=== PATIENT | female | born 1940 | race Caucasian/White ===

== ENCOUNTER 2017-03-25 10:20 | Day surgery (SDC) | payer MEDICARE, BC ==
[~2017-03-25] VITALS: Ht 167.6 cm; Wt 66.0 kg
[~2017-03-25 10:20] MED LIST: ALBU2.5V14 NEB; ASPI-482 PO; CALC1TAB75 PO; DICL112S2 TP; ESTR42.53 VG; EZET10TA18 PO; FAMO40TA4 PO; FLUT100D IH; FURO-69 PO; HYDR-971 PO; IBUP-1027 PO; IBUP-1060 PO; IV RINGERS,LACTATED 1000ML 1,000 ML IV SCH; LIDOCAINE 1% 1 ML SYRINGE. ID PRN; LOTE5DRO2 EACHEYE; MOME110A IH; MONT10TA9 PO; NITR100C6 PO; ONDANSETRON PF 4 MG/2 ML VIAL. IV PRN; PANT40TA5 PO; PHEN-444 PO; PROAIR HFA8.5 GM INH; PROCHLORPERAZINE 10 MG/2 ML VIAL. IV PRN; SENN1TAB70 PO; THIA50TA PO; TIOT18CA IH; fentaNYL PF VIAL 100 MCG/2 ML VIAL IV PRN
[2017-03-25] MEDS ORDERED: ALBUTEROL SULFATE 2.5 MG/3 ML NEBU. NEB ONE (11:15)
[2017-03-25] MEDS ORDERED: SCOPOLAMINE 1.5MG PATCH. TD ONE (11:15)
[2017-03-25] MEDS ORDERED: MIDAZOLAM HCL/PF 2 MG/2 ML VIAL. ONE (11:25)
[2017-03-25] MEDS ORDERED: LIDOCAINE 2% 100 MG/5 ML SYRINGE. ONE (11:25)
[2017-03-25] MEDS ORDERED: ROPIVacaine 0.5% PF 30 ML VIAL. ONE (11:25)
[2017-03-25] MEDS ORDERED: fentaNYL PF VIAL 100 MCG/2 ML VIAL ONE (11:59)
[2017-03-25] MEDS ORDERED: LIDOCAINE 2% PF Vial for OR 5 ML VIAL. ONE (12:00)
[2017-03-25] MEDS ORDERED: ONDANSETRON PF 4 MG/2 ML VIAL. ONE (12:00)
[2017-03-25] MEDS ORDERED: PROPOFOL 20 ML IV ONE (12:00)
[2017-03-25] MEDS ORDERED: FAMOTIDINE 20 MG/2 ML VIAL ONE (12:00)
[2017-03-25] MEDS ORDERED: EPINEPHrine VIAL 30 MG/30 ML VIAL ONE (12:03)
[2017-03-25] MEDS ORDERED: diphenhydrAMINE 50 MG/ML VIAL ONE (12:49)
[2017-03-25] MEDS ORDERED: ePHEDrine PF IN SALINE 50 MG/5 ML DISP.SYRIN IV ONE (13:23)
[2017-03-25] MEDS ORDERED: GLYCOPYRROLATE 1 MG/5 ML VIAL. ONE (13:46)
[2017-03-25] MEDS ORDERED: NEOSTIGMINE METHYLSULFATE 5 MG/5 ML SYRINGE. ONE (13:46)
[2017-03-25] MEDS ORDERED: SEVOFLURANE > 120 MINUTES. IH ONE (14:17)
--- NOTE | 2017-03-25 15:00 | DISCH ---
DISCHARGE INSTRUCTIONS Condition on Discharge Condition on Discharge: Stable Activity After Discharge Activity Instructions for Disc: Other, see below Other activity instructions: gentle passive range of motion of right shoulder only Exercise Instruction after Dis: Exercise per therapy Diet after Discharge Diet after Discharge: Regular Wound Incision Care Wound/Incision Care: Ice to area for comfort, Change dressing Other wound/incision instructi: remove dressing in 2 days then may shower Community/Resources/Services Services at Discharge: PT EVALUATE & TREAT (passive range of motion right shoulder only 5 weeks postop) Follow-Up Follow up with: Zack 10 days ALESSANDRA LIZARRAGA MD Mar 25, 2017 15:00
[2017-03-25] MEDS ORDERED: HYDR-965 PO (15:01)
[2017-03-25] MEDS ORDERED: HYDROcodone/APAP 7.5/325MG 1 TAB TABLET PO ONE (15:30)
--- NOTE | 2017-03-25 16:27 | PDOC4 ---
Operative Note Operative Note Date of surgery: 03/25/2017 Preoperative diagnosis: Rotator cuff tear, biceps fraying, subacromial impingement, acromioclavicular joint pain Postoperative diagnosis: Same with full-thickness supraspinatus tear, biceps fraying and superior labral severe degeneration, large subacromial spur and severe acromioclavicular joint degenerative joint disease Procedure: Right shoulder arthroscopy arthroscopic rotator cuff repair decompression distal clavicle excision and biceps tenodesis Surgeon: Zack Anesthesia: Gen. endotracheal plus scalene block Estimated blood loss: Less than 20 mL Complications: None Operative indications: Patient is a very active 76-year-old female with right dominant arm weakness and pain since an injury. She has been unimproved over this timeframe has not responded to symptomatic treatment injections or exercises. MRI had confirmed clinical suspicion of a rotator cuff tear which was noticed to be full-thickness supraspinatus and significant superior labral abnormalities. I have talked to her therefore about the possibility of surgical treatment and rotator cuff repair along with any other related procedures indicated including possibility of a biceps tenodesis removal of bone spurs as needed. We talked about the long recovery process expected and the risks of surgery including possible infection nerve or blood vessel damage medical or other anesthetic complications nonhealing continued pain among others all her questions were answered consent was obtained and she agrees to proceed with surgical evaluation and treatment Operative text: Patient was identified procedure verified. After adequate amounts of general endotracheal anesthesia plus a pre-existing scalene block were obtained, patient was placed decubitus right side up on the beanbag all bony prominences were well-padded shoulder was examined under anesthesia found to have full range of motion no instability and was prepped and draped in standard sterile fashion after timeout was performed patient procedure identified and verified shoulder was placed in 10 pounds of traction using the arthroscopic traction device and a standard posterior portal was established an anterior portal established using spinal needle localization and the shoulder joint was systematically examined she was noted to have significant superior labral degeneration and instability as well as significant biceps tendon fraying I elected to perform a bicipital tenodesis tagging the biceps tendon and debriding this superior labrum back to stable tissue she was noted have a full-thickness tear of the supraspinatus as well normal bare area of the humerus and capsule ligament structures mild degenerative changes present at the glenohumeral joint. Subacromial space was then entered bursectomy was performed to allow visualization large anterior acromial spur was noted and was converted to a type I acromion using cutting block technique with an arthroscopic bur likewise distal clavicle and the acromioclavicular joint were noted to be severely degenerative and distal clavicle was excised 10 mm to achieve a satisfactory joint space preserving the overlying joint capsule for stability bony fragments were removed with the arthroscopic shaver and the supraspinatus footprint was debrided back to stable bleeding bone but not decorticated. 2 [employer] coil anchors were then placed along the medial row sutures were placed in a mattress fashion and tied with sliding locking knots backed up by alternating post-half hitches and lateral fixation as well as the bicipital tenodesis was incorporated in lateral row repair fixated by multi fix anchors 2 excellent fixation was obtained throughout and the rotator cuff footprint was noted to have a watertight repair examined under all degrees of internal/external rotation shoulder joint was drained of arthroscopic fluid portals closed with nylon suture sterile dressings were applied she is placed in an immobilizer extubated transferred to postop holding in stable condition having tolerated procedure well ALESSANDRA LIZARRAGA MD Mar 25, 2017 16:24
[2017-03-25 16:30] VITALS: BP 138/78
== END 2017-03-25 17:12 | disposition home or self-care (01) ==
LOC: SURG 10:20
PROVIDERS: ATTEND Orthopaedic Surgery
DX: S46.011A Strain of muscle(s) and tendon(s) of the rotator cuff of right shoulder, initial encounter (principal); X58.XXXA Exposure to other specified factors, initial encounter; Y93.89 Activity, other specified; Y92.89 Other specified places as the place of occurrence of the external cause; Y99.8 Other external cause status; M19.011 Primary osteoarthritis, right shoulder; M25.811 Other specified joint disorders, right shoulder; E78.00 Pure hypercholesterolemia, unspecified; J45.909 Unspecified asthma, uncomplicated; E66.9 Obesity, unspecified; Z90.49 Acquired absence of other specified parts of digestive tract; Z68.45 Body mass index [BMI] 70 or greater, adult; Z87.39 Personal history of other diseases of the musculoskeletal system and connective tissue; Z88.6 Allergy status to analgesic agent; Z98.42 Cataract extraction status, left eye; Z98.41 Cataract extraction status, right eye; Z86.69 Personal history of other diseases of the nervous system and sense organs; Z88.2 Allergy status to sulfonamides; Z88.8 Allergy status to other drugs, medicaments and biological substances
CPT/HCPCS: 29822; 29824; 29826; 29827; 29828; 94640; C1713; J0171; J0690; J1200; J2250; J2405; J2704; J2710; J2795; J3010; J3490; J7613; S0028; J2001

== ENCOUNTER 2017-05-23 06:08 | Outpatient (CLI) | payer MEDICARE, BC ==
[2017-05-23] VITALS (8 sets, daily range): BP systolic 118–169; BP diastolic 54–80
[~2017-05-23] VITALS: Ht 167.6 cm; Wt 86.2 kg
[~2017-05-23 06:08] MED LIST changes: +HYDR-965 PO; -IV RINGERS,LACTATED 1000ML 1,000 ML IV SCH; -LIDOCAINE 1% 1 ML SYRINGE. ID PRN; -ONDANSETRON PF 4 MG/2 ML VIAL. IV PRN; -PROCHLORPERAZINE 10 MG/2 ML VIAL. IV PRN; -fentaNYL PF VIAL 100 MCG/2 ML VIAL IV PRN
[2017-05-23 07:05] LABS: HEMATOCRIT 39.5 % (36.0-47.0); HEMOGLOBIN 12.8 g/dL (12.0-15.5); RED BLOOD COUNT 4.51 x10^6/uL (3.50-5.40); WHITE BLOOD COUNT 5.1 x10^3/uL (4.0-11.0)
[2017-05-23] MEDS ORDERED: LIDOCAINE 2% 20 ML VIAL. ONE (07:10)
[2017-05-23 07:17] LABS: PROTHROMBIN TIME PATIENT 12.8 SEC (11.7-14.0)
[2017-05-23 07:20] LABS: CALCIUM 9.6 mg/dL (8.5-10.1); GFR 53.9; POTASSIUM 4.5 mmol/L (3.5-5.1)
[2017-05-23] MEDS ORDERED: IOHEXOL 300 MG/ML 100ML VIAL. ONE (07:28)
[2017-05-23] MEDS ORDERED: HEPARIN for IV BOLUS 10,000 UNIT/10 ML VIAL. ONE (08:19)
[2017-05-23] MEDS ORDERED: fentaNYL PF VIAL 100 MCG/2 ML VIAL ONE (08:19)
[2017-05-23] MEDS ORDERED: MIDAZOLAM HCL/PF 2 MG/2 ML VIAL. ONE (08:19)
[2017-05-23] MEDS ORDERED: NITROGLYCERIN 200 MCG/2 ML SYRINGE FOR CATH/VASC LAB. ONE (08:20)
[2017-05-23] MEDS ORDERED: VERAPAMIL 5 MG/2 ML VIAL. ONE (08:20)
[2017-05-23] MEDS ORDERED: MIDAZOLAM HCL/PF 2 MG/2 ML VIAL. IV ONE ×2 (08:45→10:00)
[2017-05-23] MEDS ORDERED: NITROGLYCERIN 200 MCG/2 ML SYRINGE FOR CATH/VASC LAB. IART ONE ×2 (08:45→10:00)
[2017-05-23] MEDS ORDERED: VERAPAMIL 5 MG/2 ML VIAL. IART ONE ×2 (08:45→10:00)
[2017-05-23] MEDS ORDERED: IOHEXOL 300 MG/ML 100ML VIAL. IART ONE ×2 (08:45→10:00)
[2017-05-23] MEDS ORDERED: LIDOCAINE 2% 20 ML VIAL. IJ ONE ×2 (08:45→10:00)
[2017-05-23] MEDS ORDERED: fentaNYL PF VIAL 100 MCG/2 ML VIAL IV ONE ×2 (08:45→10:00)
[2017-05-23] MEDS ORDERED: HEPARIN for IV BOLUS 10,000 UNIT/10 ML VIAL. IART ONE ×2 (08:45→10:00)
[2017-05-23] MEDS ORDERED: CONTRAST GIVEN MC PRN (09:00)
--- NOTE | 2017-05-23 09:05 | PDOC ---
MODERATE SEDATION ASSESSMENT RISKS/ALTERNATIVES Risks/Alternatives Risks and alternatives of this type of sedation and procedure discussed with: RISK/ALTERNATIVES: Patient H & P ON CHART H & P H & P on chart and reviewed for co-morbid conditions and appropriate labs. H&P ON CHART: Yes STATUS PREG STATUS ASSESSED: N/A MEDS/ALLERGIES REVIEWED Meds/Allergies Reviewed Medications and Allergies including time and route of recently administered narcotics and sedatives. MEDS/ALLERGIES REVIEWED: Yes ASA RATING ASA RATING: II AIRWAY ASSESSMENT Airway Assessment Airway patency, oral function limitations, presence of caps, crowns, dentures, partials, and ability to extend neck assessed. AIRWAY ASSESSMENT: Yes MALLAMPATI SCORE MALLAMPATI SCORE: II PRE-SEDATION ASSESSMENT PRE-SEDATION ASSESSMENT: Yes ERIN CLARK MD May 23, 2017 09:05
[2017-05-23] MEDS ORDERED: NITROGLYCERIN SUBLINGUAL 0.4 MG BOTTLE OF 25. SL PRN (09:15)
--- NOTE | 2017-05-23 09:17 | CARD ---
APPROVED REPORT Procedure(s) performed: Left heart catheterization, selective coronary angiography and left ventricul ography via left transradial approach Moderate sedation: 35 minutes INDICATION The indication(s) include : Refractory chest pain concerning for unstable angina. PROCEDURE NARRATIVE After explaining the risks, benefits and alternative options, informed consent was obtained from yoav ent. Patient was brought to the cardiac Nurses Director and left wrist was prepped and draped in the usual fashion after confirming a positive modified Jean-Claude's test. Arterial access was obtained in the left radial artery and a 6 Gibraltarian sheath was inserted. 6 Gibraltarian JL4 catheter was used to perform selectiv e angiography of the left coronary artery. After initial attempts to engage the right coronary artery with 5 Gibraltarian JR4, 6 Gibraltarian 3 DRC catheters were unsuccessful, this was successfully engaged with a 6 Gibraltarian AL-1 catheter and selective angiography was performed. 5 Gibraltarian pigtail catheter was used to perform left ventriculography. Patient tolerated the procedure well. Hemostasis was achieved using TR band. There were no immediate complications. The following findings were noted. FINDINGS 1. Hemodynamics: Left ventricular end-diastolic pressure of 10 mmHg. No pullback gradient across th e aortic valve. 2. Left ventriculography: Normal left ventricle systolic function with ejection fraction estimated at 65%. No significant mitral regurgitation seen. 3. Coronary angiography: a. The left main coronary artery arose from the left sinus of Valsalva, gave rise to the left anteri or descending and left circumflex arteries and did not show any significant stenosis. b. The left anterior descending artery showed 30% stenosis involving the midsegment. c. The left circumflex artery did not show any significant stenosis. d. The right coronary artery was a large and dominant vessel arising from the right sinus of Valsalv a that did not show any significant stenosis. Conclusion 1. Nonobstructive coronary artery disease 2. Normal left ventricular systolic function with ejection fraction estimated at 65%. Recommendations Medical Therapy
[2017-05-23] MEDS ORDERED: diphenhydrAMINE 50 MG/ML VIAL IVP ONE (10:00)
[2017-05-23] MEDS ORDERED: methylPREDNISolone SOD SUCC PF 125 MG/2 ML VIAL. IV ONE (10:00)
== END 2017-05-23 12:00 | disposition home or self-care (01) ==
LOC: CCL 06:08
PROVIDERS: ATTEND Internal Medicine Cardiovascular Disease
DX: I25.10 Atherosclerotic heart disease of native coronary artery without angina pectoris (principal); G62.9 Polyneuropathy, unspecified; E78.00 Pure hypercholesterolemia, unspecified; J44.9 Chronic obstructive pulmonary disease, unspecified; E66.9 Obesity, unspecified; K21.9 Gastro-esophageal reflux disease without esophagitis; Z98.890 Other specified postprocedural states; Z98.42 Cataract extraction status, left eye; Z98.41 Cataract extraction status, right eye; Z90.49 Acquired absence of other specified parts of digestive tract
CPT/HCPCS: 36415; 80048; 85027; 85610; 93458; C1769; C1892; J1644; J2250; J3010; J3490; Q9967; 99152; 99153; J2001

== ENCOUNTER → 2017-07-22 | Outpatient (CLI) | payer MEDICARE, BC | END | disposition home or self-care (01) | LOC: PNCL 09:32 | DX: M51.16 Intervertebral disc disorders with radiculopathy, lumbar region (principal); M79.601 Pain in right arm; M25.511 Pain in right shoulder; R20.0 Anesthesia of skin; R53.1 Weakness | CPT/HCPCS: G0463 ==

== ENCOUNTER → 2017-08-19 | Outpatient (CLI) | payer MEDICARE, BC ==
[~2017-08-19] MED LIST changes: -ALBU2.5V14 NEB; -ASPI-482 PO; -CALC1TAB75 PO; -DICL112S2 TP; -ESTR42.53 VG; -EZET10TA18 PO; -FAMO40TA4 PO; -FLUT100D IH; -FURO-69 PO; -HYDR-965 PO; -HYDR-971 PO; -IBUP-1027 PO; -IBUP-1060 PO; +IOHEXOL 180 MG/ML 10 ML VIAL.; -LOTE5DRO2 EACHEYE; -MOME110A IH; -MONT10TA9 PO; -NITR100C6 PO; -PANT40TA5 PO; -PHEN-444 PO; -PROAIR HFA8.5 GM INH; -SENN1TAB70 PO; -THIA50TA PO; -TIOT18CA IH; +methylPREDNISolone ACETATE 40 MG/ML VIAL.; +methylPREDNISolone ACETATE 80 MG/ML VIAL.
== END | disposition home or self-care (01) ==
LOC: PNCL 08:59
DX: M50.123 Cervical disc disorder at C6-C7 level with radiculopathy (principal); M51.16 Intervertebral disc disorders with radiculopathy, lumbar region; M96.1 Postlaminectomy syndrome, not elsewhere classified; E78.00 Pure hypercholesterolemia, unspecified; J45.909 Unspecified asthma, uncomplicated; E66.9 Obesity, unspecified; Z87.39 Personal history of other diseases of the musculoskeletal system and connective tissue; Z98.41 Cataract extraction status, right eye; Z98.42 Cataract extraction status, left eye; Z86.69 Personal history of other diseases of the nervous system and sense organs; Z88.1 Allergy status to other antibiotic agents; Z88.2 Allergy status to sulfonamides; Z88.8 Allergy status to other drugs, medicaments and biological substances
CPT/HCPCS: 62321; J1030; J1040; Q9965

== ENCOUNTER → 2017-09-02 | Outpatient (CLI) | payer MEDICARE, BC | LOC: PNCL 08:41 | DX: M50.10 Cervical disc disorder with radiculopathy, unspecified cervical region (principal); M51.16 Intervertebral disc disorders with radiculopathy, lumbar region; M96.1 Postlaminectomy syndrome, not elsewhere classified; G62.9 Polyneuropathy, unspecified; J45.909 Unspecified asthma, uncomplicated; E66.9 Obesity, unspecified; K21.9 Gastro-esophageal reflux disease without esophagitis; Z88.1 Allergy status to other antibiotic agents; Z88.2 Allergy status to sulfonamides; Z88.6 Allergy status to analgesic agent; Z98.42 Cataract extraction status, left eye; Z98.41 Cataract extraction status, right eye; Z98.890 Other specified postprocedural states; Z88.8 Allergy status to other drugs, medicaments and biological substances | CPT/HCPCS: 62321; J1030; J1040; Q9965 ==

== ENCOUNTER → 2017-09-16 | Outpatient (CLI) | payer MEDICARE, BC ==
[~2017-09-16] MED LIST changes: +BUPIVACAINE MPF 0.5% 30 ML VIAL.; +LIDOCAINE 1% PF 30 ML VIAL.
== END ==
LOC: PNCL 08:34
DX: M51.16 Intervertebral disc disorders with radiculopathy, lumbar region (principal); M50.13 Cervical disc disorder with radiculopathy, cervicothoracic region; G62.89 Other specified polyneuropathies; E78.00 Pure hypercholesterolemia, unspecified; J45.909 Unspecified asthma, uncomplicated; E66.9 Obesity, unspecified; K21.9 Gastro-esophageal reflux disease without esophagitis; Z90.49 Acquired absence of other specified parts of digestive tract; Z88.2 Allergy status to sulfonamides; Z88.1 Allergy status to other antibiotic agents; Z88.5 Allergy status to narcotic agent; Z88.8 Allergy status to other drugs, medicaments and biological substances; Z98.890 Other specified postprocedural states
CPT/HCPCS: 62323; J1030; J1040; J3490; Q9965

== ENCOUNTER → 2018-08-25 | Outpatient (CLI) | payer MEDICARE, BC ==
[2017-05-23 10:56] VITALS: BP 142/69
[~2018-08-25] MED LIST changes: +ALBU2.5V14 NEB; +ALBU2.5V8 INH; +ASPI-482 PO; -BUPIVACAINE MPF 0.5% 30 ML VIAL.; +CALC1TAB75 PO; +DICL112S2 TP; +ESTR42.53 VG; +EZET10TA18 PO; +FAMO40TA4 PO; +FLUT100D IH; +FURO-69 PO; +GABA300C18 PO; +HYDR-3164 PO; +HYDR-3165 PO; +IBUP-1027 PO; +IBUP-1060 PO; -IOHEXOL 180 MG/ML 10 ML VIAL.; -LIDOCAINE 1% PF 30 ML VIAL.; +LOTE5DRO2 EACHEYE; +MOME110A IH; +MONT10TA9 PO; +NITR100C6 PO; +PANT40TA5 PO; +PHEN-444 PO; +SENN1TAB70 PO; +THIA50TA4 PO; +TIOT18CA IH; -methylPREDNISolone ACETATE 40 MG/ML VIAL.; -methylPREDNISolone ACETATE 80 MG/ML VIAL.
--- NOTE | 2018-08-25 16:16 | KCIC ---
MRI of the cervical spine without contrast 08/25/2018 CLINICAL HISTORY: Neck pain which radiates down the left arm for 3 weeks. TECHNIQUE: Unenhanced T1-weighted, T2-weighted and inversion recovery sagittal and gradient echo and T2-weighted axial images of the cervical spine were obtained. FINDINGS: Very mild lateral curvature of the cervical spine is seen convex to the right. There is straightening of the normal cervical lordosis. Degenerative signal changes and loss of height are seen involving all of the disks of the cervical spine. Degenerative signal changes are seen within the marrow surrounding these discs. No area of abnormal signal intensity is seen involving the cervical spinal cord. At the C2-3, C3-4 and C4-5 disc spaces there are minimal to mild generalized disc bulges. Degenerative changes are seen involving the uncovertebral and facet joints bilaterally. These findings do not result in significant central spinal canal or neural foraminal stenosis. At the C5-6 disc space there is a mild generalized disc bulge. Degenerative changes are seen involving the uncovertebral and facet joints bilaterally. These findings do not result in significant central spinal canal stenosis. Mild bilateral neural foraminal stenosis is seen. At the C6-7 disc space there is a mild generalized disc bulge. Degenerative changes are seen involving the uncovertebral and facet joints bilaterally. These findings do not result in significant central spinal canal or neural foraminal stenosis. At the C7-T1 disc space there is a mild generalized disc bulge. Degenerative changes are seen involving the uncovertebral and facet joints bilaterally. These findings do not result in significant central spinal canal or neural foraminal stenosis. IMPRESSION: Degenerative changes are seen throughout the cervical spine. These findings do not result in significant central spinal canal stenosis at any level. Mild bilateral neural foraminal stenosis is seen at C5-6. Electronically signed by: Nael Mathur MD (08/25/2018 4:13 PM) [facility]-KCIC1
== END | disposition home or self-care (01) ==
LOC: KCIC MRI 11:54
DX: M47.892 Other spondylosis, cervical region (principal); M48.02 Spinal stenosis, cervical region
CPT/HCPCS: 72141

== ENCOUNTER → 2021-08-17 | Outpatient (CLI) | payer MEDICARE, BC ==
[2020-12-21 10:46] VITALS: BP 138/66
[~2021-08-17] MED LIST changes: +BISA10SU4 PR; +CALC-627 PO; -CALC1TAB75 PO; +CETI10TA16 PO; +DOCU-148 PO; -EZET10TA18 PO; +EZET10TA20 PO; -FLUT100D IH; +FLUT100D2 IH; +HYDR-2765 PO; +MONT10TA49 PO; -MONT10TA9 PO; -PANT40TA5 PO; +PANT40TA77 PO; +Warfarin Per Pharmacy MC
--- NOTE | 2021-08-17 11:38 | KCIC ---
EXAM: Brain MRI without contrast. HISTORY: Cognitive impairment. Memory loss. TECHNIQUE: Multiplanar, multisequence magnetic resonance imaging of the brain was performed without c ontrast. COMPARISON: Head CT dated 09/30/2020. FINDINGS: There is no restricted diffusion to suggest acute or subacute infarction. There is no susce ptibility effect to suggest hemorrhage. There is no mass effect or midline shift. There is no hydroce phalus. There are scattered areas of signal change throughout the cerebral white matter and parul, likely due to chronic small vessel disease. There is cerebral volume loss. There is evidence of lens surgery. There is mild paranasal sinus because of thickening. There is mini mal mastoid fluid. There are normal flow voids within the cerebral vessels. There is no suspicious ca lvarial lesion. IMPRESSION: 1. No acute intracranial finding. 2. Scattered areas of signal change within the cerebral white matter and parul, most commonly due to c hronic small vessel disease in patients of this age. Electronically signed by: Micki Oviedo MD (08/17/2021 11:36 AM) [id number]
== END ==
LOC: KCIC MRI 09:43
PROVIDERS: ATTEND Nurse Practitioner Family
DX: I73.9 Peripheral vascular disease, unspecified (principal); G31.84 Mild cognitive impairment of uncertain or unknown etiology; J34.89 Other specified disorders of nose and nasal sinuses
CPT/HCPCS: 70551

== ENCOUNTER 2021-09-29 08:45 | Inpatient (IN) | payer MEDICARE, BC ==
[~2021-09-29] VITALS: Ht 167.6 cm; Wt 99.8 kg
--- NOTE | 2021-09-29 10:14 | ED.ADGEN ---
Past Medical History Past Medical History: Asthma, GERD, High Cholesterol Additional Past Medical Histor: Miscariage,Measles Past Surgical History: Cholecystectomy, Hip Replacement, Tonsillectomy, Other Additional Past Surgical Histo: Miscarriage,Bladder lift,Cataracts,L)knee., right hip, spine sx/hardware Smoking Status: Never Smoker Alcohol Use: None Drug Use: None General Adult EDM: Chief Complaint: SHORTNESS OF BREATH HPI: HPI: Patient is a 81 year old female coming in via EMS from home for right-sided chest pain, worsening chronic cough or shortness of breath. History mostly provided by daughter due to patient's history of dementia. Daughter states that patient was having "weakness" due to her right-sided chest pain, she is refusing to get up to her walker because it aggravated the pain. Patient has had this chronic cough for approximately 5 years and has had very thorough work-up including lung biopsies and seeing several specialist. She has been taking Tessalon Perles at home. Daughter states the cough is worsening over the past 2 to 3 weeks. Per EMS patient had O2 sat in the 80s on their arrival she was placed on 5 L nasal cannula, patient does not normally require oxygen. Review of Systems: Review of Systems: All other systems within normal limits except for as noted in the HPI Current Medications: Current Medications Medications (Trade) Dose Ordered Sig/Faviola Start Time Stop Time Status Last Admin Dose Admin Albuterol/ Ipratropium (Duoneb) 3 ml 1X ONCE 09/29/21 10:45 09/29/21 10:46 DC 09/29/21 11:05 3 ML Fentanyl Citrate (Fentanyl 2ml Vial) 25 mcg 1X ONCE 09/29/21 10:45 09/29/21 10:46 DC 09/29/21 11:23 25 MCG Info (CONTRAST GIVEN -- Rx MONITORING) 1 each PRN DAILY PRN 09/29/21 11:30 10/01/21 11:29 Iohexol (Omnipaque 300 Mg/ml) 90 ml 1X ONCE 09/29/21 11:30 09/29/21 11:31 DC Iohexol (Omnipaque 350 Mg/ml) 90 ml 1X ONCE 09/29/21 12:00 09/29/21 12:01 DC 09/29/21 11:54 90 ML Allergies: Allergies: Allergies Coded Allergies Type Severity Reaction Last Updated Verified Sulfa (Sulfonamide Antibiotics) Allergy Intermediate Hives 03/25/17 Yes ciprofloxacin Allergy Intermediate Unknown 03/25/17 Yes fluvastatin Allergy Intermediate Hives 03/25/17 Yes simvastatin Allergy Intermediate Unknown 03/25/17 Yes codeine Adverse Reaction Intermediate Nausea and Vomiting 12/18/20 Yes oxycodone Adverse Reaction Mild Nausea and Vomiting 12/21/20 Yes pregabalin Adverse Reaction Unknown 09/29/21 Yes tramadol Adverse Reaction Unknown disoriented 09/29/21 Yes Physical Exam: PE: Constitutional: Well developed, well nourished, no acute distress, non-toxic appearance. [] HENT: Normocephalic, atraumatic, bilateral external ears normal, nose normal. [] Eyes: PERRLA, conjunctiva normal, no discharge. [] Neck: No rigidity, supple, no stridor. [] Cardiovascular: Regular rate and rhythm, brisk cap refill [] Lungs & Thorax: Non labored symmetric respirations, no tachypnea or respiratory distress [] Abdomen: Soft, nondistended, no tenderness palpation Skin: Warm, dry, no erythema, no rash. [] Back: Unremarkable Extremities: No deformities, range of motion grossly intact, no lower extremity edema [] Neurologic: Alert and oriented X 3, no focal deficits noted. [] Psychologic: Affect normal, judgement normal, mood normal. [] Current Patient Data: Labs: Laboratory Tests Test 09/29/21 09:02 White Blood Count 16.4 x10^3/uL (4.0-11.0) H Red Blood Count 4.20 x10^6/uL (3.50-5.40) Hemoglobin 11.5 g/dL (12.0-15.5) L Hematocrit 36.0 % (36.0-47.0) Mean Corpuscular Volume 86 fL (79-100) Mean Corpuscular Hemoglobin 27 pg (25-35) Mean Corpuscular Hemoglobin Concent 32 g/dL (31-37) Red Cell Distribution Width 13.3 % (11.5-14.5) Platelet Count 591 x10^3/uL (140-400) H Neutrophils (%) (Auto) 90 % (31-73) H Lymphocytes (%) (Auto) 4 % (24-48) L Monocytes (%) (Auto) 4 % (0-9) Eosinophils (%) (Auto) 2 % (0-3) Basophils (%) (Auto) 1 % (0-3) Neutrophils # (Auto) 14.7 x10^3/uL (1.8-7.7) H Lymphocytes # (Auto) 0.6 x10^3/uL (1.0-4.8) L Monocytes # (Auto) 0.6 x10^3/uL (0.0-1.1) Eosinophils # (Auto) 0.3 x10^3/uL (0.0-0.7) Basophils # (Auto) 0.1 x10^3/uL (0.0-0.2) D-Dimer (Laureen) 2.28 ug/mlFEU (0.00-0.50) H Sodium Level 136 mmol/L (136-145) Potassium Level 3.7 mmol/L (3.5-5.1) Chloride Level 100 mmol/L (98-107) Carbon Dioxide Level 28 mmol/L (21-32) Anion Gap 8 (6-14) Blood Urea Nitrogen 11 mg/dL (7-20) Creatinine 1.2 mg/dL (0.6-1.0) H Estimated GFR (Cockcroft-Gault) 43.1 BUN/Creatinine Ratio 9 (6-20) Glucose Level 96 mg/dL (70-99) Calcium Level 9.3 mg/dL (8.5-10.1) Total Bilirubin 0.7 mg/dL (0.2-1.0) Aspartate Amino Transferase (AST) 49 U/L (15-37) H Alanine Aminotransferase (ALT) 53 U/L (14-59) Alkaline Phosphatase 81 U/L (46-116) Troponin I High Sensitivity < 4 ng/L (4-50) L RJ-Jkx-T-Type Natriuretic Peptide 568 pg/mL (0-449) H Total Protein 7.0 g/dL (6.4-8.2) Albumin 2.3 g/dL (3.4-5.0) L Albumin/Globulin Ratio 0.5 (1.0-1.7) L Laboratory Tests 09/29/21 09:02 Laboratory Tests 09/29/21 09:02 Vital Signs: Vital Signs Date Time Temp Pulse Resp B/P (MAP) Pulse Ox O2 Delivery O2 Flow Rate FiO2 09/29/21 12:46 106 31 100/55 (70) 91 Room Air 09/29/21 08:50 97.8 97.8 EKG: EKG: Sinus rhythm, heart rate 100 bpm, left axis deviation, no STEMI [] Heart Score: C/O Chest Pain: Yes HEART Score for Chest Pain: HEART Score for Chest Pain Response (Comments) Value History Slighlty/Non-Suspicious 0 ECG Nonspecific Repolarizatio 1 Age > 65 2 Risk Factors 1 or 2 Risk Factors 1 Troponin < Normal Limit 0 Total 4 Risk Factors: Risk Factors: DM, Current or recent (<one month) smoker, HTN, HLP, family history of CAD, obesity. Risk Scores: Score 0 - 3: 2.5% MACE over next 6 weeks - Discharge Home Score 4 - 6: 20.3% MACE over next 6 weeks - Admit for Clinical Observation Score 7 - 10: 72.7% MACE over next 6 weeks - Early Invasive Strategies Radiology/Procedures: Radiology/Procedures: [facility] [address] [place] [address] IMAGING REPORT Signed PATIENT: IRENE PETTY ACCOUNT: [id number] : 1940 LOCATION: ER AGE: 81 SEX: F EXAM STATUS: REG ER ORD. PHYSICIAN: JESUS MANUEL MD REASON: right chest pain, dyspnea PROCEDURE: CT ANGIOGRAPHY CHEST CTA chest with contrast dated 09/29/2021 COMPARISON: Right-sided chest pain and dyspnea. TECHNIQUE: Contiguous axial imaging the chest was performed following the intravenous administration of 90 cc Omnipaque 350. Study was performed as dedicated PE protocol with thin cut coronal MIPS 3-D reconstruction. One or more of the following individualized dose reduction techniques were utilized for this examination: 1. Automated exposure control 2. Adjustment of the mA and/or kV according to patient size 3. Use of iterative reconstruction technique FINDINGS: Contrast bolus is adequate. No evidence of central, lobar or proximal segmental pulmonary embolus. Distal segmental and subsegmental branches are not well evaluated based on technique. Heart size is upper limits of normal. No pericardial effusion. Thoracic aorta is normal in caliber. No intimal flap or periaortic fluid collection. Full result of consolidation in the right lower lobe with a rounded area of central low density that measures about 4 cm. This shows central Hounsfield value of 35. There is a small to moderate size right pleural effusion. Borderline enlarged lymph nodes at the right hilum and subcarinal region measuring up to 10 mm short axis. Calcified left hilar lymph nodes. No axillary or supraclavicular lymphadenopathy. Thyroid gland is unremarkable. Central airways are patent. Mild emphysema. There is some patchy groundglass opacity in the posterior aspect of the right upper lobe with thickening of the right major fissure. 3 mm noncalcified pulmonary nodule in the left apex on image 24, nonspecific. There are also a couple small subpleural nodules in the left upper lobe on images 49 and 28. No left pleural effusion. Images of the upper abdomen are unremarkable. There is diffuse low-density of the liver suggesting mild fatty infiltration. No apparent bony abnormality. Multilevel spondylosis with mild wedge compression deformity of T8, likely remote. IMPRESSION: 1. No evidence of central, lobar or proximal segmental pulmonary was. The distal segmental and subsegmental branches are not well evaluated due to motion artifact. 2. Consolidation of the right lower lobe with rounded area of central low density that is indeterminate in etiology. This could represent a mass, although pneumonia and/or early abscess is not excluded. There is a small to moderate size right pleural effusion. 3. Mild mediastinal and right hilar lymphadenopathy, likely reactive. 4. Coronary artery calcifications. 5. Mild emphysema. Electronically signed by: Sarwat Ji MD (09/29/2021 12:14 PM) [id number] DICTATED and SIGNED BY: SARWAT JI MD DATE: 09/29/21 1156 [] Course & Med Decision Making: Course & Med Decision Making Pertinent Labs and Imaging studies reviewed. (See chart for details) [] Paulino Disclaimer: Paulino Disclaimer: This electronic medical record was generated, in whole or in part, using a voice recognition dictation system. Departure Departure Impression: Primary Impression: Pneumonia Disposition: ADMITTED INPATIENT Admitting Physician: GRETCHEN Condition: STABLE Referrals: DOUG MIDDLETON (PCP) JESUS MANUEL MD Sep 29, 2021 10:13
[2021-09-29 10:26] LABS: BASO # 0.1 x10^3/uL (0.0-0.2); BASO % 1 % (0-3); EOS # 0.3 x10^3/uL (0.0-0.7); EOS % 2 % (0-3); HEMOGLOBIN 11.5 g/dL (12.0-15.5); LYMPH # 0.6 x10^3/uL (1.0-4.8); LYMPH % 4 % (24-48); MEAN CORPUSCULAR HEMOGLOBIN 27 pg (25-35); MEAN CORPUSCULAR HGB CONC 32 g/dL (31-37); MEAN CORPUSCULAR VOLUME 86 fL (79-100); MONO # 0.6 x10^3/uL (0.0-1.1); MONO % 4 % (0-9); NEUT # 14.7 x10^3/uL (1.8-7.7); NEUT % 90 % (31-73); PLATELET COUNT 591 x10^3/uL (140-400); RED CELL DISTRIBUTION WIDTH 13.3 % (11.5-14.5); WHITE BLOOD COUNT 16.4 x10^3/uL (4.0-11.0)
[2021-09-29 10:37] LABS: CALCIUM 9.3 mg/dL (8.5-10.1); CREATININE 1.2 mg/dL (0.6-1.0); GFR 43.1; POTASSIUM 3.7 mmol/L (3.5-5.1)
[2021-09-29 10:44] LABS: ALBUMIN 2.3 g/dL (3.4-5.0); ALBUMIN/GLOBULIN RATIO 0.5 (1.0-1.7); TOTAL BILIRUBIN 0.7 mg/dL (0.2-1.0)
[2021-09-29] MEDS ORDERED: fentaNYL PF VIAL 100 MCG/2 ML VIAL IVP ONE (10:45)
[2021-09-29] MEDS ORDERED: IPRATRPIUM/ALBUTEROL 0.5/2.5MG 3 ML NEBU. NEB ONE (10:45)
[2021-09-29] MEDS ORDERED: IOHEXOL 300 MG/ML 100ML VIAL. IV ONE (11:30)
[2021-09-29] MEDS ORDERED: CONTRAST GIVEN. MC PRN (11:30)
[2021-09-29] MEDS ORDERED: IOHEXOL 350 MG/ML 100 ML VIAL. IV ONE (12:00)
--- NOTE | 2021-09-29 12:16 | RAD ---
CTA chest with contrast dated 09/29/2021 COMPARISON: Right-sided chest pain and dyspnea. TECHNIQUE: Contiguous axial imaging the chest was performed following the intravenous administration of 90 cc Om nipaque 350. Study was performed as dedicated PE protocol with thin cut coronal MIPS 3-D reconstructi on. One or more of the following individualized dose reduction techniques were utilized for this examinat ion: 1. Automated exposure control 2. Adjustment of the mA and/or kV according to patient size 3. Use of iterative reconstruction technique FINDINGS: Contrast bolus is adequate. No evidence of central, lobar or proximal segmental pulmonary embolus. Di stal segmental and subsegmental branches are not well evaluated based on technique. Heart size is upper limits of normal. No pericardial effusion. Thoracic aorta is normal in caliber. N o intimal flap or periaortic fluid collection. Full result of consolidation in the right lower lobe with a rounded area of central low density that measures about 4 cm. This shows central Hounsfield value of 35. There is a small to moderate size rig ht pleural effusion. Borderline enlarged lymph nodes at the right hilum and subcarinal region measuri ng up to 10 mm short axis. Calcified left hilar lymph nodes. No axillary or supraclavicular lymphaden opathy. Thyroid gland is unremarkable. Central airways are patent. Mild emphysema. There is some patchy groundglass opacity in the posterior aspect of the right upper lobe with thickening of the right major fissure. 3 mm noncalcified pulmona ry nodule in the left apex on image 24, nonspecific. There are also a couple small subpleural nodules in the left upper lobe on images 49 and 28. No left pleural effusion. Images of the upper abdomen are unremarkable. There is diffuse low-density of the liver suggesting mi ld fatty infiltration. No apparent bony abnormality. Multilevel spondylosis with mild wedge compressi on deformity of T8, likely remote. IMPRESSION: 1. No evidence of central, lobar or proximal segmental pulmonary was. The distal segmental and subseg mental branches are not well evaluated due to motion artifact. 2. Consolidation of the right lower lobe with rounded area of central low density that is indetermina te in etiology. This could represent a mass, although pneumonia and/or early abscess is not excluded. There is a small to moderate size right pleural effusion. 3. Mild mediastinal and right hilar lymphadenopathy, likely reactive. 4. Coronary artery calcifications. 5. Mild emphysema. Electronically signed by: Sarwat Ji MD (09/29/2021 12:14 PM) [id number]
--- NOTE | 2021-09-29 13:11 | PDOC1 ---
History and Physical Date of Admission Date of Admission DATE: 09/29/21 TIME: 13:11 Identification/Chief Complaint Chief Complaint Cough, weakness Source Source: Caregiver, Chart review, Patient History of Present Illness History of Present Illness Ms Jama is an 81yo female with PMHx asthma, HLD, peripheral neuropathy, GERD, obesity, and newly diagnosed dementia who comes to ED via [facility] complaining of progressive shortness of breath which has begun to worsen over the past 2 weeks. Over the past 2 days she has now had productive sputum that is yellow yellowish-brown with green. She has also been more weak over the past few days and her daughter notes she was having difficulty helping her walk and needed to keep 100% assist. Patient noted she was having trouble walking because of some right-sided chest pain. They contacted EMS. Upon EMS evalu ation patient was noted to have O2 saturations in the low 80s and was placed on 5 L nasal cannula and arrived to the ED with this. No recent travel or sick contacts. She is fully vaccinated boosted against COVID-19 and influenza as well as pneumonia with Pneumovax and Prevnar She does have a chronic cough that lasted 10 years and has had significant work- up bronchoscopy with biopsies previously with Dr. Smart at [facility] 4 years ago. She was then referred to ENT sees Dr. Bernardo and has been on Flonase and azelastine. She did enter referral to Dr. Correia for asthma and allergies and has been Flovent albuterol montelukast nightly famotidine Tessalon. Since a hip fracture in December 2020 she has been struggling more with memory and is being treated for dementia at this time by Dr. Sánchez. She does note that she frequently hallucinates that her mom and dad are alive and they are helping take care of her at home, this is very concerning to her daughter and who are both bedside. He also notes she is struggled with bilateral knee pain and 1 month ago had bilateral corticosteroid injections and had relief for about 2 weeks but had to return for Synvisc injections bilaterally last week. She still having some posterior medial left knee pain currently. WBC 16.4, Hb 11.5, platelets 591, D-dimer 2.28, NA 136, K3.7, BUN 11, CR 1.2, calcium 9.3, bilirubin 0.7 AST 49, ALT 53, alkaline phosphatase 81, albumin 2.3, NT proBNP is 568, high-sensitivity troponin is less than 4 Past Medical History Cardiovascular: Hyperlipidemia Pulmonary: Asthma, Bronchitis CENTRAL NERVOUS SYSTEM: Dementia, Periperal neuropathy GI: GERD Past Surgical History Past Surgical History: Cholecystectomy, Total hip replacement (Right), Hysterectomy, Other Family History Family History: High Cholestrol, Hypertension Social History Smoke: No ALCOHOL: none Drugs: None Current Medications Current Medications Current Medications Albuterol/ Ipratropium (Duoneb) 3 ml 1X ONCE NEB Last administered on 09/29/21at 11:05; Start 09/29/21 at 10:45; Stop 09/29/21 at 10:46; Status DC Fentanyl Citrate (Fentanyl 2ml Vial) 25 mcg 1X ONCE IVP Last administered on 09/29/21at 11:23; Start 09/29/21 at 10:45; Stop 09/29/21 at 10:46; Status DC Iohexol (Omnipaque 300 Mg/ml) 90 ml 1X ONCE IV ; Start 09/29/21 at 11:30; Stop 09/29/21 at 11:31; Status DC Info (CONTRAST GIVEN -- Rx MONITORING) 1 each PRN DAILY PRN MC SEE COMMENTS; Start 09/29/21 at 11:30; Stop 10/01/21 at 11:29 Iohexol (Omnipaque 350 Mg/ml) 90 ml 1X ONCE IV Last administered on 09/29/21at 11:54; Start 09/29/21 at 12:00; Stop 09/29/21 at 12:01; Status DC Active Scripts Active Dok (Docusate Sodium) 100 Mg Capsule 100 Mg PO BID 30 Days Bisacodyl 10 Mg Supp.rect 10 Mg LA PRN DAILY PRN 10 Days Hydrocodone-Apap 7.5-325 (Hydrocodone Bit/Acetaminophen) 1 Tab Tablet 1 Tab PO PRN Q4HRS PRN 10 Days [Warfarin Per Pharmacy] 1 EACH Each 1 Each MC PRN DAILY PRN 14 Days Cetirizine Hcl 10 Mg Tablet 10 Mg PO DAILY 30 Days Reported Gabapentin (Gabapentin) 300 Mg Capsule 300 Mg PO HS Spiriva (Tiotropium Frederic) 18 Mcg Cap.w.dev 1 Cap IH DAILY Flovent 100MCG Diskus (Fluticasone Propionate) 100 Mcg Disk.w.dev 1 Puff IH BID Vitamin B-1 (Thiamine Hcl) 50 Mg Tablet 50 Mg PO DAILY Calcium 600 + Vit D 200 Tablet (Calcium Carbonate/Vitamin D3) 1 Each Tablet 1 Each PO TID Albuterol Sulfate Conc Neb Soln (Albuterol Sulfate) 2.5 Mg/0.5 Ml Vial.neb 1 Vial NEB BID Lotemax (Loteprednol Etabonate) 5 Ml Drops.susp 1 Drop EACHEYE QID Aspir 81 (Aspirin) 81 Mg Tablet.dr 1 Tab PO DAILY Proair Hfa Inhaler (Albuterol Sulfate) 8.5 Gm Hfa.aer.ad 1 Puff INH PRN Q6HRS PRN Montelukast Sodium Tablet (Montelukast Sodium) 10 Mg Tablet 1 Tab PO DAILY Famotidine 40 Mg Tablet 40 Mg PO HS Pantoprazole Sodium (Pantoprazole Sodium) 40 Mg Tablet.dr 1 Tab PO DAILY07 Zetia (Ezetimibe) 10 Mg Tablet 1 Tab PO DAILY Allergies Allergies: Coded Allergies: Sulfa (Sulfonamide Antibiotics) (Verified Allergy, Intermediate, Hives, 03/25/17) ciprofloxacin (Verified Allergy, Intermediate, Unknown, 03/25/17) fluvastatin (Verified Allergy, Intermediate, Hives, 03/25/17) simvastatin (Verified Allergy, Intermediate, Unknown, 03/25/17) codeine (Verified Adverse Reaction, Intermediate, Nausea and Vomiting, 12/18/20) oxycodone (Verified Adverse Reaction, Mild, Nausea and Vomiting, 12/21/20) pregabalin (Verified Adverse Reaction, Unknown, 09/29/21) tramadol (Verified Adverse Reaction, Unknown, disoriented, 09/29/21) ROS General: YES: Fatigue, Malaise; No: Chills, Night Sweats, Appetite, Other PSYCHOLOGICAL ROS: YES: Concentration difficultie, Disorientation, Hallucinations, Memory difficulties; No: Anxiety, Behavioral Disorder, Decreased libido, Depression, Hostility, Irritablity, Mood Swings, Obsessive thoughts, Physical abuse, Sexual abuse, Sleep disturbances, Suicidal ideation, Other Eyes: No Blurry vision, No Decreased vision, No Double vision, No Dry eyes, No Excessive tearing, No Eye Pain, No Itchy Eyes, No Loss of vision, No Photophobia, No Scotomata, No Uses contacts, No Uses glasses, No Other HEENT: No: Heacaches, Visual Changes, Hearing change, Nasal congestion, Nasal discharge, Oral lesions, Sinus pain, Sore Throat, Epistaxis, Sneezing, Snoring, Tinnitus, Vertigo, Vocal changes, Other ALLERGY AND IMMUNOLOGY: No: Hives, Insect Bite Sensitivity, Itchy/Watery Eyes, Nasal Congestion, Post Nasal Drip, Seasonal Allergies, Other Hematological and Lymphatic: No: Bleeding Problems, Blood Clots, Blood Transfusions, Brusing, Night Sweats, Pallor, Swollen Lymph Nodes, Other ENDOCRINE: No: Breast Changes, Galactorrhea, Hair Pattern Changes, Hot Flashes, Malaise/lethargy, Mood Swings, Palpitations, Polydipsia/polyuria, Skin Changes, Temperature Intolerance, Unexpected Weight Changes, Other Breast: No New/Changing Breast Lumps, No Nipple changes, No Nipple discharge, No Other Respiratory: YES: Cough, Shortness of breath, SOB with excertion; No: Hemoptysis, Orthopnea, Pleuritic Pain, Sputum Changes, Stridor, Tachypnea, Wheezing, Other Cardiovascular: yes Chest Pain; No Palpitations, No Orthopnea, No Paroxysmal Noc. Dyspnea, No Edema, No Lt Headedness, No Other Gastrointestinal: No Nausea, No Vomiting, No Abdominal Pain, No Diarrhea, No Constipation, No Melena, No Hematochezia, No Other Genitourinary: No Dysuria, No Frequency, No Incontinence, No Hematuria, No Retention, No Discharge, No Urgency, No Pain, No Flank Pain, No Other, No , No , No , No , No , No , No Musculoskeletal: Yes Gait Disturbance; No Joint Pain, No Joint Stiffness, No Joint Swelling, No Muscle Pain, No Muscular Weakness, No Pain In:, No Swelling In:, No Other Neurological: No Behavorial Changes, No Bowel/Bladder ControlChng, No Confusion, No Dizziness, No Gait Disturbance, No Headaches, No Impaired Coord/balance, No Memory Loss, No Numbness/Tingling, No Seizures, No Speech Problems, No Tremors, No Visual Changes, No Weakness, No Other Skin: No Dry Skin, No Eczema, No Hair Changes, No Lumps, No Mole Changes, No Mottling, No Nail Changes, No Pruritus, No Rash, No Skin Lesion Changes, No Other, No Acne Physical Exam General: Alert, Oriented X3, Cooperative, mild distress HEENT: Atraumatic, PERRLA, EOMI, Mucous membr. moist/pink Lungs: Other (Right basilar decreased sounds and rhonchi, scatted bilateral faint wheezing) Heart: S1S2, RRR, no thrills, no rubs, no gallops, no murmurs Rectal Exam: not examined Extremities: No clubbing, No cyanosis, No edema, Normal pulses, No tenderness/swelling Skin: No rashes, No breakdown, No significant lesion Neuro: Normal speech, Strength at 5/5 X4 ext, Normal tone, Sensation intact, Cranial nerves 3-12 NL, Reflexes 2+ Psych/Mental Status: Mood NL, Other (Confused) Vitals Vitals Vital Signs Date Time Temp Pulse Resp B/P (MAP) Pulse Ox O2 Delivery O2 Flow Rate FiO2 09/29/21 12:01 104 30 125/56 (79) 92 Room Air 09/29/21 08:50 97.8 97.8 Labs Labs Laboratory Tests Test 09/29/21 09:02 White Blood Count 16.4 x10^3/uL (4.0-11.0) Red Blood Count 4.20 x10^6/uL (3.50-5.40) Hemoglobin 11.5 g/dL (12.0-15.5) Hematocrit 36.0 % (36.0-47.0) Mean Corpuscular Volume 86 fL (79-100) Mean Corpuscular Hemoglobin 27 pg (25-35) Mean Corpuscular Hemoglobin Concent 32 g/dL (31-37) Red Cell Distribution Width 13.3 % (11.5-14.5) Platelet Count 591 x10^3/uL (140-400) Neutrophils (%) (Auto) 90 % (31-73) Lymphocytes (%) (Auto) 4 % (24-48) Monocytes (%) (Auto) 4 % (0-9) Eosinophils (%) (Auto) 2 % (0-3) Basophils (%) (Auto) 1 % (0-3) Neutrophils # (Auto) 14.7 x10^3/uL (1.8-7.7) Lymphocytes # (Auto) 0.6 x10^3/uL (1.0-4.8) Monocytes # (Auto) 0.6 x10^3/uL (0.0-1.1) Eosinophils # (Auto) 0.3 x10^3/uL (0.0-0.7) Basophils # (Auto) 0.1 x10^3/uL (0.0-0.2) D-Dimer (Laureen) 2.28 ug/mlFEU (0.00-0.50) Sodium Level 136 mmol/L (136-145) Potassium Level 3.7 mmol/L (3.5-5.1) Chloride Level 100 mmol/L (98-107) Carbon Dioxide Level 28 mmol/L (21-32) Anion Gap 8 (6-14) Blood Urea Nitrogen 11 mg/dL (7-20) Creatinine 1.2 mg/dL (0.6-1.0) Estimated GFR (Cockcroft-Gault) 43.1 BUN/Creatinine Ratio 9 (6-20) Glucose Level 96 mg/dL (70-99) Calcium Level 9.3 mg/dL (8.5-10.1) Total Bilirubin 0.7 mg/dL (0.2-1.0) Aspartate Amino Transf (AST/SGOT) 49 U/L (15-37) Alanine Aminotransferase (ALT/SGPT) 53 U/L (14-59) Alkaline Phosphatase 81 U/L (46-116) Troponin I High Sensitivity < 4 ng/L (4-50) YB-Aon-X-Type Natriuretic Peptide 568 pg/mL (0-449) Total Protein 7.0 g/dL (6.4-8.2) Albumin 2.3 g/dL (3.4-5.0) Albumin/Globulin Ratio 0.5 (1.0-1.7) Laboratory Tests Test 09/29/21 09:02 White Blood Count 16.4 x10^3/uL (4.0-11.0) Red Blood Count 4.20 x10^6/uL (3.50-5.40) Hemoglobin 11.5 g/dL (12.0-15.5) Hematocrit 36.0 % (36.0-47.0) Mean Corpuscular Volume 86 fL (79-100) Mean Corpuscular Hemoglobin 27 pg (25-35) Mean Corpuscular Hemoglobin Concent 32 g/dL (31-37) Red Cell Distribution Width 13.3 % (11.5-14.5) Platelet Count 591 x10^3/uL (140-400) Neutrophils (%) (Auto) 90 % (31-73) Lymphocytes (%) (Auto) 4 % (24-48) Monocytes (%) (Auto) 4 % (0-9) Eosinophils (%) (Auto) 2 % (0-3) Basophils (%) (Auto) 1 % (0-3) Neutrophils # (Auto) 14.7 x10^3/uL (1.8-7.7) Lymphocytes # (Auto) 0.6 x10^3/uL (1.0-4.8) Monocytes # (Auto) 0.6 x10^3/uL (0.0-1.1) Eosinophils # (Auto) 0.3 x10^3/uL (0.0-0.7) Basophils # (Auto) 0.1 x10^3/uL (0.0-0.2) D-Dimer (Laureen) 2.28 ug/mlFEU (0.00-0.50) Sodium Level 136 mmol/L (136-145) Potassium Level 3.7 mmol/L (3.5-5.1) Chloride Level 100 mmol/L (98-107) Carbon Dioxide Level 28 mmol/L (21-32) Anion Gap 8 (6-14) Blood Urea Nitrogen 11 mg/dL (7-20) Creatinine 1.2 mg/dL (0.6-1.0) Estimated GFR (Cockcroft-Gault) 43.1 BUN/Creatinine Ratio 9 (6-20) Glucose Level 96 mg/dL (70-99) Calcium Level 9.3 mg/dL (8.5-10.1) Total Bilirubin 0.7 mg/dL (0.2-1.0) Aspartate Amino Transf (AST/SGOT) 49 U/L (15-37) Alanine Aminotransferase (ALT/SGPT) 53 U/L (14-59) Alkaline Phosphatase 81 U/L (46-116) Troponin I High Sensitivity < 4 ng/L (4-50) XY-Gmn-Q-Type Natriuretic Peptide 568 pg/mL (0-449) Total Protein 7.0 g/dL (6.4-8.2) Albumin 2.3 g/dL (3.4-5.0) Albumin/Globulin Ratio 0.5 (1.0-1.7) Images Images Contrast bolus is adequate. No evidence of central, lobar or proximal segmental pulmonary embolus. Distal segmental and subsegmental branches are not well evaluated based on technique. Heart size is upper limits of normal. No pericardial effusion. Thoracic aorta is normal in caliber. No intimal flap or periaortic fluid collection. Full result of consolidation in the right lower lobe with a rounded area of central low density that measures about 4 cm. This shows central Hounsfield value of 35. There is a small to moderate size right pleural effusion. Borderl ine enlarged lymph nodes at the right hilum and subcarinal region measuring up to 10 mm short axis. Calcified left hilar lymph nodes. No axillary or supraclavicular lymphadenopathy. Thyroid gland is unremarkable. Central airways are patent. Mild emphysema. There is some patchy groundglass opacity in the posterior aspect of the right upper lobe with thickening of the right major fissure. 3 mm noncalcified pulmonary nodule in the left apex on image 24, nonspecific. There are also a couple small subpleural nodules in the left upper lobe on images 49 and 28. No left pleural effusion. Images of the upper abdomen are unremarkable. There is diffuse low-density of the liver suggesting mild fatty infiltration. No apparent bony abnormality. Multilevel spondylosis with mild wedge compression deformity of T8, likely remote. IMPRESSION: 1. No evidence of central, lobar or proximal segmental pulmonary was. The distal segmental and subsegmental branches are not well evaluated due to motion artifact. 2. Consolidation of the right lower lobe with rounded area of central low density that is indeterminate in etiology. This could represent a mass, although pneumonia and/or early abscess is not excluded. There is a small to moderate size right pleural effusion. 3. Mild mediastinal and right hilar lymphadenopathy, likely reactive. 4. Coronary artery calcifications. 5. Mild emphysema. VTE Prophylaxis Ordered VTE Prophylaxis Devices: Yes VTE Pharmacological Prophylaxi: Yes Assessment/Plan Assessment/Plan Acute respiratory failure with hypoxia - likely due to community acquired pneumonia vs some element of aspiration, it is likely that could be a gram negative pneuonia. Right lower lobe pneumonia - with associated pleural effusion. Will give Rocephin and doxycycline for presumptive gram-negative pneumonia. Given pleural effusion it is also possible streptococcal pneumonia and will consult pulmonology for further recommendations. Will ask COORDINATING PRODUCER if videoswallow is indicated to r/o some silent aspiration as etiology Hallucinations - possibly metabolic encephalopathy from infection vs medications side effect Asthma - convert inhalers to nebulizers, cont montelukast Chronic cough -multifactorial, getting treated for upper airway cough syndrome GERD and chronic asthma. Bilateral knee pain -severe osteoarthritis we will treat topically Voltaren HLD - fenofibrate Peripheral neuropathy - gabapentin Dementia - newly diagnosed - cont aricept GERD - conver to PPI given her hallucinations (was on 40mg pepcid) Obesity -counseled on lifestyle modification Weakness and debility - likely from pneumonia - PT evaluation, may need skilled services on d/c Anemia - likely of chronic disease, will monitor Hb FEN - Regular diet PPX - heparin CODE - DNR/DNI Dispo - inpatient Justifications for Admission Other Justification ULICES NULL MD Sep 29, 2021 13:11
[2021-09-29] MEDS ORDERED: ONDANSETRON PF 4 MG/2 ML VIAL. IVP PRN (13:45)
[2021-09-29] MEDS ORDERED: fentaNYL PF VIAL 100 MCG/2 ML VIAL IVP PRN (13:45)
[2021-09-29] MEDS ORDERED: ACETAMINOPHEN 325 MG TABLET. PO PRN ×2 (13:45→16:15)
[2021-09-29] MEDS ORDERED: DOXYCYCLINE HYCLATE 100 MG in IV DEXTROSE 5% 100ML 100 ML IV ONE (14:15)
[2021-09-29] MEDS ORDERED: methylPREDNISolone SOD SUCC PF 125 MG/2 ML VIAL. IV ONE (14:15)
[2021-09-29] MEDS ORDERED: cefTRIAXone IV Push 1 GM VIAL. IVP ONE (14:15)
[2021-09-29] MEDS ORDERED: IBUP-1060 PO (15:37)
[2021-09-29] MEDS ORDERED: GABA300C18 PO (15:37)
[2021-09-29] MEDS ORDERED: ALBU2.5V8 IH (15:39)
[2021-09-29] MEDS ORDERED: BENZ200C47 PO (15:45)
[2021-09-29] MEDS ORDERED: FLUT9.9S NS (15:45)
[2021-09-29] MEDS ORDERED: AZEL205.2 NS (15:54)
[2021-09-29] MEDS ORDERED: VITA1CAP PO (15:54)
[2021-09-29] MEDS ORDERED: CALC-58 PO (15:54)
[2021-09-29] MEDS ORDERED: CALC200T3 PO (15:54)
[2021-09-29] MEDS ORDERED: DONE10TA7 PO (15:54)
[2021-09-29] MEDS ORDERED: SODIUM CHLORIDE 0.65% NASAL SPRAY 45ML BOTTLE. NS PRN (16:30)
[2021-09-29 16:45] VITALS: BP 101/45
[2021-09-29] MEDS ORDERED: PANTOPRAZOLE 40 MG TABLET.DR. PO ONE (17:00)
[2021-09-29 19:00] VITALS: BP 104/53
[2021-09-29] MEDS: BUDESONIDE 0.5 MG/2 ML NEBU. NEB SCH (20:38)
[2021-09-29] MEDS: DICLOFENAC SODIUM 1% TOPICAL GEL 100GM TUBE. TP SCH (21:00)
[2021-09-29] MEDS: PSYLLIUM HUSK (SUGAR FREE) 1 PKT PACKET PO SCH (21:28)
[2021-09-29] MEDS: ENOXAPARIN 40 MG/0.4 ML SYRINGE. SQ SCH (21:29)
[2021-09-29] MEDS: BENZONATATE 100 MG CAPSULE. PO SCH (21:29)
[2021-09-29] MEDS: DOXYCYCLINE HYCLATE 100 MG in IV DEXTROSE 5% 100ML 100 ML IV SCH (21:30)
[2021-09-29 23:05] VITALS: BP 106/50
[2021-09-30 03:08] VITALS: BP 116/53
--- NOTE | 2021-09-30 04:08 | EKG ---
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
[2021-09-30 07:00] VITALS: BP 134/73
[2021-09-30 07:45] LABS: BASO % 0 % (0-3); EOS % 0 % (0-3); HEMATOCRIT 33.2 % (36.0-47.0); HEMOGLOBIN 10.7 g/dL (12.0-15.5); LYMPH # 0.6 x10^3/uL (1.0-4.8); LYMPH % 2 % (24-48); MEAN CORPUSCULAR HEMOGLOBIN 27 pg (25-35); MEAN CORPUSCULAR HGB CONC 32 g/dL (31-37); MEAN CORPUSCULAR VOLUME 85 fL (79-100); MONO # 1.5 x10^3/uL (0.0-1.1); MONO % 4 % (0-9); NEUT # 36.6 x10^3/uL (1.8-7.7); NEUT % 94 % (31-73); PLATELET COUNT 589 x10^3/uL (140-400); RED BLOOD COUNT 3.91 x10^6/uL (3.50-5.40); RED CELL DISTRIBUTION WIDTH 13.8 % (11.5-14.5); WHITE BLOOD COUNT 38.8 x10^3/uL (4.0-11.0)
[2021-09-30] MEDS: BUDESONIDE 0.5 MG/2 ML NEBU. NEB SCH ×2 (07:50→18:16)
[2021-09-30 08:09] LABS: ALBUMIN 1.9 g/dL (3.4-5.0); ALBUMIN/GLOBULIN RATIO 0.4 (1.0-1.7); CALCIUM 8.9 mg/dL (8.5-10.1); CREATININE 1.5 mg/dL (0.6-1.0); GFR 33.3; POTASSIUM 4.2 mmol/L (3.5-5.1); TOTAL BILIRUBIN 0.7 mg/dL (0.2-1.0); TOTAL PROTEIN 6.5 g/dL (6.4-8.2)
[2021-09-30] MEDS: BENZONATATE 100 MG CAPSULE. PO SCH ×2 (08:23→21:43)
[2021-09-30] MEDS: CETIRIZINE HCL 10 MG TABLET. PO SCH (08:23)
[2021-09-30] MEDS: PANTOPRAZOLE 40 MG TABLET.DR. PO SCH (08:23)
[2021-09-30] MEDS: CALCIUM CARB/VIT D3 500/200 TABLET. PO SCH (08:23)
[2021-09-30] MEDS: DONEPEZIL HCL 10 MG TABLET. PO SCH (08:24)
[2021-09-30] MEDS: MONTELUKAST SODIUM 10 MG TABLET. PO SCH (08:24)
[2021-09-30] MEDS: DOXYCYCLINE HYCLATE 100 MG in IV DEXTROSE 5% 100ML 100 ML IV SCH ×2 (08:29→21:43)
[2021-09-30] MEDS: FLUTICASONE 50MCG/NASAL SPRAY 16GM BOTTLE. NS SCH (08:31)
[2021-09-30] MEDS: DICLOFENAC SODIUM 1% TOPICAL GEL 100GM TUBE. TP SCH ×2 (08:38→21:00)
[2021-09-30] MEDS: guaiFENesin DM 200MG/20MG 10 ML SYRUP PO PRN (08:47)
[2021-09-30] MEDS: traMADol 50 MG TABLET PO PRN (08:52)
--- NOTE | 2021-09-30 09:58 | CONS ---
DATE OF CONSULTATION: 09/30/2021 PULMONARY CONSULTATION ATTENDING PHYSICIAN: Dr. Swenson. REASON FOR CONSULTATION: Pleural effusion, pneumonia versus mass. HISTORY OF PRESENT ILLNESS: The patient is an 81-year-old female who has past medical history of asthma, hyperlipidemia and peripheral neuropathy. She also was recently diagnosed with dementia. The patient was brought into the hospital with progressive dyspnea. She says she has a cough for the last 3-4 weeks. The cough has been productive of yellow sputum as well as some blood-tinged sputum. The patient is not on home oxygen. She has no history of deep vein thrombosis or pulmonary embolism. The patient has a history of chronic cough that lasted for 10 years. She had a workup done in the past including bronchoscopy with biopsies and was seen by Dr. Jacobs at [facility] about 4 years ago. The patient also saw ENT. She was prescribed Flonase and azelastine. The patient also was referred to ____ for asthma. She has been struggling with dementia. She is unable to give much detailed information about her past pulmonary history. I did obtain this history from Dr. Swenson. The patient underwent CT chest, which was reviewed by me. There was no evidence of pulmonary embolism. However, there is moderate sized right lower lobe pleural effusion along with a mass-like density with some air bronchograms more suggestive of pneumonia than mass. There is mild mediastinal and right hilar adenopathy. She has complained of some weight loss since she has been ill in the last 4 weeks. Consultation requested for further evaluation and management. PAST MEDICAL HISTORY: Significant for hyperlipidemia, asthma, history of chronic cough, worked up extensively in the past as discussed above. History of recently diagnosed dementia, peripheral neuropathy and GERD. PAST SURGICAL HISTORY: Cholecystectomy and others. FAMILY HISTORY: Dyslipidemia and hypertension. SOCIAL HISTORY: Nonsmoker. ALLERGIES: MULTIPLE THAT WERE ALL REVIEWED LISTED IN THE MRAD. MEDICATIONS: All reviewed as listed in the MRAD including antibiotic, Rocephin. She is also on doxycycline. REVIEW OF SYSTEMS: Twelve-point review of system obtained. Pertinent positives discussed in my present illness, otherwise noncontributory. All systems that were negative were reviewed as well. PHYSICAL EXAMINATION: VITAL SIGNS: Reviewed. Afebrile, blood pressure stable, pulse ox 91% on 3 liters. NECK: Supple. LUNGS: With diminished breath sounds, right base. CARDIOVASCULAR: With a regular rate. ABDOMEN: Soft and nontender. EXTREMITIES: With no pitting edema. LABORATORY DATA: Reviewed. White cell count 38.8 today, which was 16.4 yesterday, hemoglobin 10.7 and platelets are 589. Chemistry shows a BUN of 18 and creatinine 1.5, sodium 133. IMPRESSION: 1. Acute hypoxic respiratory failure secondary to community-acquired pneumonia with parapneumonic effusion. Cannot exclude the possibility of malignancy, but appears clinically less likely. She has a cough with yellow sputum production and hemoptysis as well, likely infectious. 2. Abnormal CT chest with mild to moderate right-sided pleural effusion along with mass-like density in the right lower lobe. Likely a pneumonic consolidation, but cannot exclude a mass. She also has mild mediastinal and hilar adenopathy, which is likely reactive. 3. History of a chronic cough, which had an extensive workup in the past with Dr. Jacobs, her rate quoting operator. It was attributed to reactive airway disease. She had a prior bronchoscopies and even biopsies. 4. No significant tobaccoism. 5. Marked leukocytosis since admission. RECOMMENDATIONS: 1. Continue present antibiotic. 2. Monitor white cell count. It could be related to steroid. We will hold further doses. 3. Discussed with the patient about the need for thoracentesis. She agreed to proceed with it. We will consult IR. 4. We will review the analysis to rule out any malignancy as well as any early empyema. 5. May benefit from another followup CT chest in 4-5 days. 6. Improve nutritional status. 7. Continue with bronchodilators. 8. We will follow along with you. Discussed with RN. JOYA/LAUREEN DR: Emigdio TID: [id number] MTDD
[2021-09-30 10:29] LABS: % BANDS 31 % (0-9); % LYMPHS 1 % (24-48); % METAS 1 % (0-0); % MONOS 5 % (0-10); % SEGS 62 % (35-66)
[2021-09-30 10:32] LABS: PLT ESTIMATE INCREASED (ADEQUATE); POIKILOCYTOSIS SLIGHT
--- NOTE | 2021-09-30 10:55 | PDOC ---
[employer] PROGRESS NOTE Date of Service DOS: DATE: 09/30/21 TIME: 10:53 Chief Complaint Chief Complaint Assessment/Plan Acute respiratory failure with hypoxia - likely due to community acquired pneumonia vs some element of aspiration, it is likely that could be a gram negative pneuonia. Right lower lobe pneumonia - with associated pleural effusion. Will give Rocephin and doxycycline for presumptive gram-negative pneumonia. Given pleural effusion it is also possible streptococcal pneumonia and will consult pulmonology for further recommendations. Will ask PRODUCTION CONTROL TECHNOLOGIST if videoswallow is indicated to r/o some silent aspiration as etiology Right pleural effusionpending thoracentesis Hallucinations - possibly metabolic encephalopathy from infection vs medications side effect Asthma - convert inhalers to nebulizers, cont montelukast Chronic cough -multifactorial, getting treated for upper airway cough syndrome GERD and chronic asthma. Bilateral knee pain -severe osteoarthritis we will treat topically Voltaren HLD - fenofibrate Peripheral neuropathy - gabapentin Dementia - newly diagnosed - cont aricept GERD - conver to PPI given her hallucinations (was on 40mg pepcid) Obesity -counseled on lifestyle modification Weakness and debility - likely from pneumonia - PT evaluation, may need skilled services on d/c Anemia - likely of chronic disease, will monitor Hb FEN - Regular diet PPX - heparin CODE - DNR/DNI Dispo - inpatient History of Present Illness History of Present Illness 81yo female with PMHx asthma, HLD, peripheral neuropathy, GERD, obesity, and newly diagnosed dementia who comes to ED via [facility] complaining of progressive shortness of breath which has begun to worsen over the past 2 weeks. Over the past 2 days she has now had productive sputum that is yellow yellowish-brown with green. She has also been more weak over the past few days and her daughter notes she was having difficulty helping her walk and needed to keep 100% assist. Patient noted she was having trouble walking because of some right-sided chest pain. They contacted EMS. Upon EMS evaluation patient was noted to have O2 saturations in the low 80s and was placed on 5 L nasal cannula and arrived to the ED with this. No recent travel or sick contacts. She is fully vaccinated boosted against COVID-19 and influenza as well as pneumonia with Pneumovax and Prevnar She does have a chronic cough that lasted 10 years and has had significant work- up bronchoscopy with biopsies previously with Dr. Smart at [facility] 4 years ago. She was then referred to ENT sees Dr. Bernardo and has been on Flonase and azelastine. She did enter referral to Dr. Correia for asthma and allergies and has been Flovent albuterol montelukast nightly famotidine Tessalon. Since a hip fracture in December 2020 she has been struggling more with memory and is being treated for dementia at this time by Dr. Sánchez. She does note that she frequently hallucinates that her mom and dad are alive and they are helping take care of her at home, this is very concerning to her daughter and who are both bedside. He also notes she is struggled with bilateral knee pain and 1 month ago had bilateral corticosteroid injections and had relief for about 2 weeks but had to return for Synvisc injections bilaterally last week. She still having some posterior medial left knee pain currently. WBC 16.4, Hb 11.5, platelets 591, D-dimer 2.28, NA 136, K3.7, BUN 11, CR 1.2, calcium 9.3, bilirubin 0.7 AST 49, ALT 53, alkaline phosphatase 81, albumin 2.3, NT proBNP is 568, high-sensitivity troponin is less than 4 09/30/2021 No acute events overnight. Patient seen examined bedside.. Patient saturating well 91% on 3 L nasal cannula. and daughter at bedside. Stating the patient has had a chronic cough for the last 6 years. Patient also not more dyspneic than usual. No production of sputum. Plan for thoracentesis tomorrow with interventional radiology. Patient's chart, labs, images were reviewed and discussed with RN Vitals/I&O Vitals/I&O: Vital Signs Date Time Temp Pulse Resp B/P (MAP) Pulse Ox O2 Delivery O2 Flow Rate FiO2 09/30/21 08:52 20 91 Nasal Cannula 3.0 09/30/21 07:00 98.0 81 134/73 (93) 98.0 I & O 09/29/21 09/29/21 09/30/21 15:00 23:00 07:00 Intake Total 100 ml Output Total 500 ml Balance -400 ml Physical Exam General: Alert, Oriented X3, Cooperative, mild distress Heart: Regular rate Lungs: Clear Extremities: No clubbing, No cyanosis, No edema, Normal pulses, No tenderness/swelling Skin: No rashes, No breakdown, No significant lesion Labs Labs: Laboratory Tests Test 09/30/21 06:35 White Blood Count 38.8 x10^3/uL (4.0-11.0) Red Blood Count 3.91 x10^6/uL (3.50-5.40) Hemoglobin 10.7 g/dL (12.0-15.5) Hematocrit 33.2 % (36.0-47.0) Mean Corpuscular Volume 85 fL (79-100) Mean Corpuscular Hemoglobin 27 pg (25-35) Mean Corpuscular Hemoglobin Concent 32 g/dL (31-37) Red Cell Distribution Width 13.8 % (11.5-14.5) Platelet Count 589 x10^3/uL (140-400) Neutrophils (%) (Auto) 94 % (31-73) Lymphocytes (%) (Auto) 2 % (24-48) Monocytes (%) (Auto) 4 % (0-9) Eosinophils (%) (Auto) 0 % (0-3) Basophils (%) (Auto) 0 % (0-3) Neutrophils # (Auto) 36.6 x10^3/uL (1.8-7.7) Lymphocytes # (Auto) 0.6 x10^3/uL (1.0-4.8) Monocytes # (Auto) 1.5 x10^3/uL (0.0-1.1) Eosinophils # (Auto) 0.0 x10^3/uL (0.0-0.7) Basophils # (Auto) 0.0 x10^3/uL (0.0-0.2) Segmented Neutrophils % 62 % (35-66) Band Neutrophils % 31 % (0-9) Lymphocytes % 1 % (24-48) Monocytes % 5 % (0-10) Metamyelocytes % 1 % (0-0) Platelet Estimate Increased (ADEQUATE) Large Platelets Occ Poikilocytosis Slight Sodium Level 133 mmol/L (136-145) Potassium Level 4.2 mmol/L (3.5-5.1) Chloride Level 99 mmol/L (98-107) Carbon Dioxide Level 27 mmol/L (21-32) Anion Gap 7 (6-14) Blood Urea Nitrogen 18 mg/dL (7-20) Creatinine 1.5 mg/dL (0.6-1.0) Estimated GFR (Cockcroft-Gault) 33.3 BUN/Creatinine Ratio 12 (6-20) Glucose Level 136 mg/dL (70-99) Calcium Level 8.9 mg/dL (8.5-10.1) Total Bilirubin 0.7 mg/dL (0.2-1.0) Aspartate Amino Transf (AST/SGOT) 29 U/L (15-37) Alanine Aminotransferase (ALT/SGPT) 38 U/L (14-59) Alkaline Phosphatase 69 U/L (46-116) Total Protein 6.5 g/dL (6.4-8.2) Albumin 1.9 g/dL (3.4-5.0) Albumin/Globulin Ratio 0.4 (1.0-1.7) Assessment and Plan Assessmemt and Plan Problems Medical Problems: (1) Pneumonia Status: Acute Comment Review of Relevant I have reviewed the following items mariella (where applicable) has been applied. Medications: Current Medications Medications (Trade) Dose Ordered Sig/Faviola Route PRN Reason Start Time Stop Time Status Last Admin Dose Admin Iohexol (Omnipaque 350 Mg/ml) 90 ml 1X ONCE IV 09/29/21 12:00 09/29/21 12:01 DC 09/29/21 11:54 Ceftriaxone Sodium (Rocephin) 1 gm 1X ONCE IVP 09/29/21 14:15 09/29/21 14:16 DC 09/29/21 14:00 Doxycycline Hyclate 100 mg/ Dextrose 100 ml @ 50 mls/hr 1X ONCE IV 09/29/21 14:15 09/29/21 16:14 DC 09/29/21 15:26 Methylprednisolone Sodium Succinate (SOLU-Medrol 125MG VIAL) 125 mg 1X ONCE IV 09/29/21 14:15 09/29/21 14:16 DC 09/29/21 14:00 Psyllium Hydrophilic Mucilloid (Metamucil Fiber Packet) 1 pkt QHS PO 09/29/21 21:00 09/29/21 21:28 Enoxaparin Sodium (Lovenox 40mg Syringe) 40 mg Q24H SQ 09/29/21 21:00 09/29/21 21:29 Guaifenesin (Robitussin Dm) 10 ml PRN Q6HRS PRN PO COUGH 09/29/21 16:15 09/30/21 08:47 Tramadol HCl (Ultram) 50 mg PRN Q6HRS PRN PO PAIN 09/29/21 16:15 09/30/21 08:52 Doxycycline Hyclate 100 mg/ Dextrose 100 ml @ 50 mls/hr Q12HR IV 09/29/21 21:00 09/30/21 08:29 Budesonide (Pulmicort) 0.5 mg RTBID NEB 09/29/21 20:00 09/30/21 07:50 Pantoprazole Sodium (Protonix) 40 mg DAILYAC PO 09/30/21 07:30 09/30/21 08:23 Pantoprazole Sodium (Protonix) 40 mg 1X ONCE PO 09/29/21 17:00 09/29/21 17:01 DC 09/29/21 16:45 Cetirizine HCl (ZyrTEC) 10 mg DAILY PO 09/30/21 09:00 09/30/21 08:23 Donepezil HCl (Aricept) 10 mg DAILY PO 09/30/21 09:00 09/30/21 08:24 Montelukast Sodium (Singulair) 10 mg DAILY PO 09/30/21 09:00 09/30/21 08:24 Benzonatate (Tessalon Perle) 200 mg BID PO 09/29/21 21:00 09/30/21 08:23 Calcium/Vitamin D (Oscal D 500mg/ 200uts) 1 tab DAILY PO 09/30/21 09:00 09/30/21 08:23 Fluticasone Propionate (Flonase) 2 spray DAILY NS 09/30/21 09:00 09/30/21 08:31 Justifications for Admission Other Justification SHANDA FERNANDEZ MD Sep 30, 2021 10:55
[2021-09-30 11:00] VITALS: BP 125/56
[2021-09-30] MEDS: cefTRIAXone IV Push 1 GM VIAL. IVP SCH (11:25)
[2021-09-30 15:00] VITALS: BP 121/60
[2021-09-30 19:00] VITALS: BP 106/72
[2021-09-30] MEDS: ENOXAPARIN 40 MG/0.4 ML SYRINGE. SQ SCH (21:00)
[2021-09-30] MEDS: PSYLLIUM HUSK (SUGAR FREE) 1 PKT PACKET PO SCH (21:43)
[2021-09-30] MEDS: LACTOBACILLUS RHAMNOSUS GG 1 CAPSULE. PO SCH (21:43)
[2021-09-30 23:03] VITALS: BP 104/55
[2021-10-01] VITALS (7 sets, daily range): BP systolic 98–118; BP diastolic 44–67
[2021-10-01] MEDS: ONDANSETRON PF 4 MG/2 ML VIAL. IVP PRN (01:32)
[2021-10-01 02:21] LABS: CALCIUM 9.5 mg/dL (8.5-10.1); CREATININE 1.6 mg/dL (0.6-1.0); GFR 30.9
[2021-10-01 02:22] LABS: PROTHROMBIN TIME PATIENT 15.1 SEC (11.7-14.0)
[2021-10-01] MEDS: METOPROLOL IV PUSH 5 MG/5 ML VIAL. IVP PRN ×2 (02:24→08:54)
--- NOTE | 2021-10-01 02:34 | EKG ---
[facility] [address] [place] [address] Test Date: 2021-10-01 Test Time: 01:27:15 Pat Name: IRENE PETTY Department: Room: 506 Gender: F Pot Sander: COLTON : 1940 Requested By: SHANDA FERNANDEZ Order Number: [id number] Reading MD: Rajinder Noguera Measurements Intervals Rogers Rate: 124 P: ME: QRS: -31 QRSD: 76 T: 51 QT: 324 QTc: 470 Interpretive Statements ATRIAL FIBRILLATION WITH RVR ABNORMAL LEFT AXIS DEVIATION LEFT ANTERIOR FASCICULAR BLOCK Electronically Signed On 10-06-2021 21:54:58 CDT by Rajinder Noguera
[2021-10-01] MEDS: BUDESONIDE 0.5 MG/2 ML NEBU. NEB SCH ×2 (07:16→20:13)
[2021-10-01] MEDS: DOXYCYCLINE HYCLATE 100 MG in IV DEXTROSE 5% 100ML 100 ML IV SCH (08:49)
[2021-10-01] MEDS: FLUTICASONE 50MCG/NASAL SPRAY 16GM BOTTLE. NS SCH (08:54)
[2021-10-01] MEDS: cefTRIAXone IV Push 1 GM VIAL. IVP SCH (08:56)
[2021-10-01] MEDS: DICLOFENAC SODIUM 1% TOPICAL GEL 100GM TUBE. TP SCH ×2 (09:00→21:33)
[2021-10-01] MEDS: IV NORMAL SALINE 1000ML BAG 1,000 ML IV SCH (09:15)
--- NOTE | 2021-10-01 09:53 | PDOC2 ---
SIMON LARRY SPEECH COACH 10/01/21 0953: CARDIAC CONSULT DATE OF CONSULT Date of Consult DATE: 10/01/21 TIME: 09:45 REASON FOR CONSULT Reason for Consult: New AFIB REFERRING PHYSICIAN Referring Physician: Dr. Barfield SOURCE Source: Chart review HISTORY OF PRESENT ILLNESS HISTORY OF PRESENT ILLNESS This is an 81 yo female who presented secondary to shortness of breath with worsening cough that is productive of yellow sputum. Was noted in AFIB, which prompted this consult. Patient has a history of dementia and is unable to provide much information. /daughter reports chronic cough for which patient has undergone extensive workup. [place] to be due to bronchospasms. Over the last couple of weeks, cough has been worse. Developed production of yellow sputum and became short of breath, which prompted her arrival. She denies any chest pain, palpitations, dizziness, diaphoresis, or nausea/vomiting. No prior history of AFIB. PAST MEDICAL HISTORY Cardiovascular: Hyperlipidemia Pulmonary: Asthma, Other (chronic cough ) CENTRAL NERVOUS SYSTEM: Dementia, Periperal neuropathy GI: GERD PAST SURGICAL HISTORY Past Surgical History: Cholecystectomy, Cataract Removal, Tonsillectomy, Other (bladder lift, lumbar fusion, rotator cuff surgery ) FAMILY HISTORY Family History: High Cholestrol, Hypertension SOCIAL HISTORY Smoke: No ALCOHOL: none Drugs: None Lives: with Family CURRENT MEDICATIONS CURRENT MEDICATIONS Current Medications Medications (Trade) Dose Ordered Sig/Faviola Route PRN Reason Start Time Stop Time Status Last Admin Dose Admin Ceftriaxone Sodium (Rocephin) 1 gm DAILY10 IVP 09/30/21 10:00 10/01/21 08:56 Lactobacillus Rhamnosus (Culturelle) 1 cap BID PO 09/30/21 21:00 09/30/21 21:43 Metoprolol Tartrate (Lopressor Vial) 5 mg PRN Q5MIN PRN IVP TACHYCARDIA 10/01/21 01:45 10/01/21 08:54 Sodium Chloride 1,000 ml @ 75 mls/hr [id number] IV 10/01/21 09:15 10/01/21 09:15 ALLERGIES ALLERGIES: Coded Allergies: Sulfa (Sulfonamide Antibiotics) (Verified Allergy, Intermediate, Hives, 03/25/17) ciprofloxacin (Verified Allergy, Intermediate, 09/30/21) fluvastatin (Verified Allergy, Intermediate, Hives, 03/25/17) simvastatin (Verified Allergy, Intermediate, Unknown, 03/25/17) codeine (Verified Adverse Reaction, Intermediate, Nausea and Vomiting, 12/18/20) pregabalin (Verified Adverse Reaction, Intermediate, 09/30/21) oxycodone (Verified Adverse Reaction, Mild, Nausea and Vomiting, 12/21/20) tramadol (Verified Adverse Reaction, Mild, disoriented, 09/30/21) ROS Review of System 14 point ROS conducted with pertinent positives noted above in HPI, although limited due to dementia PHYSICAL EXAM General: Alert, Cooperative, No acute distress HEENT: Atraumatic, Mucous membr. moist/pink Lungs: Other (fine crackles, diminished bases ) Heart: Other (AFIB) Abdomen: Soft Extremities: No edema Skin: No significant lesion Neuro: Normal speech, Sensation intact Psych/Mental Status: Mood NL MUSCULOSKELETAL: Osteoarthritic changes both hands VITALS/I&O VITALS/I&O: Vital Signs Date Time Temp Pulse Resp B/P (MAP) Pulse Ox O2 Delivery O2 Flow Rate FiO2 10/01/21 08:54 128 111/67 10/01/21 07:16 94 Nasal Cannula 2.0 10/01/21 07:00 97.7 20 97.7 LABS Lab: Laboratory Tests Test 10/01/21 02:00 Prothrombin Time 15.1 SEC (11.7-14.0) H Prothrombin Time INR 1.2 (0.8-1.1) H Sodium Level 130 mmol/L (136-145) L Potassium Level 4.0 mmol/L (3.5-5.1) Chloride Level 94 mmol/L (98-107) L Carbon Dioxide Level 23 mmol/L (21-32) Anion Gap 13 (6-14) Blood Urea Nitrogen 31 mg/dL (7-20) H Creatinine 1.6 mg/dL (0.6-1.0) H Estimated GFR (Cockcroft-Gault) 30.9 Glucose Level 143 mg/dL (70-99) H Calcium Level 9.5 mg/dL (8.5-10.1) Magnesium Level 2.0 mg/dL (1.8-2.4) Troponin I High Sensitivity 7 ng/L (4-50) Laboratory Tests 10/01/21 02:00 HEART CATH HEART CATH FINDINGS 1. Hemodynamics: Left ventricular end-diastolic pressure of 10 mmHg. No pullback gradient across the aortic valve. 2. Left ventriculography: Normal left ventricle systolic function with ejection fraction estimated at 65%. No significant mitral regurgitation seen. 3. Coronary angiography: a. The left main coronary artery arose from the left sinus of Valsalva, gave rise to the left anterior descending and left circumflex arteries and did not show any significant stenosis. b. The left anterior descending artery showed 30% stenosis involving the midsegment. c. The left circumflex artery did not show any significant stenosis. d. The right coronary artery was a large and dominant vessel arising from the right sinus of Valsalva that did not show any significant stenosis. Conclusion 1. Nonobstructive coronary artery disease 2. Normal left ventricular systolic function with ejection fraction estimated at 65%. Recommendations Medical Therapy DATE: 05/23/17915 ASSESSMENT/PLAN ASSESSMENT/PLAN 1. Acute respiratory failure secondary to pneumonia, pleural effusion. Thoracentesis planned later today 2. New onset AFIB with RVR. s/p IV metoprolol. Rate remains mildly elevated 3. Leukocytosis 4. Hyperlipidemia 5. ILDA 6. Dementia Recommendations IV Digoxin x1 now Start low-dose metoprolol for rate control when able to take oral. Add ASA. Continue Lovenox. Likely transition to Eliquis upon discharge Echo to assess LV systolic function TSH, lipids Ongoing pulmonary optimization, treatment of PNA Consider outpatient ischemic evaluation Supportive care ERIN CLARK MD 10/02/21 0601: CARDIAC CONSULT ASSESSMENT/PLAN ASSESSMENT/PLAN Patient seen and examined. Agree with BILLING ADMINISTRATOR's assessment and plan. Atrial fibrillation, newly diagnosed, rate better controlled with BB and dig 2D echo showed normal LV systolic function with EF 55% Agree with eliquis for stroke prophylaxis and plan outpatient cardioversion in 4 weeks Plan for thoracentesis, continue treatment of pneumonia per pulm team Thank you for your consultation SIMON LARRY APRN Oct 01, 2021 09:53 ERIN CLARK MD Oct 02, 2021 06:01
--- NOTE | 2021-10-01 10:17 | PDOC ---
[employer] PROGRESS NOTE Date of Service DOS: DATE: 10/01/21 TIME: 10:13 Chief Complaint Chief Complaint Respiratory failure Hypoxia Right lower lobe pneumonia Right pleural effusion awaiting thoracentesis Hallucinations Asthma Chronic cough Bilateral knee pain HLD Neuropathy Dementia GERD Obesity Weakness Anemia History of Present Illness History of Present Illness 10/01/2021 Patient seen and examined Discussed with RN Discussed with case management Chart reviewed Patient currently awaiting thoracentesis this morning On 2 L of nasal cannula oxygen Her creatinine has gone up to 1.6 her BUN is also up to 31 Her white count is also elevated from 18-36 I ordered normal saline at 75 and consulted nephrology Has also slipped into A. fib Cardiology consult pending We will give a dose of IV metoprolol until seen by cardiology 81yo female with PMHx asthma, HLD, peripheral neuropathy, GERD, obesity, and newly diagnosed dementia who comes to ED via [facility] complaining of progressive shortness of breath which has begun to worsen over the past 2 weeks. Over the past 2 days she has now had productive sputum that is yellow yellowish-brown with green. She has also been more weak over the past few days and her daughter notes she was having difficulty helping her walk and needed to keep 100% assist. Patient noted she was having trouble walking because of some right-sided chest pain. They contacted EMS. Upon EMS evaluation patient was noted to have O2 saturations in the low 80s and was placed on 5 L nasal cannula and arrived to the ED with this. No recent travel or sick contacts. She is fully vaccinated boosted against COVID-19 and influenza as well as pneumonia with Pneumovax and Prevnar She does have a chronic cough that lasted 10 years and has had significant work- up bronchoscopy with biopsies previously with Dr. Smart at [facility] 4 years ago. She was then referred to ENT sees Dr. Bernardo and has been on Flonase and azelastine. She did enter referral to Dr. Correia for asthma and allergies and has been Flovent albuterol montelukast nightly famotidine Tessalon. Since a hip fracture in December 2020 she has been struggling more with memory and is being treated for dementia at this time by Dr. Sánchez. She does note that she frequently hallucinates that her mom and dad are alive and they are helping take care of her at home, this is very concerning to her daughter and who are both bedside. He also notes she is struggled with bilateral knee pain and 1 month ago had tremayne ateral corticosteroid injections and had relief for about 2 weeks but had to return for Synvisc injections bilaterally last week. She still having some posterior medial left knee pain currently. WBC 16.4, Hb 11.5, platelets 591, D-dimer 2.28, NA 136, K3.7, BUN 11, CR 1.2, calcium 9.3, bilirubin 0.7 AST 49, ALT 53, alkaline phosphatase 81, albumin 2.3, NT proBNP is 568, high-sensitivity troponin is less than 4 09/30/2021 No acute events overnight. Patient seen examined bedside.. Patient saturating well 91% on 3 L nasal cannula. and daughter at bedside. Stating the patient has had a chronic cough for the last 6 years. Patient also not more dyspneic than usual. No production of sputum. Plan for thoracentesis tomorrow with interventional radiology. Patient's chart, labs, images were reviewed and discussed with RN Vitals/I&O Vitals/I&O: Vital Signs Date Time Temp Pulse Resp B/P (MAP) Pulse Ox O2 Delivery O2 Flow Rate FiO2 10/01/21 08:54 128 111/67 10/01/21 07:16 94 Nasal Cannula 2.0 10/01/21 07:00 97.7 20 97.7 Physical Exam General: mild distress Heart: Regular rate Lungs: Clear, Other (Diminished on the right) Extremities: No clubbing, No cyanosis, No edema, Normal pulses, No tenderness/swelling Skin: No rashes, No breakdown, No significant lesion Labs Labs: Laboratory Tests Test 10/01/21 02:00 Prothrombin Time 15.1 SEC (11.7-14.0) Prothromb Time International Ratio 1.2 (0.8-1.1) Sodium Level 130 mmol/L (136-145) Potassium Level 4.0 mmol/L (3.5-5.1) Chloride Level 94 mmol/L (98-107) Carbon Dioxide Level 23 mmol/L (21-32) Anion Gap 13 (6-14) Blood Urea Nitrogen 31 mg/dL (7-20) Creatinine 1.6 mg/dL (0.6-1.0) Estimated GFR (Cockcroft-Gault) 30.9 Glucose Level 143 mg/dL (70-99) Calcium Level 9.5 mg/dL (8.5-10.1) Magnesium Level 2.0 mg/dL (1.8-2.4) Troponin I High Sensitivity 7 ng/L (4-50) Assessment and Plan Assessmemt and Plan Problems Medical Problems: (1) Pneumonia Status: Acute Acute respiratory failure with hypoxia - likely due to community acquired pneumonia vs some element of aspiration, it is likely that could be a gram negative pneuonia. Right lower lobe pneumonia - with associated pleural effusion. Will give Rocephin and doxycycline for presumptive gram-negative pneumonia. Given pleural effusion it is also possible streptococcal pneumonia and will consult pulmonology for further recommendations. Will ask MANAGER ACCESS if videoswallow is indicated to r/o some silent aspiration as etiology Hallucinations - possibly metabolic encephalopathy from infection vs medications side effect Asthma - convert inhalers to nebulizers, cont montelukast Chronic cough -multifactorial, getting treated for upper airway cough syndrome GERD and chronic asthma. Bilateral knee pain -severe osteoarthritis we will treat topically Voltaren HLD - fenofibrate Peripheral neuropathy - gabapentin Dementia - newly diagnosed - cont aricept GERD - conver to PPI given her hallucinations (was on 40mg pepcid) Obesity -counseled on lifestyle modification Weakness and debility - likely from pneumonia - PT evaluation, may need skilled services on d/c Anemia - likely of chronic disease, will monitor Hb Continue antibiotics and nebulizers Continue O2 per nasal cannula New A. fibconsult cardiology and we gave an order for 1 dose of metoprolol IV Cardiac monitoring Consult nephrology for the ILDA and azotemia IV normal saline at 75 cc an hour Going for thoracentesis today Trend labs DVT prophylaxis Full code Cardiac monitoring Long-term prognosis guarded Appreciate subspecialist input FEN - Regular diet PPX - heparin CODE - DNR/DNI Dispo - inpatient Comment Review of Relevant I have reviewed the following items mariella (where applicable) has been applied. Medications: Current Medications Medications (Trade) Dose Ordered Sig/Faviola Route PRN Reason Start Time Stop Time Status Last Admin Dose Admin Lactobacillus Rhamnosus (Culturelle) 1 cap BID PO 09/30/21 21:00 09/30/21 21:43 Metoprolol Tartrate (Lopressor Vial) 5 mg PRN Q5MIN PRN IVP TACHYCARDIA 10/01/21 01:45 10/01/21 08:54 Sodium Chloride 1,000 ml @ 75 mls/hr [id number] IV 10/01/21 09:15 10/01/21 09:15 Justifications for Admission Other Justification DALLIN MCKEON III DO Oct 01, 2021 10:17
[2021-10-01 10:23] LABS: CHOLESTEROL/HDL RATIO 4.3
--- NOTE | 2021-10-01 11:10 | PDOC2 ---
CONSULT Date of Consult Date of Consult DATE: 10/01/21 TIME: 11:08 Reason for Consult Reason for Consult: ILDA Source Source: Caregiver, Chart review History of Present Illness Reason for Visit: Ms Jama is an 81yo CF with PMHx asthma, peripheral neuropathy, GERD, obesity, and newly diagnosed dementia who comes to ED via [facility] complaining of progressive shortness of breath which has begun to worsen over the past 2 weeks. Over the past 2 days she has now had productive sputum that is yellow yellowish-brown with green. She has also been more weak over the past few days and her daughter notes she was having difficulty helping her walk and needed to keep 100% assist. Patient noted she was having trouble walking because of some right-sided chest pain. They contacted EMS. Upon EMS evaluation patient was noted to have O2 saturations in the low 80s and was placed on 5 L nasal cannula and arrived to the ED with this. No recent travel or sick contacts. She is fully vaccinated boosted against COVID-19 and influenza as well as pneumonia with Pneumovax and Prevnar She does have a chronic cough that lasted 10 years and has had significant work- up bronchoscopy with biopsies previously with Dr. Smart at [facility] 4 years ago. She was then referred to ENT sees Dr. Bernardo and has been on Flonase and azelastine. She did enter referral to Dr. Correia for asthma and allergies and has been Flovent albuterol montelukast nightly famotidine Tessalon. Since a hip fracture in December 2020 she has been struggling more with memory and is being treated for dementia at this time by Dr. Sánchez. She does note that she frequently hallucinates that her mom and dad are alive and they are helping take care of her at home, this is very concerning to her daughter and who are both bedside. He also notes she is struggled with bilateral knee pain and 1 month ago had bilateral corticosteroid injections and had relief for about 2 weeks but had to return for Synvisc injections bilaterally last week. She still having some posterior medial left knee pain currently. Denies any N/V. Not aware of Dx of Renal issues. Denies any Urinary complaints, No symptoms of UTI. Denies F/C. No abdominal pain. Most of the history Obtained from Daughter at bedside WBC 16.4, Hb 11.5, platelets 591, D-dimer 2.28, NA 136, K3.7, BUN 11, CR 1.2, calcium 9.3, bilirubin 0.7 AST 49, ALT 53, alkaline phosphatase 81, albumin 2.3, NT proBNP is 568, high-sensitivity troponin is less than 4 Past Medical History Cardiovascular: Hyperlipidemia Pulmonary: Asthma CENTRAL NERVOUS SYSTEM: Dementia, Periperal neuropathy GI: GERD Past Surgical History Past Surgical History: Cholecystectomy, Cataract Removal, Tonsillectomy, Other (bladder lift, lumbar fusion, rotator cuff surgery ) Family History Family History: High Cholestrol, Hypertension Social History No ALCOHOL: none Drugs: None Lives: with Family Domestic Violence: Neg Current Problem List Problem List Problems Medical Problems: (1) Pneumonia Status: Acute Current Medications Current Medications Current Medications Albuterol/ Ipratropium (Duoneb) 3 ml 1X ONCE NEB Last administered on 09/29/21at 11:05; Start 09/29/21 at 10:45; Stop 09/29/21 at 10:46; Status DC Fentanyl Citrate (Fentanyl 2ml Vial) 25 mcg 1X ONCE IVP Last administered on 09/29/21at 11:23; Start 09/29/21 at 10:45; Stop 09/29/21 at 10:46; Status DC Iohexol (Omnipaque 300 Mg/ml) 90 ml 1X ONCE IV ; Start 09/29/21 at 11:30; Stop 09/29/21 at 11:31; Status DC Info (CONTRAST GIVEN -- Rx MONITORING) 1 each PRN DAILY PRN MC SEE COMMENTS; Start 09/29/21 at 11:30; Stop 10/01/21 at 11:29 Iohexol (Omnipaque 350 Mg/ml) 90 ml 1X ONCE IV Last administered on 09/29/21at 11:54; Start 09/29/21 at 12:00; Stop 09/29/21 at 12:01; Status DC Ondansetron HCl (Zofran) 4 mg PRN Q8HRS PRN IVP NAUSEA/VOMITING; Start 09/29/21 at 13:45; Stop 09/29/21 at 16:16; Status DC Fentanyl Citrate (Fentanyl 2ml Vial) 50 mcg PRN Q1HR PRN IVP PAIN; Start 09/29/21 at 13:45; Stop 09/30/21 at 13:44; Status DC Acetaminophen (Tylenol) 650 mg PRN Q4HRS PRN PO FEVER > 100.3'F; Start 09/29/21 at 13:45; Stop 09/29/21 at 16:16; Status DC Ceftriaxone Sodium (Rocephin) 1 gm 1X ONCE IVP Last administered on 09/29/21at 14:00; Start 09/29/21 at 14:15; Stop 09/29/21 at 14:16; Status DC Doxycycline Hyclate 100 mg/ Dextrose 100 ml @ 50 mls/hr 1X ONCE IV Last administered on 09/29/21at 15:26; Start 09/29/21 at 14:15; Stop 09/29/21 at 16:14; Status DC Methylprednisolone Sodium Succinate (SOLU-Medrol 125MG VIAL) 125 mg 1X ONCE IV Last administered on 09/29/21at 14:00; Start 09/29/21 at 14:15; Stop 09/29/21 at 14:16; Status DC Ondansetron HCl (Zofran) 4 mg PRN Q4HRS PRN IVP NAUSEA/VOMITING Last administered on 10/01/21at 01:32; Start 09/29/21 at 16:15 Acetaminophen (Tylenol) 650 mg PRN Q6HRS PRN PO MILD PAIN / TEMP > 100.3'F; Start 09/29/21 at 16:15 Psyllium Hydrophilic Mucilloid (Metamucil Fiber Packet) 1 pkt QHS PO Last administered on 09/30/21at 21:43; Start 09/29/21 at 21:00 Enoxaparin Sodium (Lovenox 40mg Syringe) 40 mg Q24H SQ Last administered on 09/29/21at 21:29; Start 09/29/21 at 21:00 Guaifenesin (Robitussin Dm) 10 ml PRN Q6HRS PRN PO COUGH Last administered on 09/30/21at 08:47; Start 09/29/21 at 16:15 Tramadol HCl (Ultram) 50 mg PRN Q6HRS PRN PO PAIN Last administered on 09/30/21at 08:52; Start 09/29/21 at 16:15 Ceftriaxone Sodium (Rocephin) 1 gm DAILY10 IVP Last administered on 10/01/21at 08:56; Start 09/30/21 at 10:00 Doxycycline Hyclate 100 mg/ Dextrose 100 ml @ 50 mls/hr Q12HR IV Last administered on 10/01/21at 08:49; Start 09/29/21 at 21:00; Stop 10/01/21 at 10:00; Status DC Budesonide (Pulmicort) 0.5 mg RTBID NEB Last administered on 10/01/21at 07:16; Start 09/29/21 at 20:00 Albuterol Sulfate (Ventolin Neb Soln) 2.5 mg PRN Q4HRS PRN NEB SHORTNESS OF BREATH; Start 09/29/21 at 16:15 Pantoprazole Sodium (Protonix) 40 mg DAILYAC PO Last administered on 09/30/21at 08:23; Start 09/30/21 at 07:30 Pantoprazole Sodium (Protonix) 40 mg 1X ONCE PO Last administered on 09/29/21at 16:45; Start 09/29/21 at 17:00; Stop 09/29/21 at 17:01; Status DC Calcium Carbonate/ Glycine (Tums) 500 mg PRN Q2HRS PRN PO HEARTBURN / GAS; Start 09/29/21 at 16:15 Cetirizine HCl (ZyrTEC) 10 mg DAILY PO Last administered on 09/30/21at 08:23; Start 09/30/21 at 09:00 Donepezil HCl (Aricept) 10 mg DAILY PO Last administered on 09/30/21at 08:24; Start 09/30/21 at 09:00 Montelukast Sodium (Singulair) 10 mg DAILY PO Last administered on 09/30/21at 08:24; Start 09/30/21 at 09:00 Benzonatate (Tessalon Perle) 200 mg BID PO Last administered on 09/30/21at 21:43; Start 09/29/21 at 21:00 Calcium/Vitamin D (Oscal D 500mg/ 200uts) 1 tab DAILY PO Last administered on 09/30/21at 08:23; Start 09/30/21 at 09:00 Fluticasone Propionate (Flonase) 2 spray DAILY NS Last administered on 09/05 02/25at 08:54; Start 09/30/21 at 09:00 Sodium Chloride (Saline Mist Nasal) 1 nicky PRN Q1HR PRN NS NASAL CONGESTION; Start 09/29/21 at 16:30 Diclofenac Sodium (Voltaren) 1 nicky BID TP ; Start 09/29/21 at 21:00 Lactobacillus Rhamnosus (Culturelle) 1 cap BID PO Last administered on 09/30/21at 21:43; Start 09/30/21 at 21:00 Metoprolol Tartrate (Lopressor Vial) 5 mg PRN Q5MIN PRN IVP TACHYCARDIA Last administered on 10/01/21at 08:54; Start 10/01/21 at 01:45 Doxycycline Hyclate (Vibra-Tab) 100 mg BID PO ; Start 10/01/21 at 21:00 Sodium Chloride 1,000 ml @ 75 mls/hr [id number] IV Last administered on 10/01/21at 09:15; Start 10/01/21 at 09:15 Metoprolol Tartrate (Lopressor) 25 mg BID PO ; Start 10/01/21 at 10:00 Active Scripts Active Cetirizine Hcl 10 Mg Tablet 10 Mg PO DAILY 30 Days Reported Tums (Calcium Carbonate) 200 Mg Tab.chew 200 Mg PO PRN PRN Vitamin B Complex 1 Each Capsule 1 Each PO DAILY Calcium 600+D Plus Minerals Tb (Calcium Carb/Vit D3/Minerals) 1 Each Tablet 1 Each PO DAILY Donepezil Hcl 10 Mg Tablet 1 Tab PO DAILY Azelastine HCl 205.5 Mcg/0.137 Ml [place].pump 2 [place] NS BID 30 Days Flonase Allergy Relief (Fluticasone Propionate) 9.9 Ml [place].susp 2 Sprays NS DAILY Benzonatate 200 Mg Capsule 200 Mg PO BID Proair Hfa Inhaler (Albuterol Sulfate) 8.5 Gm Hfa.aer.ad 2 Puff IH BID 21 Days Ibuprofen 800 Mg Tablet 800 Mg PO Q6HRS PRN Gabapentin (Gabapentin) 300 Mg Capsule 300 Mg PO Q6HRS Flovent 100MCG Diskus (Fluticasone Propionate) 100 Mcg Disk.w.dev 1 Puff IH BID Montelukast Sodium Tablet (Montelukast Sodium) 10 Mg Tablet 1 Tab PO DAILY Famotidine 40 Mg Tablet 40 Mg PO HS Allergies Allergies: Coded Allergies: Sulfa (Sulfonamide Antibiotics) (Verified Allergy, Intermediate, Hives, 03/25/17) ciprofloxacin (Verified Allergy, Intermediate, 09/30/21) fluvastatin (Verified Allergy, Intermediate, Hives, 03/25/17) simvastatin (Verified Allergy, Intermediate, Unknown, 03/25/17) codeine (Verified Adverse Reaction, Intermediate, Nausea and Vomiting, 12/18/20) pregabalin (Verified Adverse Reaction, Intermediate, 09/30/21) oxycodone (Verified Adverse Reaction, Mild, Nausea and Vomiting, 12/21/20) tramadol (Verified Adverse Reaction, Mild, disoriented, 09/30/21) ROS Review of System As per HPI, rest f the ROS is negative Physical Exam Physical Exam General: NAD HEENT: Atraumatic, PERRLA, EOMI, Mucous membr. moist/pink Neck Supple Lungs:Right basilar decreased sounds and rhonchi, Non labored Heart: S1S2, RRR, no thrills, no rubs, no gallops, no murmurs Extremities: No clubbing, No cyanosis, No edema, Normal pulses, No tenderness/swelling Skin: No rashes, N Neuro: Normal speech, Strength at 5/5 X4 ext, Normal tone, Sensation intact, Cranial nerves 3-12 NL, Reflexes 2+ Psych/Mental Status: Mood NL, ? Confused, Dementia No Martinez, No CVA or SP tenderness Vital Signs Vital Signs Date Time Temp Pulse Resp B/P (MAP) Pulse Ox O2 Delivery O2 Flow Rate FiO2 10/01/21 10:48 97.1 70 18 113/63 (80) 93 Nasal Cannula 2.0 97.1 Assessment & Plan ILDA - ATN , Recd Contrast 09/29 for CTA . Cr trending up, UOP not recorded , per nursing report Non Oliguric. Check UA and Renal US . Supportive care, Maintain hydration, avoid nephrotoxins, strict I/O, Bladder scan prn ? UTI- Abnormal UA , defer to primary HypoNa- Mild, Monitor CKD stage 3 A- based on Labs from [facility] baseline Cr 1.0in December 2020 with eGFR in 50's . Family not aware of Dx Acute hypoxic respiratory failure secondary to community-acquired pneumonia with parapneumonic effusion. On o2 by [place]. Pulmonary managing Mild to moderate right-sided pleural effusion along with mass-like density in the right lower lobe- On CT scan Likely a pneumonic consolidation, but cannot exclude a mass. She is scheduled for Thoracentesis today History of a chronic cough, which had an extensive workup in the past with Dr. Jacobs, her visitor information assistant. It was attributed to reactive airway disease. She had a prior bronchoscopies and even biopsies. Marked leukocytosis since admission. Bilateral knee pain -severe osteoarthritis Peripheral neuropathy - gabapentin Dementia - newly diagnosed - cont aricept GERD Obesity Weakness and debility Labs Labs Laboratory Tests Test 09/30/21 06:35 10/01/21 02:00 White Blood Count 38.8 x10^3/uL (4.0-11.0) Red Blood Count 3.91 x10^6/uL (3.50-5.40) Hemoglobin 10.7 g/dL (12.0-15.5) Hematocrit 33.2 % (36.0-47.0) Mean Corpuscular Volume 85 fL (79-100) Mean Corpuscular Hemoglobin 27 pg (25-35) Mean Corpuscular Hemoglobin Concent 32 g/dL (31-37) Red Cell Distribution Width 13.8 % (11.5-14.5) Platelet Count 589 x10^3/uL (140-400) Neutrophils (%) (Auto) 94 % (31-73) Lymphocytes (%) (Auto) 2 % (24-48) Monocytes (%) (Auto) 4 % (0-9) Eosinophils (%) (Auto) 0 % (0-3) Basophils (%) (Auto) 0 % (0-3) Neutrophils # (Auto) 36.6 x10^3/uL (1.8-7.7) Lymphocytes # (Auto) 0.6 x10^3/uL (1.0-4.8) Monocytes # (Auto) 1.5 x10^3/uL (0.0-1.1) Eosinophils # (Auto) 0.0 x10^3/uL (0.0-0.7) Basophils # (Auto) 0.0 x10^3/uL (0.0-0.2) Segmented Neutrophils % 62 % (35-66) Band Neutrophils % 31 % (0-9) Lymphocytes % 1 % (24-48) Monocytes % 5 % (0-10) Metamyelocytes % 1 % (0-0) Platelet Estimate Increased (ADEQUATE) Large Platelets Occ Poikilocytosis Slight Sodium Level 133 mmol/L (136-145) 130 mmol/L (136-145) Potassium Level 4.2 mmol/L (3.5-5.1) 4.0 mmol/L (3.5-5.1) Chloride Level 99 mmol/L (98-107) 94 mmol/L (98-107) Carbon Dioxide Level 27 mmol/L (21-32) 23 mmol/L (21-32) Anion Gap 7 (6-14) 13 (6-14) Blood Urea Nitrogen 18 mg/dL (7-20) 31 mg/dL (7-20) Creatinine 1.5 mg/dL (0.6-1.0) 1.6 mg/dL (0.6-1.0) Estimated GFR (Cockcroft-Gault) 33.3 30.9 BUN/Creatinine Ratio 12 (6-20) Glucose Level 136 mg/dL (70-99) 143 mg/dL (70-99) Calcium Level 8.9 mg/dL (8.5-10.1) 9.5 mg/dL (8.5-10.1) Total Bilirubin 0.7 mg/dL (0.2-1.0) Aspartate Amino Transf (AST/SGOT) 29 U/L (15-37) Alanine Aminotransferase (ALT/SGPT) 38 U/L (14-59) Alkaline Phosphatase 69 U/L (46-116) Total Protein 6.5 g/dL (6.4-8.2) Albumin 1.9 g/dL (3.4-5.0) Albumin/Globulin Ratio 0.4 (1.0-1.7) Prothrombin Time 15.1 SEC (11.7-14.0) Prothromb Time International Ratio 1.2 (0.8-1.1) Magnesium Level 2.0 mg/dL (1.8-2.4) Troponin I High Sensitivity 7 ng/L (4-50) Triglycerides Level 86 mg/dL (0-150) Cholesterol Level 168 mg/dL (0-200) LDL Cholesterol, Calculated 112 mg/dL (0-100) VLDL Cholesterol, Calculated 17 mg/dL (0-40) Non-HDL Cholesterol Calculated 129 mg/dL (0-129) HDL Cholesterol 39 mg/dL (40-60) Cholesterol/HDL Ratio 4.3 Thyroid Stimulating Hormone (TSH) 0.705 uIU/mL (0.358-3.74) Laboratory Tests Test 10/01/21 02:00 Prothrombin Time 15.1 SEC (11.7-14.0) Prothromb Time International Ratio 1.2 (0.8-1.1) Sodium Level 130 mmol/L (136-145) Potassium Level 4.0 mmol/L (3.5-5.1) Chloride Level 94 mmol/L (98-107) Carbon Dioxide Level 23 mmol/L (21-32) Anion Gap 13 (6-14) Blood Urea Nitrogen 31 mg/dL (7-20) Creatinine 1.6 mg/dL (0.6-1.0) Estimated GFR (Cockcroft-Gault) 30.9 Glucose Level 143 mg/dL (70-99) Calcium Level 9.5 mg/dL (8.5-10.1) Magnesium Level 2.0 mg/dL (1.8-2.4) Troponin I High Sensitivity 7 ng/L (4-50) Triglycerides Level 86 mg/dL (0-150) Cholesterol Level 168 mg/dL (0-200) LDL Cholesterol, Calculated 112 mg/dL (0-100) VLDL Cholesterol, Calculated 17 mg/dL (0-40) Non-HDL Cholesterol Calculated 129 mg/dL (0-129) HDL Cholesterol 39 mg/dL (40-60) Cholesterol/HDL Ratio 4.3 Thyroid Stimulating Hormone (TSH) 0.705 uIU/mL (0.358-3.74) Review All relevant outside records, renal labs, imaging studies, telemetry/EKG's were reviewed. Images Images Contrast bolus is adequate. No evidence of central, lobar or proximal segmental pulmonary embolus. Distal segmental and subsegmental branches are not well evaluated based on technique. Heart size is upper limits of normal. No pericardial effusion. Thoracic aorta is normal in caliber. No intimal flap or periaortic fluid collection. Full result of consolidation in the right lower lobe with a rounded area of central low density that measures about 4 cm. This shows central Hounsfield value of 35. There is a small to moderate size right pleural effusion. Borderline enlarged lymph nodes at the right hilum and subcarinal region measuring up to 10 mm short axis. Calcified left hilar lymph nodes. No axillary or supraclavicular lymphadenopathy. Thyroid gland is unremarkable. Central airways are patent. Mild emphysema. There is some patchy groundglass opacity in the posterior aspect of the right upper lobe with thickening of the right major fissure. 3 mm noncalcified pulmonary nodule in the left apex on image 24, nonspecific. There are also a couple small subpleural nodules in the left upper lobe on images 49 and 28. No left pleural effusion. Images of the upper abdomen are unremarkable. There is diffuse low-density of the liver suggesting mild fatty infiltration. No apparent bony abnormality. Multilevel spondylosis with mild wedge compression deformity of T8, likely remote. IMPRESSION: 1. No evidence of central, lobar or proximal segmental pulmonary was. The distal segmental and subsegmental branches are not well evaluated due to motion ar tifact. 2. Consolidation of the right lower lobe with rounded area of central low density that is indeterminate in etiology. This could represent a mass, although pneumonia and/or early abscess is not excluded. There is a small to moderate size right pleural effusion. 3. Mild mediastinal and right hilar lymphadenopathy, likely reactive. 4. Coronary artery calcifications. 5. Mild emphysema. ANH POLK MD Oct 01, 2021 11:10
--- NOTE | 2021-10-01 11:38 | PDOC ---
PULMONARY PROGRESS NOTES DATE: 10/01/21 TIME: 11:36 Subjective Denies any increased shortness of breath. Remains on nasal cannula. Vitals Vital Signs Date Time Temp Pulse Resp B/P (MAP) Pulse Ox O2 Delivery O2 Flow Rate FiO2 10/01/21 10:48 97.1 70 18 113/63 (80) 93 Nasal Cannula 2.0 97.1 General: Alert, No acute distress Lungs: Other (Diminished on the right) Cardiovascular: S1 Abdomen: Soft Neuro Exam: Alert Extremities: No Edema Skin: Warm Labs Laboratory Tests Test 09/30/21 06:35 10/01/21 02:00 White Blood Count 38.8 x10^3/uL (4.0-11.0) Red Blood Count 3.91 x10^6/uL (3.50-5.40) Hemoglobin 10.7 g/dL (12.0-15.5) Hematocrit 33.2 % (36.0-47.0) Mean Corpuscular Volume 85 fL (79-100) Mean Corpuscular Hemoglobin 27 pg (25-35) Mean Corpuscular Hemoglobin Concent 32 g/dL (31-37) Red Cell Distribution Width 13.8 % (11.5-14.5) Platelet Count 589 x10^3/uL (140-400) Neutrophils (%) (Auto) 94 % (31-73) Lymphocytes (%) (Auto) 2 % (24-48) Monocytes (%) (Auto) 4 % (0-9) Eosinophils (%) (Auto) 0 % (0-3) Basophils (%) (Auto) 0 % (0-3) Neutrophils # (Auto) 36.6 x10^3/uL (1.8-7.7) Lymphocytes # (Auto) 0.6 x10^3/uL (1.0-4.8) Monocytes # (Auto) 1.5 x10^3/uL (0.0-1.1) Eosinophils # (Auto) 0.0 x10^3/uL (0.0-0.7) Basophils # (Auto) 0.0 x10^3/uL (0.0-0.2) Segmented Neutrophils % 62 % (35-66) Band Neutrophils % 31 % (0-9) Lymphocytes % 1 % (24-48) Monocytes % 5 % (0-10) Metamyelocytes % 1 % (0-0) Platelet Estimate Increased (ADEQUATE) Large Platelets Occ Poikilocytosis Slight Sodium Level 133 mmol/L (136-145) 130 mmol/L (136-145) Potassium Level 4.2 mmol/L (3.5-5.1) 4.0 mmol/L (3.5-5.1) Chloride Level 99 mmol/L (98-107) 94 mmol/L (98-107) Carbon Dioxide Level 27 mmol/L (21-32) 23 mmol/L (21-32) Anion Gap 7 (6-14) 13 (6-14) Blood Urea Nitrogen 18 mg/dL (7-20) 31 mg/dL (7-20) Creatinine 1.5 mg/dL (0.6-1.0) 1.6 mg/dL (0.6-1.0) Estimated GFR (Cockcroft-Gault) 33.3 30.9 BUN/Creatinine Ratio 12 (6-20) Glucose Level 136 mg/dL (70-99) 143 mg/dL (70-99) Calcium Level 8.9 mg/dL (8.5-10.1) 9.5 mg/dL (8.5-10.1) Total Bilirubin 0.7 mg/dL (0.2-1.0) Aspartate Amino Transf (AST/SGOT) 29 U/L (15-37) Alanine Aminotransferase (ALT/SGPT) 38 U/L (14-59) Alkaline Phosphatase 69 U/L (46-116) Total Protein 6.5 g/dL (6.4-8.2) Albumin 1.9 g/dL (3.4-5.0) Albumin/Globulin Ratio 0.4 (1.0-1.7) Prothrombin Time 15.1 SEC (11.7-14.0) Prothromb Time International Ratio 1.2 (0.8-1.1) Magnesium Level 2.0 mg/dL (1.8-2.4) Creatine Kinase 40 U/L (26-192) Troponin I High Sensitivity 7 ng/L (4-50) Triglycerides Level 86 mg/dL (0-150) Cholesterol Level 168 mg/dL (0-200) LDL Cholesterol, Calculated 112 mg/dL (0-100) VLDL Cholesterol, Calculated 17 mg/dL (0-40) Non-HDL Cholesterol Calculated 129 mg/dL (0-129) HDL Cholesterol 39 mg/dL (40-60) Cholesterol/HDL Ratio 4.3 Thyroid Stimulating Hormone (TSH) 0.705 uIU/mL (0.358-3.74) Laboratory Tests Test 10/01/21 02:00 Prothrombin Time 15.1 SEC (11.7-14.0) Prothromb Time International Ratio 1.2 (0.8-1.1) Sodium Level 130 mmol/L (136-145) Potassium Level 4.0 mmol/L (3.5-5.1) Chloride Level 94 mmol/L (98-107) Carbon Dioxide Level 23 mmol/L (21-32) Anion Gap 13 (6-14) Blood Urea Nitrogen 31 mg/dL (7-20) Creatinine 1.6 mg/dL (0.6-1.0) Estimated GFR (Cockcroft-Gault) 30.9 Glucose Level 143 mg/dL (70-99) Calcium Level 9.5 mg/dL (8.5-10.1) Magnesium Level 2.0 mg/dL (1.8-2.4) Creatine Kinase 40 U/L (26-192) Troponin I High Sensitivity 7 ng/L (4-50) Triglycerides Level 86 mg/dL (0-150) Cholesterol Level 168 mg/dL (0-200) LDL Cholesterol, Calculated 112 mg/dL (0-100) VLDL Cholesterol, Calculated 17 mg/dL (0-40) Non-HDL Cholesterol Calculated 129 mg/dL (0-129) HDL Cholesterol 39 mg/dL (40-60) Cholesterol/HDL Ratio 4.3 Thyroid Stimulating Hormone (TSH) 0.705 uIU/mL (0.358-3.74) Medications Active Scripts Medications Dose Route/Sig Max Daily Dose Days Date Category Tums (Calcium Carbonate) 200 Mg Tab.chew 200 Mg PO PRN PRN 09/29/21 Reported Vitamin B Complex 1 Each Capsule 1 Each PO DAILY 09/29/21 Reported Calcium 600+D Plus Minerals Tb (Calcium Carb/Vit D3/Minerals) 1 Each Tablet 1 Each PO DAILY 09/29/21 Reported Donepezil Hcl 10 Mg Tablet 1 Tab PO DAILY 09/29/21 Reported Azelastine HCl 205.5 Mcg/0.137 Ml [place].pump 2 [place] NS BID 30 09/29/21 Reported Flonase Allergy Relief (Fluticasone Propionate) 9.9 Ml [place].susp 2 Sprays NS DAILY 09/29/21 Reported Benzonatate 200 Mg Capsule 200 Mg PO BID 09/29/21 Reported Proair Hfa Inhaler (Albuterol Sulfate) 8.5 Gm Hfa.aer.ad 2 Puff IH BID 21 09/29/21 Reported Ibuprofen 800 Mg Tablet 800 Mg PO Q6HRS PRN 09/29/21 Reported Gabapentin (Gabapentin) 300 Mg Capsule 300 Mg PO Q6HRS 09/29/21 Reported Cetirizine Hcl 10 Mg Tablet 10 Mg PO DAILY 30 12/21/20 Rx Flovent 100MCG Diskus (Fluticasone Propionate) 100 Mcg Disk.w.dev 1 Puff IH BID 03/20/17 Reported Montelukast Sodium Tablet (Montelukast Sodium) 10 Mg Tablet 1 Tab PO DAILY 03/21/16 Reported Famotidine 40 Mg Tablet 40 Mg PO HS 03/21/16 Reported Impression . 1. Acute hypoxic respiratory failure secondary to community-acquired pneumonia with parapneumonic effusion. Cannot exclude the possibility of malignancy, but appears clinically less likely. She has a cough with yellow sputum production and hemoptysis as well, likely infectious. 2. Abnormal CT chest with mild to moderate right-sided pleural effusion along with mass-like density in the right lower lobe. Likely a pneumonic consolidation, but cannot exclude a mass. She also has mild mediastinal and hilar adenopathy, which is likely reactive. 3. History of a chronic cough, which had an extensive workup in the past with Dr. Jacobs, her percussion instrument tuner. It was attributed to reactive airway disease. She had a prior bronchoscopies and even biopsies. 4. No significant tobaccoism. 5. Marked leukocytosis since admission. Plan . 1. Continue present antibiotic. 2. Monitor white cell count. It could be related to steroid. We will hold further doses. 3. Discussed with the patient about the need for thoracentesis. She agreed to proceed with it. Scheduled for today. 4. We will review the analysis to rule out any malignancy as well as any early empyema. 5. May benefit from another followup CT chest in 4-5 days. 6. Improve nutritional status. 7. Continue with bronchodilators. 8. Discussed with RN and patient's at the bedside. ALEXA GREEN MD 28, 2022 11:38
[2021-10-01] MEDS ORDERED: DIGOXIN IV 500 MCG/2 ML AMPUL. IV ONE (12:30)
[2021-10-01 13:01] LABS: BACTERIA,URINE FEW /HPF (0-FEW); RBC,URINE RARE /HPF (0-2)
[2021-10-01 13:02] LABS: AMORPHOUS SEDIMENT,UR PRESENT /HPF; HYALINE CASTS, URINE FEW /HPF
[2021-10-01 15:04] LABS: BASO # 0.2 x10^3/uL (0.0-0.2); BASO % 1 % (0-3); EOS # 0.1 x10^3/uL (0.0-0.7); EOS % 0 % (0-3); HEMOGLOBIN 12.1 g/dL (12.0-15.5); LYMPH # 0.8 x10^3/uL (1.0-4.8); LYMPH % 2 % (24-48); MEAN CORPUSCULAR HEMOGLOBIN 28 pg (25-35); MEAN CORPUSCULAR HGB CONC 33 g/dL (31-37); MEAN CORPUSCULAR VOLUME 85 fL (79-100); MONO % 5 % (0-9); NEUT # 40.7 x10^3/uL (1.8-7.7); NEUT % 93 % (31-73); PLATELET COUNT 622 x10^3/uL (140-400); RED BLOOD COUNT 4.34 x10^6/uL (3.50-5.40); RED CELL DISTRIBUTION WIDTH 13.7 % (11.5-14.5)
[2021-10-01] MEDS: PANTOPRAZOLE 40 MG TABLET.DR. PO SCH (15:10)
[2021-10-01] MEDS: CALCIUM CARB/VIT D3 500/200 TABLET. PO SCH (15:10)
[2021-10-01] MEDS: CETIRIZINE HCL 10 MG TABLET. PO SCH (15:10)
[2021-10-01] MEDS: MONTELUKAST SODIUM 10 MG TABLET. PO SCH (15:10)
[2021-10-01] MEDS: LACTOBACILLUS RHAMNOSUS GG 1 CAPSULE. PO SCH ×2 (15:10→21:32)
[2021-10-01] MEDS: guaiFENesin DM 200MG/20MG 10 ML SYRUP PO PRN (15:10)
[2021-10-01] MEDS: METOPROLOL TART IMMED RELEASE 25 MG TABLET. PO SCH ×2 (15:10→21:32)
[2021-10-01] MEDS: BENZONATATE 100 MG CAPSULE. PO SCH ×2 (15:10→21:32)
[2021-10-01] MEDS: DONEPEZIL HCL 10 MG TABLET. PO SCH (15:10)
[2021-10-01 15:12] LABS: WHITE BLOOD COUNT 43.9 x10^3/uL (4.0-11.0)
--- NOTE | 2021-10-01 16:41 | RAD ---
US RENAL BILAT: 10/01/2021 3:25 PM Indication: 81 years old Female. Acute kidney injury Comparison: None. FINDINGS: Sonographic evaluation the kidneys is performed utilizing grayscale and color Doppler. Right kidney: Size: 10.2 x 3.5 x 3.9cm. Collecting System: No hydronephrosis. No renal calculi detected. Parenchyma: Normal echotexture and morphology. No focal contour deforming renal mass. Left kidney: Obscured by bowel gas. Right-sided chest tubes the patient unable to be rolled. Urinary bladder: Post void residual 93.1 cc IMPRESSION: 1. Right kidney appears normal. 2. Left kidney not evaluated. 3. Postvoid residual 93.1 cc. Electronically signed by: Monalisa Lozano MD (10/01/2021 4:39 PM) DAVID
[2021-10-01] MEDS: ASPIRIN ENTERIC COATED 81 MG TABLET.DR. PO SCH (16:54)
[2021-10-01] MEDS: traMADol 50 MG TABLET PO PRN (16:54)
--- NOTE | 2021-10-01 17:36 | CARD ---
MR#: [id number] Date of Study: 10/01/2021 Ordering Physician: SIMON LARRY, Referring Physician: SIMON LARRY, Erika: Theo Plummer [facility] APPROVED REPORT EXAM: Two-dimensional and M-mode echocardiogram with Doppler and color Doppler. Other Information Quality : FairHR: 87bpm Rhythm : Atrial FibrillationTechnically limited study due to body habitus. INDICATION Dyspnea Atrial Fibrillation RISK FACTORS Obesity Hyperlipidemia Dementia 2D DIMENSIONS Left Atrium(2D)3.3 (1.6-4.0cm)IVSd0.9 (0.7-1.1cm) Aortic Root(2D)4.0 (2.0-3.7cm)LVDd3.9 (3.9-5.9cm) LVOT Diameter1.9 (1.8-2.4cm)PWd1.0 (0.7-1.1cm) LVDs2.4 (2.5-4.0cm)FS (%) 38.2 % SV46.3 mlLVEF(%)69.0 (>50%) Aortic Valve AoV Peak Joe.114.4cm/sAoV VTI24.8cm AO Peak GR.5.2mmHgLVOT VTI 14.04cm AO Mean GR.3mmHg Mitral Valve MV E Peak Gr.7mmHgMV E Mean Gr.3mmHg Pulmonary Valve PV Peak Vlunvqkb00.8cm/s Tricuspid Valve TR P. [id number]/sTR Peak Gr.31mmHg LEFT VENTRICLE The left ventricle is normal size. There is normal left ventricular wall thickness. The left ventricu lar systolic function is normal and the ejection fraction is within normal range. EF 55% There is nor mal LV segmental wall motion. Tissue Doppler imaging reveals moderate left ventricular diastolic dysf unction. No left ventricle thrombus noted on this study. There is no ventricular septal defect visual ized. There is no left ventricular aneurysm. There is no mass noted in the left ventricle. RIGHT VENTRICLE The right ventricle is normal size. There is normal right ventricular wall thickness. The right ventr icular systolic function is normal. ATRIA The left atrium is mildly dilated. The right atrium is mildly dilated. The interatrial septum is inta ct with no evidence for an atrial septal defect or patent foramen ovale as noted on 2-D or Doppler im aging. AORTIC VALVE The aortic valve is thickened but opens well. The aortic valve is probably trileaflet. Doppler and Co kin Flow revealed no significant aortic regurgitation. There is no significant aortic valvular stenos is. There is no aortic valvular vegetation. MITRAL VALVE The mitral valve is normal in structure and function. There is no evidence of mitral valve prolapse. There is no mitral valve stenosis. Doppler and Color-flow revealed trace mitral regurgitation. TRICUSPID VALVE The tricuspid valve is normal in structure and function. Doppler and Color Flow revealed trace to mil d tricuspid regurgitation. There is no tricuspid valve prolapse or vegetation. There is no tricuspid valve stenosis. PULMONIC VALVE The pulmonic valve is not well seen. Doppler and Color Flow revealed no pulmonic valvular regurgitati on. There is no pulmonic valvular stenosis. GREAT VESSELS The aortic root is mildly dilated at 4.0 cm. The ascending aorta is normal in size. The IVC is normal in size and collapses >50% with inspiration. PERICARDIAL EFFUSION There is no pleural effusion. There is no evidence of significant pericardial effusion. Critical Notification Critical Value: No <Conclusion> The left ventricular systolic function is normal and the ejection fraction is within normal range. EF 55% There is normal LV segmental wall motion. Tissue Doppler imaging reveals moderate left ventricular diastolic dysfunction. The aortic root is mildly dilated at 4.0 cm. Signed by : Anup Palmer, Electronically Approved : 10/01/2021 17:35:45
[2021-10-01] MEDS: ALBUTEROL SULFATE 2.5 MG/3 ML NEBU. NEB PRN (20:13)
[2021-10-01] MEDS: DOXYCYCLINE HYCLATE 100 MG TABLET PO SCH (21:31)
[2021-10-01] MEDS: PSYLLIUM HUSK (SUGAR FREE) 1 PKT PACKET PO SCH (21:32)
[2021-10-01] MEDS: ENOXAPARIN 40 MG/0.4 ML SYRINGE. SQ SCH (21:33)
[2021-10-02] MEDS: traMADol 50 MG TABLET PO PRN ×3 (00:52→03:40)
[2021-10-02] MEDS: IV NORMAL SALINE 1000ML BAG 1,000 ML IV SCH ×3 (00:52→23:02)
--- NOTE | 2021-10-02 01:04 | NUR ---
Patient attempting to get out of bed, setting bed alarm off. Patient is confused and asking for her next door. When attempting to help patient back in bed, she became agitated and combative towards this nurse and the JACK [employer]TER. Explained to patient multiple times that she is in the hospital and we are trying to keep her safe. She continued to be agitated, trying to hit and bite staff, and pull out her IV. Mits applied to patients hands at this time. Will continue to monitor patient.
[2021-10-02] MEDS: CALCIUM CARBONATE 500 MG TAB.CHEW PO PRN (03:40)
[2021-10-02 07:00] VITALS: BP 129/53
[2021-10-02] MEDS: BUDESONIDE 0.5 MG/2 ML NEBU. NEB SCH ×2 (07:34→20:48)
[2021-10-02] MEDS: ASPIRIN ENTERIC COATED 81 MG TABLET.DR. PO SCH (08:36)
[2021-10-02] MEDS: PANTOPRAZOLE 40 MG TABLET.DR. PO SCH (08:36)
[2021-10-02 08:41] LABS: CREATININE 1.1 mg/dL (0.6-1.0); GFR 47.7; POTASSIUM 4.2 mmol/L (3.5-5.1)
--- NOTE | 2021-10-02 09:55 | PDOC ---
DATE OF SERVICE DATE: 10/02/21 TIME: 09:54 SUBJECTIVE ROS More alert. No acute cocnerns voiced by daughter at beside or Nursing S/P Thoracentesis 10/01 OBJECTIVE Vital Signs Vital Signs Date Time Temp Pulse Resp B/P (MAP) Pulse Ox O2 Delivery O2 Flow Rate FiO2 10/02/21 07:34 96 Nasal Cannula 3.0 10/02/21 07:00 98.9 62 18 129/53 (78) 98.9 I & 0 Intake and Output 10/02/21 07:00 Intake Total 50 ml Output Total 1210 ml Balance -1160 ml Intake Oral 50 ml Chest Tube Drainage Total 1210 ml # Voids 2 PHYSICAL EXAM Physical Exam General: NAD HEENT: Atraumatic, PERRLA, EOMI, Mucous membr. moist/pink Neck Supple Lungs:Right basilar decreased sounds and rhonchi, Non labored Heart: S1S2, RRR, no thrills, no rubs, no gallops, no murmurs Extremities: No clubbing, No cyanosis, No edema, Normal pulses, No tenderness/swelling Skin: No rashes, N Neuro: Normal speech, Strength at 5/5 X4 ext, Normal tone, Sensation intact, Cranial nerves 3-12 NL, Reflexes 2+ Psych/Mental Status: Mood NL, ? Confused, Dementia No Martinez, No CVA or SP tenderness DIAGNOSIS/ASSESSMENT Assessment & Plan ILDA - ATN , Recd Contrast 09/29 for CTA . Resolved , Renal US RK unremarkable, LK not evaluated, No PVR Supportive care, Maintain hydration, a void nephrotoxins, strict I/O, ? UTI- Abnormal UA , defer to primary HypoNa- Mild, Monitor CKD stage 3 A- based on Labs from [facility] baseline Cr 1.0in December 2020 with eGFR in 50's . Family not aware of Dx Acute hypoxic respiratory failure secondary to community-acquired pneumonia with parapneumonic effusion. On o2 by NC. Pulmonary managing Mild to moderate right-sided pleural effusion along with mass-like density in the right lower lobe- On CT scan s/p Ultrasound-guided right pleural effusion demonstrating frankly turbid fluid consistent with empyema. History of a chronic cough, which had an extensive workup in the past with Dr. Jacobs, her opal polisher. It was attributed to reactive airway disease. She had a prior bronchoscopies and even biopsies. Marked leukocytosis since admission. Bilateral knee pain -severe osteoarthritis Peripheral neuropathy - gabapentin Dementia - newly diagnosed - cont aricept GERD Obesity Weakness and debility COMMENT/RELEVANT DATA Meds Current Medications Medications (Trade) Dose Ordered Sig/Faviola Start Time Stop Time Status Last Admin Dose Admin Acetaminophen (Tylenol) 650 mg PRN Q6HRS PRN 09/29/21 16:15 Albuterol Sulfate (Ventolin Neb Soln) 2.5 mg PRN Q4HRS PRN 09/29/21 16:15 10/01/21 20:13 2.5 MG Albuterol/ Ipratropium (Duoneb) 3 ml 1X ONCE 09/29/21 10:45 09/29/21 10:46 DC 09/29/21 11:05 3 ML Aspirin (Ecotrin) 81 mg DAILYWBKFT 10/01/21 15:00 10/02/21 08:36 81 MG Benzonatate (Tessalon Perle) 200 mg BID 09/29/21 21:00 10/01/21 21:32 200 MG Budesonide (Pulmicort) 0.5 mg RTBID 09/29/21 20:00 10/02/21 07:34 0.5 MG Calcium Carbonate/ Glycine (Tums) 500 mg PRN Q2HRS PRN 09/29/21 16:15 10/02/21 03:40 500 MG Calcium/Vitamin D (Oscal D 500mg/ 200uts) 1 tab DAILY 09/30/21 09:00 10/01/21 15:10 1 TAB Ceftriaxone Sodium (Rocephin) 1 gm DAILY10 09/30/21 10:00 10/01/21 08:56 1 GM Cetirizine HCl (ZyrTEC) 10 mg DAILY 09/30/21 09:00 10/01/21 15:10 10 MG Diclofenac Sodium (Voltaren) 1 nicky BID 09/29/21 21:00 10/01/21 21:33 1 NICKY Digoxin (Lanoxin) 500 mcg 1X ONCE 10/01/21 12:30 10/01/21 12:31 DC 10/01/21 13:26 500 MCG Donepezil HCl (Aricept) 10 mg DAILY 09/30/21 09:00 10/01/21 15:10 10 MG Doxycycline Hyclate (Vibra-Tab) 100 mg BID 10/01/21 21:00 10/01/21 21:31 100 MG Doxycycline Hyclate 100 mg/ Dextrose 100 ml @ 50 mls/hr Q12HR 09/29/21 21:00 10/01/21 10:00 DC 10/01/21 08:49 50 MLS/HR Enoxaparin Sodium (Lovenox 40mg Syringe) 40 mg Q24H 09/29/21 21:00 10/01/21 21:33 40 MG Fentanyl Citrate (Fentanyl 2ml Vial) 50 mcg PRN Q1HR PRN 09/29/21 13:45 09/30/21 13:44 DC Fluticasone Propionate (Flonase) 2 spray DAILY 09/30/21 09:00 10/01/21 08:54 2 SPRAY Gabapentin (Neurontin) 300 mg Q6HRS 10/02/21 09:00 Guaifenesin (Robitussin Dm) 10 ml PRN Q6HRS PRN 09/29/21 16:15 10/01/21 15:10 10 ML Ibuprofen (Motrin) 800 mg Q6HRS 10/02/21 09:00 Info (CONTRAST GIVEN -- Rx MONITORING) 1 each PRN DAILY PRN 09/29/21 11:30 10/01/21 11:29 DC Iohexol (Omnipaque 300 Mg/ml) 90 ml 1X ONCE 09/29/21 11:30 09/29/21 11:31 DC Iohexol (Omnipaque 350 Mg/ml) 90 ml 1X ONCE 09/29/21 12:00 09/29/21 12:01 DC 09/29/21 11:54 90 ML Lactobacillus Rhamnosus (Culturelle) 1 cap BID 09/30/21 21:00 10/01/21 21:32 1 CAP Methylprednisolone Sodium Succinate (SOLU-Medrol 125MG VIAL) 125 mg 1X ONCE 09/29/21 14:15 09/29/21 14:16 DC 09/29/21 14:00 125 MG Metoprolol Tartrate (Lopressor Vial) 5 mg PRN Q5MIN PRN 10/01/21 01:45 10/01/21 08:54 5 MG Metoprolol Tartrate (Lopressor) 25 mg BID 10/01/21 10:00 10/01/21 21:32 25 MG Montelukast Sodium (Singulair) 10 mg DAILY 09/30/21 09:00 10/01/21 15:10 10 MG Ondansetron HCl (Zofran) 4 mg PRN Q4HRS PRN 09/29/21 16:15 10/01/21 01:32 4 MG Pantoprazole Sodium (Protonix) 40 mg 1X ONCE 09/29/21 17:00 09/29/21 17:01 DC 09/29/21 16:45 40 MG Psyllium Hydrophilic Mucilloid (Metamucil Fiber Packet) 1 pkt QHS 09/29/21 21:00 10/01/21 21:32 1 PKT Sodium Chloride 1,000 ml @ 75 mls/hr [id number] 10/01/21 09:15 10/02/21 00:52 75 MLS/HR Sodium Chloride (Saline Mist Nasal) 1 nicky PRN Q1HR PRN 09/29/21 16:30 Tramadol HCl (Ultram) 50 mg PRN Q6HRS PRN 09/29/21 16:15 10/02/21 08:46 DC 10/02/21 03:40 50 MG Lab Laboratory Tests Test 10/01/21 12:25 10/01/21 13:00 10/01/21 14:42 10/02/21 06:14 Urine Collection Type Unknown Urine Color (Auto) Yellow Urine Turbidity Hazy Urine pH (Auto) 6.0 (<5.0-8.0) Urine Specific [place] 1.028 (1.000-1.030) Urine Protein (Auto) 50 mg/dL (Negative) Urine Glucose (Auto)(UA) Negative mg/dL (Negative) Urine Ketones (Auto) Negative mg/dL (Negative) Urine Blood (Auto) Negative (Negative) Urine Nitrite Negative (Negative) Urine Bilirubin (Auto) Negative (Negative) Urine Urobilinogen (Auto) Normal mg/dL (Normal) Urine Leukocyte Esterase (Auto) Large (Negative) Urine RBC Rare /HPF (0-2) Urine WBC 11-20 /HPF (0-4) Urine Squamous Epithelial Cells Mod /LPF Urine Transitional Epithelial Cells Occ /LPF Urine Renal Epithelial Cells Occ /LPF Urine Amorphous Sediment Present /HPF Urine Bacteria Few /HPF (0-FEW) Urine Hyaline Casts Few /HPF Urine Mucus Slight /LPF Body Fluid pH 6.97 White Blood Count 43.9 x10^3/uL (4.0-11.0) Red Blood Count 4.34 x10^6/uL (3.50-5.40) Hemoglobin 12.1 g/dL (12.0-15.5) Hematocrit 37.0 % (36.0-47.0) Mean Corpuscular Volume 85 fL (79-100) Mean Corpuscular Hemoglobin 28 pg (25-35) Mean Corpuscular Hemoglobin Concent 33 g/dL (31-37) Red Cell Distribution Width 13.7 % (11.5-14.5) Platelet Count 622 x10^3/uL (140-400) Neutrophils (%) (Auto) 93 % (31-73) Lymphocytes (%) (Auto) 2 % (24-48) Monocytes (%) (Auto) 5 % (0-9) Eosinophils (%) (Auto) 0 % (0-3) Basophils (%) (Auto) 1 % (0-3) Neutrophils # (Auto) 40.7 x10^3/uL (1.8-7.7) Lymphocytes # (Auto) 0.8 x10^3/uL (1.0-4.8) Monocytes # (Auto) 2.0 x10^3/uL (0.0-1.1) Eosinophils # (Auto) 0.1 x10^3/uL (0.0-0.7) Basophils # (Auto) 0.2 x10^3/uL (0.0-0.2) Sodium Level 130 mmol/L (136-145) Potassium Level 4.2 mmol/L (3.5-5.1) Chloride Level 97 mmol/L (98-107) Carbon Dioxide Level 24 mmol/L (21-32) Anion Gap 9 (6-14) Blood Urea Nitrogen 30 mg/dL (7-20) Creatinine 1.1 mg/dL (0.6-1.0) Estimated GFR (Cockcroft-Gault) 47.7 Glucose Level 83 mg/dL (70-99) Calcium Level 9.0 mg/dL (8.5-10.1) Results All relevant outside records, renal labs, imaging studies, telemetry/EKG's were reviewed. Justicifation of Admission Dx: Justifications for Admission: Justification of Admission Dx: Yes Fracture: Fracture ANH POLK MD Oct 02, 2021 09:55
--- NOTE | 2021-10-02 10:04 | PDOC ---
[employer] PROGRESS NOTE Date of Service DOS: DATE: 10/02/21 TIME: 10:00 Chief Complaint Chief Complaint Respiratory failure Hypoxia Right lower lobe pneumonia Right pleural effusion awaiting thoracentesis Hallucinations Asthma Chronic cough Bilateral knee pain HLD Neuropathy Dementia GERD Obesity Weakness Anemia History of Present Illness History of Present Illness 10/02/2021 Patient seen and examined Discussed with RN Chart review Discussed with pulmonary physician Patient had a thoracentesis yesterday We are awaiting the results of the fluid analysis For now we are continuing IV antibiotics and breathing treatments and oxygen 10/01/2021 Patient seen and examined Discussed with RN Discussed with case management Chart reviewed Patient currently awaiting thoracentesis this morning On 2 L of nasal cannula oxygen Her creatinine has gone up to 1.6 her BUN is also up to 31 Her white count is also elevated from 18-36 I ordered normal saline at 75 and consulted nephrology Has also slipped into A. fib Cardiology consult pending We will give a dose of IV metoprolol until seen by cardiology 81yo female with PMHx asthma, HLD, peripheral neuropathy, GERD, obesity, and newly diagnosed dementia who comes to ED via [facility] complaining of progressive shortness of breath which has begun to worsen over the past 2 weeks. Over the past 2 days she has now had productive sputum that is yellow yellowish-brown with green. She has also been more weak over the past few days and her daughter notes she was having difficulty helping her walk and needed to keep 100% assist. Patient noted she was having trouble walking because of some right-sided chest pain. They contacted EMS. Upon EMS evaluation patient was noted to have O2 saturations in the low 80s and was placed on 5 L nasal cannula and arrived to the ED with this. No recent travel or sick contacts. She is fully vaccinated boosted against COVID-19 and influenza as well as pneumonia with Pneumovax and Prevnar She does have a chronic cough that lasted 10 years and has had significant work- up bronchoscopy with biopsies previously with Dr. Smart at [facility] [place] [place] 4 years ago. She was then referred to ENT sees Dr. Bernardo and has been on Flonase and azelastine. She did enter referral to Dr. Correia for asthma and allergies and has been Flovent albuterol montelukast nightly famotidine Tessalon. Since a hip fracture in December 2020 she has been struggling more with memory and is being treated for dementia at this time by Dr. Sánchez. She does note that she frequently hallucinates that her mom and dad are alive and they are helping take care of her at home, this is very concerning to her daughter and who are both bedside. He also notes she is struggled with bilateral knee pain and 1 month ago had bilateral corticosteroid injections and had relief for about 2 weeks but had to return for Synvisc injections bilaterally last week. She still having some posterior medial left knee pain currently. WBC 16.4, Hb 11.5, platelets 591, D-dimer 2.28, NA 136, K3.7, BUN 11, CR 1.2, calcium 9.3, bilirubin 0.7 AST 49, ALT 53, alkaline phosphatase 81, albumin 2.3, NT proBNP is 568, high-sensitivity troponin is less than 4 09/30/2021 No acute events overnight. Patient seen examined bedside.. Patient saturating well 91% on 3 L nasal cannula. and daughter at bedside. Stating the patient has had a chronic cough for the last 6 years. Patient also not more dyspneic than usual. No production of sputum. Plan for thoracentesis tomorrow with interventional radiology. Patient's chart, labs, images were reviewed and discussed with RN Vitals/I&O Vitals/I&O: Vital Signs Date Time Temp Pulse Resp B/P (MAP) Pulse Ox O2 Delivery O2 Flow Rate FiO2 10/02/21 07:34 96 Nasal Cannula 3.0 10/02/21 07:00 98.9 62 18 129/53 (78) 98.9 I & O 10/01/21 10/01/21 10/02/21 15:00 23:00 07:00 Intake Total 0 ml 50 ml Output Total 100 ml 1110 ml Balance -100 ml -1060 ml Physical Exam General: Alert, Cooperative, No acute distress Heart: Other (AFIB) Lungs: Clear, Other (Chest tube on the right appears to have serous fluid in the tube) Abdomen: Soft Extremities: No edema Skin: No significant lesion Labs Labs: Laboratory Tests Test 10/01/21 12:25 10/01/21 13:00 10/01/21 14:42 10/02/21 06:14 Urine Collection Type Unknown Urine Color (Auto) Yellow Urine Turbidity Hazy Urine pH (Auto) 6.0 (<5.0-8.0) Urine Specific [place] 1.028 (1.000-1.030) Urine Protein (Auto) 50 mg/dL (Negative) Urine Glucose (Auto)(UA) Negative mg/dL (Negative) Urine Ketones (Auto) Negative mg/dL (Negative) Urine Blood (Auto) Negative (Negative) Urine Nitrite Negative (Negative) Urine Bilirubin (Auto) Negative (Negative) Urine Urobilinogen (Auto) Normal mg/dL (Normal) Urine Leukocyte Esterase (Auto) Large (Negative) Urine RBC Rare /HPF (0-2) Urine WBC 11-20 /HPF (0-4) Urine Squamous Epithelial Cells Mod /LPF Urine Transitional Epithelial Cells Occ /LPF Urine Renal Epithelial Cells Occ /LPF Urine Amorphous Sediment Present /HPF Urine Bacteria Few /HPF (0-FEW) Urine Hyaline Casts Few /HPF Urine Mucus Slight /LPF Body Fluid pH 6.97 White Blood Count 43.9 x10^3/uL (4.0-11.0) Red Blood Count 4.34 x10^6/uL (3.50-5.40) Hemoglobin 12.1 g/dL (12.0-15.5) Hematocrit 37.0 % (36.0-47.0) Mean Corpuscular Volume 85 fL (79-100) Mean Corpuscular Hemoglobin 28 pg (25-35) Mean Corpuscular Hemoglobin Concent 33 g/dL (31-37) Red Cell Distribution Width 13.7 % (11.5-14.5) Platelet Count 622 x10^3/uL (140-400) Neutrophils (%) (Auto) 93 % (31-73) Lymphocytes (%) (Auto) 2 % (24-48) Monocytes (%) (Auto) 5 % (0-9) Eosinophils (%) (Auto) 0 % (0-3) Basophils (%) (Auto) 1 % (0-3) Neutrophils # (Auto) 40.7 x10^3/uL (1.8-7.7) Lymphocytes # (Auto) 0.8 x10^3/uL (1.0-4.8) Monocytes # (Auto) 2.0 x10^3/uL (0.0-1.1) Eosinophils # (Auto) 0.1 x10^3/uL (0.0-0.7) Basophils # (Auto) 0.2 x10^3/uL (0.0-0.2) Sodium Level 130 mmol/L (136-145) Potassium Level 4.2 mmol/L (3.5-5.1) Chloride Level 97 mmol/L (98-107) Carbon Dioxide Level 24 mmol/L (21-32) Anion Gap 9 (6-14) Blood Urea Nitrogen 30 mg/dL (7-20) Creatinine 1.1 mg/dL (0.6-1.0) Estimated GFR (Cockcroft-Gault) 47.7 Glucose Level 83 mg/dL (70-99) Calcium Level 9.0 mg/dL (8.5-10.1) Assessment and Plan Assessmemt and Plan Problems Medical Problems: (1) Pneumonia Status: Acute Right pleural effusion status post thoracentesis Asthma COPD Pneumonia Hyperlipidemia Neuropathy Dementia GERD Obesity Weakness and debility Anemia Plan Awaiting thoracentesis fluid analysis Continue antibiotics and nebulizers Continue O2 per nasal cannula New A. fibconsult cardiology and we gave an order for 1 dose of metoprolol IV Cardiac monitoring Appreciate nephrology and pulmonary input IV normal saline at 75 cc an hour Trend labs DVT prophylaxis Full code Cardiac monitoring Long-term prognosis guarded FEN - Regular diet PPX - heparin CODE - DNR/DNI Dispo - inpatient Comment Review of Relevant I have reviewed the following items mariella (where applicable) has been applied. Medications: Current Medications Medications (Trade) Dose Ordered Sig/Faviola Route PRN Reason Start Time Stop Time Status Last Admin Dose Admin Doxycycline Hyclate (Vibra-Tab) 100 mg BID PO 10/01/21 21:00 10/01/21 21:31 Digoxin (Lanoxin) 500 mcg 1X ONCE IV 10/01/21 12:30 10/01/21 12:31 DC 10/01/21 13:26 Aspirin (Ecotrin) 81 mg DAILYWBKFT PO 10/01/21 15:00 10/02/21 08:36 Justifications for Admission Other Justification DALLIN MCKEON III DO Oct 02, 2021 10:04
[2021-10-02] MEDS: FLUTICASONE 50MCG/NASAL SPRAY 16GM BOTTLE. NS SCH (10:06)
[2021-10-02] MEDS: DONEPEZIL HCL 10 MG TABLET. PO SCH (10:08)
[2021-10-02] MEDS: LACTOBACILLUS RHAMNOSUS GG 1 CAPSULE. PO SCH ×2 (10:09→23:02)
[2021-10-02] MEDS: METOPROLOL TART IMMED RELEASE 25 MG TABLET. PO SCH ×2 (10:11→23:03)
[2021-10-02] MEDS: IBUPROFEN 400 MG TABLET. PO SCH ×2 (10:14→18:36)
[2021-10-02] MEDS: GABAPENTIN 300 MG CAPSULE. PO SCH ×2 (10:14→18:35)
[2021-10-02] MEDS: MONTELUKAST SODIUM 10 MG TABLET. PO SCH (10:15)
[2021-10-02] MEDS: CALCIUM CARB/VIT D3 500/200 TABLET. PO SCH (10:15)
[2021-10-02] MEDS: BENZONATATE 100 MG CAPSULE. PO SCH ×2 (10:16→23:02)
[2021-10-02] MEDS: DOXYCYCLINE HYCLATE 100 MG TABLET PO SCH ×2 (10:17→23:02)
[2021-10-02] MEDS: CETIRIZINE HCL 10 MG TABLET. PO SCH (10:18)
[2021-10-02] MEDS: DICLOFENAC SODIUM 1% TOPICAL GEL 100GM TUBE. TP SCH ×2 (10:18→23:06)
[2021-10-02] MEDS ORDERED: PIP/TAZO PER PHARMACY MC PRN (10:30)
[2021-10-02] MEDS: cefTRIAXone IV Push 1 GM VIAL. IVP SCH (10:30)
--- NOTE | 2021-10-02 10:30 | PDOC ---
PULMONARY PROGRESS NOTES DATE: 10/02/21 TIME: 10:27 Subjective Status post thoracentesis. 1000 cc has come out. The initial drainage was thick consistent with empyema. Chest tube was placed. Vitals Vital Signs Date Time Temp Pulse Resp B/P (MAP) Pulse Ox O2 Delivery O2 Flow Rate FiO2 10/02/21 10:11 62 129/53 10/02/21 07:34 96 Nasal Cannula 3.0 10/02/21 07:00 98.9 18 98.9 General: Alert, No acute distress Lungs: Other (Chest tube on the right appears to have serous fluid in the tube) Cardiovascular: S1 Abdomen: Soft Neuro Exam: Alert Extremities: No Edema Skin: Warm Labs Laboratory Tests Test 10/01/21 02:00 10/01/21 12:25 10/01/21 13:00 10/01/21 14:42 Prothrombin Time 15.1 SEC (11.7-14.0) Prothromb Time International Ratio 1.2 (0.8-1.1) Sodium Level 130 mmol/L (136-145) Potassium Level 4.0 mmol/L (3.5-5.1) Chloride Level 94 mmol/L (98-107) Carbon Dioxide Level 23 mmol/L (21-32) Anion Gap 13 (6-14) Blood Urea Nitrogen 31 mg/dL (7-20) Creatinine 1.6 mg/dL (0.6-1.0) Estimated GFR (Cockcroft-Gault) 30.9 Glucose Level 143 mg/dL (70-99) Calcium Level 9.5 mg/dL (8.5-10.1) Magnesium Level 2.0 mg/dL (1.8-2.4) Creatine Kinase 40 U/L (26-192) Troponin I High Sensitivity 7 ng/L (4-50) Triglycerides Level 86 mg/dL (0-150) Cholesterol Level 168 mg/dL (0-200) LDL Cholesterol, Calculated 112 mg/dL (0-100) VLDL Cholesterol, Calculated 17 mg/dL (0-40) Non-HDL Cholesterol Calculated 129 mg/dL (0-129) HDL Cholesterol 39 mg/dL (40-60) Cholesterol/HDL Ratio 4.3 Thyroid Stimulating Hormone (TSH) 0.705 uIU/mL (0.358-3.74) Urine Collection Type Unknown Urine Color (Auto) Yellow Urine Turbidity Hazy Urine pH (Auto) 6.0 (<5.0-8.0) Urine Specific [place] 1.028 (1.000-1.030) Urine Protein (Auto) 50 mg/dL (Negative) Urine Glucose (Auto)(UA) Negative mg/dL (Negative) Urine Ketones (Auto) Negative mg/dL (Negative) Urine Blood (Auto) Negative (Negative) Urine Nitrite Negative (Negative) Urine Bilirubin (Auto) Negative (Negative) Urine Urobilinogen (Auto) Normal mg/dL (Normal) Urine Leukocyte Esterase (Auto) Large (Negative) Urine RBC Rare /HPF (0-2) Urine WBC 11-20 /HPF (0-4) Urine Squamous Epithelial Cells Mod /LPF Urine Transitional Epithelial Cells Occ /LPF Urine Renal Epithelial Cells Occ /LPF Urine Amorphous Sediment Present /HPF Urine Bacteria Few /HPF (0-FEW) Urine Hyaline Casts Few /HPF Urine Mucus Slight /LPF Body Fluid pH 6.97 White Blood Count 43.9 x10^3/uL (4.0-11.0) Red Blood Count 4.34 x10^6/uL (3.50-5.40) Hemoglobin 12.1 g/dL (12.0-15.5) Hematocrit 37.0 % (36.0-47.0) Mean Corpuscular Volume 85 fL (79-100) Mean Corpuscular Hemoglobin 28 pg (25-35) Mean Corpuscular Hemoglobin Concent 33 g/dL (31-37) Red Cell Distribution Width 13.7 % (11.5-14.5) Platelet Count 622 x10^3/uL (140-400) Neutrophils (%) (Auto) 93 % (31-73) Lymphocytes (%) (Auto) 2 % (24-48) Monocytes (%) (Auto) 5 % (0-9) Eosinophils (%) (Auto) 0 % (0-3) Basophils (%) (Auto) 1 % (0-3) Neutrophils # (Auto) 40.7 x10^3/uL (1.8-7.7) Lymphocytes # (Auto) 0.8 x10^3/uL (1.0-4.8) Monocytes # (Auto) 2.0 x10^3/uL (0.0-1.1) Eosinophils # (Auto) 0.1 x10^3/uL (0.0-0.7) Basophils # (Auto) 0.2 x10^3/uL (0.0-0.2) Test 10/02/21 06:14 Sodium Level 130 mmol/L (136-145) Potassium Level 4.2 mmol/L (3.5-5.1) Chloride Level 97 mmol/L (98-107) Carbon Dioxide Level 24 mmol/L (21-32) Anion Gap 9 (6-14) Blood Urea Nitrogen 30 mg/dL (7-20) Creatinine 1.1 mg/dL (0.6-1.0) Estimated GFR (Cockcroft-Gault) 47.7 Glucose Level 83 mg/dL (70-99) Calcium Level 9.0 mg/dL (8.5-10.1) Laboratory Tests Test 10/01/21 12:25 10/01/21 13:00 10/01/21 14:42 10/02/21 06:14 Urine Collection Type Unknown Urine Color (Auto) Yellow Urine Turbidity Hazy Urine pH (Auto) 6.0 (<5.0-8.0) Urine Specific [place] 1.028 (1.000-1.030) Urine Protein (Auto) 50 mg/dL (Negative) Urine Glucose (Auto)(UA) Negative mg/dL (Negative) Urine Ketones (Auto) Negative mg/dL (Negative) Urine Blood (Auto) Negative (Negative) Urine Nitrite Negative (Negative) Urine Bilirubin (Auto) Negative (Negative) Urine Urobilinogen (Auto) Normal mg/dL (Normal) Urine Leukocyte Esterase (Auto) Large (Negative) Urine RBC Rare /HPF (0-2) Urine WBC 11-20 /HPF (0-4) Urine Squamous Epithelial Cells Mod /LPF Urine Transitional Epithelial Cells Occ /LPF Urine Renal Epithelial Cells Occ /LPF Urine Amorphous Sediment Present /HPF Urine Bacteria Few /HPF (0-FEW) Urine Hyaline Casts Few /HPF Urine Mucus Slight /LPF Body Fluid pH 6.97 White Blood Count 43.9 x10^3/uL (4.0-11.0) Red Blood Count 4.34 x10^6/uL (3.50-5.40) Hemoglobin 12.1 g/dL (12.0-15.5) Hematocrit 37.0 % (36.0-47.0) Mean Corpuscular Volume 85 fL (79-100) Mean Corpuscular Hemoglobin 28 pg (25-35) Mean Corpuscular Hemoglobin Concent 33 g/dL (31-37) Red Cell Distribution Width 13.7 % (11.5-14.5) Platelet Count 622 x10^3/uL (140-400) Neutrophils (%) (Auto) 93 % (31-73) Lymphocytes (%) (Auto) 2 % (24-48) Monocytes (%) (Auto) 5 % (0-9) Eosinophils (%) (Auto) 0 % (0-3) Basophils (%) (Auto) 1 % (0-3) Neutrophils # (Auto) 40.7 x10^3/uL (1.8-7.7) Lymphocytes # (Auto) 0.8 x10^3/uL (1.0-4.8) Monocytes # (Auto) 2.0 x10^3/uL (0.0-1.1) Eosinophils # (Auto) 0.1 x10^3/uL (0.0-0.7) Basophils # (Auto) 0.2 x10^3/uL (0.0-0.2) Sodium Level 130 mmol/L (136-145) Potassium Level 4.2 mmol/L (3.5-5.1) Chloride Level 97 mmol/L (98-107) Carbon Dioxide Level 24 mmol/L (21-32) Anion Gap 9 (6-14) Blood Urea Nitrogen 30 mg/dL (7-20) Creatinine 1.1 mg/dL (0.6-1.0) Estimated GFR (Cockcroft-Gault) 47.7 Glucose Level 83 mg/dL (70-99) Calcium Level 9.0 mg/dL (8.5-10.1) Medications Active Scripts Medications Dose Route/Sig Max Daily Dose Days Date Category Tums (Calcium Carbonate) 200 Mg Tab.chew 200 Mg PO PRN PRN 09/29/21 Reported Vitamin B Complex 1 Each Capsule 1 Each PO DAILY 09/29/21 Reported Calcium 600+D Plus Minerals Tb (Calcium Carb/Vit D3/Minerals) 1 Each Tablet 1 Each PO DAILY 09/29/21 Reported Donepezil Hcl 10 Mg Tablet 1 Tab PO DAILY 09/29/21 Reported Azelastine HCl 205.5 Mcg/0.137 Ml [place].pump 2 [place] NS BID 30 09/29/21 Reported Flonase Allergy Relief (Fluticasone Propionate) 9.9 Ml [place].susp 2 Sprays NS DAILY 09/29/21 Reported Benzonatate 200 Mg Capsule 200 Mg PO BID 09/29/21 Reported Proair Hfa Inhaler (Albuterol Sulfate) 8.5 Gm Hfa.aer.ad 2 Puff IH BID 21 09/29/21 Reported Ibuprofen 800 Mg Tablet 800 Mg PO Q6HRS PRN 09/29/21 Reported Gabapentin (Gabapentin) 300 Mg Capsule 300 Mg PO Q6HRS 09/29/21 Reported Cetirizine Hcl 10 Mg Tablet 10 Mg PO DAILY 30 12/21/20 Rx Flovent 100MCG Diskus (Fluticasone Propionate) 100 Mcg Disk.w.dev 1 Puff IH BID 03/20/17 Reported Montelukast Sodium Tablet (Montelukast Sodium) 10 Mg Tablet 1 Tab PO DAILY 03/21/16 Reported Famotidine 40 Mg Tablet 40 Mg PO HS 03/21/16 Reported Impression . 1. Acute hypoxic respiratory failure secondary to community-acquired pneumonia With empyema. Less likely malignancy, status post right chest tube placement 10/01/[address] chest with mild to moderate right-sided pleural effusion along with mass-like density in the right lower lobe. Likely a pneumonic consolidation, but cannot exclude a mass. She also has mild mediastinal and hilar adenopathy, which is likely reactive. 3. History of a chronic cough, which had an extensive workup in the past with Dr. Jacobs, her shuttle spotter. It was attributed to reactive airway disease. She had a prior bronchoscopies and even biopsies. 4. No significant tobaccoism. 5. Marked leukocytosis since admission. Plan . 1. Continue with chest tube to suction. Monitor output. Obtain daily chest x- rays. May need a follow-up CT chest in 3 to 4 days. 2. Monitor white cell count. Marked increase. Will broaden the antibiotic. 3. We will discontinue Rocephin and changed to Zosyn. We will also add Zyvox. Follow pleural fluid cultures. 4. We will review the analysis to rule out any malignancy as well as any early empyema. pH is 6.9 5. May benefit from another followup CT chest in 4-5 days. 6. Improve nutritional status. 7. Continue with bronchodilators. 8. Discussed with RN and patient's daughter at the bedside ALEXA GREEN MD Oct 02, 2021 10:30
[2021-10-02 11:00] VITALS: BP 136/61
[2021-10-02] MEDS ORDERED: BARIUM SULFATE 40% (APPLE) 148 GM PWD. PO ONE (11:00)
--- NOTE | 2021-10-02 11:44 | PDOC ---
SIMON LARRY BOOTH CLEANER 10/02/21 1144: CARDIO Progress Notes Date and Time Date of Service 10/02/21 Time of Evaluation 1140 Subjective Subjective: No Chest Pain, No Palpitations, No Dizziness, Other (breathing improved ) Vitals Vitals Vital Signs Date Time Temp Pulse Resp B/P (MAP) Pulse Ox O2 Delivery O2 Flow Rate FiO2 10/02/21 11:00 97.6 60 18 136/61 (86) 94 Nasal Cannula 3.0 97.6 Weight Weight [ ] Input and Output Intake and Output Intake and Output 10/02/21 07:00 Intake Total 50 ml Output Total 1210 ml Balance -1160 ml Intake Oral 50 ml Chest Tube Drainage Total 1210 ml # Voids 2 Laboratory Labs Laboratory Tests Test 10/01/21 12:25 10/01/21 13:00 10/01/21 14:42 10/02/21 06:14 Urine Collection Type Unknown Urine Color (Auto) Yellow Urine Turbidity Hazy Urine pH (Auto) 6.0 (<5.0-8.0) Urine Specific [place] 1.028 (1.000-1.030) Urine Protein (Auto) 50 mg/dL (Negative) Urine Glucose (Auto)(UA) Negative mg/dL (Negative) Urine Ketones (Auto) Negative mg/dL (Negative) Urine Blood (Auto) Negative (Negative) Urine Nitrite Negative (Negative) Urine Bilirubin (Auto) Negative (Negative) Urine Urobilinogen (Auto) Normal mg/dL (Normal) Urine Leukocyte Esterase (Auto) Large (Negative) Urine RBC Rare /HPF (0-2) Urine WBC 11-20 /HPF (0-4) Urine Squamous Epithelial Cells Mod /LPF Urine Transitional Epithelial Cells Occ /LPF Urine Renal Epithelial Cells Occ /LPF Urine Amorphous Sediment Present /HPF Urine Bacteria Few /HPF (0-FEW) Urine Hyaline Casts Few /HPF Urine Mucus Slight /LPF Body Fluid pH 6.97 White Blood Count 43.9 x10^3/uL (4.0-11.0) Red Blood Count 4.34 x10^6/uL (3.50-5.40) Hemoglobin 12.1 g/dL (12.0-15.5) Hematocrit 37.0 % (36.0-47.0) Mean Corpuscular Volume 85 fL (79-100) Mean Corpuscular Hemoglobin 28 pg (25-35) Mean Corpuscular Hemoglobin Concent 33 g/dL (31-37) Red Cell Distribution Width 13.7 % (11.5-14.5) Platelet Count 622 x10^3/uL (140-400) Neutrophils (%) (Auto) 93 % (31-73) Lymphocytes (%) (Auto) 2 % (24-48) Monocytes (%) (Auto) 5 % (0-9) Eosinophils (%) (Auto) 0 % (0-3) Basophils (%) (Auto) 1 % (0-3) Neutrophils # (Auto) 40.7 x10^3/uL (1.8-7.7) Lymphocytes # (Auto) 0.8 x10^3/uL (1.0-4.8) Monocytes # (Auto) 2.0 x10^3/uL (0.0-1.1) Eosinophils # (Auto) 0.1 x10^3/uL (0.0-0.7) Basophils # (Auto) 0.2 x10^3/uL (0.0-0.2) Sodium Level 130 mmol/L (136-145) Potassium Level 4.2 mmol/L (3.5-5.1) Chloride Level 97 mmol/L (98-107) Carbon Dioxide Level 24 mmol/L (21-32) Anion Gap 9 (6-14) Blood Urea Nitrogen 30 mg/dL (7-20) Creatinine 1.1 mg/dL (0.6-1.0) Estimated GFR (Cockcroft-Gault) 47.7 Glucose Level 83 mg/dL (70-99) Calcium Level 9.0 mg/dL (8.5-10.1) Microbiology Micro Microbiology 10/01/21 Urine Culture - Final, Complete 10/01/21 Gram Stain - Final, Resulted 10/01/21 Aerobic and Anaerobic Culture - Preliminary, Resulted Physical Exam HEENT: Neck Supple W Full Motion Chest: Symmetric LUNGS: Other (diminished ) Heart: S1S2, RRR (SR- HR near 65) Abdomen: Soft N/T Extremities: No Edema Neurology: alert, follow commands Assessment Assessment 1. Acute respiratory failure secondary to pneumonia, pleural effusion. s/p thoracentesis, chest tube placement due to empyema. 2. New onset AFIB with RVR. s/p IV metoprolol. converted back to SR. Echo with LVEF 55% with moderate LV diastolic dysfunction and aortic root dilation at 4.0 cm. 3. Leukocytosis 4. Hyperlipidemia; LDL 112 5. ILDA; improved 6. Dementia Recommendations Low-dose metoprolol for rate control ASA therapy. Continue Lovenox VTE prophylaxis dosing. Transition to Eliquis upon discharge Outpatient event monitor to guide therapy Ongoing pulmonary optimization, treatment of PNA Consider outpatient ischemic evaluation Supportive care Justicifation of Admission Dx: Justifications for Admission: Justification of Admission Dx: Yes Fracture: Fracture ERIN CLARK MD 10/03/21 0850: CARDIO Progress Notes Assessment Assessment Patient seen and examined 10/02/21 Agree with ASSISTANT COUNSEL's assessment and plan. Atrial fibrillation, newly diagnosed, rate better controlled 2D echo showed normal LV systolic function with EF 55% Agree with eliquis for stroke prophylaxis and plan outpatient cardioversion in 4 weeks Continue treatment of pneumonia per pulm team SIMON LARRY APRN Oct 02, 2021 11:44 ERIN CLARK MD Oct 03, 2021 08:50
--- NOTE | 2021-10-02 11:51 | RAD ---
Procedure: Ultrasound-guided right thoracentesis and ultrasound-guided right chest tube placement Clinical Indication: Adult female with right pleural effusion Sedation: Local anesthesia only Antibiotics: None Sterility: The procedure was performed in its entirety using appropriate elements of sterile techniqu e. Consent: The procedure was explained in its entirety to the patient or the patients designated repres entative by a member of the treatment team, including a discussion of the risks, benefits and commonl y accepted alternatives to the procedure, as well as the expected consequences of not performing the procedure. Discussion of the risks included, but was not limited to, those that are most frequent an d those that are rare but possibly severe or life-threatening, as well as the possibility of unforese en complications. Technique and Findings: Following informed consent, the patient was prepped and draped in usual steri le fashion. 1 percent lidocaine was used to achieve local anesthesia over the right chest wall after a preliminary ultrasound was performed demonstrate a large complex pleural effusion. Small dermatotom y was made. Under ultrasound guidance, a 4 [place] sheath needle was advanced into the pleural space a nd frankly turbid yellow fluid was aspirated and sent for microbiologic and chemical analysis. Given the turbid or the fluid, consistent with emphysema, a decision was made to place a chest tube. The 4 [place] sheath needle was exchanged over wire for serial dilators followed by 14 [place] pigtail draina ge catheter which was introduced into the pleural space, sutured to the skin, and place Pleur-evac dr gunn. Complications: No immediate Impression: 1. Ultrasound-guided right pleural effusion demonstrating frankly turbid fluid consistent with empyem a. 2. Ultrasound-guided chest tube placement as described. PQRS Compliance Statement: One or more of the following individualized dose reduction techniques were utilized for this examinat ion: 1. Automated exposure control 2. Adjustment of the mA and/or kV according to patient size 3. Use of iterative reconstruction technique Electronically signed by: Kirby Uribe MD (10/02/2021 11:48 AM) [id number]
[2021-10-02] MEDS: PIPERACILLIN/TAZOBACTAM 3.375 GM in IV NORMAL SALINE 50ML 50 ML IV SCH ×2 (13:14→18:37)
[2021-10-02 13:20] LABS: BASO # 0.1 x10^3/uL (0.0-0.2); BASO % 0 % (0-3); EOS # 0.1 x10^3/uL (0.0-0.7); EOS % 0 % (0-3); HEMATOCRIT 32.8 % (36.0-47.0); HEMOGLOBIN 10.6 g/dL (12.0-15.5); LYMPH % 3 % (24-48); MEAN CORPUSCULAR HEMOGLOBIN 27 pg (25-35); MEAN CORPUSCULAR HGB CONC 32 g/dL (31-37); MEAN CORPUSCULAR VOLUME 85 fL (79-100); MONO # 1.5 x10^3/uL (0.0-1.1); MONO % 4 % (0-9); NEUT # 33.2 x10^3/uL (1.8-7.7); NEUT % 92 % (31-73); PLATELET COUNT 564 x10^3/uL (140-400); RED BLOOD COUNT 3.86 x10^6/uL (3.50-5.40); RED CELL DISTRIBUTION WIDTH 13.7 % (11.5-14.5); WHITE BLOOD COUNT 35.9 x10^3/uL (4.0-11.0)
--- NOTE | 2021-10-02 14:51 | RAD ---
EXAMINATION: Modified barium swallow evaluation with Speech Pathology INDICATION: Dysphagia COMPARISON: None PROCEDURE DETAILS: Performing physician: Jarvis Alarcon DO The patient was positioned sitting in a lateral position on the fluoroscopic table. They were given t hin liquid, nectar thick liquid, honey thick liquid, semi-solid food, mixed consistency food, and luis id food coated with barium and visipaque. Fluoro time: 2.8 minutes FINDINGS: There was deep laryngeal penetration with thin liquids with no evidence of aspiration early on in the study which was not re-created on additional administration of thin liquid. No aspiration or larynge al penetration was visualized with remaining consistencies provided food or liquid. No other signific ant fluoroscopic findings. IMPRESSION: 1. Deep laryngeal penetration with thin liquids which was was appreciated on initial administration a nd was not appreciated on subsequent drinks of liquid. No evidence of aspiration. 2. No aspiration or penetration with remaining consistencies. 3. Please refer to speech pathology report for feeding recommendations. Electronically signed by: Jarvis Alarcon DO (10/02/2021 2:49 PM) [id number]
[2021-10-02 15:00] VITALS: BP 92/56
--- NOTE | 2021-10-02 16:39 | NUR ---
SS following for discharge planning. SS reviewed pt chart and discussed with pt RN. Pt is from home and is currently requiring oxygen at three liters nasal canula. Chest tube in place. Pulmonology, Nephrology, and Cardiology following. Pt on IV Zosyn and IV Zyvox. PO diet. PT/OT recommended care home unit on 09/30/2021. Not ready. SS will continue to follow for discharge planning.
--- NOTE | 2021-10-02 17:12 | PATHOLOGY ---
Note [facility] Accession Number: [id number] TESTS RESULT FLAG UNITS REF RANGE LAB Clinician Provided Cytology Information No. of containers..01 Other (Miscellaneous) Source: RIGHT PLEURAL DIAGNOSIS: RIGHT PLEURAL NEGATIVE FOR MALIGNANT CELLS. NUMEROUS ACUTE INFLAMMATORY CELLS PRESENT. THIS EVALUATION INCLUDES EXAMINATION OF A CELL BLOCK. Signed out by: Kaveh Little MD, Pathologist NPI- [id number] Performed by: Julien Rouse, Medical Office Technology Instructor ([facility]) Gross description: 01 15ML, YELLOW, CLOUDY /LCS 10/01/2021 1745 Local FLAG LEGEND: L-Low Normal,H-High Normal,LL-Alert Low,HH-Alert High <-Panic Low,>-Panic High,A-Abnormal,AA-Critical Abnormal Performed at: [facility] [address] [place] [address] Amarjit Manzanares MD, [address] [facility] [address] [place] [address] Kaveh Little MD, Performed at: [address], [place] [id number] MD Amarjit Manzanares MD Phone: [phone]
[2021-10-02 19:00] VITALS: BP 129/57
[2021-10-02] MEDS: ALBUTEROL SULFATE 2.5 MG/3 ML NEBU. NEB PRN (20:48)
[2021-10-02] MEDS: ENOXAPARIN 40 MG/0.4 ML SYRINGE. SQ SCH (23:02)
[2021-10-02] MEDS: PSYLLIUM HUSK (SUGAR FREE) 1 PKT PACKET PO SCH (23:03)
[2021-10-02 23:17] VITALS: BP 110/51
[2021-10-03] MEDS: PIPERACILLIN/TAZOBACTAM 3.375 GM in IV NORMAL SALINE 50ML 50 ML IV SCH ×4 (00:46→17:19)
[2021-10-03 03:22] VITALS: BP 108/54
[2021-10-03] MEDS: GABAPENTIN 300 MG CAPSULE. PO SCH ×4 (06:20→17:19)
[2021-10-03] MEDS: IBUPROFEN 400 MG TABLET. PO SCH ×3 (06:20→11:39)
[2021-10-03 06:36] LABS: CREATININE 1.2 mg/dL (0.6-1.0); GFR 43.1
[2021-10-03 07:00] VITALS: BP 125/54
[2021-10-03] MEDS: ALBUTEROL SULFATE 2.5 MG/3 ML NEBU. NEB PRN (07:43)
[2021-10-03] MEDS: BUDESONIDE 0.5 MG/2 ML NEBU. NEB SCH ×3 (07:44→20:47)
--- NOTE | 2021-10-03 08:33 | PDOC ---
SIMON LARRY WIRE CHARGER 10/03/21 0833: CARDIO Progress Notes Date and Time Date of Service 10/03/21 Subjective Subjective: No Chest Pain, No Palpitations, No Dizziness, Other (breathing improved ) Vitals Vitals Vital Signs Date Time Temp Pulse Resp B/P (MAP) Pulse Ox O2 Delivery O2 Flow Rate FiO2 10/03/21 07:44 96 Nasal Cannula 2.0 10/03/21 03:22 97.7 58 16 108/54 (72) 97.7 Weight Weight [ ] Input and Output Intake and Output Intake and Output 10/03/21 07:00 Intake Total 1590 ml Output Total 890 ml Balance 700 ml Intake Oral 340 ml IV Total 1250 ml Output Urine Total 450 ml Chest Tube Drainage Total 440 ml # Voids 1 # Bowel Movements 1 Laboratory Labs Laboratory Tests Test 10/03/21 04:40 Sodium Level 133 mmol/L (136-145) Potassium Level 5.0 mmol/L (3.5-5.1) Chloride Level 100 mmol/L (98-107) Carbon Dioxide Level 26 mmol/L (21-32) Anion Gap 7 (6-14) Blood Urea Nitrogen 24 mg/dL (7-20) Creatinine 1.2 mg/dL (0.6-1.0) Estimated GFR (Cockcroft-Gault) 43.1 Glucose Level 96 mg/dL (70-99) Calcium Level 9.0 mg/dL (8.5-10.1) Microbiology Micro Microbiology 10/01/21 Urine Culture - Final, Complete 10/01/21 Gram Stain - Final, Resulted 10/01/21 Aerobic and Anaerobic Culture - Preliminary, Resulted Physical Exam HEENT: Neck Supple W Full Motion Chest: Symmetric LUNGS: Other (diminished ) Heart: S1S2, RRR (SR- HR near 65) Abdomen: Soft N/T Extremities: No Edema Neurology: alert, follow commands Assessment Assessment 1. Acute respiratory failure secondary to pneumonia, pleural effusion. s/p thoracentesis, chest tube placement due to empyema. 2. New onset AFIB with RVR. s/p IV metoprolol. converted back to SR. Echo with LVEF 55% with moderate LV diastolic dysfunction and aortic root dilation at 4.0 cm. 3. Leukocytosis 4. Hyperlipidemia; LDL 112 5. ILDA; improved 6. Dementia Recommendations Low-dose metoprolol for rate control ASA therapy. Continue Lovenox VTE prophylaxis dosing. Transition to Eliquis upon discharge Outpatient event monitor to guide therapy Ongoing pulmonary optimization, treatment of PNA Supportive care Justicifation of Admission Dx: Justifications for Admission: Justification of Admission Dx: Yes Fracture: Fracture EIRN CLARK MD 10/03/21 1644: CARDIO Progress Notes Assessment Assessment Patient seen and examined Agree with SEISMOGRAPH SHOOTER's assessment and plan. Atrial fibrillation, newly diagnosed, presently back in sinus rhythm 2D echo showed normal LV systolic function with EF 55% Agree with eliquis for stroke prophylaxis Plan outpatient event monitor to assess AF burden Continue treatment of pneumonia per pulm team SIMON LARRY APRN Oct 03, 2021 08:33 ERIN CLARK MD Oct 03, 2021 16:44
[2021-10-03] MEDS: DICLOFENAC SODIUM 1% TOPICAL GEL 100GM TUBE. TP SCH ×2 (09:00→21:19)
[2021-10-03] MEDS: METOPROLOL TART IMMED RELEASE 25 MG TABLET. PO SCH ×2 (09:01→21:17)
[2021-10-03] MEDS: DOXYCYCLINE HYCLATE 100 MG TABLET PO SCH ×2 (09:01→21:17)
[2021-10-03] MEDS: BENZONATATE 100 MG CAPSULE. PO SCH ×2 (09:01→21:16)
[2021-10-03] MEDS: MONTELUKAST SODIUM 10 MG TABLET. PO SCH (09:02)
[2021-10-03] MEDS: CETIRIZINE HCL 10 MG TABLET. PO SCH (09:02)
[2021-10-03] MEDS: PANTOPRAZOLE 40 MG TABLET.DR. PO SCH (09:02)
[2021-10-03] MEDS: ASPIRIN ENTERIC COATED 81 MG TABLET.DR. PO SCH (09:02)
[2021-10-03] MEDS: DONEPEZIL HCL 10 MG TABLET. PO SCH (09:02)
[2021-10-03] MEDS: CALCIUM CARB/VIT D3 500/200 TABLET. PO SCH (09:02)
[2021-10-03] MEDS: LACTOBACILLUS RHAMNOSUS GG 1 CAPSULE. PO SCH ×2 (09:02→21:17)
--- NOTE | 2021-10-03 09:14 | PDOC ---
DATE OF SERVICE DATE: 10/03/21 TIME: 09:13 SUBJECTIVE ROS Eating breakfast. No N/V. No SOB Was hallucinating earlier per daughter / dementia OBJECTIVE Vital Signs Vital Signs Date Time Temp Pulse Resp B/P (MAP) Pulse Ox O2 Delivery O2 Flow Rate FiO2 10/03/21 09:01 61 125/54 10/03/21 07:44 96 Nasal Cannula 2.0 10/03/21 07:00 97.5 16 97.5 I & 0 Intake and Output 10/03/21 07:00 Intake Total 1590 ml Output Total 890 ml Balance 700 ml Intake Oral 340 ml IV Total 1250 ml Output Urine Total 450 ml Chest Tube Drainage Total 440 ml # Voids 1 # Bowel Movements 1 PHYSICAL EXAM Physical Exam General: NAD HEENT: Atraumatic, PERRLA, EOMI, Mucous membr. moist/pink Neck Supple Lungs:Right basilar decreased sounds and rhonchi, Non labored Heart: S1S2, RRR, no thrills, no rubs, no gallops, no murmurs Extremities: No clubbing, No cyanosis, No edema, Normal pulses, No tenderness/swelling Skin: No rashes, N Neuro: Normal speech, Strength at 5/5 X4 ext, Normal tone, Sensation intact, Cranial nerves 3-12 NL, Reflexes 2+ Psych/Mental Status: Mood NL, ? Confused, Dementia No Martinez, No CVA or SP tenderness DIAGNOSIS/ASSESSMENT Assessment & Plan ILDA - ATN , Recd Contrast 09/29 for CTA .Creat mildly up . Avoid NSAID's ( Ibuprofen Ordered by Dr Barfield ) - Recommend DC Renal US RK unremarkable, LK not evaluated, No PVR Supportive care, Maintain hydration, avoid nephrotoxins, strict I/O (UOP not recorded) Abnormal UA - Cx negative HypoNa- Mild, improving CKD stage 3 A- based on Labs from [facility] baseline Cr 1.0in December 2020 with eGFR in 50's . Family not aware of Dx Acute hypoxic respiratory failure secondary to community-acquired pneumonia with parapneumonic effusion. On o2 by MARYLOU. Pulmonary managing Mild to moderate right-sided pleural effusion along with mass-like density in the right lower lobe- On CT scan s/p Ultrasound-guided right pleural effusion demonstrating frankly turbid fluid consistent with empyema. History of a chronic cough, which had an extensive workup in the past with Dr. Jacobs, her machine cutter. It was attributed to reactive airway disease. She had a prior bronchoscopies and even biopsies. Marked leukocytosis since admission. Bilateral knee pain -severe osteoarthritis Peripheral neuropathy - gabapentin Dementia - newly diagnosed - cont aricept GERD Obesity Weakness and debility COMMENT/RELEVANT DATA Meds Current Medications Medications (Trade) Dose Ordered Sig/Faviola Start Time Stop Time Status Last Admin Dose Admin Acetaminophen (Tylenol) 650 mg PRN Q6HRS PRN 09/29/21 16:15 Albuterol Sulfate (Ventolin Neb Soln) 2.5 mg PRN Q4HRS PRN 09/29/21 16:15 10/03/21 07:43 2.5 MG Albuterol/ Ipratropium (Duoneb) 3 ml 1X ONCE 09/29/21 10:45 09/29/21 10:46 DC 09/29/21 11:05 3 ML Aspirin (Ecotrin) 81 mg [id number] 10/01/21 15:00 10/03/21 09:02 81 MG Barium Sulfate (Varibar Thin Liquid Apple) 148 gm 1X ONCE 10/02/21 11:00 10/02/21 11:01 DC Benzonatate (Tessalon Perle) 200 mg BID 09/29/21 21:00 10/03/21 09:01 200 MG Budesonide (Pulmicort) 0.5 mg RTBID 09/29/21 20:00 10/03/21 07:44 0.5 MG Calcium Carbonate/ Glycine (Tums) 500 mg PRN Q2HRS PRN 09/29/21 16:15 10/02/21 03:40 500 MG Calcium/Vitamin D (Oscal D 500mg/ 200uts) 1 tab DAILY 09/30/21 09:00 10/03/21 09:02 1 TAB Ceftriaxone Sodium (Rocephin) 1 gm DAILY10 09/30/21 10:00 10/02/21 10:30 DC 10/02/21 10:30 1 GM Cetirizine HCl (ZyrTEC) 10 mg DAILY 09/30/21 09:00 10/03/21 09:02 10 MG Diclofenac Sodium (Voltaren) 1 nicky BID 09/29/21 21:00 10/02/21 10:18 1 NICKY Digoxin (Lanoxin) 500 mcg 1X ONCE 10/01/21 12:30 10/01/21 12:31 DC 10/01/21 13:26 500 MCG Donepezil HCl (Aricept) 10 mg DAILY 09/30/21 09:00 10/03/21 09:02 10 MG Doxycycline Hyclate (Vibra-Tab) 100 mg BID 10/01/21 21:00 10/03/21 09:01 100 MG Doxycycline Hyclate 100 mg/ Dextrose 100 ml @ 50 mls/hr Q12HR 09/29/21 21:00 10/01/21 10:00 DC 10/01/21 08:49 50 MLS/HR Enoxaparin Sodium (Lovenox 40mg Syringe) 40 mg Q24H 09/29/21 21:00 10/02/21 23:02 40 MG Fentanyl Citrate (Fentanyl 2ml Vial) 50 mcg PRN Q1HR PRN 09/29/21 13:45 09/30/21 13:44 DC Fluticasone Propionate (Flonase) 2 spray DAILY 09/30/21 09:00 10/02/21 10:06 2 SPRAY Gabapentin (Neurontin) 300 mg Q6HRS 10/02/21 09:00 10/03/21 06:20 300 MG Guaifenesin (Robitussin Dm) 10 ml PRN Q6HRS PRN 09/29/21 16:15 10/01/21 15:10 10 ML Ibuprofen (Motrin) 800 mg Q6HRS 10/02/21 09:00 10/03/21 06:20 800 MG Info (CONTRAST GIVEN -- Rx MONITORING) 1 each PRN DAILY PRN 09/29/21 11:30 10/01/21 11:29 DC Iohexol (Omnipaque 300 Mg/ml) 90 ml 1X ONCE 09/29/21 11:30 09/29/21 11:31 DC Iohexol (Omnipaque 350 Mg/ml) 90 ml 1X ONCE 09/29/21 12:00 09/29/21 12:01 DC 09/29/21 11:54 90 ML Lactobacillus Rhamnosus (Culturelle) 1 cap BID 09/30/21 21:00 10/03/21 09:02 1 CAP Linezolid/Dextrose 300 ml @ 300 mls/hr Q12HR 10/02/21 11:00 10/02/21 23:02 300 MLS/HR Methylprednisolone Sodium Succinate (SOLU-Medrol 125MG VIAL) 125 mg 1X ONCE 09/29/21 14:15 09/29/21 14:16 DC 09/29/21 14:00 125 MG Metoprolol Tartrate (Lopressor Vial) 5 mg PRN Q5MIN PRN 10/01/21 01:45 10/01/21 08:54 5 MG Metoprolol Tartrate (Lopressor) 25 mg BID 10/01/21 10:00 10/03/21 09:01 25 MG Montelukast Sodium (Singulair) 10 mg DAILY 09/30/21 09:00 10/03/21 09:02 10 MG Ondansetron HCl (Zofran) 4 mg PRN Q4HRS PRN 09/29/21 16:15 10/01/21 01:32 4 MG Pantoprazole Sodium (Protonix) 40 mg 1X ONCE 09/29/21 17:00 09/29/21 17:01 DC 09/29/21 16:45 40 MG Piperacillin Sod/ Tazobactam Sod (Zosyn Per Pharmacy) 1 each PRN DAILY PRN 10/02/21 10:30 Piperacillin Sod/ Tazobactam Sod 3.375 gm/Sodium Chloride 50 ml @ 100 mls/hr Q6HRS 10/02/21 12:00 10/03/21 06:20 100 MLS/HR Psyllium Hydrophilic Mucilloid (Metamucil Fiber Packet) 1 pkt QHS 09/29/21 21:00 10/02/21 23:03 1 PKT Sodium Chloride 1,000 ml @ 75 mls/hr [id number] 10/01/21 09:15 10/02/21 23:02 75 MLS/HR Sodium Chloride (Saline Mist Nasal) 1 nicky PRN Q1HR PRN 09/29/21 16:30 Tramadol HCl (Ultram) 50 mg PRN Q6HRS PRN 09/29/21 16:15 10/02/21 08:46 DC 10/02/21 03:40 50 MG Lab Laboratory Tests Test 10/03/21 04:40 Sodium Level 133 mmol/L (136-145) Potassium Level 5.0 mmol/L (3.5-5.1) Chloride Level 100 mmol/L (98-107) Carbon Dioxide Level 26 mmol/L (21-32) Anion Gap 7 (6-14) Blood Urea Nitrogen 24 mg/dL (7-20) Creatinine 1.2 mg/dL (0.6-1.0) Estimated GFR (Cockcroft-Gault) 43.1 Glucose Level 96 mg/dL (70-99) Calcium Level 9.0 mg/dL (8.5-10.1) Results All relevant outside records, renal labs, imaging studies, telemetry/EKG's were reviewed. Justicifation of Admission Dx: Justifications for Admission: Justification of Admission Dx: Yes Fracture: Fracture ANH POLK MD Oct 03, 2021 09:14
[2021-10-03] MEDS: FLUTICASONE 50MCG/NASAL SPRAY 16GM BOTTLE. NS SCH (09:47)
--- NOTE | 2021-10-03 09:59 | PDOC ---
PULMONARY PROGRESS NOTES DATE: 10/03/21 TIME: 09:56 Subjective Status post thoracentesis 10/01/2021. 1000 cc has come out. The initial drainage was thick consistent with empyema. Chest tube was placed. Another 200 cc came since last 24 hours. Vitals Vital Signs Date Time Temp Pulse Resp B/P (MAP) Pulse Ox O2 Delivery O2 Flow Rate FiO2 10/03/21 09:01 61 125/54 10/03/21 07:44 96 Nasal Cannula 2.0 10/03/21 07:00 97.5 16 97.5 General: Alert, No acute distress Lungs: Other (Chest tube on the right appears to have serous fluid in the tube) Cardiovascular: S1 Abdomen: Soft Neuro Exam: Alert Extremities: No Edema Skin: Warm Labs Laboratory Tests Test 10/01/21 12:25 10/01/21 13:00 10/01/21 14:42 10/02/21 06:14 Urine Collection Type Unknown Urine Color (Auto) Yellow Urine Turbidity Hazy Urine pH (Auto) 6.0 (<5.0-8.0) Urine Specific [place] 1.028 (1.000-1.030) Urine Protein (Auto) 50 mg/dL (Negative) Urine Glucose (Auto)(UA) Negative mg/dL (Negative) Urine Ketones (Auto) Negative mg/dL (Negative) Urine Blood (Auto) Negative (Negative) Urine Nitrite Negative (Negative) Urine Bilirubin (Auto) Negative (Negative) Urine Urobilinogen (Auto) Normal mg/dL (Normal) Urine Leukocyte Esterase (Auto) Large (Negative) Urine RBC Rare /HPF (0-2) Urine WBC 11-20 /HPF (0-4) Urine Squamous Epithelial Cells Mod /LPF Urine Transitional Epithelial Cells Occ /LPF Urine Renal Epithelial Cells Occ /LPF Urine Amorphous Sediment Present /HPF Urine Bacteria Few /HPF (0-FEW) Urine Hyaline Casts Few /HPF Urine Mucus Slight /LPF Body Fluid pH 6.97 Body Fluid Glucose <2 mg/dL (.) Body Fluid Total Protein 3.7 g/dL (.) Body Fluid Lactate Dehydrogenase 5570 IU/L (.) White Blood Count 43.9 x10^3/uL (4.0-11.0) 35.9 x10^3/uL (4.0-11.0) Red Blood Count 4.34 x10^6/uL (3.50-5.40) 3.86 x10^6/uL (3.50-5.40) Hemoglobin 12.1 g/dL (12.0-15.5) 10.6 g/dL (12.0-15.5) Hematocrit 37.0 % (36.0-47.0) 32.8 % (36.0-47.0) Mean Corpuscular Volume 85 fL (79-100) 85 fL (79-100) Mean Corpuscular Hemoglobin 28 pg (25-35) 27 pg (25-35) Mean Corpuscular Hemoglobin Concent 33 g/dL (31-37) 32 g/dL (31-37) Red Cell Distribution Width 13.7 % (11.5-14.5) 13.7 % (11.5-14.5) Platelet Count 622 x10^3/uL (140-400) 564 x10^3/uL (140-400) Neutrophils (%) (Auto) 93 % (31-73) 92 % (31-73) Lymphocytes (%) (Auto) 2 % (24-48) 3 % (24-48) Monocytes (%) (Auto) 5 % (0-9) 4 % (0-9) Eosinophils (%) (Auto) 0 % (0-3) 0 % (0-3) Basophils (%) (Auto) 1 % (0-3) 0 % (0-3) Neutrophils # (Auto) 40.7 x10^3/uL (1.8-7.7) 33.2 x10^3/uL (1.8-7.7) Lymphocytes # (Auto) 0.8 x10^3/uL (1.0-4.8) 1.0 x10^3/uL (1.0-4.8) Monocytes # (Auto) 2.0 x10^3/uL (0.0-1.1) 1.5 x10^3/uL (0.0-1.1) Eosinophils # (Auto) 0.1 x10^3/uL (0.0-0.7) 0.1 x10^3/uL (0.0-0.7) Basophils # (Auto) 0.2 x10^3/uL (0.0-0.2) 0.1 x10^3/uL (0.0-0.2) Sodium Level 130 mmol/L (136-145) Potassium Level 4.2 mmol/L (3.5-5.1) Chloride Level 97 mmol/L (98-107) Carbon Dioxide Level 24 mmol/L (21-32) Anion Gap 9 (6-14) Blood Urea Nitrogen 30 mg/dL (7-20) Creatinine 1.1 mg/dL (0.6-1.0) Estimated GFR (Cockcroft-Gault) 47.7 Glucose Level 83 mg/dL (70-99) Calcium Level 9.0 mg/dL (8.5-10.1) Test 10/03/21 04:40 Sodium Level 133 mmol/L (136-145) Potassium Level 5.0 mmol/L (3.5-5.1) Chloride Level 100 mmol/L (98-107) Carbon Dioxide Level 26 mmol/L (21-32) Anion Gap 7 (6-14) Blood Urea Nitrogen 24 mg/dL (7-20) Creatinine 1.2 mg/dL (0.6-1.0) Estimated GFR (Cockcroft-Gault) 43.1 Glucose Level 96 mg/dL (70-99) Calcium Level 9.0 mg/dL (8.5-10.1) Laboratory Tests Test 10/03/21 04:40 Sodium Level 133 mmol/L (136-145) Potassium Level 5.0 mmol/L (3.5-5.1) Chloride Level 100 mmol/L (98-107) Carbon Dioxide Level 26 mmol/L (21-32) Anion Gap 7 (6-14) Blood Urea Nitrogen 24 mg/dL (7-20) Creatinine 1.2 mg/dL (0.6-1.0) Estimated GFR (Cockcroft-Gault) 43.1 Glucose Level 96 mg/dL (70-99) Calcium Level 9.0 mg/dL (8.5-10.1) Medications Active Scripts Medications Dose Route/Sig Max Daily Dose Days Date Category Tums (Calcium Carbonate) 200 Mg Tab.chew 200 Mg PO PRN PRN 09/29/21 Reported Vitamin B Complex 1 Each Capsule 1 Each PO DAILY 09/29/21 Reported Calcium 600+D Plus Minerals Tb (Calcium Carb/Vit D3/Minerals) 1 Each Tablet 1 Each PO DAILY 09/29/21 Reported Donepezil Hcl 10 Mg Tablet 1 Tab PO DAILY 09/29/21 Reported Azelastine HCl 205.5 Mcg/0.137 Ml [place].pump 2 [place] NS BID 30 09/29/21 Reported Flonase Allergy Relief (Fluticasone Propionate) 9.9 Ml [place].susp 2 Sprays NS DAILY 09/29/21 Reported Benzonatate 200 Mg Capsule 200 Mg PO BID 09/29/21 Reported Proair Hfa Inhaler (Albuterol Sulfate) 8.5 Gm Hfa.aer.ad 2 Puff IH BID 21 09/29/21 Reported Ibuprofen 800 Mg Tablet 800 Mg PO Q6HRS PRN 09/29/21 Reported Gabapentin (Gabapentin) 300 Mg Capsule 300 Mg PO Q6HRS 09/29/21 Reported Cetirizine Hcl 10 Mg Tablet 10 Mg PO DAILY 30 12/21/20 Rx Flovent 100MCG Diskus (Fluticasone Propionate) 100 Mcg Disk.w.dev 1 Puff IH BID 03/20/17 Reported Montelukast Sodium Tablet (Montelukast Sodium) 10 Mg Tablet 1 Tab PO DAILY 03/21/16 Reported Famotidine 40 Mg Tablet 40 Mg PO HS 03/21/16 Reported Comments Chest x-ray reviewed dated 10/03/2021. Significantly improved right pleural effusion. Is still volume loss which could be leads pneumonia and loculated effusion Impression . 1. Acute hypoxic respiratory failure secondary to community-acquired pneumonia with empyema. Less likely malignancy, status post right chest tube placement 10/01/[address] chest with mild to moderate right-sided pleural effusion along with mass-like density in the right lower lobe. Likely a pneumonic consolidation, but cannot exclude a mass. She also has mild mediastinal and hilar adenopathy, which is likely reactive. 3. History of a chronic cough, which had an extensive workup in the past with Dr. Jacobs, her pharmaceutical assistant. It was attributed to reactive airway disease. She had a prior bronchoscopies and even biopsies. 4. No significant tobaccoism. 5. Marked leukocytosis since admission. Plan . 1. Continue with chest tube to suction. Monitor output. Drainage has slowed down. Will need a follow-up CT chest in a.m. to assess for any loculation. May be a candidate for TPA through the chest tube if loculated effusion is observed 2. Monitor white cell count. Marked increase. Antibiotics broadened. 3. Zosyn/Zyvox/Doxy to continue for now. follow pleural fluid cultures. pH is 6.9 and glucose is less than 2 consistent with empyema, it is an exudate. 4. Await pleural fluid cytology. Clinically less likely malignancy. 5. Follow daily chest x-rays. 6. Improve nutritional status. 7. Continue with bronchodilators. 8. Discussed with RN and patient's daughter at the bedside ALEXA GREEN MD Oct 03, 2021 09:59
--- NOTE | 2021-10-03 10:03 | PDOC ---
[facility] PROGRESS NOTE Date of Service DOS: DATE: 10/03/21 TIME: 10:00 Chief Complaint Chief Complaint Respiratory failure Hypoxia Right lower lobe pneumonia Right pleural effusion awaiting thoracentesis Hallucinations Asthma Chronic cough Bilateral knee pain HLD Neuropathy Dementia GERD Obesity Weakness Anemia History of Present Illness History of Present Illness 10/03 Patient evaluated examined at bedside. Chest tube in place with exudative effusion. Cytology studies pending. Continue antimicrobials. Multiple consultants following. Discussed with bedside RN. 10/02/2021 Patient seen and examined Discussed with RN Chart review Discussed with pulmonary physician Patient had a thoracentesis yesterday We are awaiting the results of the fluid analysis For now we are continuing IV antibiotics and breathing treatments and oxygen 10/01/2021 Patient seen and examined Discussed with RN Discussed with case management Chart reviewed Patient currently awaiting thoracentesis this morning On 2 L of nasal cannula oxygen Her creatinine has gone up to 1.6 her BUN is also up to 31 Her white count is also elevated from 18-36 I ordered normal saline at 75 and consulted nephrology Has also slipped into A. fib Cardiology consult pending We will give a dose of IV metoprolol until seen by cardiology 81yo female with PMHx asthma, HLD, peripheral neuropathy, GERD, obesity, and newly diagnosed dementia who comes to ED via [facility] complaining of progressive shortness of breath which has begun to worsen over the past 2 weeks. Over the past 2 days she has now had productive sputum that is yellow yellowish-brown with green. She has also been more weak over the past few days and her daughter notes she was having difficulty helping her walk and needed to keep 100% assist. Patient noted she was having trouble walking because of some right-sided chest pain. They contacted EMS. Upon EMS evaluation patient was noted to have O2 saturations in the low 80s and was placed on 5 L nasal cannula and arrived to the ED with this. No recent travel or sick contacts. She is fully vaccinated boosted against COVID-19 and influenza as well as pneumonia with Pneumovax and Prevnar She does have a chronic cough that lasted 10 years and has had significant work- up bronchoscopy with biopsies previously with Dr. Smart at [facility] 4 years ago. She was then referred to ENT sees Dr. Bernardo and has been on Flonase and azelastine. She did enter referral to Dr. Masood for asthma and allergies and has been Flovent albuterol montelukast nightly famotidine Tessalon. Since a hip fracture in December 2020 she has been struggling more with memory and is being treated for dementia at this time by Dr. Sánchez. She does note that she frequently hallucinates that her mom and dad are alive and they are helping take care of her at home, this is very concerning to her daughter and who are both bedside. He also notes she is struggled with bilateral knee pain and 1 month ago had bilateral corticosteroid injections and had relief for about 2 weeks but had to return for Synvisc injections bilaterally last week. She still having some posterior medial left knee pain currently. WBC 16.4, Hb 11.5, platelets 591, D-dimer 2.28, NA 136, K3.7, BUN 11, CR 1.2, calcium 9.3, bilirubin 0.7 AST 49, ALT 53, alkaline phosphatase 81, albumin 2.3, NT proBNP is 568, high-sensitivity troponin is less than 4 09/30/2021 No acute events overnight. Patient seen examined bedside.. Patient saturating well 91% on 3 L nasal cannula. and daughter at bedside. Stating the patient has had a chronic cough for the last 6 years. Patient also not more dyspneic than usual. No production of sputum. Plan for thoracentesis tomorrow with interventional radiology. Patient's chart, labs, images were reviewed and discussed with RN Vitals/I&O Vitals/I&O: Vital Signs Date Time Temp Pulse Resp B/P (MAP) Pulse Ox O2 Delivery O2 Flow Rate FiO2 10/03/21 09:01 61 125/54 10/03/21 07:44 96 Nasal Cannula 2.0 10/03/21 07:00 97.5 16 97.5 I & O 10/02/21 10/02/21 10/03/21 15:00 23:00 07:00 Intake Total 1300 ml 290 ml 0 ml Output Total 190 ml 150 ml 550 ml Balance 1110 ml 140 ml -550 ml Physical Exam General: Alert, Cooperative, No acute distress Heart: Other (AFIB) Lungs: Other (Chest tube on the right appears to have serous fluid in the tube) Abdomen: Soft Extremities: No edema Skin: No significant lesion Labs Labs: Laboratory Tests Test 10/03/21 04:40 Sodium Level 133 mmol/L (136-145) Potassium Level 5.0 mmol/L (3.5-5.1) Chloride Level 100 mmol/L (98-107) Carbon Dioxide Level 26 mmol/L (21-32) Anion Gap 7 (6-14) Blood Urea Nitrogen 24 mg/dL (7-20) Creatinine 1.2 mg/dL (0.6-1.0) Estimated GFR (Cockcroft-Gault) 43.1 Glucose Level 96 mg/dL (70-99) Calcium Level 9.0 mg/dL (8.5-10.1) Assessment and Plan Assessmemt and Plan Problems Medical Problems: (1) Pneumonia Status: Acute Comment Review of Relevant I have reviewed the following items mariella (where applicable) has been applied. Medications: Current Medications Medications (Trade) Dose Ordered Sig/Faviola Route PRN Reason Start Time Stop Time Status Last Admin Dose Admin Linezolid/Dextrose 300 ml @ 300 mls/hr Q12HR IV 10/02/21 11:00 10/03/21 09:48 Piperacillin Sod/ Tazobactam Sod 3.375 gm/Sodium Chloride 50 ml @ 100 mls/hr Q6HRS IV 10/02/21 12:00 10/03/21 06:20 Justifications for Admission Other Justification ULICES CHUNG MD Oct 03, 2021 10:03
--- NOTE | 2021-10-03 10:58 | PDOC2 ---
CONSULT Date of Consult Date of Consult DATE: 10/03/21 TIME: 10:48 Reason for Consult Reason for Consult: Leukocytosis Referring Physician Referring Physician: Dr. Barfield Identification/Chief Complaint Chief Complaint Shortness of breath Source Source: Chart review History of Present Illness Reason for Visit: Dai is an 81-year-old female with medical history of asthma, hyperlipidemia and dementia who was brought into the hospital with progressive dyspnea. She was found to have productive cough. She received further evaluation with a CT chest which showed no PE. Consolidation of the right lower lobe with rounded area of central low density that is indeterminate in etiology. This could represent a mass, although pneumonia and/or early abscess is not excluded. There is a small to moderate size right pleural effusion. CT also showed mild mediastinal and right hilar lymphadenopathy, likely reactive. She was seen by pulmonology and received CT-guided thoracentesis. Cytology showed inflammatory cells with exudative fluid. No malignant cells were seen. Hospital course has been complicated by new onset atrial fibrillation for which she is on anticoagulation. Her CBC on hospitalization showed a hemoglobin of 16.4 with ANC of 14,700. Labs since then have shown progressive neutrophilic leukocytosis with peak WBC count of 43.9 and ANC of 40,000 yesterday. Mild monocytosis was also noted. CBC today showed improvement in neutrophilic leukocytosis and WBC count. Labs have also shown mild normocytic anemia and thrombocytosis. Hematology consultation has been requested for further evaluation of these lab findings. Review of prior CBCs showed most recent CBC in December 2020 which showed normal WBC count and platelet count and stable normocytic anemia. Past Medical History Cardiovascular: Hyperlipidemia Pulmonary: Asthma, Other (chronic cough ) CENTRAL NERVOUS SYSTEM: Dementia, Periperal neuropathy GI: GERD Past Surgical History Past Surgical History: Cholecystectomy, Cataract Removal, Tonsillectomy, Other (bladder lift, lumbar fusion, rotator cuff surgery ) Family History Family History: High Cholestrol, Hypertension Social History No ALCOHOL: none Drugs: None Lives: with Family Domestic Violence: Neg Current Problem List Problem List Problems Medical Problems: (1) Pneumonia Status: Acute Current Medications Current Medications Current Medications Albuterol/ Ipratropium (Duoneb) 3 ml 1X ONCE NEB Last administered on 09/29/21at 11:05; Start 09/29/21 at 10:45; Stop 09/29/21 at 10:46; Status DC Fentanyl Citrate (Fentanyl 2ml Vial) 25 mcg 1X ONCE IVP Last administered on 09/29/21at 11:23; Start 09/29/21 at 10:45; Stop 09/29/21 at 10:46; Status DC Iohexol (Omnipaque 300 Mg/ml) 90 ml 1X ONCE IV ; Start 09/29/21 at 11:30; Stop 09/29/21 at 11:31; Status DC Info (CONTRAST GIVEN -- Rx MONITORING) 1 each PRN DAILY PRN MC SEE COMMENTS; Start 09/29/21 at 11:30; Stop 10/01/21 at 11:29; Status DC Iohexol (Omnipaque 350 Mg/ml) 90 ml 1X ONCE IV Last administered on 09/29/21at 11:54; Start 09/29/21 at 12:00; Stop 09/29/21 at 12:01; Status DC Ondansetron HCl (Zofran) 4 mg PRN Q8HRS PRN IVP NAUSEA/VOMITING; Start 09/29/21 at 13:45; Stop 09/29/21 at 16:16; Status DC Fentanyl Citrate (Fentanyl 2ml Vial) 50 mcg PRN Q1HR PRN IVP PAIN; Start 09/29/21 at 13:45; Stop 09/30/21 at 13:44; Status DC Acetaminophen (Tylenol) 650 mg PRN Q4HRS PRN PO FEVER > 100.3'F; Start 09/29/21 at 13:45; Stop 09/29/21 at 16:16; Status DC Ceftriaxone Sodium (Rocephin) 1 gm 1X ONCE IVP Last administered on 09/29/21at 14:00; Start 09/29/21 at 14:15; Stop 09/29/21 at 14:16; Status DC Doxycycline Hyclate 100 mg/ Dextrose 100 ml @ 50 mls/hr 1X ONCE IV Last administered on 09/29/21at 15:26; Start 09/29/21 at 14:15; Stop 09/29/21 at 16:14; Status DC Methylprednisolone Sodium Succinate (SOLU-Medrol 125MG VIAL) 125 mg 1X ONCE IV Last administered on 09/29/21at 14:00; Start 09/29/21 at 14:15; Stop 09/29/21 at 14:16; Status DC Ondansetron HCl (Zofran) 4 mg PRN Q4HRS PRN IVP NAUSEA/VOMITING Last administered on 10/01/21at 01:32; Start 09/29/21 at 16:15 Acetaminophen (Tylenol) 650 mg PRN Q6HRS PRN PO MILD PAIN / TEMP > 100.3'F; Start 09/29/21 at 16:15 Psyllium Hydrophilic Mucilloid (Metamucil Fiber Packet) 1 pkt QHS PO Last administered on 10/02/21at 23:03; Start 09/29/21 at 21:00 Enoxaparin Sodium (Lovenox 40mg Syringe) 40 mg Q24H SQ Last administered on 10/02/21 23:02; Start 09/29/21 at 21:00 Guaifenesin (Robitussin Dm) 10 ml PRN Q6HRS PRN PO COUGH Last administered on 10/01/21at 15:10; Start 09/29/21 at 16:15 Tramadol HCl (Ultram) 50 mg PRN Q6HRS PRN PO PAIN Last administered on 10/02/21at 03:40; Start 09/29/21 at 16:15; Stop 10/02/21 at 08:46; Status DC Ceftriaxone Sodium (Rocephin) 1 gm DAILY10 IVP Last administered on 10/02/21at 10:30; Start 09/30/21 at 10:00; Stop 10/02/21 at 10:30; Status DC Doxycycline Hyclate 100 mg/ Dextrose 100 ml @ 50 mls/hr Q12HR IV Last administered on 10/01/21at 08:49; Start 09/29/21 at 21:00; Stop 10/01/21 at 10:00; Status DC Budesonide (Pulmicort) 0.5 mg RTBID NEB Last administered on 10/03/21 07:44; Start 09/29/21 at 20:00 Albuterol Sulfate (Ventolin Neb Soln) 2.5 mg PRN Q4HRS PRN NEB SHORTNESS OF BREATH Last administered on 10/03/21 07:43; Start 09/29/21 at 16:15 Pantoprazole Sodium (Protonix) 40 mg DAILYAC PO Last administered on 10/03/21 09:02; Start 09/30/21 at 07:30 Pantoprazole Sodium (Protonix) 40 mg 1X ONCE PO Last administered on 09/29/21 16:45; Start 09/29/21 at 17:00; Stop 09/29/21 at 17:01; Status DC Calcium Carbonate/ Glycine (Tums) 500 mg PRN Q2HRS PRN PO HEARTBURN / GAS Last administered on 10/02/21 03:40; Start 09/29/21 at 16:15 Cetirizine HCl (ZyrTEC) 10 mg DAILY PO Last administered on 10/03/21 09:02; Start 09/30/21 at 09:00 Donepezil HCl (Aricept) 10 mg DAILY PO Last administered on 10/03/21 09:02; Start 09/30/21 at 09:00 Montelukast Sodium (Singulair) 10 mg DAILY PO Last administered on 10/03/21 09:02; Start 09/30/21 at 09:00 Benzonatate (Tessalon Perle) 200 mg BID PO Last administered on 10/03/21 09:01; Start 09/29/21 at 21:00 Calcium/Vitamin D (Oscal D 500mg/ 200uts) 1 tab DAILY PO Last administered on 10/03/21 09:02; Start 09/30/21 at 09:00 Fluticasone Propionate (Flonase) 2 spray DAILY NS Last administered on 10/03/21 09:47; Start 09/30/21 at 09:00 Sodium Chloride (Saline Mist Nasal) 1 nicky PRN Q1HR PRN NS NASAL CONGESTION; S tart 09/29/21 at 16:30 Diclofenac Sodium (Voltaren) 1 nicky BID TP Last administered on 10/02/21 10:18; Start 09/29/21 at 21:00 Lactobacillus Rhamnosus (Culturelle) 1 cap BID PO Last administered on 10/03/21 09:02; Start 09/30/21 at 21:00 Metoprolol Tartrate (Lopressor Vial) 5 mg PRN Q5MIN PRN IVP TACHYCARDIA Last administered on 10/01/21 08:54; Start 10/01/21 at 01:45 Doxycycline Hyclate (Vibra-Tab) 100 mg BID PO Last administered on 10/03/21 09:01; Start 10/01/21 at 21:00 Sodium Chloride 1,000 ml @ 75 mls/hr [id number] IV Last administered on 10/02/21at 23:02; Start 10/01/21 at 09:15 Metoprolol Tartrate (Lopressor) 25 mg BID PO Last administered on 10/03/21at 09:01; Start 10/01/21 at 10:00 Digoxin (Lanoxin) 500 mcg 1X ONCE IV Last administered on 10/01/21at 13:26; Start 10/01/21 at 12:30; Stop 10/01/21 at 12:31; Status DC Aspirin (Ecotrin) 81 mg DAILYWBKFT PO Last administered on 10/03/21at 09:02; Start 10/01/21 at 15:00 Gabapentin (Neurontin) 300 mg Q6HRS PO Last administered on 10/03/21at 06:20; Start 10/02/21 at 09:00 Ibuprofen (Motrin) 800 mg Q6HRS PO Last administered on 10/03/21at 06:20; Start 10/02/21 at 09:00 Piperacillin Sod/ Tazobactam Sod (Zosyn Per Pharmacy) 1 each PRN DAILY PRN MC SEE COMMENTS; Start 10/02/21 at 10:30 Linezolid/Dextrose 300 ml @ 300 mls/hr Q12HR IV Last administered on 10/03/21at 09:48; Start 10/02/21 at 11:00 Piperacillin Sod/ Tazobactam Sod 3.375 gm/Sodium Chloride 50 ml @ 100 mls/hr Q6HRS IV Last administered on 10/03/21at 06:20; Start 10/02/21 at 12:00 Barium Sulfate (Varibar Thin Liquid Apple) 148 gm 1X ONCE PO ; Start 10/02/21 at 11:00; Stop 10/02/21 at 11:01; Status DC Active Scripts Active Cetirizine Hcl 10 Mg Tablet 10 Mg PO DAILY 30 Days Reported Tums (Calcium Carbonate) 200 Mg Tab.chew 200 Mg PO PRN PRN Vitamin B Complex 1 Each Capsule 1 Each PO DAILY Calcium 600+D Plus Minerals Tb (Calcium Carb/Vit D3/Minerals) 1 Each Tablet 1 Each PO DAILY Donepezil Hcl 10 Mg Tablet 1 Tab PO DAILY Azelastine HCl 205.5 Mcg/0.137 Ml [place].pump 2 [place] NS BID 30 Days Flonase Allergy Relief (Fluticasone Propionate) 9.9 Ml [place].susp 2 Sprays NS DAILY Benzonatate 200 Mg Capsule 200 Mg PO BID Proair Hfa Inhaler (Albuterol Sulfate) 8.5 Gm Hfa.aer.ad 2 Puff IH BID 21 Days Ibuprofen 800 Mg Tablet 800 Mg PO Q6HRS PRN Gabapentin (Gabapentin) 300 Mg Capsule 300 Mg PO Q6HRS Flovent 100MCG Diskus (Fluticasone Propionate) 100 Mcg Disk.w.dev 1 Puff IH BID Montelukast Sodium Tablet (Montelukast Sodium) 10 Mg Tablet 1 Tab PO DAILY Famotidine 40 Mg Tablet 40 Mg PO HS Allergies Allergies: Coded Allergies: Sulfa (Sulfonamide Antibiotics) (Verified Allergy, Intermediate, Hives, 03/25/17) ciprofloxacin (Verified Allergy, Intermediate, 09/30/21) fluvastatin (Verified Allergy, Intermediate, Hives, 03/25/17) simvastatin (Verified Allergy, Intermediate, Unknown, 03/25/17) tramadol (Verified Allergy, Mild, disoriented, 10/02/21) Do not give patient tramadol or change to adv reaction per Dr Barfield/patient/daughter codeine (Verified Adverse Reaction, Intermediate, Nausea and Vomiting, 12/18/20) pregabalin (Verified Adverse Reaction, Intermediate, 09/30/21) oxycodone (Verified Adverse Reaction, Mild, Nausea and Vomiting, 12/21/20) ROS Review of System Negative unless stated otherwise in HPI Physical Exam Physical Exam General: Awake, alert, no distress Head: Atraumatic, no conjunctival icterus, normal oral cavity mucosa Neck: Supple, no lymphadenopathy Chest: No trauma noted Cardiovascular: Regular rhythm, normal rate, no murmurs Respiratory: Bilateral air entry noted, lungs clear to auscultation bilaterally. No accessory muscle use Abdominal: Abdomen is soft, nontender, nondistended. Bowel sounds were normal. No hepatomegaly or splenomegaly Musculoskeletal: No deformity noted Extremities: No edema noted Skin: No rash or lesions Neurologic: Alert and oriented x3, no grossly evident neurologic deficits noted. Full neurological exam was not performed Psychiatric: Appropriate mood and affect Vitals VITALS Vital Signs Date Time Temp Pulse Resp B/P (MAP) Pulse Ox O2 Delivery O2 Flow Rate FiO2 10/03/21 09:01 61 125/54 10/03/21 07:44 96 Nasal Cannula 2.0 10/03/21 07:00 97.5 16 97.5 Labs Labs Laboratory Tests Test 10/01/21 12:25 10/01/21 13:00 10/01/21 14:42 10/02/21 06:14 Urine Collection Type Unknown Urine Color (Auto) Yellow Urine Turbidity Hazy Urine pH (Auto) 6.0 (<5.0-8.0) Urine Specific [place] 1.028 (1.000-1.030) Urine Protein (Auto) 50 mg/dL (Negative) Urine Glucose (Auto)(UA) Negative mg/dL (Negative) Urine Ketones (Auto) Negative mg/dL (Negative) Urine Blood (Auto) Negative (Negative) Urine Nitrite Negative (Negative) Urine Bilirubin (Auto) Negative (Negative) Urine Urobilinogen (Auto) Normal mg/dL (Normal) Urine Leukocyte Esterase (Auto) Large (Negative) Urine RBC Rare /HPF (0-2) Urine WBC 11-20 /HPF (0-4) Urine Squamous Epithelial Cells Mod /LPF Urine Transitional Epithelial Cells Occ /LPF Urine Renal Epithelial Cells Occ /LPF Urine Amorphous Sediment Present /HPF Urine Bacteria Few /HPF (0-FEW) Urine Hyaline Casts Few /HPF Urine Mucus Slight /LPF Body Fluid pH 6.97 Body Fluid Glucose <2 mg/dL (.) Body Fluid Total Protein 3.7 g/dL (.) Body Fluid Lactate Dehydrogenase 5570 IU/L (.) White Blood Count 43.9 x10^3/uL (4.0-11.0) 35.9 x10^3/uL (4.0-11.0) Red Blood Count 4.34 x10^6/uL (3.50-5.40) 3.86 x10^6/uL (3.50-5.40) Hemoglobin 12.1 g/dL (12.0-15.5) 10.6 g/dL (12.0-15.5) Hematocrit 37.0 % (36.0-47.0) 32.8 % (36.0-47.0) Mean Corpuscular Volume 85 fL (79-100) 85 fL (79-100) Mean Corpuscular Hemoglobin 28 pg (25-35) 27 pg (25-35) Mean Corpuscular Hemoglobin Concent 33 g/dL (31-37) 32 g/dL (31-37) Red Cell Distribution Width 13.7 % (11.5-14.5) 13.7 % (11.5-14.5) Platelet Count 622 x10^3/uL (140-400) 564 x10^3/uL (140-400) Neutrophils (%) (Auto) 93 % (31-73) 92 % (31-73) Lymphocytes (%) (Auto) 2 % (24-48) 3 % (24-48) Monocytes (%) (Auto) 5 % (0-9) 4 % (0-9) Eosinophils (%) (Auto) 0 % (0-3) 0 % (0-3) Basophils (%) (Auto) 1 % (0-3) 0 % (0-3) Neutrophils # (Auto) 40.7 x10^3/uL (1.8-7.7) 33.2 x10^3/uL (1.8-7.7) Lymphocytes # (Auto) 0.8 x10^3/uL (1.0-4.8) 1.0 x10^3/uL (1.0-4.8) Monocytes # (Auto) 2.0 x10^3/uL (0.0-1.1) 1.5 x10^3/uL (0.0-1.1) Eosinophils # (Auto) 0.1 x10^3/uL (0.0-0.7) 0.1 x10^3/uL (0.0-0.7) Basophils # (Auto) 0.2 x10^3/uL (0.0-0.2) 0.1 x10^3/uL (0.0-0.2) Sodium Level 130 mmol/L (136-145) Potassium Level 4.2 mmol/L (3.5-5.1) Chloride Level 97 mmol/L (98-107) Carbon Dioxide Level 24 mmol/L (21-32) Anion Gap 9 (6-14) Blood Urea Nitrogen 30 mg/dL (7-20) Creatinine 1.1 mg/dL (0.6-1.0) Estimated GFR (Cockcroft-Gault) 47.7 Glucose Level 83 mg/dL (70-99) Calcium Level 9.0 mg/dL (8.5-10.1) Test 10/03/21 04:40 Sodium Level 133 mmol/L (136-145) Potassium Level 5.0 mmol/L (3.5-5.1) Chloride Level 100 mmol/L (98-107) Carbon Dioxide Level 26 mmol/L (21-32) Anion Gap 7 (6-14) Blood Urea Nitrogen 24 mg/dL (7-20) Creatinine 1.2 mg/dL (0.6-1.0) Estimated GFR (Cockcroft-Gault) 43.1 Glucose Level 96 mg/dL (70-99) Calcium Level 9.0 mg/dL (8.5-10.1) Laboratory Tests Test 10/03/21 04:40 Sodium Level 133 mmol/L (136-145) Potassium Level 5.0 mmol/L (3.5-5.1) Chloride Level 100 mmol/L (98-107) Carbon Dioxide Level 26 mmol/L (21-32) Anion Gap 7 (6-14) Blood Urea Nitrogen 24 mg/dL (7-20) Creatinine 1.2 mg/dL (0.6-1.0) Estimated GFR (Cockcroft-Gault) 43.1 Glucose Level 96 mg/dL (70-99) Calcium Level 9.0 mg/dL (8.5-10.1) Assessment/Plan Assessment/Plan Assessment: Neutrophilic leukocytosis Normocytic anemia Thrombocytosis Acute hypoxic respiratory failure Empyema Pneumonia, aspiration versus community-acquired Atrial fibrillation, rate controlled, on AC Dementia Recommendations: -Suspect neutrophilic leukocytosis is likely reactive due to infection. Prior CBCs showed normal WBC count. Recommend daily CBC -Consider BCR ABL on FISH if WBC count does not normalize after resolution of pneumonia -Thrombocytosis is likely reactive secondary to infection. Acute compared to CBC 1 year ago. Will check JAK2, CALR and MPL mutation to evaluate for essential thrombocytosis if persistent -Check iron studies, B12, reticulocyte count, erythropoietin level for evaluation of anemia -Management of acute respiratory failure per pulmonology service -Management of atrial fibrillation per cardiology service -Rest per primary team Deny Medina MD Medical Oncology/Hematology Ph: [phone] NILESH MEDINA MD Oct 03, 2021 10:58
[2021-10-03 11:00] VITALS: BP 124/65
[2021-10-03] MEDS ORDERED: IBUPROFEN 400 MG TABLET. PO PRN (13:00)
--- NOTE | 2021-10-03 13:01 | RAD ---
XR CHEST 1V INDICATION: empyema COMPARISON STUDY: CT 09/29/2021. FINDINGS: Life Support Devices: Right pleural catheter. Lungs: Low lung volume. Patchy right lung opacities. Pleura: Moderate right pleural effusion. Heart and Mediastinum: Stable cardiomediastinal silhouette and great vessels. IMPRESSION: 1. Right pleural drainage catheter. 2. Patchy right lung opacities. 3. Moderate right pleural effusion. Electronically signed by: Elier Wooten MD (10/03/2021 12:58 PM) [id number]
[2021-10-03] MEDS: ACETAMINOPHEN 325 MG TABLET. PO SCH ×2 (14:00→21:00)
--- NOTE | 2021-10-03 14:32 | EKG ---
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
[2021-10-03] MEDS: IV NORMAL SALINE 1000ML BAG 1,000 ML IV SCH (14:44)
--- NOTE | 2021-10-03 14:44 | NUR ---
SS following up with discharge planning. SS reviewed pt chart and discussed with pt RN. Pt is currently requiring oxygen at two liters nasal canula. Chest tube in place. Pt on IV Zosyn, IV Zyvox, and PO Doxycycline. PO diet. Dr. Michel consulted. PT/OT recommending fpc unit. SS will continue to follow for discharge planning.
[2021-10-03 15:00] VITALS: BP 119/51
[2021-10-03 19:00] VITALS: BP 128/54
[2021-10-03] MEDS: ENOXAPARIN 40 MG/0.4 ML SYRINGE. SQ SCH (21:16)
[2021-10-03] MEDS: PSYLLIUM HUSK (SUGAR FREE) 1 PKT PACKET PO SCH (21:16)
[2021-10-03 23:53] VITALS: BP 110/49
[2021-10-04] MEDS: GABAPENTIN 300 MG CAPSULE. PO SCH ×4 (01:05→17:28)
[2021-10-04] MEDS: PIPERACILLIN/TAZOBACTAM 3.375 GM in IV NORMAL SALINE 50ML 50 ML IV SCH ×4 (01:05→17:28)
[2021-10-04 03:51] VITALS: BP 118/48
[2021-10-04 07:00] VITALS: BP 154/66
[2021-10-04] MEDS: BUDESONIDE 0.5 MG/2 ML NEBU. NEB SCH ×2 (07:20→20:44)
[2021-10-04 08:42] LABS: CALCIUM 8.8 mg/dL (8.5-10.1); CREATININE 1.1 mg/dL (0.6-1.0); GFR 47.7; POTASSIUM 3.8 mmol/L (3.5-5.1)
[2021-10-04] MEDS: DICLOFENAC SODIUM 1% TOPICAL GEL 100GM TUBE. TP SCH ×2 (09:00→21:00)
--- NOTE | 2021-10-04 09:00 | RAD ---
XR CHEST 1V INDICATION: empyema . COMPARISON STUDY: 10/03/2021. FINDINGS: Life Support Devices: Stable right pleural catheter. Lungs: Normal lung volume. Stable patchy right lung opacities. Pleura: Stable moderate right pleural effusion. Heart and Mediastinum: Stable cardiomediastinal silhouette and great vessels. Bones and Soft Tissues: Stable regional skeleton and soft tissues. IMPRESSION: 1. Stable patchy right lung opacities and moderate right pleural effusion. 2. Stable right pleural catheter. Electronically signed by: Elier Wooten MD (10/04/2021 8:58 AM) [id number]
--- NOTE | 2021-10-04 09:10 | PDOC ---
DATE OF SERVICE DATE: 10/04/21 TIME: 09:09 SUBJECTIVE ROS Stable, No acute concerns voiced by nursing at bedside OBJECTIVE Vital Signs Vital Signs Date Time Temp Pulse Resp B/P (MAP) Pulse Ox O2 Delivery O2 Flow Rate FiO2 10/04/21 07:21 96 Nasal Cannula 2.0 10/04/21 07:00 97.5 66 21 154/66 (95) 97.5 I & 0 Intake and Output 10/04/21 07:00 Output Total 50 ml Balance -50 ml Chest Tube Drainage Total 50 ml # Voids 3 # Bowel Movements 3 PHYSICAL EXAM Physical Exam General: NAD HEENT: Atraumatic, PERRLA, EOMI, Mucous membr. moist/pink Neck Supple Lungs:Right basilar decreased sounds and rhonchi, Non labored Heart: S1S2, RRR, no thrills, no rubs, no gallops, no murmurs Extremities: No clubbing, No cyanosis, No edema, Normal pulses, No tenderness/swelling Skin: No rashes, N Neuro: Normal speech, Strength at 5/5 X4 ext, Normal tone, Sensation intact, Cranial nerves 3-12 NL, Reflexes 2+ Psych/Mental Status: Mood NL, ? Confused, Dementia No Martinez, No CVA or SP tenderness DIAGNOSIS/ASSESSMENT Assessment & Plan ILDA - ATN , Recd Contrast 09/29 for CTA Resolved Avoid NSAID's Renal US RK unremarkable, LK not evaluated, No PVR Abnormal UA - Cx negative Supportive care, Maintain hydration, avoid nephrotoxins, strict I/O (UOP not recorded) HypoNa- Mild, improving CKD stage 3 A- based on Labs from [facility] baseline Cr 1.0in December 2020 with eGFR in 50's . Family not aware of Dx Acute hypoxic respiratory failure secondary to community-acquired pneumonia with parapneumonic effusion. On o2 by DC. Pulmonary managing . Has Chest tube post Thoracentesis Mild to moderate right-sided pleural effusion along with mass-like density in the right lower lobe- On CT scan s/p Ultrasound-guided right pleural effusion demonstrating frankly turbid fluid consistent with empyema. 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 It was attributed to reactive airway disease. She had a prior bronchoscopies and even biopsies. Marked leukocytosis since admission. Bilateral knee pain -severe osteoarthritis Peripheral neuropathy - gabapentin Dementia - newly diagnosed - cont aricept GERD Obesity Weakness and debility COMMENT/RELEVANT DATA Meds Current Medications Medications (Trade) Dose Ordered Sig/Faviola Start Time Stop Time Status Last Admin Dose Admin Acetaminophen (Tylenol) 650 mg TID 10/03/21 14:00 Albuterol Sulfate (Ventolin Neb Soln) 2.5 mg PRN Q4HRS PRN 09/29/21 16:15 10/03/21 07:43 2.5 MG Albuterol/ Ipratropium (Duoneb) 3 ml 1X ONCE 09/29/21 10:45 09/29/21 10:46 DC 09/29/21 11:05 3 ML Aspirin (Ecotrin) 81 mg DAILYWBKFT 10/01/21 15:00 10/03/21 09:02 81 MG Barium Sulfate (Varibar Thin Liquid Apple) 148 gm 1X ONCE 10/02/21 11:00 10/02/21 11:01 DC Benzonatate (Tessalon Perle) 200 mg BID 09/29/21 21:00 10/03/21 21:16 200 MG Budesonide (Pulmicort) 0.5 mg RTBID 09/29/21 20:00 10/04/21 07:20 0.5 MG Calcium Carbonate/ Glycine (Tums) 500 mg PRN Q2HRS PRN 09/29/21 16:15 10/02/21 03:40 500 MG Calcium/Vitamin D (Oscal D 500mg/ 200uts) 1 tab DAILY 09/30/21 09:00 10/03/21 09:02 1 TAB Ceftriaxone Sodium (Rocephin) 1 gm DAILY10 09/30/21 10:00 10/02/21 10:30 DC 10/02/21 10:30 1 GM Cetirizine HCl (ZyrTEC) 10 mg DAILY 09/30/21 09:00 10/03/21 09:02 10 MG Diclofenac Sodium (Voltaren) 1 nicky BID 09/29/21 21:00 10/03/21 21:19 1 NICKY Digoxin (Lanoxin) 500 mcg 1X ONCE 10/01/21 12:30 10/01/21 12:31 DC 10/01/21 13:26 500 MCG Donepezil HCl (Aricept) 10 mg DAILY 09/30/21 09:00 10/03/21 09:02 10 MG Doxycycline Hyclate (Vibra-Tab) 100 mg BID 10/01/21 21:00 10/03/21 21:17 100 MG Doxycycline Hyclate 100 mg/ Dextrose 100 ml @ 50 mls/hr Q12HR 09/29/21 21:00 10/01/21 10:00 DC 10/01/21 08:49 50 MLS/HR Enoxaparin Sodium (Lovenox 40mg Syringe) 40 mg Q24H 09/29/21 21:00 10/03/21 21:16 40 MG Fentanyl Citrate (Fentanyl 2ml Vial) 50 mcg PRN Q1HR PRN 09/29/21 13:45 09/30/21 13:44 DC Fluticasone Propionate (Flonase) 2 spray DAILY 09/30/21 09:00 10/03/21 09:47 2 SPRAY Gabapentin (Neurontin) 300 mg Q6HRS 10/02/21 09:00 10/04/21 07:20 300 MG Guaifenesin (Robitussin Dm) 10 ml PRN Q6HRS PRN 09/29/21 16:15 10/01/21 15:10 10 ML Ibuprofen (Motrin) 400 mg PRN Q8HRS PRN 10/03/21 13:00 10/03/21 17:43 400 MG Info (CONTRAST GIVEN -- Rx MONITORING) 1 each PRN DAILY PRN 09/29/21 11:30 10/01/21 11:29 DC Iohexol (Omnipaque 300 Mg/ml) 90 ml 1X ONCE 09/29/21 11:30 09/29/21 11:31 DC Iohexol (Omnipaque 350 Mg/ml) 90 ml 1X ONCE 09/29/21 12:00 09/29/21 12:01 DC 09/29/21 11:54 90 ML Lactobacillus Rhamnosus (Culturelle) 1 cap BID 09/30/21 21:00 10/03/21 21:17 1 CAP Linezolid/Dextrose 300 ml @ 300 mls/hr Q12HR 10/02/21 11:00 10/03/21 21:15 300 MLS/HR Methylprednisolone Sodium Succinate (SOLU-Medrol 125MG VIAL) 125 mg 1X ONCE 09/29/21 14:15 09/29/21 14:16 DC 09/29/21 14:00 125 MG Metoprolol Tartrate (Lopressor Vial) 5 mg PRN Q5MIN PRN 10/01/21 01:45 10/01/21 08:54 5 MG Metoprolol Tartrate (Lopressor) 25 mg BID 10/01/21 10:00 10/03/21 21:17 25 MG Montelukast Sodium (Singulair) 10 mg DAILY 09/30/21 09:00 10/03/21 09:02 10 MG Ondansetron HCl (Zofran) 4 mg PRN Q4HRS PRN 09/29/21 16:15 10/01/21 01:32 4 MG Pantoprazole Sodium (Protonix) 40 mg 1X ONCE 09/29/21 17:00 09/29/21 17:01 DC 09/29/21 16:45 40 MG Piperacillin Sod/ Tazobactam Sod (Zosyn Per Pharmacy) 1 each PRN DAILY PRN 10/02/21 10:30 Piperacillin Sod/ Tazobactam Sod 3.375 gm/Sodium Chloride 50 ml @ 100 mls/hr Q6HRS 10/02/21 12:00 10/04/21 07:20 100 MLS/HR Psyllium Hydrophilic Mucilloid (Metamucil Fiber Packet) 1 pkt QHS 09/29/21 21:00 10/03/21 21:16 1 PKT Sodium Chloride 1,000 ml @ 75 mls/hr [id number] 10/01/21 09:15 10/03/21 14:44 75 MLS/HR Sodium Chloride (Saline Mist Nasal) 1 nicky PRN Q1HR PRN 09/29/21 16:30 Tramadol HCl (Ultram) 50 mg PRN Q6HRS PRN 09/29/21 16:15 10/02/21 08:46 DC 10/02/21 03:40 50 MG Lab Laboratory Tests Test 10/04/21 06:45 Sodium Level 133 mmol/L (136-145) Potassium Level 3.8 mmol/L (3.5-5.1) Chloride Level 102 mmol/L (98-107) Carbon Dioxide Level 23 mmol/L (21-32) Anion Gap 8 (6-14) Blood Urea Nitrogen 17 mg/dL (7-20) Creatinine 1.1 mg/dL (0.6-1.0) Estimated GFR (Cockcroft-Gault) 47.7 Glucose Level 79 mg/dL (70-99) Calcium Level 8.8 mg/dL (8.5-10.1) Results All relevant outside records, renal labs, imaging studies, telemetry/EKG's were reviewed. Justicifation of Admission Dx: Justifications for Admission: Justification of Admission Dx: Yes Fracture: Fracture ANH POLK MD Oct 04, 2021 09:10
[2021-10-04] MEDS: ACETAMINOPHEN 325 MG TABLET. PO SCH ×3 (10:08→21:05)
[2021-10-04] MEDS: BENZONATATE 100 MG CAPSULE. PO SCH ×2 (10:08→21:04)
[2021-10-04] MEDS: DONEPEZIL HCL 10 MG TABLET. PO SCH (10:08)
--- NOTE | 2021-10-04 10:08 | PDOC ---
PULMONARY PROGRESS NOTES DATE: 10/04/21 TIME: 10:07 Subjective Status post thoracentesis 10/01/2021. 1000 cc has come out. The initial drainage was thick consistent with empyema. Chest tube was placed. Not much drainage since last 24 hours. Vitals Vital Signs Date Time Temp Pulse Resp B/P (MAP) Pulse Ox O2 Delivery O2 Flow Rate FiO2 10/04/21 07:21 96 Nasal Cannula 2.0 10/04/21 07:00 97.5 66 21 154/66 (95) 97.5 General: Alert, No acute distress Lungs: Other (Chest tube on the right appears to have serous fluid in the tube) Cardiovascular: S1 Abdomen: Soft Neuro Exam: Alert Extremities: No Edema Skin: Warm Labs Laboratory Tests Test 10/03/21 04:40 10/04/21 06:45 Sodium Level 133 mmol/L (136-145) 133 mmol/L (136-145) Potassium Level 5.0 mmol/L (3.5-5.1) 3.8 mmol/L (3.5-5.1) Chloride Level 100 mmol/L (98-107) 102 mmol/L (98-107) Carbon Dioxide Level 26 mmol/L (21-32) 23 mmol/L (21-32) Anion Gap 7 (6-14) 8 (6-14) Blood Urea Nitrogen 24 mg/dL (7-20) 17 mg/dL (7-20) Creatinine 1.2 mg/dL (0.6-1.0) 1.1 mg/dL (0.6-1.0) Estimated GFR (Cockcroft-Gault) 43.1 47.7 Glucose Level 96 mg/dL (70-99) 79 mg/dL (70-99) Calcium Level 9.0 mg/dL (8.5-10.1) 8.8 mg/dL (8.5-10.1) Laboratory Tests Test 10/04/21 06:45 Sodium Level 133 mmol/L (136-145) Potassium Level 3.8 mmol/L (3.5-5.1) Chloride Level 102 mmol/L (98-107) Carbon Dioxide Level 23 mmol/L (21-32) Anion Gap 8 (6-14) Blood Urea Nitrogen 17 mg/dL (7-20) Creatinine 1.1 mg/dL (0.6-1.0) Estimated GFR (Cockcroft-Gault) 47.7 Glucose Level 79 mg/dL (70-99) Calcium Level 8.8 mg/dL (8.5-10.1) Medications Active Scripts Medications Dose Route/Sig Max Daily Dose Days Date Category Tums (Calcium Carbonate) 200 Mg Tab.chew 200 Mg PO PRN PRN 09/29/21 Reported Vitamin B Complex 1 Each Capsule 1 Each PO DAILY 09/29/21 Reported Calcium 600+D Plus Minerals Tb (Calcium Carb/Vit D3/Minerals) 1 Each Tablet 1 Each PO DAILY 09/29/21 Reported Donepezil Hcl 10 Mg Tablet 1 Tab PO DAILY 09/29/21 Reported Azelastine HCl 205.5 Mcg/0.137 Ml [place].pump 2 [place] NS BID 30 09/29/21 Reported Flonase Allergy Relief (Fluticasone Propionate) 9.9 Ml [place].susp 2 Sprays NS DAILY 09/29/21 Reported Benzonatate 200 Mg Capsule 200 Mg PO BID 09/29/21 Reported Proair Hfa Inhaler (Albuterol Sulfate) 8.5 Gm Hfa.aer.ad 2 Puff IH BID 21 09/29/21 Reported Ibuprofen 800 Mg Tablet 800 Mg PO Q6HRS PRN 09/29/21 Reported Gabapentin (Gabapentin) 300 Mg Capsule 300 Mg PO Q6HRS 09/29/21 Reported Cetirizine Hcl 10 Mg Tablet 10 Mg PO DAILY 30 12/21/20 Rx Flovent 100MCG Diskus (Fluticasone Propionate) 100 Mcg Disk.w.dev 1 Puff IH BID 03/20/17 Reported Montelukast Sodium Tablet (Montelukast Sodium) 10 Mg Tablet 1 Tab PO DAILY 03/21/16 Reported Famotidine 40 Mg Tablet 40 Mg PO HS 03/21/16 Reported Comments Chest x-ray reviewed dated 10/03/2021. Significantly improved right pleural effusion. Is still volume loss which could be leads pneumonia and loculated effusion Impression . 1. Acute hypoxic respiratory failure secondary to community-acquired pneumonia with empyema. Less likely malignancy, status post right chest tube placement 10/01/[address] chest with mild to moderate right-sided pleural effusion along with mass-like density in the right lower lobe. Likely a pneumonic consolidation, but cannot exclude a mass. She also has mild mediastinal and hilar adenopathy, which is likely reactive. 3. History of a chronic cough, which had an extensive workup in the past with Dr. Jacobs, her servomechanism designer. It was attributed to reactive airway disease. She had a prior bronchoscopies and even biopsies. 4. No significant tobaccoism. 5. Marked leukocytosis since admission. Plan . 1. Continue with chest tube to suction. Monitor output. Drainage has slowed down. Will need a follow-up CT chest today to assess for any loculation. May be a candidate for TPA through the chest tube if loculated effusion is observed 2. Monitor white cell count. Marked increase. Antibiotics broadened. 3. Zosyn/Zyvox/Doxy to continue for now. follow pleural fluid cultures. pH is 6.9 and glucose is less than 2 consistent with empyema, it is an exudate. 4. Await pleural fluid cytology. Clinically less likely malignancy. 5. Follow daily chest x-rays. 6. Improve nutritional status. 7. Continue with bronchodilators. 8. Discussed with RN and patient's at the bedside ALEXA GREEN MD Oct 04, 2021 10:08
[2021-10-04] MEDS: MONTELUKAST SODIUM 10 MG TABLET. PO SCH (10:09)
[2021-10-04] MEDS: ASPIRIN ENTERIC COATED 81 MG TABLET.DR. PO SCH (10:09)
[2021-10-04] MEDS: CETIRIZINE HCL 10 MG TABLET. PO SCH (10:09)
[2021-10-04] MEDS: METOPROLOL TART IMMED RELEASE 25 MG TABLET. PO SCH ×2 (10:09→21:00)
[2021-10-04] MEDS: DOXYCYCLINE HYCLATE 100 MG TABLET PO SCH ×2 (10:09→21:05)
[2021-10-04] MEDS: PANTOPRAZOLE 40 MG TABLET.DR. PO SCH (10:09)
[2021-10-04] MEDS: LACTOBACILLUS RHAMNOSUS GG 1 CAPSULE. PO SCH ×2 (10:09→21:03)
[2021-10-04] MEDS: FLUTICASONE 50MCG/NASAL SPRAY 16GM BOTTLE. NS SCH (10:10)
[2021-10-04] MEDS: CALCIUM CARB/VIT D3 500/200 TABLET. PO SCH (10:20)
[2021-10-04 10:37] LABS: HEMATOCRIT 34.6 % (36.0-47.0); HEMOGLOBIN 10.9 g/dL (12.0-15.5); RED BLOOD COUNT 4.02 x10^6/uL (3.50-5.40); RED CELL DISTRIBUTION WIDTH 13.6 % (11.5-14.5); WHITE BLOOD COUNT 16.1 x10^3/uL (4.0-11.0)
[2021-10-04 11:00] VITALS: BP 133/58
--- NOTE | 2021-10-04 11:03 | PDOC ---
SIMON LARRY GUIDANCE AND CONTROL SYSTEM ENGINEER 10/04/21 1103: CARDIO Progress Notes Date and Time Date of Service 10/04/21 Time of Evaluation 1140 Subjective Subjective: No Chest Pain, No Palpitations, No Dizziness, Other (not more SOA) Vitals Vitals Vital Signs Date Time Temp Pulse Resp B/P (MAP) Pulse Ox O2 Delivery O2 Flow Rate FiO2 10/04/21 10:09 66 154/66 10/04/21 07:21 96 Nasal Cannula 2.0 10/04/21 07:00 97.5 21 97.5 Weight Weight [ ] Input and Output Intake and Output Intake and Output 10/04/21 07:00 Output Total 50 ml Balance -50 ml Chest Tube Drainage Total 50 ml # Voids 3 # Bowel Movements 3 Laboratory Labs Laboratory Tests Test 10/04/21 06:45 White Blood Count 16.1 x10^3/uL (4.0-11.0) Red Blood Count 4.02 x10^6/uL (3.50-5.40) Hemoglobin 10.9 g/dL (12.0-15.5) Hematocrit 34.6 % (36.0-47.0) Mean Corpuscular Volume 86 fL (79-100) Mean Corpuscular Hemoglobin 27 pg (25-35) Mean Corpuscular Hemoglobin Concent 32 g/dL (31-37) Red Cell Distribution Width 13.6 % (11.5-14.5) Platelet Count 541 x10^3/uL (140-400) Sodium Level 133 mmol/L (136-145) Potassium Level 3.8 mmol/L (3.5-5.1) Chloride Level 102 mmol/L (98-107) Carbon Dioxide Level 23 mmol/L (21-32) Anion Gap 8 (6-14) Blood Urea Nitrogen 17 mg/dL (7-20) Creatinine 1.1 mg/dL (0.6-1.0) Estimated GFR (Cockcroft-Gault) 47.7 Glucose Level 79 mg/dL (70-99) Calcium Level 8.8 mg/dL (8.5-10.1) Microbiology Micro Microbiology 10/01/21 Urine Culture - Final, Complete 10/01/21 Gram Stain - Final, Resulted 10/01/21 Aerobic and Anaerobic Culture - Preliminary, Resulted Physical Exam HEENT: Neck Supple W Full Motion Chest: Symmetric LUNGS: Other (diminished, right chest tube) Heart: S1S2, RRR (SR- HR near 65) Abdomen: Soft N/T Extremities: No Edema Neurology: alert, follow commands Assessment Assessment 1. Acute respiratory failure secondary to pneumonia, right pleural effusion. s/p thoracentesis, chest tube placement due to empyema. 2. New onset AFIB with RVR. s/p IV metoprolol. converted back to SR. Echo with LVEF 55% with moderate LV diastolic dysfunction and aortic root dilation at 4.0 cm. 3. Leukocytosis 4. Hyperlipidemia; LDL 112 5. ILDA; improved 6. Dementia Recommendations Continue low-dose metoprolol for rate control ASA therapy. Continue Lovenox VTE prophylaxis dosing. Transition to Eliquis upon discharge Outpatient event monitor to guide therapy as arranged Ongoing pulmonary optimization, treatment of PNA Supportive care Follow up in our office with Dr. Noguera as scheduled. Justicifation of Admission Dx: Justifications for Admission: Justification of Admission Dx: Yes Fracture: Fracture ERIN NOGUERA MD 10/05/21 0948: CARDIO Progress Notes Assessment Assessment Patient seen and examined 10/04/21. Agree with CENTER LEAD CONSULTANT's assessment and plan. Atrial fibrillation, newly diagnosed, presently back in sinus rhythm 2D echo showed normal LV systolic function with EF 55% Agree with eliquis for stroke prophylaxis Plan outpatient event monitor to assess AF burden Continue treatment of pneumonia per pulm team Follow up as scheduled SIMON LARRY APRN Oct 04, 2021 11:03 ERIN NOGUERA MD Oct 05, 2021 09:48
[2021-10-04] MEDS: IV NORMAL SALINE 1000ML BAG 1,000 ML IV SCH (12:19)
[2021-10-04 15:00] VITALS: BP 139/51
--- NOTE | 2021-10-04 16:25 | NUR ---
SS following up with discharge planning. SS reviewed pt chart and discussed with pt RN. Pt is currently requiring oxygen at two liters nasal canula. Chest tube in place. Pt on IV Zosyn, IV Zyvox, and PO Doxycycline. PO diet. PT/OT recommending prison unit. SS will continue to follow for discharge planning.
--- NOTE | 2021-10-04 17:06 | RAD ---
EXAMINATION: CT Chest Without IV contrast. INDICATION:81 years, Female, empyema. Follow-up exam. COMPARISON: 09/29/2021. TECHNIQUE: Spiral CT was obtained from the jugular notch through the posterior costophrenic recess. 3 -D MIPS, sagittal and coronal reformats were obtained. Exposure: One or more of the following individualized dose reduction techniques were utilized for thi s examination: 1. Automated exposure control 2. Adjustment of the mA and/or kV according to patient size 3. Use of iterative reconstruction technique. FINDINGS: Within the limitation of noncontrast exam, LUNGS/PLEURA: Central airways are patent. Right pigtail pleural drain catheter is in place with moder ate right hydropneumothorax with consolidative opacity in the right lower and middle lobes. Left mehdi g is unremarkable. MEDIASTINUM: No pathologic mediastinal or hilar adenopathy. Calcified left hilar lymph nodes. The tho racic aorta and pulmonary arteries are normal in caliber. The heart is normal in size. No pericardial effusion. Mild calcified coronary atherosclerosis. The visualized thyroid and the esophagus are unre markable. AXILLA/SOFT TISSUE: No supraclavicular or axillary adenopathy. Regional soft tissues are within haylee l limits. UPPER ABDOMEN: Calcified granulomas in the spleen. Cholecystectomy. Small hiatal hernia. BONES: No evidence of acute fractures or aggressive osseous lesions. IMPRESSION: Within the limitation of noncontrast exam, 1. Right pigtail pleural drain catheter is in place with moderate right hydropneumothorax, compatible with known empyema. 2. Consolidative opacities in the right lower and middle lobes suspicious for pneumonia. Electronically signed by: Antoine Jackson MD (10/04/2021 5:04 PM) [id number]
[2021-10-04 19:00] VITALS: BP 135/63
[2021-10-04] MEDS: PSYLLIUM HUSK (SUGAR FREE) 1 PKT PACKET PO SCH (21:00)
[2021-10-04] MEDS: ENOXAPARIN 40 MG/0.4 ML SYRINGE. SQ SCH (21:08)
[2021-10-04 23:02] VITALS: BP 113/44
[2021-10-05] MEDS: PIPERACILLIN/TAZOBACTAM 3.375 GM in IV NORMAL SALINE 50ML 50 ML IV SCH ×4 (01:11→18:18)
[2021-10-05] MEDS: GABAPENTIN 300 MG CAPSULE. PO SCH ×4 (01:11→18:18)
[2021-10-05 03:02] VITALS: BP 138/56
[2021-10-05 05:56] LABS: CALCIUM 8.5 mg/dL (8.5-10.1); GFR 53.2; POTASSIUM 3.5 mmol/L (3.5-5.1)
[2021-10-05] MEDS: IV NORMAL SALINE 1000ML BAG 1,000 ML IV SCH ×3 (06:15→21:11)
[2021-10-05 07:00] VITALS: BP 143/55
[2021-10-05] MEDS: BUDESONIDE 0.5 MG/2 ML NEBU. NEB SCH ×2 (08:41→20:01)
[2021-10-05] MEDS: DICLOFENAC SODIUM 1% TOPICAL GEL 100GM TUBE. TP SCH ×2 (09:00→21:19)
[2021-10-05] MEDS: FLUTICASONE 50MCG/NASAL SPRAY 16GM BOTTLE. NS SCH (09:10)
[2021-10-05] MEDS: CETIRIZINE HCL 10 MG TABLET. PO SCH (09:11)
[2021-10-05] MEDS: LACTOBACILLUS RHAMNOSUS GG 1 CAPSULE. PO SCH ×2 (09:11→21:08)
[2021-10-05] MEDS: DOXYCYCLINE HYCLATE 100 MG TABLET PO SCH ×2 (09:11→21:08)
[2021-10-05] MEDS: CALCIUM CARB/VIT D3 500/200 TABLET. PO SCH (09:11)
[2021-10-05] MEDS: PANTOPRAZOLE 40 MG TABLET.DR. PO SCH (09:11)
[2021-10-05] MEDS: ACETAMINOPHEN 325 MG TABLET. PO SCH ×4 (09:11→21:50)
[2021-10-05] MEDS: MONTELUKAST SODIUM 10 MG TABLET. PO SCH (09:11)
[2021-10-05] MEDS: ASPIRIN ENTERIC COATED 81 MG TABLET.DR. PO SCH (09:11)
[2021-10-05] MEDS: DONEPEZIL HCL 10 MG TABLET. PO SCH (09:11)
[2021-10-05] MEDS: BENZONATATE 100 MG CAPSULE. PO SCH ×2 (09:12→21:08)
[2021-10-05] MEDS: METOPROLOL TART IMMED RELEASE 25 MG TABLET. PO SCH ×2 (09:12→21:10)
--- NOTE | 2021-10-05 09:23 | PDOC ---
DATE OF SERVICE DATE: 10/05/21 TIME: : SUBJECTIVE ROS Stable, denies any complaints . No acute concerns voiced by nursing OBJECTIVE Vital Signs Vital Signs Date Time Temp Pulse Resp B/P (MAP) Pulse Ox O2 Delivery O2 Flow Rate FiO2 10/05/21 09:12 67 143/55 10/05/21 08:45 97 Room Air 2.0 10/05/21 07:00 97.5 18 97.5 I & 0 Intake and Output 10/05/21 07:00 Output Total 90 ml Balance -90 ml Chest Tube Drainage Total 90 ml # Voids 3 # Bowel Movements 4 PHYSICAL EXAM Physical Exam General: NAD HEENT: Atraumatic, PERRLA, EOMI, Mucous membr. moist/pink Neck Supple Lungs:Right basilar decreased sounds and rhonchi, Non labored Heart: S1S2, RRR, no thrills, no rubs, no gallops, no murmurs Extremities: No clubbing, No cyanosis, No edema, Normal pulses, No tenderness/swelling Skin: No rashes, N Neuro: Normal speech, Strength at 5/5 X4 ext, Normal tone, Sensation intact, Cranial nerves 3-12 NL, Reflexes 2+ Psych/Mental Status: Mood NL, ? Confused, Dementia No Martinez, No CVA or SP tenderness DIAGNOSIS/ASSESSMENT Assessment & Plan ILDA - ATN , Recd Contrast 09/29 for CTA Resolved Avoid NSAID's Renal US RK unremarkable, LK not evaluated, No PVR Abnormal UA - Cx negative Supportive care, Maintain hydration, avoid nephrotoxins, strict I/O (UOP not recorded) HypoNa- Mild, improving CKD stage 3 A- based on Labs from [facility] baseline Cr 1.0in December 2020 with eGFR in 50's . Family not aware of Dx Acute hypoxic respiratory failure secondary to community-acquired pneumonia with parapneumonic effusion. On o2 by [place]. Pulmonary managing . Has Chest tube post Thoracentesis Mild to moderate right-sided pleural effusion along with mass-like density in the right lower lobe- On CT scan s/p Ultrasound-guided right pleural effusion demonstrating frankly turbid fluid consistent with empyema. History of a chronic cough, which had an extensive workup in the past with Dr. Jacobs, her cotton dispatcher. It was attributed to reactive airway disease. She had a prior bronchoscopies and even biopsies. Marked leukocytosis since admission. Bilateral knee pain -severe osteoarthritis Peripheral neuropathy - gabapentin Dementia - newly diagnosed - cont aricept GERD Obesity Weakness and debility COMMENT/RELEVANT DATA Meds Current Medications Medications (Trade) Dose Ordered Sig/Faviola Start Time Stop Time Status Last Admin Dose Admin Acetaminophen (Tylenol) 650 mg TID 10/03/21 14:00 10/05/21 09:11 650 MG Albuterol Sulfate (Ventolin Neb Soln) 2.5 mg PRN Q4HRS PRN 09/29/21 16:15 10/03/21 07:43 2.5 MG Albuterol/ Ipratropium (Duoneb) 3 ml 1X ONCE 09/29/21 10:45 09/29/21 10:46 DC 09/29/21 11:05 3 ML Aspirin (Ecotrin) 81 mg [id number] 10/01/21 15:00 10/05/21 09:11 81 MG Barium Sulfate (Varibar Thin Liquid Apple) 148 gm 1X ONCE 10/02/21 11:00 10/02/21 11:01 DC Benzonatate (Tessalon Perle) 200 mg BID 09/29/21 21:00 10/05/21 09:12 200 MG Budesonide (Pulmicort) 0.5 mg RTBID 09/29/21 20:00 10/05/21 08:41 0.5 MG Calcium Carbonate/ Glycine (Tums) 500 mg PRN Q2HRS PRN 09/29/21 16:15 10/02/21 03:40 500 MG Calcium/Vitamin D (Oscal D 500mg/ 200uts) 1 tab DAILY 09/30/21 09:00 10/05/21 09:11 1 TAB Ceftriaxone Sodium (Rocephin) 1 gm DAILY10 09/30/21 10:00 10/02/21 10:30 DC 10/02/21 10:30 1 GM Cetirizine HCl (ZyrTEC) 10 mg DAILY 09/30/21 09:00 10/05/21 09:11 10 MG Diclofenac Sodium (Voltaren) 1 nicky BID 09/29/21 21:00 10/03/21 21:19 1 NICKY Digoxin (Lanoxin) 500 mcg 1X ONCE 10/01/21 12:30 10/01/21 12:31 DC 10/01/21 13:26 500 MCG Donepezil HCl (Aricept) 10 mg DAILY 09/30/21 09:00 10/05/21 09:11 10 MG Doxycycline Hyclate (Vibra-Tab) 100 mg BID 10/01/21 21:00 10/05/21 09:11 100 MG Doxycycline Hyclate 100 mg/ Dextrose 100 ml @ 50 mls/hr Q12HR 09/29/21 21:00 10/01/21 10:00 DC 10/01/21 08:49 50 MLS/HR Enoxaparin Sodium (Lovenox 40mg Syringe) 40 mg Q24H 09/29/21 21:00 10/04/21 21:08 40 MG Fentanyl Citrate (Fentanyl 2ml Vial) 50 mcg PRN Q1HR PRN 09/29/21 13:45 09/30/21 13:44 DC Fluticasone Propionate (Flonase) 2 spray DAILY 09/30/21 09:00 10/05/21 09:10 2 SPRAY Gabapentin (Neurontin) 300 mg Q6HRS 10/02/21 09:00 10/05/21 06:15 300 MG Guaifenesin (Robitussin Dm) 10 ml PRN Q6HRS PRN 09/29/21 16:15 10/01/21 15:10 10 ML Ibuprofen (Motrin) 400 mg PRN Q8HRS PRN 10/03/21 13:00 10/03/21 17:43 400 MG Info (CONTRAST GIVEN -- Rx MONITORING) 1 each PRN DAILY PRN 09/29/21 11:30 10/01/21 11:29 DC Iohexol (Omnipaque 300 Mg/ml) 90 ml 1X ONCE 09/29/21 11:30 09/29/21 11:31 DC Iohexol (Omnipaque 350 Mg/ml) 90 ml 1X ONCE 09/29/21 12:00 09/29/21 12:01 DC 09/29/21 11:54 90 ML Lactobacillus Rhamnosus (Culturelle) 1 cap BID 09/30/21 21:00 10/05/21 09:11 1 CAP Linezolid/Dextrose 300 ml @ 300 mls/hr Q12HR 10/02/21 11:00 10/05/21 09:08 300 MLS/HR Methylprednisolone Sodium Succinate (SOLU-Medrol 125MG VIAL) 125 mg 1X ONCE 09/29/21 14:15 09/29/21 14:16 DC 09/29/21 14:00 125 MG Metoprolol Tartrate (Lopressor Vial) 5 mg PRN Q5MIN PRN 10/01/21 01:45 10/01/21 08:54 5 MG Metoprolol Tartrate (Lopressor) 25 mg BID 10/01/21 10:00 10/05/21 09:12 25 MG Montelukast Sodium (Singulair) 10 mg DAILY 09/30/21 09:00 10/05/21 09:11 10 MG Ondansetron HCl (Zofran) 4 mg PRN Q4HRS PRN 09/29/21 16:15 10/01/21 01:32 4 MG Pantoprazole Sodium (Protonix) 40 mg 1X ONCE 09/29/21 17:00 09/29/21 17:01 DC 09/29/21 16:45 40 MG Piperacillin Sod/ Tazobactam Sod (Zosyn Per Pharmacy) 1 each PRN DAILY PRN 10/02/21 10:30 Piperacillin Sod/ Tazobactam Sod 3.375 gm/Sodium Chloride 50 ml @ 100 mls/hr Q6HRS 10/02/21 12:00 10/05/21 06:15 100 MLS/HR Psyllium Hydrophilic Mucilloid (Metamucil Fiber Packet) 1 pkt QHS 09/29/21 21:00 10/03/21 21:16 1 PKT Sodium Chloride 1,000 ml @ 75 mls/hr [id number] 10/01/21 09:15 10/05/21 06:15 75 MLS/HR Sodium Chloride (Saline Mist Nasal) 1 nicky PRN Q1HR PRN 09/29/21 16:30 Tramadol HCl (Ultram) 50 mg PRN Q6HRS PRN 09/29/21 16:15 10/02/21 08:46 DC 10/02/21 03:40 50 MG Lab Laboratory Tests Test 10/05/21 04:40 Sodium Level 134 mmol/L (136-145) Potassium Level 3.5 mmol/L (3.5-5.1) Chloride Level 103 mmol/L (98-107) Carbon Dioxide Level 25 mmol/L (21-32) Anion Gap 6 (6-14) Blood Urea Nitrogen 12 mg/dL (7-20) Creatinine 1.0 mg/dL (0.6-1.0) Estimated GFR (Cockcroft-Gault) 53.2 Glucose Level 100 mg/dL (70-99) Calcium Level 8.5 mg/dL (8.5-10.1) Results All relevant outside records, renal labs, imaging studies, telemetry/EKG's were reviewed. Justicifation of Admission Dx: Justifications for Admission: Justification of Admission Dx: Yes Fracture: Fracture ANH POLK MD Oct 05, 2021 09:23
[2021-10-05 11:00] VITALS: BP 117/73
--- NOTE | 2021-10-05 11:00 | PDOC ---
PULMONARY PROGRESS NOTES DATE: 10/05/21 TIME: 10:55 Subjective Status post thoracentesis 10/01/2021. 1000 cc has come out initially. The initial drainage was thick consistent with empyema. Chest tube was placed 10/01/2021 Only 90 cc in last 24 hours. Vitals Vital Signs Date Time Temp Pulse Resp B/P (MAP) Pulse Ox O2 Delivery O2 Flow Rate FiO2 10/05/21 09:12 67 143/55 10/05/21 08:45 97 Room Air 2.0 10/05/21 07:00 97.5 18 97.5 General: Alert, No acute distress Lungs: Other (Chest tube on the right appears to have serous fluid in the tube) Cardiovascular: S1 Abdomen: Soft Neuro Exam: Alert Extremities: No Edema Skin: Warm Labs Laboratory Tests Test 10/04/21 06:45 10/05/21 04:40 White Blood Count 16.1 x10^3/uL (4.0-11.0) Red Blood Count 4.02 x10^6/uL (3.50-5.40) Hemoglobin 10.9 g/dL (12.0-15.5) Hematocrit 34.6 % (36.0-47.0) Mean Corpuscular Volume 86 fL (79-100) Mean Corpuscular Hemoglobin 27 pg (25-35) Mean Corpuscular Hemoglobin Concent 32 g/dL (31-37) Red Cell Distribution Width 13.6 % (11.5-14.5) Platelet Count 541 x10^3/uL (140-400) Sodium Level 133 mmol/L (136-145) 134 mmol/L (136-145) Potassium Level 3.8 mmol/L (3.5-5.1) 3.5 mmol/L (3.5-5.1) Chloride Level 102 mmol/L (98-107) 103 mmol/L (98-107) Carbon Dioxide Level 23 mmol/L (21-32) 25 mmol/L (21-32) Anion Gap 8 (6-14) 6 (6-14) Blood Urea Nitrogen 17 mg/dL (7-20) 12 mg/dL (7-20) Creatinine 1.1 mg/dL (0.6-1.0) 1.0 mg/dL (0.6-1.0) Estimated GFR (Cockcroft-Gault) 47.7 53.2 Glucose Level 79 mg/dL (70-99) 100 mg/dL (70-99) Calcium Level 8.8 mg/dL (8.5-10.1) 8.5 mg/dL (8.5-10.1) Laboratory Tests Test 10/05/21 04:40 Sodium Level 134 mmol/L (136-145) Potassium Level 3.5 mmol/L (3.5-5.1) Chloride Level 103 mmol/L (98-107) Carbon Dioxide Level 25 mmol/L (21-32) Anion Gap 6 (6-14) Blood Urea Nitrogen 12 mg/dL (7-20) Creatinine 1.0 mg/dL (0.6-1.0) Estimated GFR (Cockcroft-Gault) 53.2 Glucose Level 100 mg/dL (70-99) Calcium Level 8.5 mg/dL (8.5-10.1) Medications Active Scripts Medications Dose Route/Sig Max Daily Dose Days Date Category Tums (Calcium Carbonate) 200 Mg Tab.chew 200 Mg PO PRN PRN 09/29/21 Reported Vitamin B Complex 1 Each Capsule 1 Each PO DAILY 09/29/21 Reported Calcium 600+D Plus Minerals Tb (Calcium Carb/Vit D3/Minerals) 1 Each Tablet 1 Each PO DAILY 09/29/21 Reported Donepezil Hcl 10 Mg Tablet 1 Tab PO DAILY 09/29/21 Reported Azelastine HCl 205.5 Mcg/0.137 Ml [place].pump 2 [place] NS BID 30 09/29/21 Reported Flonase Allergy Relief (Fluticasone Propionate) 9.9 Ml [place].susp 2 Sprays NS DAILY 09/29/21 Reported Benzonatate 200 Mg Capsule 200 Mg PO BID 09/29/21 Reported Proair Hfa Inhaler (Albuterol Sulfate) 8.5 Gm Hfa.aer.ad 2 Puff IH BID 21 09/29/21 Reported Ibuprofen 800 Mg Tablet 800 Mg PO Q6HRS PRN 09/29/21 Reported Gabapentin (Gabapentin) 300 Mg Capsule 300 Mg PO Q6HRS 09/29/21 Reported Cetirizine Hcl 10 Mg Tablet 10 Mg PO DAILY 30 12/21/20 Rx Flovent 100MCG Diskus (Fluticasone Propionate) 100 Mcg Disk.w.dev 1 Puff IH BID 03/20/17 Reported Montelukast Sodium Tablet (Montelukast Sodium) 10 Mg Tablet 1 Tab PO DAILY 03/21/16 Reported Famotidine 40 Mg Tablet 40 Mg PO HS 03/21/16 Reported Comments Chest x-ray reviewed 10/05/2021 Continued volume loss at the right lower chest. Chest tube is in place. Infiltrates unchanged in the right lower lobe. CT chest reviewed 10/04/2021 1. Right pigtail pleural drain catheter is in place with moderate right hydropneumothorax, compatible with known empyema. 2. Consolidative opacities in the right lower and middle lobes suspicious for pneumonia. Chest x-ray reviewed dated 10/03/2021. Significantly improved right pleural effusion. Is still volume loss which could be leads pneumonia and loculated effusion Impression . 1. Acute hypoxic respiratory failure secondary to community-acquired pneumonia with empyema. Less likely malignancy, status post right chest tube placement 10/01/[address] chest with mild to moderate right-sided pleural effusion along with mass-like density in the right lower lobe. Likely a pneumonic consolidation, less likely mass. She also has mild mediastinal and hilar adenopathy, which is likely reactive. 3. History of a chronic cough, which had an extensive workup in the past with Dr. 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 It was attributed to reactive airway disease. She had a prior bronchoscopies and even biopsies. 4. No significant tobaccoism. 5. Marked leukocytosis since admission. Plan . 1. Continue with chest tube to suction. Monitor output. Drainage has slowed down. CT chest reviewed. Patient has multiple pockets of loculation in addition to air pockets. She has hydropneumothorax.. May be a candidate for TPA through the chest tube . Will ask thoracic surgery opinion for con sideration of decortication. We will send the images to outside hospital for the review and update the patient and family. 2. Monitor white cell count. Marked increase initially. Antibiotics broadened. WBC decreasing. 3. Zosyn/Zyvox/Doxy to continue for now. follow pleural fluid cultures. pH is 6.9 and glucose is less than 2 consistent with empyema, it is an exudate. 4. Await pleural fluid cytology. Clinically less likely malignancy. 5. Follow daily chest x-rays. 6. Improve nutritional status. 7. Continue with bronchodilators. 8. Discussed with RN and patient's at the bedside. I did explain to him that based on the CT of the chest she would be a candidate for decortication to best expand her lung. I will reach out to thoracic surgery in [facility]. If they deny the procedure, we may consider TPA through the chest tube. Addend: I have sent the chest images to thoracic surgery and discussed the case with 2 thoracic surgeons at . They both agree that given her advanced age, TPA via the chest tube would be more appropriate initial approach. I have discussed with patient's as well as daughter. They both prefer to keep the patient here as it is difficult for the to drive to . I will proceed with 5 mg of TPA through the chest tube today. We will repeat the dose in the next 24 hours. Patient and and the daughter agrees to proceed with it. Discussed with Dr. Aguilar. ALEXA GREEN MD Oct 05, 2021 11:00
[2021-10-05] MEDS ORDERED: [UNRECOGNIZED DRUG - OTHER] IV ONE (12:00)
[2021-10-05] MEDS ORDERED: LIDOCAINE 1% IV ONE (12:00)
[2021-10-05] MEDS ORDERED: ALTEPLASE IV ONE (12:00)
--- NOTE | 2021-10-05 12:54 | OP ---
DATE OF SURGERY: 10/05/2021 PROCEDURE: Fibrinolytic instillation through the chest tube. DESCRIPTION OF PROCEDURE: Informed consent was obtained from the patient and her as well as the daughter. All the benefits and side effects were explained. The 5 mg of tPA mixed with 10 mL of 1% lidocaine and sterile water was introduced through the right chest tube. There was no resistance. The patient tolerated the procedure well. Chest tube will be clamped for 30 minutes and then placed back to suction. The patient will have a scheduled chest x-ray as ordered. The patient will change positions every 15 minutes for the next hour. LEONARDA DR: Emigdio TID: [id number]
--- NOTE | 2021-10-05 14:28 | RAD ---
Portable chest compared to similar exam dated 10/04/2021 for empyema. FINDINGS: Grossly stable appearance of the right likely pleural effusion with a right chest tube in p lace and unchanged. Right upper lung is slightly better aerated today. No new abnormalities. Left mehdi g remains clear. Heart size within normal limits. IMPRESSION: 1. Slightly improved aeration on the right with otherwise stable chest x-ray. Electronically signed by: Kirby Uribe MD (10/05/2021 2:26 PM) [id number]
[2021-10-05 15:00] VITALS: BP 133/68
--- NOTE | 2021-10-05 17:34 | PDOC ---
PROGRESS NOTES Date of Service DATE: 10/05/21 TIME: 17:32 Subjective Subjective Patient seen and examined Objective Objective Vital Signs Date Time Temp Pulse Resp B/P (MAP) Pulse Ox O2 Delivery O2 Flow Rate FiO2 10/05/21 15:00 98.0 60 18 133/68 (89) 97 Room Air 98.0 10/05/21 08:45 2.0 Intake and Output 10/05/21 07:00 Output Total 90 ml Balance -90 ml Chest Tube Drainage Total 90 ml # Voids 3 # Bowel Movements 4 Physical Exam Abdomen: Normal bowel sounds Heart: Regular rate General: mild distress Lungs: Other (Decreased breath sounds) Assessment Assessment Problems Medical Problems: (1) Pneumonia Status: Acute 1. Acute respiratory failure secondary to pneumonia, right pleural effusion. s/p thoracentesis, chest tube placement due to empyema. Pulmonary service discussion as above regarding use of TPA. 2. New onset AFIB with RVR. s/p IV metoprolol. converted back to SR. Echo with LVEF 55% with moderate LV diastolic dysfunction and aortic root dilation at 4.0 cm. Continuing present treatment. 3. Leukocytosis 4. Hyperlipidemia; LDL 112 5. ILDA; improved 6. Dementia Comment Review of Relevant I have reviewed the following items mariella (where applicable) has been applied. Labs Laboratory Tests Test 10/04/21 06:45 10/05/21 04:40 White Blood Count 16.1 x10^3/uL (4.0-11.0) Red Blood Count 4.02 x10^6/uL (3.50-5.40) Hemoglobin 10.9 g/dL (12.0-15.5) Hematocrit 34.6 % (36.0-47.0) Mean Corpuscular Volume 86 fL (79-100) Mean Corpuscular Hemoglobin 27 pg (25-35) Mean Corpuscular Hemoglobin Concent 32 g/dL (31-37) Red Cell Distribution Width 13.6 % (11.5-14.5) Platelet Count 541 x10^3/uL (140-400) Sodium Level 133 mmol/L (136-145) 134 mmol/L (136-145) Potassium Level 3.8 mmol/L (3.5-5.1) 3.5 mmol/L (3.5-5.1) Chloride Level 102 mmol/L (98-107) 103 mmol/L (98-107) Carbon Dioxide Level 23 mmol/L (21-32) 25 mmol/L (21-32) Anion Gap 8 (6-14) 6 (6-14) Blood Urea Nitrogen 17 mg/dL (7-20) 12 mg/dL (7-20) Creatinine 1.1 mg/dL (0.6-1.0) 1.0 mg/dL (0.6-1.0) Estimated GFR (Cockcroft-Gault) 47.7 53.2 Glucose Level 79 mg/dL (70-99) 100 mg/dL (70-99) Calcium Level 8.8 mg/dL (8.5-10.1) 8.5 mg/dL (8.5-10.1) Laboratory Tests Test 10/05/21 04:40 Sodium Level 134 mmol/L (136-145) Potassium Level 3.5 mmol/L (3.5-5.1) Chloride Level 103 mmol/L (98-107) Carbon Dioxide Level 25 mmol/L (21-32) Anion Gap 6 (6-14) Blood Urea Nitrogen 12 mg/dL (7-20) Creatinine 1.0 mg/dL (0.6-1.0) Estimated GFR (Cockcroft-Gault) 53.2 Glucose Level 100 mg/dL (70-99) Calcium Level 8.5 mg/dL (8.5-10.1) Microbiology 10/01/21 Urine Culture - Final, Complete 10/01/21 Gram Stain - Final, Resulted 10/01/21 Aerobic and Anaerobic Culture - Preliminary, Resulted Medications Current Medications Albuterol/ Ipratropium (Duoneb) 3 ml 1X ONCE NEB Last administered on 09/29/21at 11:05; Start 09/29/21 at 10:45; Stop 09/29/21 at 10:46; Status DC Fentanyl Citrate (Fentanyl 2ml Vial) 25 mcg 1X ONCE IVP Last administered on 09/29/21at 11:23; Start 09/29/21 at 10:45; Stop 09/29/21 at 10:46; Status DC Iohexol (Omnipaque 300 Mg/ml) 90 ml 1X ONCE IV ; Start 09/29/21 at 11:30; Stop 09/29/21 at 11:31; Status DC Info (CONTRAST GIVEN -- Rx MONITORING) 1 each PRN DAILY PRN MC SEE COMMENTS; Start 09/29/21 at 11:30; Stop 10/01/21 at 11:29; Status DC Iohexol (Omnipaque 350 Mg/ml) 90 ml 1X ONCE IV Last administered on 09/29/21at 11:54; Start 09/29/21 at 12:00; Stop 09/29/21 at 12:01; Status DC Ondansetron HCl (Zofran) 4 mg PRN Q8HRS PRN IVP NAUSEA/VOMITING; Start 09/29/21 at 13:45; Stop 09/29/21 at 16:16; Status DC Fentanyl Citrate (Fentanyl 2ml Vial) 50 mcg PRN Q1HR PRN IVP PAIN; Start 09/29/21 at 13:45; Stop 09/30/21 at 13:44; Status DC Acetaminophen (Tylenol) 650 mg PRN Q4HRS PRN PO FEVER > 100.3'F; Start 09/29/21 at 13:45; Stop 09/29/21 at 16:16; Status DC Ceftriaxone Sodium (Rocephin) 1 gm 1X ONCE IVP Last administered on 09/29/21at 14:00; Start 09/29/21 at 14:15; Stop 09/29/21 at 14:16; Status DC Doxycycline Hyclate 100 mg/ Dextrose 100 ml @ 50 mls/hr 1X ONCE IV Last administered on 09/29/21at 15:26; Start 09/29/21 at 14:15; Stop 09/29/21 at 16:14; Status DC Methylprednisolone Sodium Succinate (SOLU-Medrol 125MG VIAL) 125 mg 1X ONCE IV Last administered on 09/29/21at 14:00; Start 09/29/21 at 14:15; Stop 09/29/21 at 14:16; Status DC Ondansetron HCl (Zofran) 4 mg PRN Q4HRS PRN IVP NAUSEA/VOMITING Last administered on 10/01/21at 01:32; Start 09/29/21 at 16:15 Acetaminophen (Tylenol) 650 mg PRN Q6HRS PRN PO MILD PAIN / TEMP > 100.3'F; Start 09/29/21 at 16:15 Psyllium Hydrophilic Mucilloid (Metamucil Fiber Packet) 1 pkt QHS PO Last administered on 10/03/21 21:16; Start 09/29/21 at 21:00 Enoxaparin Sodium (Lovenox 40mg Syringe) 40 mg Q24H SQ Last administered on 10/04/21 21:08; Start 09/29/21 at 21:00 Guaifenesin (Robitussin Dm) 10 ml PRN Q6HRS PRN PO COUGH Last administered on 10/01/21 15:10; Start 09/29/21 at 16:15 Tramadol HCl (Ultram) 50 mg PRN Q6HRS PRN PO PAIN Last administered on 10/02/21 03:40; Start 09/29/21 at 16:15; Stop 10/02/21 at 08:46; Status DC Ceftriaxone Sodium (Rocephin) 1 gm DAILY10 IVP Last administered on 10/02/21 10:30; Start 09/30/21 at 10:00; Stop 10/02/21 at 10:30; Status DC Doxycycline Hyclate 100 mg/ Dextrose 100 ml @ 50 mls/hr Q12HR IV Last administered on 10/01/21 08:49; Start 09/29/21 at 21:00; Stop 10/01/21 at 10:00; Status DC Budesonide (Pulmicort) 0.5 mg RTBID NEB Last administered on 10/05/21 08:41; Start 09/29/21 at 20:00 Albuterol Sulfate (Ventolin Neb Soln) 2.5 mg PRN Q4HRS PRN NEB SHORTNESS OF BREATH Last administered on 10/03/21 07:43; Start 09/29/21 at 16:15 Pantoprazole Sodium (Protonix) 40 mg DAILYAC PO Last administered on 10/05/21 09:11; Start 09/30/21 at 07:30 Pantoprazole Sodium (Protonix) 40 mg 1X ONCE PO Last administered on 09/29/21 16:45; Start 09/29/21 at 17:00; Stop 09/29/21 at 17:01; Status DC Calcium Carbonate/ Glycine (Tums) 500 mg PRN Q2HRS PRN PO HEARTBURN / GAS Last administered on 10/02/21 03:40; Start 09/29/21 at 16:15 Cetirizine HCl (ZyrTEC) 10 mg DAILY PO Last administered on 10/05/21 09:11; Start 09/30/21 at 09:00 Donepezil HCl (Aricept) 10 mg DAILY PO Last administered on 10/05/21 09:11; Start 09/30/21 at 09:00 Montelukast Sodium (Singulair) 10 mg DAILY PO Last administered on 10/05/21 09:11; Start 09/30/21 at 09:00 Benzonatate (Tessalon Perle) 200 mg BID PO Last administered on 10/05/21 09:12; Start 09/29/21 at 21:00 Calcium/Vitamin D (Oscal D 500mg/ 200uts) 1 tab DAILY PO Last administered on 10/05/21 09:11; Start 09/30/21 at 09:00 Fluticasone Propionate (Flonase) 2 spray DAILY NS Last administered on 10/05/21 09:10; Start 09/30/21 at 09:00 Sodium Chloride (Saline Mist Nasal) 1 nicky PRN Q1HR PRN NS NASAL CONGESTION; Start 09/29/21 at 16:30 Diclofenac Sodium (Voltaren) 1 nicky BID TP Last administered on 10/03/21at 21:19; Start 09/29/21 at 21:00 Lactobacillus Rhamnosus (Culturelle) 1 cap BID PO Last administered on 10/05/21 09:11; Start 09/30/21 at 21:00 Metoprolol Tartrate (Lopressor Vial) 5 mg PRN Q5MIN PRN IVP TACHYCARDIA Last administered on 10/01/21at 08:54; Start 10/01/21 at 01:45 Doxycycline Hyclate (Vibra-Tab) 100 mg BID PO Last administered on 10/05/21 09:11; Start 10/01/21 at 21:00 Sodium Chloride 1,000 ml @ 75 mls/hr [id number] IV Last administered on 10/05/21 06:15; Start 10/01/21 at 09:15 Metoprolol Tartrate (Lopressor) 25 mg BID PO Last administered on 10/05/21 09:12; Start 10/01/21 at 10:00 Digoxin (Lanoxin) 500 mcg 1X ONCE IV Last administered on 3/28/22at 13:26; Start 10/01/21 at 12:30; Stop 10/01/21 at 12:31; Status DC Aspirin (Ecotrin) 81 mg DAILYWBKFT PO Last administered on 10/05/21at 09:11; Start 10/01/21 at 15:00 Gabapentin (Neurontin) 300 mg Q6HRS PO Last administered on 10/05/21at 12:44; Start 10/02/21 at 09:00 Ibuprofen (Motrin) 800 mg Q6HRS PO Last administered on 10/03/21at 11:39; Start 10/02/21 at 09:00; Stop 10/03/21 at 12:54; Status DC Piperacillin Sod/ Tazobactam Sod (Zosyn Per Pharmacy) 1 each PRN DAILY PRN MC SEE COMMENTS; Start 10/02/21 at 10:30 Linezolid/Dextrose 300 ml @ 300 mls/hr Q12HR IV Last administered on 10/05/21at 09:08; Start 10/02/21 at 11:00 Piperacillin Sod/ Tazobactam Sod 3.375 gm/Sodium Chloride 50 ml @ 100 mls/hr Q6HRS IV Last administered on 10/05/21at 12:44; Start 10/02/21 at 12:00 Barium Sulfate (Varibar Thin Liquid Apple) 148 gm 1X ONCE PO ; Start 10/02/21 at 11:00; Stop 10/02/21 at 11:01; Status DC Acetaminophen (Tylenol) 650 mg TID PO Last administered on 10/05/21at 09:11; Start 10/03/21 at 14:00 Ibuprofen (Motrin) 400 mg PRN Q8HRS PRN PO INFLAMMATION Last administered on 10/03/21at 17:43; Start 10/03/21 at 13:00 Alteplase, Recombinant 5 mg/ Lidocaine HCl 10 ml/Sterile Water 60 ml @ 120 mls/hr 1X ONCE IV Last administered on 10/05/21at 12:45; Start 10/05/21 at 12:00; Stop 10/05/21 at 12:29; Status DC Active Scripts Active Cetirizine Hcl 10 Mg Tablet 10 Mg PO DAILY 30 Days Reported Tums (Calcium Carbonate) 200 Mg Tab.chew 200 Mg PO PRN PRN Vitamin B Complex 1 Each Capsule 1 Each PO DAILY Calcium 600+D Plus Minerals Tb (Calcium Carb/Vit D3/Minerals) 1 Each Tablet 1 Each PO DAILY Donepezil Hcl 10 Mg Tablet 1 Tab PO DAILY Azelastine HCl 205.5 Mcg/0.137 Ml Mccoy.pump 2 Mccoy NS BID 30 Days Flonase Allergy Relief (Fluticasone Propionate) 9.9 Ml Mccoy.susp 2 Sprays NS DAILY Benzonatate 200 Mg Capsule 200 Mg PO BID Proair Hfa Inhaler (Albuterol Sulfate) 8.5 Gm Hfa.aer.ad 2 Puff IH BID 21 Days Ibuprofen 800 Mg Tablet 800 Mg PO Q6HRS PRN Gabapentin (Gabapentin) 300 Mg Capsule 300 Mg PO Q6HRS Flovent 100MCG Diskus (Fluticasone Propionate) 100 Mcg Disk.w.dev 1 Puff IH BID Montelukast Sodium Tablet (Montelukast Sodium) 10 Mg Tablet 1 Tab PO DAILY Famotidine 40 Mg Tablet 40 Mg PO HS Vitals/I & O Vital Sign - Last 24 Hours 10/04/21 10/04/21 10/04/21 10/04/21 19:00 20:00 20:44 21:00 Temp 97.3 97.3 Pulse 54 54 Resp 20 B/P (MAP) 135/63 (87) 135/63 Pulse Ox 98 95 O2 Delivery Nasal Cannula Nasal Cannula Nasal Cannula O2 Flow Rate 2.0 2.0 10/04/21 10/05/21 10/05/21 10/05/21 23:02 03:02 07:00 08:00 Temp 97.6 97.5 97.5 97.6 97.5 97.5 Pulse 62 61 67 Resp 20 20 18 B/P (MAP) 113/44 (67) 138/56 (83) 143/55 (84) Pulse Ox 97 96 97 O2 Delivery Nasal Cannula Room Air Room Air Nasal Cannula O2 Flow Rate 2.0 10/05/21 10/05/21 10/05/21 10/05/21 08:45 09:12 11:00 15:00 Temp 97.8 98.0 97.8 98.0 Pulse 67 55 60 Resp 18 18 B/P (MAP) 143/55 117/73 (88) 133/68 (89) Pulse Ox 97 97 97 O2 Delivery Room Air Room Air Room Air O2 Flow Rate 2.0 Intake and Output 10/04/21 10/04/21 10/05/21 15:00 23:00 07:00 Output Total 90 ml Balance -90 ml Justifications for Admission Other Justification EMELY DONNELLY MD Oct 05, 2021 17:34
[2021-10-05 19:00] VITALS: BP 133/55
--- NOTE | 2021-10-05 20:01 | PDOC ---
[employer] PROGRESS NOTE Date of Service DOS: DATE: 10/05/21 TIME: 20:00 Chief Complaint Chief Complaint Respiratory failure Hypoxia Right lower lobe pneumonia Right pleural effusion awaiting thoracentesis Hallucinations Asthma Chronic cough Bilateral knee pain HLD Neuropathy Dementia GERD Obesity Weakness Anemia History of Present Illness History of Present Illness 10/05 Patient evaluated examined at bedside. TPA chest tube today. Otherwise continue current plan. Discussed with usability specialist today. Discussed with bedside RN. 10/03 Patient evaluated examined at bedside. Chest tube in place with exudative effusion. Cytology studies pending. Continue antimicrobials. Multiple consultants following. Discussed with bedside RN. 10/02/2021 Patient seen and examined Discussed with RN Chart review Discussed with pulmonary physician Patient had a thoracentesis yesterday We are awaiting the results of the fluid analysis For now we are continuing IV antibiotics and breathing treatments and oxygen 10/01/2021 Patient seen and examined Discussed with RN Discussed with case management Chart reviewed Patient currently awaiting thoracentesis this morning On 2 L of nasal cannula oxygen Her creatinine has gone up to 1.6 her BUN is also up to 31 Her white count is also elevated from 18-36 I ordered normal saline at 75 and consulted nephrology Has also slipped into A. fib Cardiology consult pending We will give a dose of IV metoprolol until seen by cardiology 81yo female with PMHx asthma, HLD, peripheral neuropathy, GERD, obesity, and newly diagnosed dementia who comes to ED via [facility] complaining of progressive shortness of breath which has begun to worsen over the past 2 weeks. Over the past 2 days she has now had productive sputum that is yellow yellowish-brown with green. She has also been more weak over the past few days and her daughter notes she was having difficulty helping her walk and needed to keep 100% assist. Patient noted she was having trouble walking because of some right-sided chest pain. They contacted EMS. Upon EMS evaluation patient was noted to have O2 saturations in the low 80s and was placed on 5 L nasal cannula and arrived to the ED with this. No recent travel or sick contacts. She is fully vaccinated boosted against COVID-19 and influenza as well as pneumonia with Pneumovax and Prevnar She does have a chronic cough that lasted 10 years and has had significant work- up bronchoscopy with biopsies previously with Dr. Smart at [facility] 4 years ago. She was then referred to ENT sees Dr. Bernardo and has been on Flonase and azelastine. She did enter referral to Dr. Correia for asthma and allergies and has been Flovent albuterol montelukast nightly famotidine Tessalon. Since a hip fracture in December 2020 she has been struggling more with memory and is being treated for dementia at this time by Dr. Sánchez. She does note that she frequently hallucinates that her mom and dad are alive and they are helping take care of her at home, this is very concerning to her daughter and who are both bedside. He also notes she is struggled with bilateral knee pain and 1 month ago had tremayne ateral corticosteroid injections and had relief for about 2 weeks but had to return for Synvisc injections bilaterally last week. She still having some posterior medial left knee pain currently. WBC 16.4, Hb 11.5, platelets 591, D-dimer 2.28, NA 136, K3.7, BUN 11, CR 1.2, calcium 9.3, bilirubin 0.7 AST 49, ALT 53, alkaline phosphatase 81, albumin 2.3, NT proBNP is 568, high-sensitivity troponin is less than 4 09/30/2021 No acute events overnight. Patient seen examined bedside.. Patient saturating well 91% on 3 L nasal cannula. and daughter at bedside. Stating the patient has had a chronic cough for the last 6 years. Patient also not more dyspneic than usual. No production of sputum. Plan for thoracentesis tomorrow with interventional radiology. Patient's chart, labs, images were reviewed and discussed with RN Vitals/I&O Vitals/I&O: Vital Signs Date Time Temp Pulse Resp B/P (MAP) Pulse Ox O2 Delivery O2 Flow Rate FiO2 10/05/21 15:00 98.0 60 18 133/68 (89) 97 Room Air 98.0 10/05/21 08:45 2.0 I & O 10/04/21 10/04/21 10/05/21 15:00 23:00 07:00 Output Total 90 ml Balance -90 ml Physical Exam General: mild distress Heart: Regular rate Lungs: Other (Chest tube on the right appears to have serous fluid in the tube) Abdomen: Normal bowel sounds Extremities: No edema Skin: No significant lesion Labs Labs: Laboratory Tests Test 10/05/21 04:40 Sodium Level 134 mmol/L (136-145) Potassium Level 3.5 mmol/L (3.5-5.1) Chloride Level 103 mmol/L (98-107) Carbon Dioxide Level 25 mmol/L (21-32) Anion Gap 6 (6-14) Blood Urea Nitrogen 12 mg/dL (7-20) Creatinine 1.0 mg/dL (0.6-1.0) Estimated GFR (Cockcroft-Gault) 53.2 Glucose Level 100 mg/dL (70-99) Calcium Level 8.5 mg/dL (8.5-10.1) Assessment and Plan Assessmemt and Plan Problems Medical Problems: (1) Pneumonia Status: Acute Comment Review of Relevant I have reviewed the following items mariella (where applicable) has been applied. Medications: Current Medications Medications (Trade) Dose Ordered Sig/Faviola Route PRN Reason Start Time Stop Time Status Last Admin Dose Admin Alteplase, Recombinant 5 mg/ Lidocaine HCl 10 ml/Sterile Water 60 ml @ 120 mls/hr 1X ONCE IV 10/05/21 12:00 10/05/21 12:29 DC 10/05/21 12:45 Justifications for Admission Other Justification ULICES CHUNG MD Oct 05, 2021 20:01
[2021-10-05] MEDS: PSYLLIUM HUSK (SUGAR FREE) 1 PKT PACKET PO SCH ×2 (21:08→21:19)
[2021-10-05] MEDS: ENOXAPARIN 40 MG/0.4 ML SYRINGE. SQ SCH (21:10)
[2021-10-05 23:00] VITALS: BP 130/53
[2021-10-06] MEDS: PIPERACILLIN/TAZOBACTAM 3.375 GM in IV NORMAL SALINE 50ML 50 ML IV SCH ×5 (00:45→23:26)
[2021-10-06] MEDS: GABAPENTIN 300 MG CAPSULE. PO SCH ×5 (00:45→23:26)
[2021-10-06] MEDS: METOPROLOL TART IMMED RELEASE 25 MG TABLET. PO SCH ×3 (00:46→20:52)
[2021-10-06] MEDS: LACTOBACILLUS RHAMNOSUS GG 1 CAPSULE. PO SCH ×3 (00:46→20:52)
[2021-10-06] MEDS: BENZONATATE 100 MG CAPSULE. PO SCH ×3 (00:47→20:52)
[2021-10-06] MEDS: DOXYCYCLINE HYCLATE 100 MG TABLET PO SCH ×3 (00:47→20:52)
[2021-10-06 03:06] VITALS: BP 129/52
--- NOTE | 2021-10-06 05:54 | PDOC ---
PULMONARY PROGRESS NOTES DATE: 10/06/21 TIME: 05:[address] in s/p tpa 10/05 ct drainage 550 cc thick fluid over the past 24 hr has cough sputum Status post thoracentesis 10/01/2021. 1000 cc has come out initially. The initial drainage was thick consistent with empyema. Chest tube was placed 10/01/2021 Vitals Vital Signs Date Time Temp Pulse Resp B/P (MAP) Pulse Ox O2 Delivery O2 Flow Rate FiO2 10/06/21 03:06 97.2 68 18 129/52 (77) 99 Nasal Cannula 97.2 10/05/21 20:15 2.0 Comments ros as mentioned as above other sys otherwise neg ROS: No Nausea General: Alert, No acute distress HEENT: Other (nc at perrl nose throat clear neck no lad no thyromegaly ) Lungs: Other (R Chest tube r basilar crackles dull r base l cta) Cardiovascular: S1, S2 Abdomen: Soft, Non-tender Neuro Exam: Alert, Oriented Extremities: No Edema Skin: Warm Labs Laboratory Tests Test 10/04/21 06:45 10/05/21 04:40 White Blood Count 16.1 x10^3/uL (4.0-11.0) Red Blood Count 4.02 x10^6/uL (3.50-5.40) Hemoglobin 10.9 g/dL (12.0-15.5) Hematocrit 34.6 % (36.0-47.0) Mean Corpuscular Volume 86 fL (79-100) Mean Corpuscular Hemoglobin 27 pg (25-35) Mean Corpuscular Hemoglobin Concent 32 g/dL (31-37) Red Cell Distribution Width 13.6 % (11.5-14.5) Platelet Count 541 x10^3/uL (140-400) Sodium Level 133 mmol/L (136-145) 134 mmol/L (136-145) Potassium Level 3.8 mmol/L (3.5-5.1) 3.5 mmol/L (3.5-5.1) Chloride Level 102 mmol/L (98-107) 103 mmol/L (98-107) Carbon Dioxide Level 23 mmol/L (21-32) 25 mmol/L (21-32) Anion Gap 8 (6-14) 6 (6-14) Blood Urea Nitrogen 17 mg/dL (7-20) 12 mg/dL (7-20) Creatinine 1.1 mg/dL (0.6-1.0) 1.0 mg/dL (0.6-1.0) Estimated GFR (Cockcroft-Gault) 47.7 53.2 Glucose Level 79 mg/dL (70-99) 100 mg/dL (70-99) Calcium Level 8.8 mg/dL (8.5-10.1) 8.5 mg/dL (8.5-10.1) Medications Active Scripts Medications Dose Route/Sig Max Daily Dose Days Date Category Tums (Calcium Carbonate) 200 Mg Tab.chew 200 Mg PO PRN PRN 09/29/21 Reported Vitamin B Complex 1 Each Capsule 1 Each PO DAILY 09/29/21 Reported Calcium 600+D Plus Minerals Tb (Calcium Carb/Vit D3/Minerals) 1 Each Tablet 1 Each PO DAILY 09/29/21 Reported Donepezil Hcl 10 Mg Tablet 1 Tab PO DAILY 09/29/21 Reported Azelastine HCl 205.5 Mcg/0.137 Ml Neihart.pump 2 Neihart NS BID 30 09/29/21 Reported Flonase Allergy Relief (Fluticasone Propionate) 9.9 Ml Neihart.susp 2 Sprays NS DAILY 09/29/21 Reported Benzonatate 200 Mg Capsule 200 Mg PO BID 09/29/21 Reported Proair Hfa Inhaler (Albuterol Sulfate) 8.5 Gm Hfa.aer.ad 2 Puff IH BID 21 09/29/21 Reported Ibuprofen 800 Mg Tablet 800 Mg PO Q6HRS PRN 09/29/21 Reported Gabapentin (Gabapentin) 300 Mg Capsule 300 Mg PO Q6HRS 09/29/21 Reported Cetirizine Hcl 10 Mg Tablet 10 Mg PO DAILY 30 12/21/20 Rx Flovent 100MCG Diskus (Fluticasone Propionate) 100 Mcg Disk.w.dev 1 Puff IH BID 03/20/17 Reported Montelukast Sodium Tablet (Montelukast Sodium) 10 Mg Tablet 1 Tab PO DAILY 03/21/16 Reported Famotidine 40 Mg Tablet 40 Mg PO HS 03/21/16 Reported Comments Chest x-ray reviewed 10/05/2021 Continued volume loss at the right lower chest. Chest tube is in place. Infil trates unchanged in the right lower lobe. CT chest reviewed 10/04/2021 1. Right pigtail pleural drain catheter is in place with moderate right hydropneumothorax, compatible with known empyema. 2. Consolidative opacities in the right lower and middle lobes suspicious for pneumonia. Chest x-ray reviewed dated 10/03/2021. Significantly improved right pleural effusion. Is still volume loss which could be leads pneumonia and loculated effusion Impression . 1. Acute hypoxic respiratory failure secondary to community-acquired pneumonia with empyema. Less likely malignancy, status post right chest tube placement 10/01/[address] chest with mild to moderate right-sided pleural effusion along with mass-like density in the right lower lobe. Likely a pneumonic consolidation, less likely mass. She also has mild mediastinal and hilar adenopathy, which is likely reactive. 3. History of a chronic cough, which had an extensive workup in the past with Dr. 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 It was attributed to reactive airway disease. She had a prior bronchoscopies and even biopsies. 4. No significant tobaccoism. 5. Marked leukocytosis since admission. Plan . 1. Continue with chest tube. tpa [address] today, 10/06 will clamp for 30 min then remove clamp to suction -20 discussed w rn s/p tpa 10/05 2. Monitor white cell count. Marked increase initially. Antibiotics broadened. WBC decreasing. 3. Zosyn/Zyvox/Doxy to continue for now. follow pleural fluid cultures. pH is 6.9 and glucose is less than 2 consistent with empyema, it is an exudate. 4. Await pleural fluid cytology. malignancy less likely. 5. Follow daily chest x-rays. reviewed 6. Improve nutritional status. 7. Continue with bronchodilators. 8. Discussed with RN and pt dr baca discussed the case with 2 thoracic surgeons at . They both agreed that given her advanced age, TPA via the chest tube would be more appropriate initial approach. LEXIS TURNER MD Oct 06, 2021 05:54
[2021-10-06] MEDS ORDERED: [UNRECOGNIZED DRUG - OTHER] IV ONE (06:00)
[2021-10-06] MEDS ORDERED: LIDOCAINE 1% IV ONE (06:00)
[2021-10-06] MEDS ORDERED: ALTEPLASE IV ONE (06:00)
[2021-10-06 07:00] VITALS: BP_SYST 146; BP_SYST 150; BP_DIAS 61; BP_DIAS 87
[2021-10-06] MEDS: BUDESONIDE 0.5 MG/2 ML NEBU. NEB SCH ×2 (08:00→10:30)
--- NOTE | 2021-10-06 08:03 | RAD ---
PROCEDURE: XR CHEST 1V.10/06/2021 7:59 AM REASON FOR STUDY: Reason: empyema / Spl. Instructions: / History: . COMPARISON: Exam of the previous day. FINDINGS: Pigtail catheter remains in place on the right. Pleural density is probably decreased. Ther e is still some adjacent atelectasis. No pneumothorax or new infiltrate is seen. The heart appears en larged, but unchanged. IMPRESSION: Decreased right side pleural opacity. Electronically signed by: Hai Zheng Jr., MD (10/06/2021 8:00 AM) [id number]
[2021-10-06] MEDS: DICLOFENAC SODIUM 1% TOPICAL GEL 100GM TUBE. TP SCH ×2 (09:00→21:00)
[2021-10-06] MEDS: ACETAMINOPHEN 325 MG TABLET. PO SCH ×3 (09:30→20:52)
[2021-10-06] MEDS: CETIRIZINE HCL 10 MG TABLET. PO SCH (09:30)
[2021-10-06] MEDS: ASPIRIN ENTERIC COATED 81 MG TABLET.DR. PO SCH (09:30)
[2021-10-06] MEDS: CALCIUM CARB/VIT D3 500/200 TABLET. PO SCH (09:30)
[2021-10-06] MEDS: DONEPEZIL HCL 10 MG TABLET. PO SCH (09:30)
[2021-10-06] MEDS: FLUTICASONE 50MCG/NASAL SPRAY 16GM BOTTLE. NS SCH (09:32)
[2021-10-06] MEDS: MONTELUKAST SODIUM 10 MG TABLET. PO SCH (10:06)
[2021-10-06] MEDS: PANTOPRAZOLE 40 MG TABLET.DR. PO SCH (10:06)
[2021-10-06 11:00] VITALS: BP 125/49
--- NOTE | 2021-10-06 11:05 | PDOC ---
PROGRESS NOTES Date of Service: DATE: 10/06/21 TIME: 11:05 Subjective Subjective No new complaints, s/p CT tpa Objective Objective Vital Signs Date Time Temp Pulse Resp B/P (MAP) Pulse Ox O2 Delivery O2 Flow Rate FiO2 10/06/21 10:32 96 Nasal Cannula 10/06/21 10:07 64 150/61 10/06/21 07:00 97.4 18 97.4 10/05/21 20:15 2.0 Intake and Output 10/06/21 07:00 Intake Total 0 ml Output Total 1250 ml Balance -1250 ml Intake Oral 0 ml Output Urine Total 300 ml Chest Tube Drainage Total 950 ml # Voids 1 Physical Exam Abdomen: Normal bowel sounds Heart: Regular rate Extremities: No edema General: mild distress HEENT: Atraumatic, Mucous membr. moist/pink Lungs: Other (Decreased breath sounds) MUSCULOSKELETAL: Osteoarthritic changes both hands Neuro: Normal speech, Sensation intact Psych/Mental Status: Mood NL Skin: No significant lesion Assessment Assessment 1. Acute respiratory failure secondary to pneumonia, right pleural effusion. s/p thoracentesis, chest tube placement due to empyema, s/p tpa CT 10/05 2. New onset AFIB with RVR. s/p IV metoprolol. converted back to SR. Echo with LVEF 55% with moderate LV diastolic dysfunction and aortic root dilation at 4.0 cm. 3. Leukocytosis 4. Hyperlipidemia; LDL 112 5. ILDA; improved 6. Dementia Recommendations Continue low-dose metoprolol for rate control ASA therapy. Continue Lovenox VTE prophylaxis dosing. Transition to Eliquis upon discharge Outpatient event monitor to guide therapy as arranged Ongoing pulmonary optimization, treatment of PNA, empyema Supportive care Follow up in our office as scheduled. Plan Plan of Care Problems Medical Problems: (1) Pneumonia Status: Acute Comment Review of Relevant I have reviewed the following items mariella (where applicable) has been applied. Labs Microbiology 10/01/21 Urine Culture - Final, Complete 10/01/21 Gram Stain - Final, Complete 10/01/21 Aerobic and Anaerobic Culture - Final, Complete Medications Current Medications Alteplase, Recombinant 5 mg/ Lidocaine HCl 10 ml/Sterile Water 60 ml @ 120 mls/hr 1X ONCE IV Last administered on 10/05/21at 12:45; Start 10/05/21 at 12:00; Stop 10/05/21 at 12:29; Status DC Alteplase, Recombinant 5 mg/ Lidocaine HCl 10 ml/Sterile Water 60 ml @ 120 mls/hr 1X ONCE IV Last administered on 10/06/21at 06:42; Start 10/06/21 at 06:00; Stop 10/06/21 at 06:29; Status DC Vitals/I & O Vital Sign - Last 24 Hours 10/05/21 10/05/21 10/05/21 10/05/21 15:00 19:00 20:00 20:15 Temp 98.0 97.8 98.0 97.8 Pulse 60 69 Resp 18 20 B/P (MAP) 133/68 (89) 133/55 (81) Pulse Ox 97 92 97 O2 Delivery Room Air Nasal Cannula Nasal Cannula Nasal Cannula O2 Flow Rate 2.0 2.0 10/05/21 10/06/21 10/06/21 10/06/21 23:00 03:06 07:00 10:07 Temp 98.6 97.2 97.4 98.6 97.2 97.4 Pulse 73 68 64 64 Resp 18 18 18 B/P (MAP) 130/53 (78) 129/52 (77) 150/61 (90) 150/61 Pulse Ox 96 99 98 O2 Delivery Nasal Cannula Nasal Cannula Nasal Cannula 10/06/21 10:32 Pulse Ox 96 O2 Delivery Nasal Cannula Intake and Output 10/05/21 10/05/21 10/06/21 15:00 23:00 07:00 Intake Total 0 ml Output Total 30 ml 520 ml 700 ml Balance -30 ml -520 ml -700 ml ERIN CLARK MD Oct 06, 2021 11:05
[2021-10-06 15:00] VITALS: BP 125/55
--- NOTE | 2021-10-06 15:19 | PDOC ---
DATE OF SERVICE DATE: 10/06/21 TIME: 15:19 SUBJECTIVE ROS Stable, No acute concerns voiced by nursing OBJECTIVE Vital Signs Vital Signs Date Time Temp Pulse Resp B/P (MAP) Pulse Ox O2 Delivery O2 Flow Rate FiO2 10/06/21 11:00 98.0 62 18 125/49 (74) 96 Nasal Cannula 98.0 10/06/21 08:00 0.5 I & 0 Intake and Output 10/06/21 07:00 Intake Total 0 ml Output Total 1250 ml Balance -1250 ml Intake Oral 0 ml Output Urine Total 300 ml Chest Tube Drainage Total 950 ml # Voids 1 PHYSICAL EXAM Physical Exam General: NAD HEENT: Atraumatic, PERRLA, EOMI, Mucous membr. moist/pink Neck Supple Lungs:Right basilar decreased sounds and rhonchi, Non labored Heart: S1S2, RRR, no thrills, no rubs, no gallops, no murmurs Extremities: No clubbing, No cyanosis, No edema, Normal pulses, No tenderness/swelling Skin: No rashes, N Neuro: Normal speech, Strength at 5/5 X4 ext, Normal tone, Sensation intact, Cranial nerves 3-12 NL, Reflexes 2+ Psych/Mental Status: Mood NL, ? Confused, Dementia No Martinez, No CVA or SP tenderness DIAGNOSIS/ASSESSMENT Assessment & Plan ILDA - ATN , Recd Contrast 09/29 for CTA Resolved Avoid NSAID's Renal US RK unremarkable, LK not evaluated, No PVR Abnormal UA - Cx negative Supportive care, Maintain hydration, avoid nephrotoxins, strict I/O (UOP not recorded) HypoNa- Mild, improving CKD stage 3 A- based on Labs from [facility] baseline Cr 1.0in December 2020 with eGFR in 50's . Family not aware of Dx Acute hypoxic respiratory failure secondary to community-acquired pneumonia with parapneumonic effusion. On o2 by [place]. Pulmonary managing . Has Chest tube post Thoracentesis Mild to moderate right-sided pleural effusion along with mass-like density in the right lower lobe- On CT scan s/p Ultrasound-guided right pleural effusion demonstrating frankly turbid fluid consistent with empyema. History of a chronic cough, which had an extensive workup in the past with Dr. Jacobs, her staff electronic warfare officer. It was attributed to reactive airway disease. She had a prior bronchoscopies and even biopsies. Marked leukocytosis since admission. Bilateral knee pain -severe osteoarthritis Peripheral neuropathy - gabapentin Dementia - newly diagnosed - cont aricept GERD Obesity Weakness and debility COMMENT/RELEVANT DATA Meds Current Medications Medications (Trade) Dose Ordered Sig/Faviola Start Time Stop Time Status Last Admin Dose Admin Acetaminophen (Tylenol) 650 mg TID 10/03/21 14:00 10/06/21 14:36 650 MG Albuterol Sulfate (Ventolin Neb Soln) 2.5 mg PRN Q4HRS PRN 09/29/21 16:15 10/03/21 07:43 2.5 MG Albuterol/ Ipratropium (Duoneb) 3 ml 1X ONCE 09/29/21 10:45 09/29/21 10:46 DC 09/29/21 11:05 3 ML Alteplase, Recombinant 5 mg/ Lidocaine HCl 10 ml/Sterile Water 60 ml @ 120 mls/hr 1X ONCE 10/06/21 06:00 10/06/21 06:29 DC 10/06/21 06:42 120 MLS/HR Aspirin (Ecotrin) 81 mg [id number] 10/01/21 15:00 10/06/21 09:30 81 MG Barium Sulfate (Varibar Thin Liquid Apple) 148 gm 1X ONCE 10/02/21 11:00 10/02/21 11:01 DC Benzonatate (Tessalon Perle) 200 mg BID 09/29/21 21:00 10/06/21 10:06 100 MG Budesonide (Pulmicort) 0.5 mg RTBID 09/29/21 20:00 10/06/21 10:30 0.5 MG Calcium Carbonate/ Glycine (Tums) 500 mg PRN Q2HRS PRN 09/29/21 16:15 10/02/21 03:40 500 MG Calcium/Vitamin D (Oscal D 500mg/ 200uts) 1 tab DAILY 09/30/21 09:00 10/06/21 09:30 1 TAB Ceftriaxone Sodium (Rocephin) 1 gm DAILY10 09/30/21 10:00 10/02/21 10:30 DC 10/02/21 10:30 1 GM Cetirizine HCl (ZyrTEC) 10 mg DAILY 09/30/21 09:00 10/06/21 09:30 10 MG Diclofenac Sodium (Voltaren) 1 nicky BID 09/29/21 21:00 10/03/21 21:19 1 NICKY Digoxin (Lanoxin) 500 mcg 1X ONCE 10/01/21 12:30 10/01/21 12:31 DC 10/01/21 13:26 500 MCG Donepezil HCl (Aricept) 10 mg DAILY 09/30/21 09:00 10/06/21 09:30 10 MG Doxycycline Hyclate (Vibra-Tab) 100 mg BID 10/01/21 21:00 10/06/21 09:30 100 MG Doxycycline Hyclate 100 mg/ Dextrose 100 ml @ 50 mls/hr Q12HR 09/29/21 21:00 10/01/21 10:00 DC 10/01/21 08:49 50 MLS/HR Enoxaparin Sodium (Lovenox 40mg Syringe) 40 mg Q24H 09/29/21 21:00 10/05/21 21:10 40 MG Fentanyl Citrate (Fentanyl 2ml Vial) 50 mcg PRN Q1HR PRN 09/29/21 13:45 09/30/21 13:44 DC Fluticasone Propionate (Flonase) 2 spray DAILY 09/30/21 09:00 10/06/21 09:32 2 SPRAY Gabapentin (Neurontin) 300 mg Q6HRS 10/02/21 09:00 10/06/21 12:26 300 MG Guaifenesin (Robitussin Dm) 10 ml PRN Q6HRS PRN 09/29/21 16:15 10/01/21 15:10 10 ML Ibuprofen (Motrin) 400 mg PRN Q8HRS PRN 10/03/21 13:00 10/03/21 17:43 400 MG Info (CONTRAST GIVEN -- Rx MONITORING) 1 each PRN DAILY PRN 09/29/21 11:30 10/01/21 11:29 DC Iohexol (Omnipaque 300 Mg/ml) 90 ml 1X ONCE 09/29/21 11:30 09/29/21 11:31 DC Iohexol (Omnipaque 350 Mg/ml) 90 ml 1X ONCE 09/29/21 12:00 09/29/21 12:01 DC 09/29/21 11:54 90 ML Lactobacillus Rhamnosus (Culturelle) 1 cap BID 09/30/21 21:00 10/06/21 09:30 1 CAP Linezolid/Dextrose 300 ml @ 300 mls/hr Q12HR 10/02/21 11:00 10/06/21 10:06 300 MLS/HR Methylprednisolone Sodium Succinate (SOLU-Medrol 125MG VIAL) 125 mg 1X ONCE 09/29/21 14:15 09/29/21 14:16 DC 09/29/21 14:00 125 MG Metoprolol Tartrate (Lopressor Vial) 5 mg PRN Q5MIN PRN 10/01/21 01:45 10/01/21 08:54 5 MG Metoprolol Tartrate (Lopressor) 25 mg BID 10/01/21 10:00 10/06/21 10:07 25 MG Montelukast Sodium (Singulair) 10 mg DAILY 09/30/21 09:00 10/06/21 10:06 10 MG Ondansetron HCl (Zofran) 4 mg PRN Q4HRS PRN 09/29/21 16:15 10/01/21 01:32 4 MG Pantoprazole Sodium (Protonix) 40 mg 1X ONCE 09/29/21 17:00 09/29/21 17:01 DC 09/29/21 16:45 40 MG Piperacillin Sod/ Tazobactam Sod (Zosyn Per Pharmacy) 1 each PRN DAILY PRN 10/02/21 10:30 Piperacillin Sod/ Tazobactam Sod 3.375 gm/Sodium Chloride 50 ml @ 100 mls/hr Q6HRS 10/02/21 12:00 10/06/21 12:26 100 MLS/HR Psyllium Hydrophilic Mucilloid (Metamucil Fiber Packet) 1 pkt QHS 09/29/21 21:00 10/03/21 21:16 1 PKT Sodium Chloride 1,000 ml @ 75 mls/hr [id number] 10/01/21 09:15 10/05/21 21:11 75 MLS/HR Sodium Chloride (Saline Mist Nasal) 1 nicky PRN Q1HR PRN 09/29/21 16:30 Tramadol HCl (Ultram) 50 mg PRN Q6HRS PRN 09/29/21 16:15 10/02/21 08:46 DC 10/02/21 03:40 50 MG Results All relevant outside records, renal labs, imaging studies, telemetry/EKG's were reviewed. Justicifation of Admission Dx: Justifications for Admission: Justification of Admission Dx: Yes Fracture: Fracture ANH POLK MD Oct 06, 2021 15:19
[2021-10-06] MEDS: guaiFENesin DM 200MG/20MG 10 ML SYRUP PO PRN (17:57)
[2021-10-06 19:00] VITALS: BP 130/56
[2021-10-06] MEDS: ENOXAPARIN 40 MG/0.4 ML SYRINGE. SQ SCH (20:52)
[2021-10-06] MEDS: PSYLLIUM HUSK (SUGAR FREE) 1 PKT PACKET PO SCH (20:52)
[2021-10-06] MEDS: IV NORMAL SALINE 1000ML BAG 1,000 ML IV SCH ×2 (20:53→21:40)
[2021-10-06 23:00] VITALS: BP 120/53
--- NOTE | 2021-10-06 23:33 | PDOC ---
[employer] PROGRESS NOTE Date of Service DOS: DATE: 10/06/21 TIME: 23:33 Chief Complaint Chief Complaint Respiratory failure Hypoxia Right lower lobe pneumonia Right pleural effusion awaiting thoracentesis Hallucinations Asthma Chronic cough Bilateral knee pain HLD Neuropathy Dementia GERD Obesity Weakness Anemia History of Present Illness History of Present Illness 10/06 Evaluated examined at bedside. Chest tube with fair amount of output still. TPA again today. Otherwise continue current 10/05 Patient evaluated examined at bedside. TPA chest tube today. Otherwise continue current plan. Discussed with valet attendant today. Discussed with bedside RN. 10/03 Patient evaluated examined at bedside. Chest tube in place with exudative effusion. Cytology studies pending. Continue antimicrobials. Multiple consultants following. Discussed with bedside RN. 10/02/2021 Patient seen and examined Discussed with RN Chart review Discussed with pulmonary physician Patient had a thoracentesis yesterday We are awaiting the results of the fluid analysis For now we are continuing IV antibiotics and breathing treatments and oxygen 10/01/2021 Patient seen and examined Discussed with RN Discussed with case management Chart reviewed Patient currently awaiting thoracentesis this morning On 2 L of nasal cannula oxygen Her creatinine has gone up to 1.6 her BUN is also up to 31 Her white count is also elevated from 18-36 I ordered normal saline at 75 and consulted nephrology Has also slipped into A. fib Cardiology consult pending We will give a dose of IV metoprolol until seen by cardiology 81yo female with PMHx asthma, HLD, peripheral neuropathy, GERD, obesity, and newly diagnosed dementia who comes to ED via [facility] complaining of progressive shortness of breath which has begun to worsen over the past 2 weeks. Over the past 2 days she has now had productive sputum that is yellow yellowish-brown with green. She has also been more weak over the past few days and her daughter notes she was having difficulty helping her walk and needed to keep 100% assist. Patient noted she was having trouble walking because of some right-sided chest pain. They contacted EMS. Upon EMS evaluation patient was noted to have O2 saturations in the low 80s and was placed on 5 L nasal cannula and arrived to the ED with this. No recent travel or sick contacts. She is fully vaccinated boosted against COVID-19 and influenza as well as pneumonia with Pneumovax and Prevnar She does have a chronic cough that lasted 10 years and has had significant work- up bronchoscopy with biopsies previously with Dr. Smart at [facility] 4 years ago. She was then referred to ENT sees Dr. Bernardo and has been on Flonase and azelastine. She did enter referral to Dr. Correia for asthma and allergies and has been Flovent albuterol montelukast nightly famotidine Tessalon. Since a hip fracture in December 2020 she has been struggling more with memory and is being treated for dementia at this time by Dr. Sánchez. She does note that she frequently hallucinates that her mom and dad are alive and they are helping take care of her at home, this is very concerning to her daughter and who are both bedside. He also notes she is struggled with bilateral knee pain and 1 month ago had tremayne ateral corticosteroid injections and had relief for about 2 weeks but had to return for Synvisc injections bilaterally last week. She still having some posterior medial left knee pain currently. WBC 16.4, Hb 11.5, platelets 591, D-dimer 2.28, NA 136, K3.7, BUN 11, CR 1.2, calcium 9.3, bilirubin 0.7 AST 49, ALT 53, alkaline phosphatase 81, albumin 2.3, NT proBNP is 568, high-sensitivity troponin is less than 4 09/30/2021 No acute events overnight. Patient seen examined bedside.. Patient saturating well 91% on 3 L nasal cannula. and daughter at bedside. Stating the patient has had a chronic cough for the last 6 years. Patient also not more dyspneic than usual. No production of sputum. Plan for thoracentesis tomorrow with interventional radiology. Patient's chart, labs, images were reviewed and discussed with RN Vitals/I&O Vitals/I&O: Vital Signs Date Time Temp Pulse Resp B/P (MAP) Pulse Ox O2 Delivery O2 Flow Rate FiO2 10/06/21 20:52 59 130/56 10/06/21 20:11 96 Room Air 10/06/21 19:00 97.8 18 97.8 10/06/21 08:00 0.5 I & O 10/05/21 10/05/21 10/06/21 15:00 23:00 07:00 Intake Total 0 ml Output Total 30 ml 520 ml 700 ml Balance -30 ml -520 ml -700 ml Physical Exam General: mild distress Heart: Regular rate Lungs: Other (R Chest tube r basilar crackles dull r base l cta) Abdomen: Normal bowel sounds Extremities: No edema Skin: No significant lesion Assessment and Plan Assessmemt and Plan Problems Medical Problems: (1) Pneumonia Status: Acute Comment Review of Relevant I have reviewed the following items mariella (where applicable) has been applied. Medications: Current Medications Medications (Trade) Dose Ordered Sig/Faviola Route PRN Reason Start Time Stop Time Status Last Admin Dose Admin Alteplase, Recombinant 5 mg/ Lidocaine HCl 10 ml/Sterile Water 60 ml @ 120 mls/hr 1X ONCE IV 10/06/21 06:00 10/06/21 06:29 DC 10/06/21 06:42 Justifications for Admission Other Justification ULICES CHUNG MD Oct 06, 2021 23:33
[2021-10-07 03:00] VITALS: BP 130/58
[2021-10-07] MEDS: PIPERACILLIN/TAZOBACTAM 3.375 GM in IV NORMAL SALINE 50ML 50 ML IV SCH ×4 (06:05→23:47)
[2021-10-07] MEDS: GABAPENTIN 300 MG CAPSULE. PO SCH ×3 (06:05→12:48)
[2021-10-07 07:00] VITALS: BP 134/60
[2021-10-07] MEDS: BUDESONIDE 0.5 MG/2 ML NEBU. NEB SCH ×2 (07:37→18:29)
--- NOTE | 2021-10-07 08:06 | PDOC ---
PULMONARY PROGRESS NOTES DATE: 10/07/21 TIME: 08:[address] in s/p tpa 10/05 and 10/06 ct drainage clear now 800 cc over the past 24 hrs feels better sob cough better Status post thoracentesis 10/01/2021. 1000 cc has come out initially. The initial drainage was thick consistent with empyema. Chest tube was placed 10/01/2021 Vitals Vital Signs Date Time Temp Pulse Resp B/P (MAP) Pulse Ox O2 Delivery O2 Flow Rate FiO2 10/07/21 07:39 95 Room Air 10/07/21 07:00 97.5 61 16 134/60 (84) 97.5 10/06/21 08:00 0.5 Comments ros as mentioned as above other sys otherwise neg ROS: No Nausea General: Alert, No acute distress HEENT: Other (nc at perrl nose throat clear neck no lad no thyromegaly ) Lungs: Other (R Chest tube r basilar crackles dull r base l cta) Cardiovascular: S1, S2 Abdomen: Soft, Non-tender Neuro Exam: Alert, Oriented Extremities: No Edema Skin: Warm Medications Active Scripts Medications Dose Route/Sig Max Daily Dose Days Date Category Tums (Calcium Carbonate) 200 Mg Tab.chew 200 Mg PO PRN PRN 09/29/21 Reported Vitamin B Complex 1 Each Capsule 1 Each PO DAILY 09/29/21 Reported Calcium 600+D Plus Minerals Tb (Calcium Carb/Vit D3/Minerals) 1 Each Tablet 1 Each PO DAILY 09/29/21 Reported Donepezil Hcl 10 Mg Tablet 1 Tab PO DAILY 09/29/21 Reported Azelastine HCl 205.5 Mcg/0.137 Ml Sabael.pump 2 Sabael NS BID 30 09/29/21 Reported Flonase Allergy Relief (Fluticasone Propionate) 9.9 Ml Sabael.susp 2 Sprays NS DAILY 09/29/21 Reported Benzonatate 200 Mg Capsule 200 Mg PO BID 09/29/21 Reported Proair Hfa Inhaler (Albuterol Sulfate) 8.5 Gm Hfa.aer.ad 2 Puff IH BID 09/29/21 Reported Ibuprofen 800 Mg Tablet 800 Mg PO Q6HRS PRN 09/29/21 Reported Gabapentin (Gabapentin) 300 Mg Capsule 300 Mg PO Q6HRS 09/29/21 Reported Cetirizine Hcl 10 Mg Tablet 10 Mg PO DAILY 30 12/21/20 Rx Flovent 100MCG Diskus (Fluticasone Propionate) 100 Mcg Disk.w.dev 1 Puff IH BID 03/20/17 Reported Montelukast Sodium Tablet (Montelukast Sodium) 10 Mg Tablet 1 Tab PO DAILY 03/21/16 Reported Famotidine 40 Mg Tablet 40 Mg PO HS 03/21/16 Reported Comments Chest x-ray reviewed 10/05/2021 Continued volume loss at the right lower chest. Chest tube is in place. Infiltrates unchanged in the right lower lobe. CT chest reviewed 10/04/2021 1. Right pigtail pleural drain catheter is in place with moderate right hydropneumothorax, compatible with known empyema. 2. Consolidative opacities in the right lower and middle lobes suspicious for pneumonia. Chest x-ray reviewed dated 10/03/2021. Significantly improved right pleural effusion. Is still volume loss which could be leads pneumonia and loculated effusion Impression . 1. Acute hypoxic respiratory failure secondary to community-acquired pneumonia with empyema. Less likely malignancy, status post right chest tube placement 10/01/[address] chest with mild to moderate right-sided pleural effusion along with mass-like density in the right lower lobe. Likely a pneumonic consolidation, less likely mass. She also has mild mediastinal and hilar adenopathy, which is likely reactive. 3. History of a chronic cough, which had an extensive workup in the past with Dr. Jcaobs, her casing puller. It was attributed to reactive airway disease. She had a prior bronchoscopies and even biopsies. 4. No significant tobaccoism. 5. Marked leukocytosis since admission. Plan . 1. Continue with chest tube. s/p tpa 10/05 and 10/06 ct drainage clear now 800 cc over the past [address] suction -20 2. Monitor white cell count. Marked increase initially. Antibiotics broadened. WBC decreasing. will need abx for a few weeks consider id consult for abx management 3. Zosyn/Zyvox/Doxy to continue for now. follow pleural fluid cultures. pH is 6.9 and glucose is less than 2 consistent with empyema, it is an exudate. 4. Await pleural fluid cytology. malignancy less likely. 5. Follow daily chest x-rays. reviewed 6. Improve nutritional status. 7. bronchodilators. 8. Discussed with RN and pt, primary dr baca discussed the case with 2 thoracic surgeons at . They both agreed that given her advanced age, TPA via the chest tube would be more appropriate initial approach. LEXIS TURNER MD Oct 07, 2021 08:06
--- NOTE | 2021-10-07 08:16 | PDOC ---
PROGRESS NOTES Date of Service: DATE: 10/07/21 TIME: 08:16 Subjective Subjective Feeling better with improvement in cough and dyspnea Objective Objective Vital Signs Date Time Temp Pulse Resp B/P (MAP) Pulse Ox O2 Delivery O2 Flow Rate FiO2 10/07/21 07:39 95 Room Air 10/07/21 07:00 97.5 61 16 134/60 (84) 97.5 10/06/21 08:00 0.5 Intake and Output 10/07/21 07:00 Intake Total 20207 ml Output Total 982 ml Balance 9963 ml Intake Oral 120 ml Blood Product IV Normal Saline Flush 59862 ml Output Urine Total 2 ml Chest Tube Drainage Total 800 ml Drainage Total 180 ml Physical Exam Abdomen: Normal bowel sounds Heart: Regular rate Extremities: No edema General: mild distress HEENT: Atraumatic, Mucous membr. moist/pink Lungs: Other (Decreased breath sounds) MUSCULOSKELETAL: Osteoarthritic changes both hands Neuro: Normal speech, Sensation intact Psych/Mental Status: Mood NL Skin: No significant lesion Assessment Assessment 1. Acute respiratory failure secondary to pneumonia, right pleural effusion. s/p thoracentesis, chest tube placement due to empyema, s/p tpa CT 10/05 2. New onset AFIB with RVR. s/p IV metoprolol. converted back to SR. Echo with LVEF 55% with moderate LV diastolic dysfunction and aortic root dilation at 4.0 cm. 3. Leukocytosis 4. Hyperlipidemia; LDL 112 5. ILDA; improved 6. Dementia Recommendations Continue low-dose metoprolol ASA therapy. Continue Lovenox VTE prophylaxis dosing. Transition to Eliquis upon discharge Outpatient event monitor to guide therapy as arranged Ongoing pulmonary optimization, treatment of PNA, empyema Supportive care Follow up in our office as scheduled. Plan Plan of Care Problems Medical Problems: (1) Pneumonia Status: Acute Comment Review of Relevant I have reviewed the following items mariella (where applicable) has been applied. Labs Microbiology 10/01/21 Urine Culture - Final, Complete 10/01/21 Gram Stain - Final, Complete 10/01/21 Aerobic and Anaerobic Culture - Final, Complete Vitals/I & O Vital Sign - Last 24 Hours 10/06/21 10/06/21 10/06/21 10/06/21 10:07 10:32 11:00 15:00 Temp 98.0 98.0 98.0 98.0 Pulse 64 62 36 Resp 18 18 B/P (MAP) 150/61 125/49 (74) 125/55 (78) Pulse Ox 96 96 97 O2 Delivery Nasal Cannula Nasal Cannula Nasal Cannula 10/06/21 10/06/21 10/06/21 10/06/21 19:00 20:00 20:11 20:52 Temp 97.8 97.8 Pulse 59 59 Resp 18 B/P (MAP) 130/56 (80) 130/56 Pulse Ox 93 96 O2 Delivery Room Air Room Air 10/06/21 10/07/21 10/07/21 10/07/21 23:00 03:00 07:00 07:39 Temp 97.9 97.7 97.5 97.9 97.7 97.5 Pulse 55 58 61 Resp 18 16 16 B/P (MAP) 120/53 (75) 130/58 (82) 134/60 (84) Pulse Ox 95 95 94 95 O2 Delivery Room Air Intake and Output 10/06/21 10/06/21 10/07/21 15:00 23:00 07:00 Intake Total 22732 ml 120 ml Output Total 620 ml 362 ml Balance 23905 ml -362 ml 120 ml ERIN CLARK MD Oct 07, 2021 08:16
[2021-10-07] MEDS: DICLOFENAC SODIUM 1% TOPICAL GEL 100GM TUBE. TP SCH ×2 (09:00→21:00)
[2021-10-07] MEDS: ASPIRIN ENTERIC COATED 81 MG TABLET.DR. PO SCH (09:31)
[2021-10-07] MEDS: MONTELUKAST SODIUM 10 MG TABLET. PO SCH (09:31)
[2021-10-07] MEDS: LACTOBACILLUS RHAMNOSUS GG 1 CAPSULE. PO SCH ×2 (09:32→21:29)
[2021-10-07] MEDS: CALCIUM CARB/VIT D3 500/200 TABLET. PO SCH (09:32)
[2021-10-07] MEDS: PANTOPRAZOLE 40 MG TABLET.DR. PO SCH (09:32)
[2021-10-07] MEDS: CETIRIZINE HCL 10 MG TABLET. PO SCH (09:32)
[2021-10-07] MEDS: ACETAMINOPHEN 325 MG TABLET. PO SCH ×3 (09:32→23:11)
[2021-10-07] MEDS: METOPROLOL TART IMMED RELEASE 25 MG TABLET. PO SCH ×2 (09:33→21:31)
[2021-10-07] MEDS: FLUTICASONE 50MCG/NASAL SPRAY 16GM BOTTLE. NS SCH (09:33)
[2021-10-07] MEDS: DOXYCYCLINE HYCLATE 100 MG TABLET PO SCH ×2 (09:33→21:29)
[2021-10-07] MEDS: DONEPEZIL HCL 10 MG TABLET. PO SCH (09:33)
[2021-10-07] MEDS: BENZONATATE 100 MG CAPSULE. PO SCH ×2 (09:33→21:29)
--- NOTE | 2021-10-07 10:31 | RAD ---
PROCEDURE: XR CHEST 1V.10/07/2021 10:27 AM REASON FOR STUDY: Reason: empyema / Spl. Instructions: / History: . COMPARISON: Exam of the previous day. FINDINGS: Right-sided pigtail catheter remains in place. There is probably a small amount of basilar pleural air, but no large pneumothorax is seen. Mild atelectasis is present at the lung bases. There is no new consolidation or significant effusion. Heart size appears normal. IMPRESSION: Mild basilar atelectasis. There is probably a small amount of air in the pleural space at the right base in the region of empyema. Electronically signed by: Hai Zheng Jr., MD (10/07/2021 10:28 AM) [id number]
[2021-10-07 11:00] VITALS: BP 132/54
[2021-10-07 15:00] VITALS: BP 156/65
[2021-10-07] MEDS: IV NORMAL SALINE 1000ML BAG 1,000 ML IV SCH (17:06)
--- NOTE | 2021-10-07 17:51 | PDOC ---
[employer] PROGRESS NOTE Date of Service DOS: DATE: 10/07/21 TIME: 17:50 Chief Complaint Chief Complaint Respiratory failure Hypoxia Right lower lobe pneumonia Right pleural effusion awaiting thoracentesis Hallucinations Asthma Chronic cough Bilateral knee pain HLD Neuropathy Dementia GERD Obesity Weakness Anemia History of Present Illness History of Present Illness 10/07 Evaluated examined at bedside. Chest tube still in place but patient's respiratory status much improved. Continue daily chest x-rays. Once okay to remove chest tube will start discharge planning. 10/05 Patient evaluated examined at bedside. TPA chest tube today. Otherwise continue current plan. Discussed with lathe mechanic today. Discussed with bedside RN. 10/03 Patient evaluated examined at bedside. Chest tube in place with exudative effusion. Cytology studies pending. Continue antimicrobials. Multiple consultants following. Discussed with bedside RN. 10/02/2021 Patient seen and examined Discussed with RN Chart review Discussed with pulmonary physician Patient had a thoracentesis yesterday We are awaiting the results of the fluid analysis For now we are continuing IV antibiotics and breathing treatments and oxygen 10/01/2021 Patient seen and examined Discussed with RN Discussed with case management Chart reviewed Patient currently awaiting thoracentesis this morning On 2 L of nasal cannula oxygen Her creatinine has gone up to 1.6 her BUN is also up to 31 Her white count is also elevated from 18-36 I ordered normal saline at 75 and consulted nephrology Has also slipped into A. fib Cardiology consult pending We will give a dose of IV metoprolol until seen by cardiology 81yo female with PMHx asthma, HLD, peripheral neuropathy, GERD, obesity, and newly diagnosed dementia who comes to ED via [facility] complaining of progressive shortness of breath which has begun to worsen over the past 2 weeks. Over the past 2 days she has now had productive sputum that is yellow yellowish-brown with green. She has also been more weak over the past few days and her daughter notes she was having difficulty helping her walk and needed to keep 100% assist. Patient noted she was having trouble walking because of some right-sided chest pain. They contacted EMS. Upon EMS evaluation patient was noted to have O2 saturations in the low 80s and was placed on 5 L nasal cannula and arrived to the ED with this. No recent travel or sick contacts. She is fully vaccinated boosted against COVID-19 and influenza as well as pneumonia with Pneumovax and Prevnar She does have a chronic cough that lasted 10 years and has had significant work- up bronchoscopy with biopsies previously with Dr. Smart at [facility] 4 years ago. She was then referred to ENT sees Dr. Bernardo and has been on Flonase and azelastine. She did enter referral to Dr. Correia for asthma and allergies and has been Flovent albuterol montelukast nightly famotidine Tessalon. Since a hip fracture in December 2020 she has been struggling more with memory and is being treated for dementia at this time by Dr. Sánchez. She does note that she frequently hallucinates that her mom and dad are alive and they are helping take care of her at home, this is very concerning to her daughter and who are both bedside. He also notes she is struggled with bilateral knee pain and 1 month ago had bilateral corticosteroid injections and had relief for about 2 weeks but had to return for Synvisc injections bilaterally last week. She still having some posterior medial left knee pain currently. WBC 16.4, Hb 11.5, platelets 591, D-dimer 2.28, NA 136, K3.7, BUN 11, CR 1.2, calcium 9.3, bilirubin 0.7 AST 49, ALT 53, alkaline phosphatase 81, albumin 2.3, NT proBNP is 568, high-sensitivity troponin is less than 4 09/30/2021 No acute events overnight. Patient seen examined bedside.. Patient saturating well 91% on 3 L nasal cannula. and daughter at bedside. Stating the patient has had a chronic cough for the last 6 years. Patient also not more dyspneic than usual. No production of sputum. Plan for thoracentesis tomorrow with interventional radiology. Patient's chart, labs, images were reviewed and discussed with RN Vitals/I&O Vitals/I&O: Vital Signs Date Time Temp Pulse Resp B/P (MAP) Pulse Ox O2 Delivery O2 Flow Rate FiO2 10/07/21 15:00 97.5 52 18 156/65 (95) 96 97.5 10/07/21 08:00 Room Air 10/06/21 08:00 0.5 I & O 10/06/21 10/06/21 10/07/21 15:00 23:00 07:00 Intake Total 99372 ml 120 ml Output Total 620 ml 362 ml Balance 82589 ml -362 ml 120 ml Physical Exam General: Alert, Cooperative, mild distress Heart: Regular rate Lungs: Other (R Chest tube r basilar crackles dull r base l cta) Abdomen: Normal bowel sounds Extremities: No edema Skin: No significant lesion Assessment and Plan Assessmemt and Plan Problems Medical Problems: (1) Pneumonia Status: Acute Comment Review of Relevant I have reviewed the following items mariella (where applicable) has been applied. Justifications for Admission Other Justification ULICES CHUNG MD Oct 07, 2021 17:51
[2021-10-07 19:00] VITALS: BP 129/61
[2021-10-07] MEDS: PSYLLIUM HUSK (SUGAR FREE) 1 PKT PACKET PO SCH ×2 (21:00→21:29)
[2021-10-07] MEDS: ENOXAPARIN 40 MG/0.4 ML SYRINGE. SQ SCH (21:29)
[2021-10-07 23:00] VITALS: BP 118/54
[2021-10-08 03:00] VITALS: BP 132/58
[2021-10-08] MEDS: GABAPENTIN 300 MG CAPSULE. PO SCH ×4 (05:46→20:08)
[2021-10-08] MEDS: PANTOPRAZOLE 40 MG TABLET.DR. PO SCH (05:46)
[2021-10-08] MEDS: PIPERACILLIN/TAZOBACTAM 3.375 GM in IV NORMAL SALINE 50ML 50 ML IV SCH ×3 (05:47→20:10)
[2021-10-08] MEDS: ONDANSETRON PF 4 MG/2 ML VIAL. IVP PRN (05:51)
[2021-10-08] MEDS: BUDESONIDE 0.5 MG/2 ML NEBU. NEB SCH ×2 (06:55→20:40)
[2021-10-08 07:00] VITALS: BP 130/56
--- NOTE | 2021-10-08 08:19 | PDOC ---
PULMONARY PROGRESS NOTES DATE: 10/08/21 TIME: 08:19 Subjective Short of air cough nonproductive appetitive has improved Vitals Vital Signs Date Time Temp Pulse Resp B/P (MAP) Pulse Ox O2 Delivery O2 Flow Rate FiO2 10/08/21 07:00 97.5 62 16 130/56 (80) 93 Room Air 97.5 Comments ros as mentioned as above other sys otherwise neg ROS: No Nausea, No Chest Pain, No Abdominal Pain, No Increase Cough General: Alert, No acute distress Lungs: Other (R Chest tube r basilar crackles dull r base l cta) Cardiovascular: S1, S2 Abdomen: Soft, Non-tender Neuro Exam: Alert, Oriented Extremities: No Edema Skin: Warm Medications Active Scripts Medications Dose Route/Sig Max Daily Dose Days Date Category Tums (Calcium Carbonate) 200 Mg Tab.chew 200 Mg PO PRN PRN 09/29/21 Reported Vitamin B Complex 1 Each Capsule 1 Each PO DAILY 09/29/21 Reported Calcium 600+D Plus Minerals Tb (Calcium Carb/Vit D3/Minerals) 1 Each Tablet 1 Each PO DAILY 09/29/21 Reported Donepezil Hcl 10 Mg Tablet 1 Tab PO DAILY 09/29/21 Reported Azelastine HCl 205.5 Mcg/0.137 Ml Jackson.pump 2 Jackson NS BID 30 09/29/21 Reported Flonase Allergy Relief (Fluticasone Propionate) 9.9 Ml Jackson.susp 2 Sprays NS DAILY 09/29/21 Reported Benzonatate 200 Mg Capsule 200 Mg PO BID 09/29/21 Reported Proair Hfa Inhaler (Albuterol Sulfate) 8.5 Gm Hfa.aer.ad 2 Puff IH BID 21 09/29/21 Reported Ibuprofen 800 Mg Tablet 800 Mg PO Q6HRS PRN 09/29/21 Reported Gabapentin (Gabapentin) 300 Mg Capsule 300 Mg PO Q6HRS 09/29/21 Reported Cetirizine Hcl 10 Mg Tablet 10 Mg PO DAILY 30 12/21/20 Rx Flovent 100MCG Diskus (Fluticasone Propionate) 100 Mcg Disk.w.dev 1 Puff IH BID 03/20/17 Reported Montelukast Sodium Tablet (Montelukast Sodium) 10 Mg Tablet 1 Tab PO DAILY 03/21/16 Reported Famotidine 40 Mg Tablet 40 Mg PO HS 03/21/16 Reported Impression . 1. Acute hypoxic respiratory failure secondary to community-acquired pneumonia with empyema. Less likely malignancy, status post right chest tube placement 10/01/[address] chest with mild to moderate right-sided pleural effusion along with mass-like density in the right lower lobe. Likely a pneumonic consolidation, less likely mass. She also has mild mediastinal and hilar adenopathy, which is likely reactive. 3. History of a chronic cough, which had an extensive workup in the past with Dr. Jacobs, her psychiatric therapist. It was attributed to reactive airway disease. She had a prior bronchoscopies and even biopsies. 4. No significant tobaccoism. 5. Marked leukocytosis since admission. Plan . 10/[address] chest Continues to drain some fluid, it slowed down quite a bit Continue current antibiotics Discussed with daughter at the bedside ct in s/p tpa 10/05 and 10/06 ct drainage clear now 800 cc over the past 24 hrs feels better sob cough better Status post thoracentesis 10/01/2021. 1000 cc has come out initially. The initial drainage was thick consistent with empyema. Chest tube was placed 10/01/202110/07 1. Continue with chest tube. s/p tpa 10/05 and 10/06 ct drainage clear now 800 cc over the past [address] suction -20 2. Monitor white cell count. Marked increase initially. Antibiotics broadened. WBC decreasing. will need abx for a few weeks consider id consult for abx management 3. Zosyn/Zyvox/Doxy to continue for now. follow pleural fluid cultures. pH is 6.9 and glucose is less than 2 consistent with empyema, it is an exudate. 4. Await pleural fluid cytology. malignancy less likely. 5. Follow daily chest x-rays. reviewed 6. Improve nutritional status. 7. bronchodilators. 8. Discussed with RN and pt, primary dr baca discussed the case with 2 thoracic surgeons at . They both agreed that given her advanced age, TPA via the chest tube would be more appropriate initial approach. HUNTER CUEVA MD Oct 08, 2021 08:19
[2021-10-08] MEDS: BENZONATATE 100 MG CAPSULE. PO SCH ×2 (09:00→21:00)
[2021-10-08] MEDS: DICLOFENAC SODIUM 1% TOPICAL GEL 100GM TUBE. TP SCH ×2 (09:00→21:00)
--- NOTE | 2021-10-08 09:54 | PDOC ---
[employer] PROGRESS NOTE Date of Service DOS: DATE: 10/08/21 TIME: 09:52 Chief Complaint Chief Complaint Respiratory failure Hypoxia Right lower lobe pneumonia Right pleural effusion awaiting thoracentesis Hallucinations Asthma Chronic cough Bilateral knee pain HLD Neuropathy Dementia GERD Obesity Weakness Anemia History of Present Illness History of Present Illness 10/08 Evaluated examined at bedside. Respiratory status stable. Chest tube still in place discussed with Dr. Donato, may be able to remove chest tube today. Hopeful for d/c in next few days. 10/07 Evaluated examined at bedside. Chest tube still in place but patient's respiratory status much improved. Continue daily chest x-rays. Once okay to remove chest tube will start discharge planning. 10/05 Patient evaluated examined at bedside. TPA chest tube today. Otherwise continue current plan. Discussed with cellophane bath mixer today. Discussed with bedside RN. 10/03 Patient evaluated examined at bedside. Chest tube in place with exudative ef fusion. Cytology studies pending. Continue antimicrobials. Multiple consultants following. Discussed with bedside RN. 10/02/2021 Patient seen and examined Discussed with RN Chart review Discussed with pulmonary physician Patient had a thoracentesis yesterday We are awaiting the results of the fluid analysis For now we are continuing IV antibiotics and breathing treatments and oxygen 10/01/2021 Patient seen and examined Discussed with RN Discussed with case management Chart reviewed Patient currently awaiting thoracentesis this morning On 2 L of nasal cannula oxygen Her creatinine has gone up to 1.6 her BUN is also up to 31 Her white count is also elevated from 18-36 I ordered normal saline at 75 and consulted nephrology Has also slipped into A. fib Cardiology consult pending We will give a dose of IV metoprolol until seen by cardiology 81yo female with PMHx asthma, HLD, peripheral neuropathy, GERD, obesity, and newly diagnosed dementia who comes to ED via [facility] complaining of progressive shortness of breath which has begun to worsen over the past 2 weeks. Over the past 2 days she has now had productive sputum that is yellow yellowish-brown with green. She has also been more weak over the past few days and her daughter notes she was having difficulty helping her walk and needed to keep 100% assist. Patient noted she was having trouble walking because of some right-sided chest pain. They contacted EMS. Upon EMS evaluation patient was noted to have O2 saturations in the low 80s and was placed on 5 L nasal cannula and arrived to the ED with this. No recent travel or sick contacts. She is fully vaccinated boosted against COVID-19 and influenza as well as pneumonia with Pneumovax and Prevnar She does have a chronic cough that lasted 10 years and has had significant work- up bronchoscopy with biopsies previously with Dr. Smart at [facility] 4 years ago. She was then referred to ENT sees Dr. Bernardo and has been on Flonase and azelastine. She did enter referral to Dr. Correia for asthma and allergies and has been Flovent albuterol montelukast nightly famotidine Tessalon. Since a hip fracture in December 2020 she has been struggling more with memory and is being treated for dementia at this time by Dr. Sánchez. She does note that she frequently hallucinates that her mom and dad are alive and they are helping take care of her at home, this is very concerning to her daughter and who are both bedside. He also notes she is struggled with bilateral knee pain and 1 month ago had bilateral corticosteroid injections and had relief for about 2 weeks but had to return for Synvisc injections bilaterally last week. She still having some posterior medial left knee pain currently. WBC 16.4, Hb 11.5, platelets 591, D-dimer 2.28, NA 136, K3.7, BUN 11, CR 1.2, calcium 9.3, bilirubin 0.7 AST 49, ALT 53, alkaline phosphatase 81, albumin 2.3, NT proBNP is 568, high-sensitivity troponin is less than 4 09/30/2021 No acute events overnight. Patient seen examined bedside.. Patient saturating well 91% on 3 L nasal cannula. and daughter at bedside. Stating the patient has had a chronic cough for the last 6 years. Patient also not more dyspneic than usual. No production of sputum. Plan for thoracentesis tomorrow with interventional radiology. Patient's chart, labs, images were reviewed and discussed with RN Vitals/I&O Vitals/I&O: Vital Signs Date Time Temp Pulse Resp B/P (MAP) Pulse Ox O2 Delivery O2 Flow Rate FiO2 10/08/21 07:00 97.5 62 16 130/56 (80) 93 Room Air 97.5 I & O 10/07/21 10/07/21 10/08/21 15:00 23:00 07:00 Intake Total 280 ml 180 ml Output Total 50 ml 350 ml 550 ml Balance 230 ml -170 ml -550 ml Physical Exam General: Alert, Cooperative, mild distress Heart: Regular rate Lungs: Other (chest tube in place) Abdomen: Normal bowel sounds Extremities: No edema Skin: No significant lesion Assessment and Plan Assessmemt and Plan Problems Medical Problems: (1) Pneumonia Status: Acute Comment Review of Relevant I have reviewed the following items mariella (where applicable) has been applied. Justifications for Admission Other Justification ULICES CHUNG MD Oct 08, 2021 09:54
[2021-10-08 11:00] VITALS: BP 144/56
[2021-10-08] MEDS: MONTELUKAST SODIUM 10 MG TABLET. PO SCH (11:23)
[2021-10-08] MEDS: ACETAMINOPHEN 325 MG TABLET. PO SCH ×3 (11:24→21:47)
[2021-10-08] MEDS: ASPIRIN ENTERIC COATED 81 MG TABLET.DR. PO SCH (11:24)
[2021-10-08] MEDS: CETIRIZINE HCL 10 MG TABLET. PO SCH (11:24)
[2021-10-08] MEDS: LACTOBACILLUS RHAMNOSUS GG 1 CAPSULE. PO SCH ×2 (11:25→21:45)
[2021-10-08] MEDS: CALCIUM CARB/VIT D3 500/200 TABLET. PO SCH (11:25)
[2021-10-08] MEDS: DONEPEZIL HCL 10 MG TABLET. PO SCH (11:25)
[2021-10-08] MEDS: DOXYCYCLINE HYCLATE 100 MG TABLET PO SCH ×2 (11:25→21:45)
[2021-10-08] MEDS: METOPROLOL TART IMMED RELEASE 25 MG TABLET. PO SCH ×2 (11:26→21:53)
[2021-10-08] MEDS: FLUTICASONE 50MCG/NASAL SPRAY 16GM BOTTLE. NS SCH (11:29)
[2021-10-08] MEDS: IV NORMAL SALINE 1000ML BAG 1,000 ML IV SCH ×2 (11:43→14:35)
--- NOTE | 2021-10-08 12:27 | RAD ---
EXAMINATION: XR CHEST 1V CLINICAL HISTORY: Empyema. TECHNIQUE: XR CHEST 1V COMPARISON: 10/07/2021 FINDINGS/ IMPRESSION: No evidence of significant interval change when accounting for differences in patient positioning and imaging technique. Persistent right basilar hydropneumothorax, compatible with an empyema, and bibasilar airspace diseas e. Right-sided pigtail pleural drainage catheter remains in similar position. Electronically signed by: Som Piek DO (10/08/2021 12:24 PM) [id number]
--- NOTE | 2021-10-08 14:37 | PDOC ---
SIMON LARRY PHOTOGRAPHIC EDITOR 10/08/21 1437: CARDIO Progress Notes Date and Time Date of Service 10/08/21 Time of Evaluation 1430 Subjective Subjective: No Chest Pain, No Palpitations, No Dizziness, Other (feeling 100% today. Did have dizziness upon standing.) Vitals Vitals Vital Signs Date Time Temp Pulse Resp B/P (MAP) Pulse Ox O2 Delivery O2 Flow Rate FiO2 10/08/21 11:26 66 144/56 10/08/21 11:00 97.8 16 95 Room Air 97.8 Weight Weight [ ] Input and Output Intake and Output Intake and Output 10/08/21 07:00 Intake Total 460 ml Output Total 950 ml Balance -490 ml Intake Oral 460 ml Output Urine Total 550 ml Urine/Stool Mix 350 ml Chest Tube Drainage Total 50 ml Microbiology Micro Microbiology 10/01/21 Urine Culture - Final, Complete 10/01/21 Gram Stain - Final, Complete 10/01/21 Aerobic and Anaerobic Culture - Final, Complete Physical Exam HEENT: Neck Supple W Full Motion Chest: Symmetric LUNGS: Other (diminished, right chest tube) Heart: S1S2, RRR (SR/SB- HR near 55-60) Abdomen: Soft N/T Extremities: No Edema Neurology: alert, oriented, follow commands Assessment Assessment 1. Acute respiratory failure secondary to pneumonia, right pleural effusion. s/p thoracentesis, chest tube placement due to empyema, s/p tpa CT 10/05 2. New onset AFIB with RVR. s/p IV metoprolol. converted back to SR. Echo with LVEF 55% with moderate LV diastolic dysfunction and aortic root dilation at 4.0 cm. 3. Leukocytosis 4. Hyperlipidemia; LDL 112 5. ILDA; improved 6. Dementia 7. Dizziness upon standing Recommendations Continue low-dose metoprolol Check orthostatic VS ASA therapy. Continue Lovenox VTE prophylaxis dosing. Transition to Eliquis upon discharge has received outpatient event monitor in mail. Is to bring to hospital for RN to place prior to discharge to rehab. Ongoing pulmonary optimization Supportive care Follow up in our office as scheduled. Justicifation of Admission Dx: Justifications for Admission: Justification of Admission Dx: Yes Fracture: Fracture ERIN CLARK MD 10/08/21 1634: CARDIO Progress Notes Assessment Assessment Patient seen and examined. Agree with UNION ORGANISER's assessment plan. PAF, maintaining sinus rhythm. Plan outpatient event monitor recording SIMON LARRY APRN Oct 08, 2021 14:37 ERIN CLARK MD Oct 08, 2021 16:34
[2021-10-08 15:00] VITALS: BP 130/52
[2021-10-08 19:50] VITALS: BP 128/51
[2021-10-08] MEDS: PSYLLIUM HUSK (SUGAR FREE) 1 PKT PACKET PO SCH (21:44)
[2021-10-08] MEDS: ENOXAPARIN 40 MG/0.4 ML SYRINGE. SQ SCH (21:46)
[2021-10-08 23:07] VITALS: BP 118/51
[2021-10-09] VITALS (8 sets, daily range): BP systolic 112–147; BP diastolic 44–59
[2021-10-09] MEDS: PIPERACILLIN/TAZOBACTAM 3.375 GM in IV NORMAL SALINE 50ML 50 ML IV SCH ×3 (00:02→11:36)
--- NOTE | 2021-10-09 00:04 | NUR ---
Midnight gabapentin not administered, pt asleep and previous dose was just given 3 hrs before.
[2021-10-09] MEDS: IV NORMAL SALINE 1000ML BAG 1,000 ML IV SCH (03:55)
[2021-10-09] MEDS: PANTOPRAZOLE 40 MG TABLET.DR. PO SCH (05:42)
[2021-10-09] MEDS: GABAPENTIN 300 MG CAPSULE. PO SCH ×4 (05:42→18:43)
[2021-10-09] MEDS: BUDESONIDE 0.5 MG/2 ML NEBU. NEB SCH ×2 (07:34→19:57)
[2021-10-09] MEDS: ONDANSETRON PF 4 MG/2 ML VIAL. IVP PRN (07:49)
[2021-10-09] MEDS: ASPIRIN ENTERIC COATED 81 MG TABLET.DR. PO SCH (07:52)
[2021-10-09] MEDS: LACTOBACILLUS RHAMNOSUS GG 1 CAPSULE. PO SCH ×2 (08:53→21:26)
[2021-10-09] MEDS: ACETAMINOPHEN 325 MG TABLET. PO SCH ×3 (08:55→21:27)
[2021-10-09] MEDS: MONTELUKAST SODIUM 10 MG TABLET. PO SCH (08:55)
[2021-10-09] MEDS: DONEPEZIL HCL 10 MG TABLET. PO SCH (08:56)
[2021-10-09] MEDS: CALCIUM CARB/VIT D3 500/200 TABLET. PO SCH (08:57)
[2021-10-09] MEDS: BENZONATATE 100 MG CAPSULE. PO SCH ×3 (08:57→21:27)
[2021-10-09] MEDS: METOPROLOL TART IMMED RELEASE 25 MG TABLET. PO SCH ×2 (08:57→21:28)
[2021-10-09] MEDS: FLUTICASONE 50MCG/NASAL SPRAY 16GM BOTTLE. NS SCH (08:58)
[2021-10-09] MEDS: DOXYCYCLINE HYCLATE 100 MG TABLET PO SCH ×2 (08:59→21:27)
[2021-10-09] MEDS: CETIRIZINE HCL 10 MG TABLET. PO SCH (08:59)
[2021-10-09] MEDS: DICLOFENAC SODIUM 1% TOPICAL GEL 100GM TUBE. TP SCH ×2 (09:00→21:00)
--- NOTE | 2021-10-09 09:31 | PDOC ---
PULMONARY PROGRESS NOTES DATE: 10/09/21 TIME: 09:30 Subjective Short of air cough nonproductive appetitive has improved Vitals Vital Signs Date Time Temp Pulse Resp B/P (MAP) Pulse Ox O2 Delivery O2 Flow Rate FiO2 10/09/21 08:57 61 138/58 10/09/21 07:35 95 Room Air 10/09/21 07:00 97.8 97.8 10/09/21 03:20 16 Comments ros as mentioned as above other sys otherwise neg ROS: No Nausea, No Chest Pain, No Abdominal Pain, No Increase Cough General: Alert, No acute distress Lungs: Other (chest tube in place) Cardiovascular: S1, S2 Abdomen: Soft, Non-tender Neuro Exam: Alert, Oriented Extremities: No Edema Skin: Warm Medications Active Scripts Medications Dose Route/Sig Max Daily Dose Days Date Category Tums (Calcium Carbonate) 200 Mg Tab.chew 200 Mg PO PRN PRN 09/29/21 Reported Vitamin B Complex 1 Each Capsule 1 Each PO DAILY 09/29/21 Reported Calcium 600+D Plus Minerals Tb (Calcium Carb/Vit D3/Minerals) 1 Each Tablet 1 Each PO DAILY 09/29/21 Reported Donepezil Hcl 10 Mg Tablet 1 Tab PO DAILY 09/29/21 Reported Azelastine HCl 205.5 Mcg/0.137 Ml Vermilion.pump 2 Vermilion NS BID 30 09/29/21 Reported Flonase Allergy Relief (Fluticasone Propionate) 9.9 Ml [place].susp 2 Sprays NS DAILY 09/29/21 Reported Benzonatate 200 Mg Capsule 200 Mg PO BID 09/29/21 Reported Proair Hfa Inhaler (Albuterol Sulfate) 8.5 Gm Hfa.aer.ad 2 Puff IH BID 21 09/29/21 Reported Ibuprofen 800 Mg Tablet 800 Mg PO Q6HRS PRN 09/29/21 Reported Gabapentin (Gabapentin) 300 Mg Capsule 300 Mg PO Q6HRS 09/29/21 Reported Cetirizine Hcl 10 Mg Tablet 10 Mg PO DAILY 30 12/21/20 Rx Flovent 100MCG Diskus (Fluticasone Propionate) 100 Mcg Disk.w.dev 1 Puff IH BID 03/20/17 Reported Montelukast Sodium Tablet (Montelukast Sodium) 10 Mg Tablet 1 Tab PO DAILY 03/21/16 Reported Famotidine 40 Mg Tablet 40 Mg PO HS 03/21/16 Reported Impression . 1. Acute hypoxic respiratory failure secondary to community-acquired pneumonia with empyema. Less likely malignancy, status post right chest tube placement 10/01/[address] chest 3. History of a chronic cough, which had an extensive workup in the past with Dr. Jacobs, her diesel truck driver. It was attributed to reactive airway disease. She had a prior bronchoscopies and even biopsies. 4. No significant tobaccoism. 5. Marked leukocytosis since admission. CT chest 10/09 IMPRESSION: 1. Decreased volume of right-sided empyema with appropriately placed pigtail chest tube on the right lateral pleural space. Mild increased subcutaneous emphysema associated with the tube. Decreased consolidation in the right lower and right middle lobes. 2. There has been interval developmental of a small left pleural effusion. Plan . Updated 10/09 CT chest reviewed much improved Discontinue chest tube Discussed with Dr. Aguilar Transferred SNU in am Continue Augmentin for total of 3 months Follow-up with Dr. Jordan in 2 months with a repeat CT chest 10/[address] chest Continues to drain some fluid, it slowed down quite a bit Continue current antibiotics Discussed with daughter at the bedside HUNTER CUEVA MD Oct 09, 2021 09:31
--- NOTE | 2021-10-09 09:55 | PDOC ---
SIMON LARRY CHAIR SPRINGER 10/09/21 0955: CARDIO Progress Notes Date and Time Date of Service 10/09/21 Time of Evaluation 0950 Subjective Subjective: No Chest Pain, No Palpitations, No Dizziness, Other (feeling more tired today. c/o sore throat) Vitals Vitals Vital Signs Date Time Temp Pulse Resp B/P (MAP) Pulse Ox O2 Delivery O2 Flow Rate FiO2 10/09/21 08:57 61 138/58 10/09/21 07:35 95 Room Air 10/09/21 07:00 97.8 97.8 10/09/21 03:20 16 Weight Weight [ ] Input and Output Intake and Output Intake and Output 10/09/21 07:00 Intake Total 1720 ml Output Total 581 ml Balance 1139 ml Intake Oral 420 ml IV Total 1300 ml Output Urine Total 500 ml Urine/Stool Mix 1 ml Chest Tube Drainage Total 80 ml # Voids 1 Microbiology Micro Microbiology 10/01/21 Urine Culture - Final, Complete 10/01/21 Gram Stain - Final, Complete 10/01/21 Aerobic and Anaerobic Culture - Final, Complete Physical Exam HEENT: Neck Supple W Full Motion Chest: Symmetric LUNGS: Other (diminished, right chest tube) Heart: S1S2, RRR (SR/SB- HR near 55-60) Abdomen: Soft N/T Extremities: Other (1+ bilateral LE edema bilaterally ) Neurology: alert, oriented, follow commands Assessment Assessment 1. Acute respiratory failure secondary to pneumonia, right pleural effusion. s/p thoracentesis, chest tube placement due to empyema, s/p tpa CT 10/05 2. New onset AFIB with RVR. s/p IV metoprolol. converted back to SR. Echo with LVEF 55% with moderate LV diastolic dysfunction and aortic root dilation at 4.0 cm. 3. Leukocytosis 4. Hyperlipidemia; LDL 112 5. ILDA; improved 6. Dementia 7. Dizziness upon standing; orthos negative Recommendations Continue low-dose metoprolol ASA therapy. Continue Lovenox VTE prophylaxis dosing. Transition to Eliquis upon discharge Event monitor in med room; RN to place prior to discharge Ongoing pulmonary optimization Supportive care Follow up in our office as scheduled. Justicifation of Admission Dx: Justifications for Admission: Justification of Admission Dx: Yes Fracture: Fracture ERIN CLARK MD 10/09/21 1631: CARDIO Progress Notes Assessment Assessment Patient seen and examined. Agree with EDITING INTERN's assessment plan. PAF, maintaining sinus rhythm. Plan for event monitor recorder placement upon DC Follow-up with our office as scheduled SIMON LARRY APRN Oct 09, 2021 09:55 ERIN CLARK MD Oct 09, 2021 16:31
--- NOTE | 2021-10-09 11:45 | RAD ---
EXAMINATION: XR CHEST 1V CLINICAL HISTORY: Empyema. TECHNIQUE: XR CHEST 1V COMPARISON: 10/08/2021 FINDINGS/ IMPRESSION: No evidence of significant interval change when accounting for differences in patient positioning and imaging technique. Persistent right basilar hydropneumothorax and bibasilar airspace disease. Right-sided pigtail pleura l drainage catheter remains in similar position. Persistent right axillary subcutaneous emphysema. Electronically signed by: Som Pike DO (10/09/2021 11:43 AM) [id number]
[2021-10-09] MEDS: NYSTATIN 100,000 UNITS/ML 5 ML ORAL.SUSP. SWSW SCH ×3 (11:48→21:26)
[2021-10-09] MEDS: PSYLLIUM HUSK (SUGAR FREE) 1 PKT PACKET PO SCH ×2 (11:49→21:26)
[2021-10-09] MEDS: NYSTATIN TOPICAL POWDER 15GM BOTTLE. TP SCH ×2 (13:22→21:27)
--- NOTE | 2021-10-09 13:44 | RAD ---
Study: CT of the Chest without IV contrast Comparison: CT chest 10/04/2021 Clinical Indication: Empyema Technique: Contiguous axial images are obtained from the thoracic inlet to the apex of the diaphragm. Sagittal and coronal reformations are evaluated. Dose Reduction: One or more of the following individualized dose reduction techniques were utilized f or this examination: 1. Automated exposure control, 2. Adjustment of the mA and/or kV according to p atient size, 3. Use of iterative reconstruction technique FINDINGS: Evaluation of the mediastinal, vascular, soft tissue, and upper abdominal solid parenchyma structures is limited by lack of IV contrast. Lungs and Pleura: Consolidation at the right lower lobe is decreased. Redemonstration of pigtail ches t tube in the right lateral pleural space. Significant decrease in right pleural effusion. Persistent small air pockets on dependently likely related to loculated empyema. Increased subcutaneous emphyse ma on the right chest wall. Possible small component of pneumothorax anteriorly. Interval development of small left pleural effusion Central Airways: Widely patent. Lymph Nodes: Calcified lymph nodes and granulomas in the lung parenchyma related to prior granulomato us disease. No suspicious lymph nodes in the mediastinum. Pulmonary Vasculature: Grossly unremarkable Heart: Normal in size and grossly unremarkable. Mild coronary artery calcifications. Systemic Vasculature: Mild atherosclerosis. Esophageal: Normal in course and caliber.. Upper Abdomen: No gross morphologic abnormalities of the visualized organs. Bones: No gross osteoblastic or osteolytic bone lesions. IMPRESSION: 1. Decreased volume of right-sided empyema with appropriately placed pigtail chest tube on the right lateral pleural space. Mild increased subcutaneous emphysema associated with the tube. Decreased cons olidation in the right lower and right middle lobes. 2. There has been interval developmental of a small left pleural effusion. Electronically signed by: Jj Schofield MD (10/09/2021 1:41 PM) [place] [id number]
--- NOTE | 2021-10-09 14:00 | NUR ---
Chest tube removed by Dr Donato, occlusive dressing was applied. Patient tolerated well.
--- NOTE | 2021-10-09 14:40 | PDOC ---
[facility] PROGRESS NOTE Date of Service DOS: DATE: 10/09/21 TIME: 14:39 Chief Complaint Chief Complaint Respiratory failure Hypoxia Right lower lobe pneumonia Right pleural effusion awaiting thoracentesis Hallucinations Asthma Chronic cough Bilateral knee pain HLD Neuropathy Dementia GERD Obesity Weakness Anemia History of Present Illness History of Present Illness 10/09 -Examined at bedside. Still doing well from respiratory standpoint. Chest tube removed by Dr. Donato today. She will be able to discharge to rehab tomorrow. 10/08 Evaluated examined at bedside. Respiratory status stable. Chest tube still in place discussed with Dr. Donato, may be able to remove chest tube today. Hopeful for d/c in next few days. 10/07 Evaluated examined at bedside. Chest tube still in place but patient's respiratory status much improved. Continue daily chest x-rays. Once okay to remove chest tube will start discharge planning. 10/05 Patient evaluated examined at bedside. TPA chest tube today. Otherwise kanchan nue current plan. Discussed with tso today. Discussed with bedside RN. 10/03 Patient evaluated examined at bedside. Chest tube in place with exudative effusion. Cytology studies pending. Continue antimicrobials. Multiple consultants following. Discussed with bedside RN. 10/02/2021 Patient seen and examined Discussed with RN Chart review Discussed with pulmonary physician Patient had a thoracentesis yesterday We are awaiting the results of the fluid analysis For now we are continuing IV antibiotics and breathing treatments and oxygen 10/01/2021 Patient seen and examined Discussed with RN Discussed with case management Chart reviewed Patient currently awaiting thoracentesis this morning On 2 L of nasal cannula oxygen Her creatinine has gone up to 1.6 her BUN is also up to 31 Her white count is also elevated from 18-36 I ordered normal saline at 75 and consulted nephrology Has also slipped into A. fib Cardiology consult pending We will give a dose of IV metoprolol until seen by cardiology 81yo female with PMHx asthma, HLD, peripheral neuropathy, GERD, obesity, and newly diagnosed dementia who comes to ED via [facility] complaining of progressive shortness of breath which has begun to worsen over the past 2 weeks. Over the past 2 days she has now had productive sputum that is yellow yellowish-brown with green. She has also been more weak over the past few days and her daughter notes she was having difficulty helping her walk and needed to keep 100% assist. Patient noted she was having trouble walking because of some right-sided chest pain. They contacted EMS. Upon EMS evaluation patient was noted to have O2 saturations in the low 80s and was placed on 5 L nasal cannula and arrived to the ED with this. No recent travel or sick contacts. She is fully vaccinated boosted against COVID-19 and influenza as well as pneumonia with Pneumovax and Prevnar She does have a chronic cough that lasted 10 years and has had significant work- up bronchoscopy with biopsies previously with Dr. Smart at [facility] 4 years ago. She was then referred to ENT sees Dr. Bernardo and has been on Flonase and azelastine. She did enter referral to Dr. Correia for asthma and allergies and has been Flovent albuterol montelukast nightly fa motidine Tessalon. Since a hip fracture in December 2020 she has been struggling more with memory and is being treated for dementia at this time by Dr. Sánchez. She does note that she frequently hallucinates that her mom and dad are alive and they are helping take care of her at home, this is very concerning to her daughter and who are both bedside. He also notes she is struggled with bilateral knee pain and 1 month ago had bilateral corticosteroid injections and had relief for about 2 weeks but had to return for Synvisc injections bilaterally last week. She still having some posterior medial left knee pain currently. WBC 16.4, Hb 11.5, platelets 591, D-dimer 2.28, NA 136, K3.7, BUN 11, CR 1.2, calcium 9.3, bilirubin 0.7 AST 49, ALT 53, alkaline phosphatase 81, albumin 2.3, NT proBNP is 568, high-sensitivity troponin is less than 4 09/30/2021 No acute events overnight. Patient seen examined bedside.. Patient saturating well 91% on 3 L nasal cannula. and daughter at bedside. Stating the patient has had a chronic cough for the last 6 years. Patient also not more dyspneic than usual. No production of sputum. Plan for thoracentesis tomorrow with interventional radiology. Patient's chart, labs, images were reviewed and discussed with RN Vitals/I&O Vitals/I&O: Vital Signs Date Time Temp Pulse Resp B/P (MAP) Pulse Ox O2 Delivery O2 Flow Rate FiO2 4// 10:10 63 16 112/50 (70) 95 Room Air 10/09/21 07:00 97.8 97.8 I & O 10/08/21 10/08/21 10/09/21 15:00 23:00 07:00 Intake Total 1450 ml 150 ml 120 ml Output Total 40 ml 540 ml 1 ml Balance 1410 ml -390 ml 119 ml Physical Exam General: Alert, Cooperative, mild distress Heart: Regular rate Lungs: Other (chest tube in place) Abdomen: Normal bowel sounds Extremities: No edema Skin: No significant lesion Assessment and Plan Assessmemt and Plan Problems Medical Problems: (1) Pneumonia Status: Acute Comment Review of Relevant I have reviewed the following items mariella (where applicable) has been applied. Medications: Current Medications Medications (Trade) Dose Ordered Sig/Faviola Route PRN Reason Start Time Stop Time Status Last Admin Dose Admin Nystatin (Nystatin Oral Susp) 5 ml [id number] 10/09/21 13:00 10/09/21 11:48 Nystatin (Nystop) 1 nicky BID TP 10/09/21 12:00 10/09/21 13:22 Psyllium Hydrophilic Mucilloid (Metamucil Fiber Packet) 1 pkt DAILY PO 10/09/21 11:45 10/09/21 11:49 Justifications for Admission Other Justification ULICES CHUNG MD Oct 09, 2021 14:40
[2021-10-09 15:00] LABS: BASO # 0.1 x10^3/uL (0.0-0.2); BASO % 1 % (0-3); EOS # 0.1 x10^3/uL (0.0-0.7); EOS % 1 % (0-3); HEMATOCRIT 31.8 % (36.0-47.0); HEMOGLOBIN 10.2 g/dL (12.0-15.5); LYMPH # 0.9 x10^3/uL (1.0-4.8); LYMPH % 8 % (24-48); MEAN CORPUSCULAR HEMOGLOBIN 27 pg (25-35); MEAN CORPUSCULAR HGB CONC 32 g/dL (31-37); MEAN CORPUSCULAR VOLUME 84 fL (79-100); MONO # 0.3 x10^3/uL (0.0-1.1); MONO % 3 % (0-9); NEUT # 9.7 x10^3/uL (1.8-7.7); NEUT % 87 % (31-73); PLATELET COUNT 448 x10^3/uL (140-400); RED CELL DISTRIBUTION WIDTH 13.5 % (11.5-14.5); WHITE BLOOD COUNT 11.1 x10^3/uL (4.0-11.0)
--- NOTE | 2021-10-09 17:00 | NUR ---
Patient wakened from nap, expression appears peaceful. Patient appears to be in good spirits. Dressing remains in place to back, no bleeding noted. No sings of respiratory distress.
[2021-10-09] MEDS: AMOXICILLIN/K CLAV 875/125MG TABLET. PO SCH (21:26)
[2021-10-09] MEDS: ENOXAPARIN 40 MG/0.4 ML SYRINGE. SQ SCH (21:28)
[2021-10-10 03:23] VITALS: BP 137/56
[2021-10-10] MEDS: PANTOPRAZOLE 40 MG TABLET.DR. PO SCH (06:10)
[2021-10-10] MEDS: GABAPENTIN 300 MG CAPSULE. PO SCH ×5 (06:10→23:32)
[2021-10-10 07:00] VITALS: BP 142/58
[2021-10-10] MEDS: BUDESONIDE 0.5 MG/2 ML NEBU. NEB SCH ×2 (07:57→20:30)
--- NOTE | 2021-10-10 08:41 | PDOC ---
PULMONARY PROGRESS NOTES DATE: 10/10/21 TIME: 08:41 Subjective Patient feels better with chest tube removed not more short of breath Vitals Vital Signs Date Time Temp Pulse Resp B/P (MAP) Pulse Ox O2 Delivery O2 Flow Rate FiO2 10/10/21 07:58 61 Room Air 10/10/21 07:00 97.3 60 18 142/58 (86) 97.3 Comments ros as mentioned as above other sys otherwise neg ROS: No Nausea, No Chest Pain, No Abdominal Pain, No Increase Cough General: Alert, No acute distress Lungs: Other (chest tube in place) Cardiovascular: S1, S2 Abdomen: Soft, Non-tender Neuro Exam: Alert, Oriented Extremities: No Edema Skin: Warm Labs Laboratory Tests Test 10/09/21 14:45 White Blood Count 11.1 x10^3/uL (4.0-11.0) Red Blood Count 3.80 x10^6/uL (3.50-5.40) Hemoglobin 10.2 g/dL (12.0-15.5) Hematocrit 31.8 % (36.0-47.0) Mean Corpuscular Volume 84 fL (79-100) Mean Corpuscular Hemoglobin 27 pg (25-35) Mean Corpuscular Hemoglobin Concent 32 g/dL (31-37) Red Cell Distribution Width 13.5 % (11.5-14.5) Platelet Count 448 x10^3/uL (140-400) Neutrophils (%) (Auto) 87 % (31-73) Lymphocytes (%) (Auto) 8 % (24-48) Monocytes (%) (Auto) 3 % (0-9) Eosinophils (%) (Auto) 1 % (0-3) Basophils (%) (Auto) 1 % (0-3) Neutrophils # (Auto) 9.7 x10^3/uL (1.8-7.7) Lymphocytes # (Auto) 0.9 x10^3/uL (1.0-4.8) Monocytes # (Auto) 0.3 x10^3/uL (0.0-1.1) Eosinophils # (Auto) 0.1 x10^3/uL (0.0-0.7) Basophils # (Auto) 0.1 x10^3/uL (0.0-0.2) Laboratory Tests Test 10/09/21 14:45 White Blood Count 11.1 x10^3/uL (4.0-11.0) Red Blood Count 3.80 x10^6/uL (3.50-5.40) Hemoglobin 10.2 g/dL (12.0-15.5) Hematocrit 31.8 % (36.0-47.0) Mean Corpuscular Volume 84 fL (79-100) Mean Corpuscular Hemoglobin 27 pg (25-35) Mean Corpuscular Hemoglobin Concent 32 g/dL (31-37) Red Cell Distribution Width 13.5 % (11.5-14.5) Platelet Count 448 x10^3/uL (140-400) Neutrophils (%) (Auto) 87 % (31-73) Lymphocytes (%) (Auto) 8 % (24-48) Monocytes (%) (Auto) 3 % (0-9) Eosinophils (%) (Auto) 1 % (0-3) Basophils (%) (Auto) 1 % (0-3) Neutrophils # (Auto) 9.7 x10^3/uL (1.8-7.7) Lymphocytes # (Auto) 0.9 x10^3/uL (1.0-4.8) Monocytes # (Auto) 0.3 x10^3/uL (0.0-1.1) Eosinophils # (Auto) 0.1 x10^3/uL (0.0-0.7) Basophils # (Auto) 0.1 x10^3/uL (0.0-0.2) Medications Active Scripts Medications Dose Route/Sig Max Daily Dose Days Date Category Tums (Calcium Carbonate) 200 Mg Tab.chew 200 Mg PO PRN PRN 09/29/21 Reported Vitamin B Complex 1 Each Capsule 1 Each PO DAILY 09/29/21 Reported Calcium 600+D Plus Minerals Tb (Calcium Carb/Vit D3/Minerals) 1 Each Tablet 1 Each PO DAILY 09/29/21 Reported Donepezil Hcl 10 Mg Tablet 1 Tab PO DAILY 09/29/21 Reported Azelastine HCl 205.5 Mcg/0.137 Ml [place].pump 2 [place] NS BID 30 09/29/21 Reported Flonase Allergy Relief (Fluticasone Propionate) 9.9 Ml [place].susp 2 Sprays NS DAILY 09/29/21 Reported Benzonatate 200 Mg Capsule 200 Mg PO BID 09/29/21 Reported Proair Hfa Inhaler (Albuterol Sulfate) 8.5 Gm Hfa.aer.ad 2 Puff IH BID 21 09/29/21 Reported Ibuprofen 800 Mg Tablet 800 Mg PO Q6HRS PRN 09/29/21 Reported Gabapentin (Gabapentin) 300 Mg Capsule 300 Mg PO Q6HRS 09/29/21 Reported Cetirizine Hcl 10 Mg Tablet 10 Mg PO DAILY 30 12/21/20 Rx Flovent 100MCG Diskus (Fluticasone Propionate) 100 Mcg Disk.w.dev 1 Puff IH BID 03/20/17 Reported Montelukast Sodium Tablet (Montelukast Sodium) 10 Mg Tablet 1 Tab PO DAILY 03/21/16 Reported Famotidine 40 Mg Tablet 40 Mg PO HS 03/21/16 Reported Impression . 1. Acute hypoxic respiratory failure secondary to community-acquired pneumonia with empyema. Less likely malignancy, status post right chest tube placement 10/01/[address] chest 3. History of a chronic cough, which had an extensive workup in the past with Dr. Jacobs, her assistant chief engineer. It was attributed to reactive airway disease. She had a prior bronchoscopies and even biopsies. 4. No significant tobaccoism. 5. Marked leukocytosis since admission. CT chest 10/09 IMPRESSION: 1. Decreased volume of right-sided empyema with appropriately placed pigtail chest tube on the right lateral pleural space. Mild increased subcutaneous emphysema associated with the tube. Decreased consolidation in the right lower and right middle lobes. 2. There has been interval developmental of a small left pleural effusion. Plan . Updated 10/10 Chest tube removed yesterday No new problems Discussed with Dr. Aguilar, waiting Covid testing prior to transfer Augmentin Repeat CT chest in 2 months Updated 10/09 CT chest reviewed much improved Discontinue chest tube Discussed with Dr. Aguilar Transferred SNU in am Continue Augmentin for total of 3 months Follow-up with Dr. Jordan in 2 months with a repeat CT chest 10/[address] chest Continues to drain some fluid, it slowed down quite a bit Continue current antibiotics Discussed with daughter at the bedside HUNTER CUEVA MD Oct 10, 2021 08:41
[2021-10-10] MEDS: PSYLLIUM HUSK (SUGAR FREE) 1 PKT PACKET PO SCH ×2 (08:54→21:00)
[2021-10-10] MEDS: LACTOBACILLUS RHAMNOSUS GG 1 CAPSULE. PO SCH ×2 (08:55→21:00)
[2021-10-10] MEDS: CALCIUM CARB/VIT D3 500/200 TABLET. PO SCH (08:55)
[2021-10-10] MEDS: MONTELUKAST SODIUM 10 MG TABLET. PO SCH (08:55)
[2021-10-10] MEDS: NYSTATIN 100,000 UNITS/ML 5 ML ORAL.SUSP. SWSW SCH ×4 (08:55→21:00)
[2021-10-10] MEDS: ASPIRIN ENTERIC COATED 81 MG TABLET.DR. PO SCH (08:57)
[2021-10-10] MEDS: AMOXICILLIN/K CLAV 875/125MG TABLET. PO SCH ×2 (08:57→21:00)
[2021-10-10] MEDS: DONEPEZIL HCL 10 MG TABLET. PO SCH (08:57)
[2021-10-10] MEDS: DOXYCYCLINE HYCLATE 100 MG TABLET PO SCH ×2 (08:57→21:00)
[2021-10-10] MEDS: METOPROLOL TART IMMED RELEASE 25 MG TABLET. PO SCH ×2 (08:57→21:00)
[2021-10-10] MEDS: CETIRIZINE HCL 10 MG TABLET. PO SCH (08:58)
[2021-10-10] MEDS: NYSTATIN TOPICAL POWDER 15GM BOTTLE. TP SCH ×2 (08:58→22:01)
[2021-10-10] MEDS: FLUTICASONE 50MCG/NASAL SPRAY 16GM BOTTLE. NS SCH (08:58)
[2021-10-10] MEDS: DICLOFENAC SODIUM 1% TOPICAL GEL 100GM TUBE. TP SCH ×2 (08:58→21:00)
[2021-10-10] MEDS: ACETAMINOPHEN 325 MG TABLET. PO SCH ×3 (09:00→21:00)
[2021-10-10] MEDS: BENZONATATE 100 MG CAPSULE. PO SCH ×2 (09:00→21:00)
--- NOTE | 2021-10-10 09:51 | NUR ---
SS following up with discharge planning. SS reviewed pt chart and discussed with pt RN. Pt is currently on room air. Chest tube removed. PT/OT recommended alf unit. Pt's family agreeable to alf unit and requested referrals to #[facility] [place], ; fax [phone], and #[facility], ; fax [phone]. COVID19 PCR test pending for placement. Referrals sent as requested. Pt is fully vaccinated per family. SS will continue to follow for discharge planning.
--- NOTE | 2021-10-10 10:26 | PDOC ---
SIMON LARRY KILN REMOVER 10/10/21 1026: CARDIO Progress Notes Date and Time Date of Service 10/10/21 Time of Evaluation 1020 Subjective Subjective: No Chest Pain, No Palpitations, No Dizziness, Other (dizzy upon standing today. was orthostatic ) Vitals Vitals Vital Signs Date Time Temp Pulse Resp B/P (MAP) Pulse Ox O2 Delivery O2 Flow Rate FiO2 10/10/21 08:57 60 142/58 10/10/21 07:58 61 Room Air 10/10/21 07:00 97.3 18 97.3 Weight Weight [ ] Input and Output Intake and Output Intake and Output 10/10/21 07:00 Intake Total 665 ml Output Total 300 ml Balance 365 ml Intake Oral 240 ml IV Total 425 ml Output Urine Total 300 ml # Voids 1 # Bowel Movements 3 Laboratory Labs Laboratory Tests Test 10/09/21 14:45 White Blood Count 11.1 x10^3/uL (4.0-11.0) Red Blood Count 3.80 x10^6/uL (3.50-5.40) Hemoglobin 10.2 g/dL (12.0-15.5) Hematocrit 31.8 % (36.0-47.0) Mean Corpuscular Volume 84 fL (79-100) Mean Corpuscular Hemoglobin 27 pg (25-35) Mean Corpuscular Hemoglobin Concent 32 g/dL (31-37) Red Cell Distribution Width 13.5 % (11.5-14.5) Platelet Count 448 x10^3/uL (140-400) Neutrophils (%) (Auto) 87 % (31-73) Lymphocytes (%) (Auto) 8 % (24-48) Monocytes (%) (Auto) 3 % (0-9) Eosinophils (%) (Auto) 1 % (0-3) Basophils (%) (Auto) 1 % (0-3) Neutrophils # (Auto) 9.7 x10^3/uL (1.8-7.7) Lymphocytes # (Auto) 0.9 x10^3/uL (1.0-4.8) Monocytes # (Auto) 0.3 x10^3/uL (0.0-1.1) Eosinophils # (Auto) 0.1 x10^3/uL (0.0-0.7) Basophils # (Auto) 0.1 x10^3/uL (0.0-0.2) Microbiology Micro Microbiology 10/01/21 Urine Culture - Final, Complete 10/01/21 Gram Stain - Final, Complete 10/01/21 Aerobic and Anaerobic Culture - Final, Complete Physical Exam HEENT: Neck Supple W Full Motion Chest: Symmetric LUNGS: Other (diminished) Heart: S1S2, RRR (SR/SB- HR near 55-60) Abdomen: Soft N/T Extremities: Other (1+ bilateral LE edema bilaterally ) Neurology: alert, oriented, follow commands Assessment Assessment 1. Acute respiratory failure secondary to pneumonia, right pleural effusion. s/p thoracentesis, chest tube placement due to empyema, s/p tpa CT 10/05. s/p chest tube removal 2. New onset AFIB with RVR. s/p IV metoprolol. converted back to SR and has been maintaining. Echo with LVEF 55% with moderate LV diastolic dysfunction and aortic root dilation at 4.0 cm. 3. Leukocytosis 4. Hyperlipidemia; LDL 112 5. ILDA; improved 6. Dementia 7. Dizziness; orthostatic hypotension 8. Protein calorie malnutrition Recommendations Will lower metoprolol to 12.5mg BID Apply compression stockings ASA therapy. Continue Lovenox VTE prophylaxis dosing. Event monitor to be placed prior to discharge Ongoing pulmonary optimization Supportive care Follow up in our office as scheduled. Justicifation of Admission Dx: Justifications for Admission: Justification of Admission Dx: Yes Fracture: Fracture ERIN CLARK MD 10/10/212056: CARDIO Progress Notes Assessment Assessment Patient seen and examined. Agree with PROCESS DEVELOPMENT TECHNICIAN's assessment plan. PAF, maintaining sinus rhythm. Plan for event monitor recorder placement upon DC Follow-up with our office as scheduled SIMON LARRY APRN Oct 10, 2021 10:26 ERIN CLARK MD Oct 10, 2021 20:57
[2021-10-10 10:47] VITALS: BP 122/53
--- NOTE | 2021-10-10 11:16 | RAD ---
XR CHEST 1V History: Reason: empyema / Spl. Instructions: / History: Comparison: October 09, 2021 Findings: Interval removal of right pigtail pleural catheter. Increased loculated small right pleural effusion. Small left pleural effusion, unchanged. Mild patchy bibasilar opacities, unchanged. Mild right chest wall gas, unchanged. Unchanged heart size. Prior granulous disease within the chest. No pneumothorax . Impression: 1. Interval removal of right pigtail pleural catheter. 2. Increased small right loculated pleural effusion. Electronically signed by: Lukasz Yost DO (10/10/2021 11:14 AM) [id number]
[2021-10-10 15:00] VITALS: BP 137/54
[2021-10-10] MEDS: ONDANSETRON PF 4 MG/2 ML VIAL. IVP PRN (17:21)
[2021-10-10 19:00] VITALS: BP 137/50
[2021-10-10] MEDS: ENOXAPARIN 40 MG/0.4 ML SYRINGE. SQ SCH (22:00)
--- NOTE | 2021-10-10 22:02 | NUR ---
Refused oral night meds @ this time. Claimed will take later.
--- NOTE | 2021-10-10 22:18 | PDOC ---
[facility] PROGRESS NOTE Date of Service DOS: DATE: 10/10/21 TIME: 22:17 Chief Complaint Chief Complaint Respiratory failure Hypoxia Right lower lobe pneumonia Right pleural effusion awaiting thoracentesis Hallucinations Asthma Chronic cough Bilateral knee pain HLD Neuropathy Dementia GERD Obesity Weakness Anemia History of Present Illness History of Present Illness 10/10 Evaluate examined at bedside. Doing well. Recommending placement patient agreeable. Can discharge once accepted at a facility. 10/09 -Examined at bedside. Still doing well from respiratory standpoint. Chest tube removed by Dr. Donato today. She will be able to discharge to rehab tomorrow. 10/08 Evaluated examined at bedside. Respiratory status stable. Chest tube still in place discussed with Dr. Donato, may be able to remove chest tube today. Hopeful for d/c in next few days. 10/07 Evaluated examined at bedside. Chest tube still in place but patient's respiratory status much improved. Continue daily chest x-rays. Once okay to remove chest tube will start discharge planning. 10/05 Patient evaluated examined at bedside. TPA chest tube today. Otherwise continue current plan. Discussed with artisan plasterer today. Discussed with bedside RN. 10/03 Patient evaluated examined at bedside. Chest tube in place with exudative effusion. Cytology studies pending. Continue antimicrobials. Multiple consultants following. Discussed with bedside RN. 10/02/2021 Patient seen and examined Discussed with RN Chart review Discussed with pulmonary physician Patient had a thoracentesis yesterday We are awaiting the results of the fluid analysis For now we are continuing IV antibiotics and breathing treatments and oxygen 10/01/2021 Patient seen and examined Discussed with RN Discussed with case management Chart reviewed Patient currently awaiting thoracentesis this morning On 2 L of nasal cannula oxygen Her creatinine has gone up to 1.6 her BUN is also up to 31 Her white count is also elevated from 18-36 I ordered normal saline at 75 and consulted nephrology Has also slipped into A. fib Cardiology consult pending We will give a dose of IV metoprolol until seen by cardiology 81yo female with PMHx asthma, HLD, peripheral neuropathy, GERD, obesity, and newly diagnosed dementia who comes to ED via [facility] complaining of progressive shortness of breath which has begun to worsen over the past 2 weeks. Over the past 2 days she has now had productive sputum that is yellow yellowish-brown with green. She has also been more weak over the past few days and her daughter notes she was having difficulty helping her walk and needed to keep 100% assist. Patient noted she was having trouble walking because of some right-sided chest pain. They contacted EMS. Upon EMS evaluation patient was noted to have O2 saturations in the low 80s and was placed on 5 L nasal cannula and arrived to the ED with this. No recent travel or sick contacts. She is fully vaccinated boosted against COVID-19 and influenza as well as pneumonia with Pneumovax and Prevnar She does have a chronic cough that lasted 10 years and has had significant work- up bronchoscopy with biopsies previously with Dr. Smart at [facility] 4 years ago. She was then referred to ENT sees Dr. Bernardo and has been on Flonase and azelastine. She did enter referral to Dr. Correia for asthma and allergies and has been Flovent albuterol montelukast nightly famotidine Tessalon. Since a hip fracture in December 2020 she has been struggling more with memory and is being treated for dementia at this time by Dr. Sánchez. She does note that she frequently hallucinates that her mom and dad are alive and they are helping take care of her at home, this is very concerning to her daughter and who are both bedside. He also notes she is struggled with bilateral knee pain and 1 month ago had bilateral corticosteroid injections and had relief for about 2 weeks but had to return for Synvisc injections bilaterally last week. She still having some posterior medial left knee pain currently. WBC 16.4, Hb 11.5, platelets 591, D-dimer 2.28, NA 136, K3.7, BUN 11, CR 1.2, calcium 9.3, bilirubin 0.7 AST 49, ALT 53, alkaline phosphatase 81, albumin 2.3, NT proBNP is 568, high-sensitivity troponin is less than 4 09/30/2021 No acute events overnight. Patient seen examined bedside.. Patient saturating well 91% on 3 L nasal cannula. and daughter at bedside. Stating the patient has had a chronic cough for the last 6 years. Patient also not more dyspneic than usual. No production of sputum. Plan for thoracentesis tomorrow with interventional radiology. Patient's chart, labs, images were reviewed and discussed with RN Vitals/I&O Vitals/I&O: Vital Signs Date Time Temp Pulse Resp B/P (MAP) Pulse Ox O2 Delivery O2 Flow Rate FiO2 10/10/21 20:32 94 Room Air 10/10/21 19:00 97.8 65 17 137/50 (79) 97.8 I & O 10/09/21 10/09/21 10/10/21 15:00 23:00 07:00 Intake Total 425 ml 240 ml 0 ml Output Total 300 ml Balance 425 ml -60 ml 0 ml Physical Exam General: Alert, Cooperative, mild distress Heart: Regular rate Lungs: Other (chest tube in place) Abdomen: Normal bowel sounds Extremities: No edema Skin: No significant lesion Assessment and Plan Assessmemt and Plan Problems Medical Problems: (1) Pneumonia Status: Acute Comment Review of Relevant I have reviewed the following items mariella (where applicable) has been applied. Justifications for Admission Other Justification ULICES CHUNG MD Oct 10, 2021 22:18
[2021-10-10 23:17] VITALS: BP 155/59
[2021-10-11 03:00] VITALS: BP 133/62
[2021-10-11] MEDS: BUDESONIDE 0.5 MG/2 ML NEBU. NEB SCH ×2 (06:12→19:47)
[2021-10-11] MEDS: PANTOPRAZOLE 40 MG TABLET.DR. PO SCH (06:51)
[2021-10-11] MEDS: GABAPENTIN 300 MG CAPSULE. PO SCH ×3 (06:51→16:22)
[2021-10-11 07:00] VITALS: BP 146/58
[2021-10-11] MEDS: NYSTATIN 100,000 UNITS/ML 5 ML ORAL.SUSP. SWSW SCH ×4 (09:00→20:39)
[2021-10-11] MEDS: BENZONATATE 100 MG CAPSULE. PO SCH ×2 (09:00→20:40)
[2021-10-11] MEDS: PSYLLIUM HUSK (SUGAR FREE) 1 PKT PACKET PO SCH (09:00)
[2021-10-11] MEDS: CALCIUM CARB/VIT D3 500/200 TABLET. PO SCH (09:00)
[2021-10-11] MEDS: AMOXICILLIN/K CLAV 875/125MG TABLET. PO SCH ×2 (09:07→20:39)
[2021-10-11] MEDS: LACTOBACILLUS RHAMNOSUS GG 1 CAPSULE. PO SCH ×2 (09:07→20:39)
[2021-10-11] MEDS: CETIRIZINE HCL 10 MG TABLET. PO SCH (09:07)
[2021-10-11] MEDS: ASPIRIN ENTERIC COATED 81 MG TABLET.DR. PO SCH (09:07)
[2021-10-11] MEDS: DOXYCYCLINE HYCLATE 100 MG TABLET PO SCH ×2 (09:07→20:41)
[2021-10-11] MEDS: ACETAMINOPHEN 325 MG TABLET. PO SCH ×3 (09:08→20:40)
[2021-10-11] MEDS: FLUTICASONE 50MCG/NASAL SPRAY 16GM BOTTLE. NS SCH (09:09)
[2021-10-11] MEDS: MONTELUKAST SODIUM 10 MG TABLET. PO SCH (09:09)
[2021-10-11] MEDS: DONEPEZIL HCL 10 MG TABLET. PO SCH (09:09)
[2021-10-11] MEDS: METOPROLOL TART IMMED RELEASE 25 MG TABLET. PO SCH ×2 (09:09→20:41)
[2021-10-11] MEDS: NYSTATIN TOPICAL POWDER 15GM BOTTLE. TP SCH ×2 (09:16→20:47)
[2021-10-11] MEDS: DICLOFENAC SODIUM 1% TOPICAL GEL 100GM TUBE. TP SCH ×2 (09:17→20:47)
--- NOTE | 2021-10-11 09:52 | PDOC ---
PULMONARY PROGRESS NOTES DATE: 10/11/21 TIME: 09:52 Subjective Patient feels much better not short of breath on room air Vitals Vital Signs Date Time Temp Pulse Resp B/P (MAP) Pulse Ox O2 Delivery O2 Flow Rate FiO2 10/11/21 09:09 67 146/58 10/11/21 07:00 97.7 20 95 Room Air 97.7 ROS: No Nausea, No Chest Pain, No Abdominal Pain, No Increase Cough General: Alert, No acute distress Lungs: Other (chest tube in place) Cardiovascular: S1, S2 Abdomen: Soft, Non-tender Neuro Exam: Alert, Oriented Extremities: No Edema Skin: Warm Labs Laboratory Tests Test 10/09/21 14:45 10/10/21 10:06 White Blood Count 11.1 x10^3/uL (4.0-11.0) Red Blood Count 3.80 x10^6/uL (3.50-5.40) Hemoglobin 10.2 g/dL (12.0-15.5) Hematocrit 31.8 % (36.0-47.0) Mean Corpuscular Volume 84 fL (79-100) Mean Corpuscular Hemoglobin 27 pg (25-35) Mean Corpuscular Hemoglobin Concent 32 g/dL (31-37) Red Cell Distribution Width 13.5 % (11.5-14.5) Platelet Count 448 x10^3/uL (140-400) Neutrophils (%) (Auto) 87 % (31-73) Lymphocytes (%) (Auto) 8 % (24-48) Monocytes (%) (Auto) 3 % (0-9) Eosinophils (%) (Auto) 1 % (0-3) Basophils (%) (Auto) 1 % (0-3) Neutrophils # (Auto) 9.7 x10^3/uL (1.8-7.7) Lymphocytes # (Auto) 0.9 x10^3/uL (1.0-4.8) Monocytes # (Auto) 0.3 x10^3/uL (0.0-1.1) Eosinophils # (Auto) 0.1 x10^3/uL (0.0-0.7) Basophils # (Auto) 0.1 x10^3/uL (0.0-0.2) Coronavirus (COVID-19)(PCR) Not detected (NOT DETECTD) Laboratory Tests Test 10/10/21 10:06 Coronavirus (COVID-19)(PCR) Not detected (NOT DETECTD) Medications Active Scripts Medications Dose Route/Sig Max Daily Dose Days Date Category Tums (Calcium Carbonate) 200 Mg Tab.chew 200 Mg PO PRN PRN 09/29/21 Reported Vitamin B Complex 1 Each Capsule 1 Each PO DAILY 09/29/21 Reported Calcium 600+D Plus Minerals Tb (Calcium Carb/Vit D3/Minerals) 1 Each Tablet 1 Each PO DAILY 09/29/21 Reported Donepezil Hcl 10 Mg Tablet 1 Tab PO DAILY 09/29/21 Reported Azelastine HCl 205.5 Mcg/0.137 Ml Correll.pump 2 Correll NS BID 30 09/29/21 Reported Flonase Allergy Relief (Fluticasone Propionate) 9.9 Ml Correll.susp 2 Sprays NS DAILY 09/29/21 Reported Benzonatate 200 Mg Capsule 200 Mg PO BID 09/29/21 Reported Proair Hfa Inhaler (Albuterol Sulfate) 8.5 Gm Hfa.aer.ad 2 Puff IH BID 21 09/29/21 Reported Ibuprofen 800 Mg Tablet 800 Mg PO Q6HRS PRN 09/29/21 Reported Gabapentin (Gabapentin) 300 Mg Capsule 300 Mg PO Q6HRS 09/29/21 Reported Cetirizine Hcl 10 Mg Tablet 10 Mg PO DAILY 30 12/21/20 Rx Flovent 100MCG Diskus (Fluticasone Propionate) 100 Mcg Disk.w.dev 1 Puff IH BID 03/20/17 Reported Montelukast Sodium Tablet (Montelukast Sodium) 10 Mg Tablet 1 Tab PO DAILY 03/21/16 Reported Famotidine 40 Mg Tablet 40 Mg PO HS 03/21/16 Reported Impression . 1. Acute hypoxic respiratory failure secondary to community-acquired pneumonia with empyema. Less likely malignancy, status post right chest tube placement 10/01/[address] chest 3. History of a chronic cough, which had an extensive workup in the past with Dr. 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 It was attributed to reactive airway disease. She had a prior bronchoscopies and even biopsies. 4. No significant tobaccoism. 5. Marked leukocytosis since admission. CT chest 10/09 IMPRESSION: 1. Decreased volume of right-sided empyema with appropriately placed pigtail chest tube on the right lateral pleural space. Mild increased subcutaneous emphysema associated with the tube. Decreased consolidation in the right lower and right middle lobes. 2. There has been interval developmental of a small left pleural effusion. Plan . Updated 10 11 Discussed with case management Discussed with family at the bedside Chest tube removed / No new problems COVID-[address] chest in 2 months HUNTER CUEVA MD Oct 11, 2021 09:52
[2021-10-11 11:00] VITALS: BP 141/55
--- NOTE | 2021-10-11 11:23 | NUR ---
SS following up with discharge planning. SS reviewed pt chart and discussed with pt RN. Pt is currently on room air. COVID19 negative. PT/OT recommended jail unit. PO diet. Pt declined by [facility]. Pt accepted at [facility], ; fax [phone], and is able to admit tomorrow morning. SS discussed with pt's family. Pt will discharge tomorrow at 0900 and go to [facility] via [facility] transport, [id number]. Pt, pt's family, and pt's RN notified. SS will continue to follow for discharge planning.
--- NOTE | 2021-10-11 14:02 | RAD ---
EXAMINATION: XR CHEST 1V CLINICAL HISTORY: Empyema. TECHNIQUE: XR CHEST 1V COMPARISON: 10/10/2021 FINDINGS/ IMPRESSION: No evidence of significant interval change when accounting for differences in patient positioning and imaging technique. Similar-appearing lobulated right pleural fluid collection with overlying airspace disease. Stable ap pearance of the heart. Left lung. Decreased subcutaneous emphysema along the right hemithorax. Electronically signed by: Som Pike DO (10/11/2021 2:00 PM) [id number]
[2021-10-11 15:00] VITALS: BP 147/63
[2021-10-11 19:00] VITALS: BP 140/50
[2021-10-11] MEDS: ENOXAPARIN 40 MG/0.4 ML SYRINGE. SQ SCH (20:39)
[2021-10-11] MEDS ORDERED: ASPI-886 PO (21:13)
[2021-10-11] MEDS ORDERED: METO25TA4 PO (21:13)
--- NOTE | 2021-10-11 21:15 | SNU/HH DC ---
DISCHARGE ORDERS DISCHARGE INFORMATION: DISCHARGE DATE: Oct 12, 2021 FINAL DIAGNOSIS Problems Medical Problems: (1) Pneumonia Status: Acute CONDITION ON DISCHARGE: Stable CODE STATUS: Code Status: DNR/DNI PRISON: SNF STAY <30 DAYS: Yes POST DISCHARGE ORDERS: ACTIVITY ORDERS: Activity as tolerated, Other, see below WEIGHT BEARING STATUS: No restrictions, As tolerated DIET AFTER DISCHARGE: Cardiac WOUND/INCISION CARE: Ice to area for comfort, Keep wound/cast CDI, Do not change dressing CHECKS AFTER DISCHARGE: CHECKS AFTER DISCHARGE: Check blood press - daily TREATMENT/EQUIPMENT ORDERS: ADAPTIVE EQUIPMENT NEEDED: Walker Physical Therapy For: Evalulation/Treatment Occupational Therapy For: Evaluation/Treatment DISCHARGE MEDICATIONS: Home Meds Active Scripts Aspirin (ASPIRIN EC) 81 Mg Tablet.dr, 81 MG PO DAILYWBKFT for cad for 30 Days, #30 TAB.SR Prov:ULICES CHUNG MD 10/11/21 Metoprolol Tartrate (METOPROLOL TARTRATE) 25 Mg Tablet, 12.5 MG PO BID for htn for 30 Days, #30 TAB Prov:ULICES CHUNG MD 10/11/21 Cetirizine Hcl (CETIRIZINE HCL) 10 Mg Tablet, 10 MG PO DAILY for ALLERGIES for 30 Days, #30 TAB Prov:LEATHA VILLELA MD 12/21/20 Reported Medications Calcium Carbonate (TUMS) 200 Mg Tab.chew, 200 MG PO PRN PRN for HEARTBURN / GAS, TAB.CHEW 09/29/21 Vitamin B Complex (VITAMIN B COMPLEX) 1 Each Capsule, 1 EACH PO DAILY for supplement, CAP 09/29/21 Calcium Carb/Vit D3/Minerals (CALCIUM 600+D PLUS MINERALS TB) 1 Each Tablet, 1 EACH PO DAILY for supplement, TAB 09/29/21 Donepezil Hcl (DONEPEZIL HCL) 10 Mg Tablet, 1 TAB PO DAILY for cough, #90 TAB 1 Refill 09/29/21 Azelastine HCl (Azelastine HCl) 205.5 Mcg/0.137 Ml Ely.pump, 2 SPRAY NS BID for cough for 30 Days, #30 ML 0 Refills 09/29/21 Fluticasone Propionate (Flonase Allergy Relief) 9.9 Ml Ely.susp, 2 SPRAYS NS DAILY for cough, ML 09/29/21 Benzonatate (BENZONATATE) 200 Mg Capsule, 200 MG PO BID for cough, CAP 09/29/21 Albuterol Sulfate (PROAIR HFA INHALER) 8.5 Gm Hfa.aer.ad, 2 PUFF IH BID for cough for 21 Days, #1 INHALER 0 Refills 09/29/21 Ibuprofen (IBUPROFEN) 800 Mg Tablet, 800 MG PO Q6HRS PRN for INFLAMMATION, TAB 09/29/21 Gabapentin (GABAPENTIN ) 300 Mg Capsule, 300 MG PO Q6HRS for NEUROGENIC PAIN, CAP 09/29/21 Fluticasone Propionate (FLOVENT 100MCG DISKUS) 100 Mcg Disk.w.dev, 1 PUFF IH BID, #1 INHALER 5 Refills 03/20/17 Montelukast Sodium (MONTELUKAST SODIUM TABLET ) 10 Mg Tablet, 1 TAB PO DAILY, #30 TAB 5 Refills 03/21/16 Famotidine (FAMOTIDINE) 40 Mg Tablet, 40 MG PO HS, TAB 03/21/16 ULICES CHUNG MD Oct 11, 2021 21:15
--- NOTE | 2021-10-11 22:04 | PDOC ---
PROGRESS NOTES Date of Service: DATE: 10/11/21 TIME: 22:03 Subjective Subjective No new complaints Objective Objective Vital Signs Date Time Temp Pulse Resp B/P (MAP) Pulse Ox O2 Delivery O2 Flow Rate FiO2 10/11/21 20:41 66 140/50 10/11/21 20:00 Room Air 10/11/21 19:00 97.8 17 98 97.8 Intake and Output 10/11/21 07:00 Intake Total 560 ml Balance 560 ml Intake Oral 560 ml # Voids 3 # Bowel Movements 2 Physical Exam Abdomen: Normal bowel sounds Heart: Regular rate Extremities: No edema General: Alert, Cooperative, mild distress HEENT: Atraumatic, Mucous membr. moist/pink Lungs: Other (Decreased breath sounds) MUSCULOSKELETAL: Osteoarthritic changes both hands Neuro: Normal speech, Sensation intact Psych/Mental Status: Mood NL Skin: No significant lesion Assessment Assessment 1. Acute respiratory failure secondary to pneumonia, right pleural effusion. s/p thoracentesis, chest tube placement due to empyema, s/p tpa CT 10/05. s/p [facility] st tube removal 2. New onset AFIB with RVR. s/p IV metoprolol. converted back to SR and has been maintaining. Echo with LVEF 55% with moderate LV diastolic dysfunction and aortic root dilation at 4.0 cm. 3. Leukocytosis 4. Hyperlipidemia; LDL 112 5. ILDA; improved 6. Dementia 7. Dizziness; orthostatic hypotension 8. Protein calorie malnutrition Recommendations Continue BB ASA therapy. Continue Lovenox VTE prophylaxis dosing. Event monitor to be placed prior to discharge Ongoing pulmonary optimization Supportive care Follow up in our office as scheduled Plan Plan of Care Problems Medical Problems: (1) Pneumonia Status: Acute Comment Review of Relevant I have reviewed the following items mariella (where applicable) has been applied. Labs Microbiology 10/01/21 Urine Culture - Final, Complete 10/01/21 Gram Stain - Final, Complete 10/01/21 Aerobic and Anaerobic Culture - Final, Complete Vitals/I & O Vital Sign - Last 24 Hours 10/10/21 10/11/21 10/11/21 10/11/21 23:17 03:00 06:12 07:00 Temp 97.8 97.7 97.7 97.8 97.7 97.7 Pulse 74 72 67 Resp 16 16 20 B/P (MAP) 155/59 (91) 133/62 (85) 146/58 (87) Pulse Ox 94 94 95 O2 Delivery Room Air Room Air Room Air Room Air 10/11/21 10/11/21 10/11/21 10/11/21 08:00 09:09 11:00 15:00 Temp 97.8 98.1 97.8 98.1 Pulse 67 68 72 Resp 20 20 B/P (MAP) 146/58 141/55 (83) 147/63 (91) Pulse Ox 100 95 O2 Delivery Room Air Room Air Room Air 10/11/21 10/11/21 10/11/21 19:00 20:00 20:41 Temp 97.8 97.8 Pulse 66 66 Resp 17 B/P (MAP) 140/50 (80) 140/50 Pulse Ox 98 O2 Delivery Room Air Room Air Intake and Output 10/10/21 10/10/21 10/11/21 15:00 23:00 07:00 Intake Total 240 ml 200 ml 120 ml Balance 240 ml 200 ml 120 ml ERIN CLARK MD Oct 11, 2021 22:04
[2021-10-11 22:55] VITALS: BP 130/60
[2021-10-12] MEDS: GABAPENTIN 300 MG CAPSULE. PO SCH ×2 (00:55→06:13)
[2021-10-12 02:39] VITALS: BP 134/68
[2021-10-12 07:00] VITALS: BP 157/60
[2021-10-12] MEDS: BUDESONIDE 0.5 MG/2 ML NEBU. NEB SCH (07:11)
--- NOTE | 2021-10-12 07:50 | NUR ---
HEART MONITOR/EVENT MONITOR APPLIED TO PATIENTS' LEFT CHEST ORDERED, WILL SEND BOX WITH RETURN ADDRESS FOR MONITOR TO BE REMOVED AND RETURNED ON 10/26/21, PATIENTS' DAUGHTER AT THE BEDSIDE AND INFORMED.
[2021-10-12] MEDS: ASPIRIN ENTERIC COATED 81 MG TABLET.DR. PO SCH (08:11)
[2021-10-12] MEDS: LACTOBACILLUS RHAMNOSUS GG 1 CAPSULE. PO SCH (08:12)
[2021-10-12] MEDS: PANTOPRAZOLE 40 MG TABLET.DR. PO SCH (08:13)
--- NOTE | 2021-10-12 08:14 | PDOC ---
PULMONARY PROGRESS NOTES DATE: 10/12/21 TIME: 08:13 Subjective Patient feels much better not short of breath on room air Vitals Vital Signs Date Time Temp Pulse Resp B/P (MAP) Pulse Ox O2 Delivery O2 Flow Rate FiO2 10/12/21 07:12 92 Room Air 10/12/21 07:00 97.7 66 18 157/60 (92) 97.7 ROS: No Nausea, No Chest Pain, No Abdominal Pain, No Increase Cough General: Alert, No acute distress Lungs: Other (chest tube in place) Cardiovascular: S1, S2 Abdomen: Soft, Non-tender Neuro Exam: Alert, Oriented Extremities: No Edema Skin: Warm Labs Laboratory Tests Test 10/10/21 10:06 Coronavirus (COVID-19)(PCR) Not detected (NOT DETECTD) Medications Active Scripts Medications Dose Route/Sig Max Daily Dose Days Date Category Tums (Calcium Carbonate) 200 Mg Tab.chew 200 Mg PO PRN PRN 09/29/21 Reported Vitamin B Complex 1 Each Capsule 1 Each PO DAILY 09/29/21 Reported Calcium 600+D Plus Minerals Tb (Calcium Carb/Vit D3/Minerals) 1 Each Tablet 1 Each PO DAILY 09/29/21 Reported Donepezil Hcl 10 Mg Tablet 1 Tab PO DAILY 09/29/21 Reported Azelastine HCl 205.5 Mcg/0.137 Ml Stinnett.pump 2 [place]ett NS BID 30 09/29/21 Reported Flonase Allergy Relief (Fluticasone Propionate) 9.9 Ml [place]innett.susp 2 Sprays NS DAILY 09/29/21 Reported Benzonatate 200 Mg Capsule 200 Mg PO BID 09/29/21 Reported Proair Hfa Inhaler (Albuterol Sulfate) 8.5 Gm Hfa.aer.ad 2 Puff IH BID 21 09/29/21 Reported Ibuprofen 800 Mg Tablet 800 Mg PO Q6HRS PRN 09/29/21 Reported Gabapentin (Gabapentin) 300 Mg Capsule 300 Mg PO Q6HRS 09/29/21 Reported Cetirizine Hcl 10 Mg Tablet 10 Mg PO DAILY 30 12/21/20 Rx Flovent 100MCG Diskus (Fluticasone Propionate) 100 Mcg Disk.w.dev 1 Puff IH BID 03/20/17 Reported Montelukast Sodium Tablet (Montelukast Sodium) 10 Mg Tablet 1 Tab PO DAILY 03/21/16 Reported Famotidine 40 Mg Tablet 40 Mg PO HS 03/21/16 Reported Impression . 1. Acute hypoxic respiratory failure secondary to community-acquired pneumonia with empyema. Less likely malignancy, status post right chest tube placement 10/01/[address] chest 3. History of a chronic cough, which had an extensive workup in the past with Dr. 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 It was attributed to reactive airway disease. She had a prior bronchoscopies and even biopsies. 4. No significant tobaccoism. 5. Marked leukocytosis since admission. CT chest 10/09 IMPRESSION: 1. Decreased volume of right-sided empyema with appropriately placed pigtail chest tube on the right lateral pleural space. Mild increased subcutaneous emphysema associated with the tube. Decreased consolidation in the right lower and right middle lobes. 2. There has been interval developmental of a small left pleural effusion. Plan . Updated 4 7 Discussed with case management Discussed with family at the bedside Chest tube removed 10/09 No new problems COVID-[address] chest in 2 months HUNTER CUEVA MD Oct 12, 2021 08:14
[2021-10-12] MEDS: DONEPEZIL HCL 10 MG TABLET. PO SCH (08:16)
[2021-10-12] MEDS: ACETAMINOPHEN 325 MG TABLET. PO SCH (08:16)
[2021-10-12] MEDS: CETIRIZINE HCL 10 MG TABLET. PO SCH (08:17)
[2021-10-12 08:20] VITALS: BP 157/60
[2021-10-12] MEDS: AMOXICILLIN/K CLAV 875/125MG TABLET. PO SCH (08:20)
[2021-10-12] MEDS: METOPROLOL TART IMMED RELEASE 25 MG TABLET. PO SCH (08:20)
[2021-10-12] MEDS: DOXYCYCLINE HYCLATE 100 MG TABLET PO SCH (08:21)
[2021-10-12] MEDS: CALCIUM CARBONATE 500 MG TAB.CHEW PO PRN (08:22)
[2021-10-12] MEDS: FLUTICASONE 50MCG/NASAL SPRAY 16GM BOTTLE. NS SCH (08:24)
--- NOTE | 2021-10-12 09:30 | NUR ---
PATIENT LEAVES THE UNIT PER W/C AND ACCOMPANIED BY [facility] DRIVER AND PATIENTS' DAUGHTER AND SPOUSE AT THE BEDSIDE, EMOTIONAL SUPPORT GIVEN FOLLOW UP APPOINTMENTS ENCOURAGED.
--- NOTE | 2021-10-12 10:33 | PDOC ---
SIMON LARRY APRN 10/12/21 1033: CARDIO Progress Notes Date and Time Date of Service 10/12/21 Time of Evaluation 1000 Subjective Subjective: No Chest Pain, No shortness of breath, No Palpitations, No Dizziness Vitals Vitals Vital Signs Date Time Temp Pulse Resp B/P (MAP) Pulse Ox O2 Delivery O2 Flow Rate FiO2 10/12/21 08:20 66 157/60 10/12/21 07:12 92 Room Air 10/12/21 07:00 97.7 18 97.7 Weight Weight [ ] Input and Output Intake and Output Intake and Output 10/12/21 07:00 Intake Total 720 ml Balance 720 ml Intake Oral 720 ml # Voids 4 # Bowel Movements 4 Microbiology Micro Microbiology 10/01/21 Urine Culture - Final, Complete 10/01/21 Gram Stain - Final, Complete 10/01/21 Aerobic and Anaerobic Culture - Final, Complete Physical Exam HEENT: Neck Supple W Full Motion Chest: Symmetric LUNGS: Other (diminished) Heart: S1S2, RRR (SR) Abdomen: Soft N/T Extremities: Other (1+ bilateral LE edema bilaterally ) Neurology: alert, oriented, follow commands Assessment Assessment 1. Acute respiratory failure secondary to pneumonia, right pleural effusion. s/p thoracentesis, chest tube placement due to empyema, s/p tpa CT 10/05. s/p chest tube removal 2. New onset AFIB with RVR. s/p IV metoprolol. converted back to SR and has been maintaining. Echo with LVEF 55% with moderate LV diastolic dysfunction and aortic root dilation at 4.0 cm. 3. Leukocytosis 4. Hyperlipidemia; LDL 112 5. ILDA; improved 6. Dementia 7. Dizziness; orthostatic hypotension 8. Protein calorie malnutrition Recommendations Continue low-dose metoprolol for rate control LE compression stockings ASA therapy. Event monitor to be placed prior to discharge to guide therapy Supportive care Okay to transfer from a CV standpoint Follow up in our office as scheduled. Justicifation of Admission Dx: Justifications for Admission: Justification of Admission Dx: Yes Fracture: Fracture ERIN CLARK MD 10/12/21 2222: CARDIO Progress Notes Assessment Assessment Patient seen and examined. Agree with DEPUTY DIRECTOR's assessment plan. PAF, maintaining sinus rhythm. Plan for event monitor recorder placement upon DC Follow-up with our office as scheduled SIMON LARRY APRN Oct 12, 2021 10:33 ERIN CLARK MD Oct 12, 2021 22:22
--- NOTE | 2021-10-14 20:50 | PDOC ---
[facility] [facility] PROGRESS NOTE Date of Service DOS: 10/12 late entry Chief Complaint Chief Complaint Respiratory failure Hypoxia Right lower lobe pneumonia Right pleural effusion awaiting thoracentesis Hallucinations Asthma Chronic cough Bilateral knee pain HLD Neuropathy Dementia GERD Obesity Weakness Anemia History of Present Illness History of Present Illness 10/11 seen at bedside. continue current. d/c tomorrow 10/10 Evaluate examined at bedside. Doing well. Recommending placement patient agreeable. Can discharge once accepted at a facility. 10/09 -Examined at bedside. Still doing well from respiratory standpoint. Chest tube removed by Dr. Donato today. She will be able to discharge to rehab tomorrow. 10/08 Evaluated examined at bedside. Respiratory status stable. Chest tube still in place discussed with Dr. Donato, may be able to remove chest tube today. Hopeful for d/c in next few days. 10/07 Evaluated examined at bedside. Chest tube still in place but patient's respiratory status much improved. Continue daily chest x-rays. Once okay to remove chest tube will start discharge planning. 10/05 Patient evaluated examined at bedside. TPA chest tube today. Otherwise continue current plan. Discussed with vp project today. Discussed with bedside RN. 10/03 Patient evaluated examined at bedside. Chest tube in place with exudative effusion. Cytology studies pending. Continue antimicrobials. Multiple consultants following. Discussed with bedside RN. 10/02/2021 Patient seen and examined Discussed with RN Chart review Discussed with pulmonary physician Patient had a thoracentesis yesterday We are awaiting the results of the fluid analysis For now we are continuing IV antibiotics and breathing treatments and oxygen 10/01/2021 Patient seen and examined Discussed with RN Discussed with case management Chart reviewed Patient currently awaiting thoracentesis this morning On 2 L of nasal cannula oxygen Her creatinine has gone up to 1.6 her BUN is also up to 31 Her white count is also elevated from 18-36 I ordered normal saline at 75 and consulted nephrology Has also slipped into A. fib Cardiology consult pending We will give a dose of IV metoprolol until seen by cardiology 81yo female with PMHx asthma, HLD, peripheral neuropathy, GERD, obesity, and newly diagnosed dementia who comes to ED via [facility] complaining of progressive shortness of breath which has begun to worsen over the past 2 weeks. Over the past 2 days she has now had productive sputum that is yellow yellowish-brown with green. She has also been more weak over the past few days and her daughter notes she was having difficulty helping her walk and needed to keep 100% assist. Patient noted she was having trouble walking because of some right-sided chest pain. They contacted EMS. Upon EMS evaluation patient was noted to have O2 saturations in the low 80s and was placed on 5 L nasal cannula and arrived to the ED with this. No recent travel or sick contacts. She is fully vaccinated boosted against COVID-19 and influenza as well as pneumonia with Pneumovax and Prevnar She does have a chronic cough that lasted 10 years and has had significant work-up bronchoscopy with biopsies previously with Dr. Smart at [facility] 4 years ago. She was then referred to ENT sees Dr. Bernardo and has been on Flonase and azelastine. She did enter referral to Dr. Correia for asthma and allergies and has been Flovent albuterol montelukast nightly famotidine Tessalon. Since a hip fracture in December 2020 she has been struggling more with memory and is being treated for dementia at this time by Dr. Sánchez. She does note that she frequently hallucinates that her mom and dad are alive and they are helping take care of her at home, this is very concerning to her daughter and who are both bedside. He also notes she is struggled with bilateral knee pain and 1 month ago had bilateral corticosteroid injections and had relief for about 2 weeks but had to return for Synvisc injections bilaterally last week. She still having some posterior medial left knee pain currently. WBC 16.4, Hb 11.5, platelets 591, D-dimer 2.28, NA 136, K3.7, BUN 11, CR 1.2, calcium 9.3, bilirubin 0.7 AST 49, ALT 53, alkaline phosphatase 81, albumin 2.3, NT proBNP is 568, high-sensitivity troponin is less than 4 09/30/2021 No acute events overnight. Patient seen examined bedside.. Patient saturating well 91% on 3 L nasal cannula. and daughter at bedside. Stating the patient has had a chronic cough for the last 6 years. Patient also not more dyspneic than usual. No production of sputum. Plan for thoracentesis tomorrow with interventional radiology. Patient's chart, labs, images were reviewed and discussed with RN Physical Exam General: Alert, Cooperative, mild distress Heart: Regular rate Lungs: Other (chest tube in place) Abdomen: Normal bowel sounds Extremities: No edema Skin: No significant lesion Assessment and Plan Assessmemt and Plan Problems Medical Problems: (1) Pneumonia Status: Acute Comment Review of Relevant I have reviewed the following items mariella (where applicable) has been applied. Justifications for Admission Other Justification ULICES CHUNG MD Oct 14, 2021 20:50
--- NOTE | 2021-10-14 20:52 | PDOC3 ---
[facility]-Discharge Summary Date of Admission: Date of Admission: Sep 29, 2021 Date of Discharge: Date of Discharge: Oct 12, 2021 Admission Diagnosis: Admitting Diagnosis: sob Hospital Course: Hospital Course: Chief Complaint Respiratory failure Hypoxia Right lower lobe pneumonia Right pleural effusion awaiting thoracentesis Hallucinations Asthma Chronic cough Bilateral knee pain HLD Neuropathy Dementia GERD Obesity Weakness Anemia History of Present Illness History of Present Illness 10/12 discharge to facility. greater than 30min spent on d/c 10/11 seen at bedside. continue current. d/c tomorrow 10/10 Evaluate examined at bedside. Doing well. Recommending placement patient agreeable. Can discharge once accepted at a facility. 10/09 -Examined at bedside. Still doing well from respiratory standpoint. Chest tube removed by Dr. Donato today. She will be able to discharge to rehab tomorrow. 10/08 Evaluated examined at bedside. Respiratory status stable. Chest tube still in place discussed with Dr. Donato, may be able to remove chest tube today. Hopeful for d/c in next few days. 10/07 Evaluated examined at bedside. Chest tube still in place but patient's respiratory status much improved. Continue daily chest x-rays. Once okay to remove chest tube will start discharge planning. 10/05 Patient evaluated examined at bedside. TPA chest tube today. Otherwise continue current plan. Discussed with parliamentary librarian today. Discussed with nithya rangel RN. 10/03 Patient evaluated examined at bedside. Chest tube in place with exudative effusion. Cytology studies pending. Continue antimicrobials. Multiple consultants following. Discussed with bedside RN. 10/02/2021 Patient seen and examined Discussed with RN Chart review Discussed with pulmonary physician Patient had a thoracentesis yesterday We are awaiting the results of the fluid analysis For now we are continuing IV antibiotics and breathing treatments and oxygen Disposition: Disposition/Orders: D/C to Another Facility Activity: Activity: Resume previous activity Diet: Diet: Regular Medications: Home Meds Active Scripts Aspirin (ASPIRIN EC) 81 Mg Tablet., 81 MG PO DAILYWBKFT for cad for 30 Days, #30 TAB.SR Prov:ULICES CHUNG MD 10/11/21 Metoprolol Tartrate (METOPROLOL TARTRATE) 25 Mg Tablet, 12.5 MG PO BID for htn for 30 Days, #30 TAB Prov:ULICES CHUNG MD 10/11/21 Cetirizine Hcl (CETIRIZINE HCL) 10 Mg Tablet, 10 MG PO DAILY for ALLERGIES for 30 Days, #30 TAB Prov:LEATHA VILLELA MD 12/21/20 Reported Medications Calcium Carbonate (TUMS) 200 Mg Tab.chew, 200 MG PO PRN PRN for HEARTBURN / GAS, TAB.CHEW 09/29/21 Vitamin B Complex (VITAMIN B COMPLEX) 1 Each Capsule, 1 EACH PO DAILY for supplement, CAP 09/29/21 Calcium Carb/Vit D3/Minerals (CALCIUM 600+D PLUS MINERALS TB) 1 Each Tablet, 1 EACH PO DAILY for supplement, TAB 09/29/21 Donepezil Hcl (DONEPEZIL HCL) 10 Mg Tablet, 1 TAB PO DAILY for cough, #90 TAB 1 Refill 09/29/21 Azelastine HCl (Azelastine HCl) 205.5 Mcg/0.137 Ml [place].pump, 2 SPRAY NS BID for cough for 30 Days, #30 ML 0 Refills 09/29/21 Fluticasone Propionate (Flonase Allergy Relief) 9.9 Ml [place].susp, 2 SPRAYS NS DAILY for cough, ML 09/29/21 Benzonatate (BENZONATATE) 200 Mg Capsule, 200 MG PO BID for cough, CAP 09/29/21 Albuterol Sulfate (PROAIR HFA INHALER) 8.5 Gm Hfa.aer.ad, 2 PUFF IH BID for cough for 21 Days, #1 INHALER 0 Refills 09/29/21 Ibuprofen (IBUPROFEN) 800 Mg Tablet, 800 MG PO Q6HRS PRN for INFLAMMATION, TAB 09/29/21 Gabapentin (GABAPENTIN ) 300 Mg Capsule, 300 MG PO Q6HRS for NEUROGENIC PAIN, CAP 09/29/21 Fluticasone Propionate (FLOVENT 100MCG DISKUS) 100 Mcg Disk.w.dev, 1 PUFF IH BID, #1 INHALER 5 Refills 03/20/17 Montelukast Sodium (MONTELUKAST SODIUM TABLET ) 10 Mg Tablet, 1 TAB PO DAILY, #30 TAB 5 Refills 03/21/16 Famotidine (FAMOTIDINE) 40 Mg Tablet, 40 MG PO HS, TAB 03/21/16 Scheduled Albuterol Sulfate (Proair Hfa Inhaler), 2 PUFF IH BID, (Reported) Aspirin (Aspirin Ec), 81 MG PO DAILYWBKFT Azelastine HCl (Azelastine HCl), 2 SPRAY NS BID, (Reported) Benzonatate (Benzonatate), 200 MG PO BID, (Reported) Calcium Carb/Vit D3/Minerals (Calcium 600+D Plus Minerals Tb), 1 EACH PO DAILY, (Reported) Cetirizine Hcl (Cetirizine Hcl), 10 MG PO DAILY Donepezil Hcl (Donepezil Hcl), 1 TAB PO DAILY, (Reported) Famotidine (Famotidine), 40 MG PO HS, (Reported) Fluticasone Propionate (Flovent 100MCG Diskus), 1 PUFF IH BID, (Reported) Fluticasone Propionate (Flonase Allergy Relief), 2 SPRAYS NS DAILY, (Reported) Gabapentin (Gabapentin ), 300 MG PO Q6HRS, (Reported) Metoprolol Tartrate (Metoprolol Tartrate), 12.5 MG PO BID Montelukast Sodium (Montelukast Sodium Tablet ), 1 TAB PO DAILY, (Reported) Vitamin B Complex (Vitamin B Complex), 1 EACH PO DAILY, (Reported) Scheduled PRN Calcium Carbonate (Tums), 200 MG PO PRN PRN for HEARTBURN / GAS, (Reported) Ibuprofen (Ibuprofen), 800 MG PO Q6HRS PRN for INFLAMMATION, (Reported) Justicifation of Admission Dx: Justifications for Admission: Justification of Admission Dx: Yes Fracture: Fracture ULICES CHUNG MD Oct 14, 2021 20:52
== END 2021-10-12 09:50 | DRG 871 ==
LOC: ER 08:45 → 5 NORTH 13:00
PROVIDERS: ADMIT Internal Medicine; ATTEND Internal Medicine
PROC: 0W9930Z Drainage of Right Pleural Cavity with Drainage Device, Percutaneous Approach (ICD-10-PCS; principal; 2021-10-02)
PROC: 0W9930Z Drainage of Right Pleural Cavity with Drainage Device, Percutaneous Approach (ICD-10-PCS; 2021-10-05)
PROC: 3E03317 Introduction of Other Thrombolytic into Peripheral Vein, Percutaneous Approach (ICD-10-PCS; 2021-10-05)
DX: A41.9 Sepsis, unspecified organism (principal); J15.6 Pneumonia due to other Gram-negative bacteria; J96.01 Acute respiratory failure with hypoxia; J86.9 Pyothorax without fistula; E87.1 Hypo-osmolality and hyponatremia; E46 Unspecified protein-calorie malnutrition; T79.7XXA Traumatic subcutaneous emphysema, initial encounter; N17.9 Acute kidney failure, unspecified; I48.91 Unspecified atrial fibrillation; D75.839 Thrombocytosis, unspecified; D72.829 Elevated white blood cell count, unspecified; D63.8 Anemia in other chronic diseases classified elsewhere; D72.821 Monocytosis (symptomatic); E66.9 Obesity, unspecified; E78.00 Pure hypercholesterolemia, unspecified; E78.5 Hyperlipidemia, unspecified; F03.90 Unspecified dementia, unspecified severity, without behavioral disturbance, psychotic disturbance, mood disturbance, and anxiety; G62.9 Polyneuropathy, unspecified; I25.10 Atherosclerotic heart disease of native coronary artery without angina pectoris; I48.0 Paroxysmal atrial fibrillation; I77.810 Thoracic aortic ectasia; I95.1 Orthostatic hypotension; J43.9 Emphysema, unspecified; K21.9 Gastro-esophageal reflux disease without esophagitis; M19.90 Unspecified osteoarthritis, unspecified site; Z66 Do not resuscitate; Z79.01 Long term (current) use of anticoagulants; Z82.49 Family history of ischemic heart disease and other diseases of the circulatory system; Z90.710 Acquired absence of both cervix and uterus; Z96.641 Presence of right artificial hip joint; Z90.49 Acquired absence of other specified parts of digestive tract; Z68.35 Body mass index [BMI] 35.0-35.9, adult; Z20.822 Contact with and (suspected) exposure to COVID-19; I12.9 Hypertensive chronic kidney disease with stage 1 through stage 4 chronic kidney disease, or unspecified chronic kidney disease; N18.31 Chronic kidney disease, stage 3a
CPT/HCPCS: 32557; 36415; 71045; 71250; 71275; 74230; 76770; 80048; 80053; 80061; 81001; 82550; 82945; 83615; 83735; 83880; 83986; 84157; 84443; 84484; 85007; 85025; 85027; 85379; 85610; 87075; 87086; 88112; 88305; 93005; 93306; 94640; 94760; 96374; 96375; J0696; J1160; J1650; J2020; J2405; J2543; J2930; J2997; J3010; J3490; J7030; J7060; Q9967; U0003; 92526-GN; 92610-GN; 92611-GN; 97110-GO; 97110-GP; 97530-GO; 97530-GP; 97535-GO; 99285-25; C8929; G0378; J7613; J7626